=== PATIENT | male | born 1945 | race Caucasian/White ===

== ENCOUNTER 2017-04-23 15:46 | Outpatient (CLI) | payer MEDICARE, OTHER | END 2017-04-23 15:47 | disposition home or self-care (01) | LOC: BICRAD 15:46 | PROVIDERS: ATTEND Podiatrist | DX: L97.529 Non-pressure chronic ulcer of other part of left foot with unspecified severity (principal); S92.912D Unspecified fracture of left toe(s), subsequent encounter for fracture with routine healing ==

== ENCOUNTER 2017-04-29 13:29 | Inpatient (IN) | payer MEDICARE, OTHER ==
--- NOTE | 2017-04-29 14:40 | CT ---
CT BRAIN WITHOUT CONTRAST: HISTORY: Altered mental status. FINDINGS: There are changes of chronic small-vessel ischemic disease in the periventricular white matter and ol d lacunar infarcts in the basal ganglia. The ventricular size is appropriate and the basilar cistern s are patent. No evidence of acute infarct, hemorrhage, midline shift, or abnormal extraaxial fluid collections are seen. The bony calvarium is intact. There is mucosal disease in the paranasal sinuse s. IMPRESSION: No CT evidence of acute intracranial process. POS: [facility]
[2017-04-29 14:44] LABS: Hemoglobin 13.6 g/dL (14.0-18.0); Mean Corpuscular HGB CONC 34.8 g/dL (32.0-36.0); Mean Corpuscular Hemoglobin 30.9 pg (27.0-31.0); Mean Corpuscular Volume 89.1 fl (80.0-94.0); Mean Platelet Volume 8.2 fL (7.4-10.4); Platelet Count 140 thou/uL (130-400); RBC Distribution Width 14.1 % (11.5-14.5); Red Blood Cell (RBC) Count 4.38 mill/uL (4.70-6.10); White Blood Cell (WBC) Count 5.2 thou/uL (4.8-10.8)
[2017-04-29 15:10] LABS: CKMB 1.6 ng/mL (0-6.6)
[2017-04-29 15:11] LABS: ALT (SGPT) 342 U/L (8-55); AST (SGOT) 562 U/L (5-34); Albumin 4.1 g/dL (3.4-4.8); Alkaline Phosphatase 334 U/L (40-150); Anion Gap 22 mmol/L (10-20); BUN (Urea Nitrogen) 38 mg/dL (8.4-25.7); Band 24 % (5-11); Bilirubin, Total 4.2 mg/dL (0.2-1.2); Calc. Creatinine Clearance 0 mL/min (70-130); Carbon Dioxide 18 mmol/L (23-31); Chloride 97 mmol/L (98-107); Dohle Bodies SLIGHT; Eosinophils 2 % (0-10); Estimated GFR-MDRD 25; Globulin 3.3 g/dL (2.4-3.5); Glucose 76 mg/dL (80-115); Lymphocytes 4 % (21-51); MDiff Complete? YES; Magnesium 1.3 mg/dL (1.6-2.6); Metamyelocyte 5 % (0-0); Monocytes 1 % (0-10); Myelocyte 1 % (0-0); Neutrophil 63 % (42-75); Ovalocytes SLIGHT = 2-5 cells (100X) (0-1/hpf); PLT Morphology Comment Appears Adequate; Polychromasia SLIGHT = 2-3 cells (100X) (0-2/hpf); Potassium 3.7 mmol/L (3.5-5.1); Protein, Total 7.4 g/dL (5.8-8.1); Sodium 133 mmol/L (136-145); Toxic Granulation SLIGHT; Vacuoles SLIGHT
[2017-04-29 15:17] LABS: Troponin I 0.894 ng/mL (< 0.028)
[2017-04-29] MEDS ORDERED: Adenosine 6 MG/2 ML VIAL ONE (15:33)
[2017-04-29 15:35] LABS: Acetaminophen Less than 6.0 mcg/mL (10.0-30.0); Alcohol Less than 10 mg/dL (Less than 10); Salicylate Less than 8.0 mg/dL (15.0-30.0)
--- NOTE | 2017-04-29 15:45 | RAD ---
CHEST ONE VIEW: History: Catatonic state. Emergency exam. Chest pain, shortness of breath. Comparison: None. FINDINGS: Left basilar airspace opacities present. Right lung is relatively clear. No pneumothorax. Multiple mediastinal wires. IMPRESSION: Left basilar airspace opacities concerning for infection. Follow up recommended. POS: [facility]
[2017-04-29] MEDS ORDERED: Aspirin 325 MG TAB ONE (15:47)
[2017-04-29] MEDS ORDERED: Enoxaparin Sodium 100 MG/ML SYRINGE ONE (15:47)
[2017-04-29 16:40] LABS: Bilirubin Large (Negative); Blood, Urine Trace (Negative); Clarity TURBID (Clear); Glucose, Urine (Dipstick) Negative (Negative); Leukocyte Trace (Negative); Specific Gravity, Urine 1.014 (1.002-1.036)
[2017-04-29 16:41] LABS: Bacteria/HPF None Seen HPF (None Seen)
[2017-04-29 16:42] LABS: Pathc Cast-AUWi Flag 3.52 (0-2.49)
[2017-04-29 16:50] LABS: Nitrite Negative (Negative); Protein, Urine (Dipstick) 100 mg/dL (Neg-Trace)
[2017-04-29 16:56] LABS: RBC/HPF 0-3 HPF (0-3); Squamous Epithelial 0-3 HPF (0-3); Transitional Epithelial 0-3 HPF (0-3); WBC/HPF 0-3 HPF (0-3)
[2017-04-29 16:57] LABS: Hyaline Casts/LPF 0-3 HYALINE CAST LPF (0-3 Hyaline); Other Casts/LPF None Seen LPF (0-3 Hyaline)
[2017-04-29] MEDS ORDERED: Piperacillin/Tazobactam 3.375 GM in Sodium Chloride 0.9% 100 ML IVPB SCH (17:00)
[2017-04-29 17:06] LABS: Amphetamine Not Detected (NotDetected); Barbiturates Screen Not Detected (NotDetected); Benzodiazepine Screen Not Detected (NotDetected); Cocaine Metabolite Screen Not Detected (NotDetected); Medtox Control Line Valid? VALID (VALID); Medtox Reader # READER 4; Methadone Not Detected (NotDetected); Methamphetamine Not Detected (NotDetected); Opiate Screen Not Detected (NotDetected); Oxycodone Screen Not Detected (NotDetected); Phencyclidine (PCP) Not Detected (NotDetected); THC/Cannabinoid Screen Not Detected (NotDetected); Tricyclic Screen Not Detected (NotDetected)
[2017-04-29] MEDS ORDERED: Lorazepam 2 MG/ML VIAL ONE (17:08)
[2017-04-29] MEDS ORDERED: Lidocaine 1% PF 5 ML VIAL ONE (18:03)
[2017-04-29 19:06] LABS: CSF Source CSF; Clarity Clear (Clear); Tube # 3
[2017-04-29 19:11] LABS: RBC Count - Manual 107 /cumm (None Seen); WBC/NonHematics Count - Manual 3 /cumm (0-5)
[2017-04-29 19:14] LABS: Unspun CSF Color PINK (Colorless)
[2017-04-29 19:15] LABS: Color Of CSF Supernatant COLORLESS (Colorless); Tube # 1
[2017-04-29 19:20] LABS: CSF, Glucose 35 mg/dl (40-70); CSF, Protein 49 mg/dL (15-40)
[2017-04-29 19:23] LABS: CSF Source CSF; Clarity Hazy (Clear); Tube # 1; WBC/NonHematics Count - Manual 3 /cumm (0-5)
[2017-04-29 19:24] LABS: RBC Count - Manual 10525 /cumm (None Seen)
[2017-04-29 19:34] LABS: CKMB 2.7 ng/mL (0-6.6)
[2017-04-29] MEDS ORDERED: Dextrose 50% Abboject 50 ML SYRINGE IVP PRN (19:52)
[2017-04-29] MEDS ORDERED: Dextrose 5% in Water 1,000 ML IV PRN (19:52)
[2017-04-29 19:53] LABS: Troponin I 0.998 ng/mL (< 0.028)
[2017-04-29] MEDS ORDERED: Lorazepam 2 MG/ML VIAL SLOW IVP PRN (19:53)
[2017-04-29] MEDS ORDERED: Acetaminophen 325 MG TAB PO PRN (19:56)
[2017-04-29] MEDS ORDERED: Ondansetron HCl/PF 4 MG/2 ML Vial SLOW IVP PRN (19:56)
[2017-04-29] MEDS ORDERED: cefTRIAXone\\ROCEPHIN 2 GM in Sodium Chloride 0.9% 100 ML IVPB SCH (21:00)
[2017-04-29] MEDS ORDERED: Diazepam 5 MG TAB PO SCH (21:00)
[2017-04-29] MEDS: guaiFENesin ER 600 MG TAB PO SCH (21:21)
[2017-04-29] MEDS: Sodium Chloride 0.9% 1,000 ML IV SCH (21:21)
[2017-04-29] MEDS: Azithromycin 500 MG in Sodium Chloride 0.9% 250 ML 250 ML IVPB SCH (22:54)
[2017-04-30] MEDS ORDERED: Sodium Chloride 0.9% 500 ML IVPB SCH (01:00)
--- NOTE | 2017-04-30 01:35 | HP ---
DATE OF ADMISSION: 04/29/2017 CHIEF COMPLAINT: Left lower lobe pneumonia with dehydration and alcohol withdrawal. HISTORY OF PRESENT ILLNESS: The patient is a 72-year-old white male who on the day prior to admissio n, vomited the entire day, feeling very weak and dry. He, however, was able to continue heavily drin slade alcohol and had his last alcoholic consumption on the evening prior to today. He was found amanda ier today by home health to be what looked like a catatonic state. She thought it might be a seizure , but the patient clearly states he was fully alert throughout the whole episode, recalls everything that occurred and there was no incontinence biting of the tongue, postictal state noted. He was, how ever, sent to the emergency room for further evaluation where he has been fluid rehydrated. He remai ns tachycardic at this time. He was 99.5 on arrival, but since being in the emergency room, his temp erature is elevated to 202. He has a hard time completing sentences. He is able to move all of his upper and lower extremities and at times pronounces worse very articulately, so I do not think he has had a stroke and CT done in the ER is negative. His blood alcohol level is not measurable indicatin g that he is probably incomplete alcohol withdrawal and/DTs and it was noted on chest x-ray that he h ad a left lower lobe infiltrate. PAST MEDICAL HISTORY: Significant for alcoholism, coronary artery disease, previous myocardial infar ction, diabetes non-insulin dependent, hyperlipidemia, hypertension, skin cancer, and generalized sei zures in the past, but it is interesting to note he is not on any seizure medication. When he came t o my office, I took over I saw him for care for the first time on 01/29/2017. He states that he has had coronary artery bypass graft surgery back in 1992. Last catheterization was in 01/30/2017. He h as severe peripheral vascular disease, previous surgeries include the aforementioned bypass graft patricia gayatri and multiple amputations to the toes on his feet. He has also had some skin cancer removed. Hi s bypass graft surgery was 3 vessels. SOCIAL HISTORY: Admits to being a very heavy drinker, former tobacco smoker. Denies illicit drug us e. ALLERGIES: He has no known drug allergies. MEDICATIONS ON ADMISSION: Amlodipine 5 mg daily, atorvastatin 40 mg at bedtime, glipizide 5 mg oral once a day, hydrochlorothiazide 25 mg daily, lisinopril 5 mg daily, metformin 500 mg b.i.d., omeprazo le 20 mg daily, Pletal 100 mg once a day, and hydralazine 25 mg p.r.n. elevated blood pressure. REVIEW OF SYSTEMS: On admission constitutionally at the time, he denied chills and fever; however, h zoë has that now. HEENT: Denies blurred vision, pain or discharge. ENT: Denies sore in his nose, mouth, ears no congestion. Cardiovascular: Denies chest pain or palp itations. Respiratory: Felder, he denies cough or shortness of breath. GI: He admits to nausea, vom iting, but denies diarrhea. Genitourinary: Denies any painful urination or frequency or blood in th e urine or stool. Musculoskeletal: Denies any recent injuries, pain, or swelling in his joints or l imbs. Skin: He is undergoing treatment for skin cancer on his forehead and so it is raw at this sivan e. Neurologic: He has had a history of 1 previous seizure in 11/2016. This was worked up in [facility] and he was not placed on any antiepileptic medication. He is able to speak words clearly, but simona ot complete a sentence at this time. PHYSICAL EXAMINATION: VITAL SIGNS: Blood pressure 115/48, pulse 120, respirations 18, temperature 99.5. Pain scale 0, O2 sat 96% on room air. GENERAL: This is an obese elderly male, alert, cooperative. HEENT: Normocephalic, atraumatic except for the raw area on his right cranium from where he has had skin cancer treatment within the commode [facility]. Pupils equal, round, and reactive to light. Extraoc ular muscles are intact. TMs and nares are clear. Pharynx is very dry. NECK: Supple, trachea midline. CHEST: Clear to auscultation except for diminished breath sounds in left lower lobe. HEART: Regular rate and rhythm, tachycardic. ABDOMEN: Without splenomegaly. Liver, however, is 2 fingerbreadths beneath the costal margin. Ther e is no mass or tenderness. : Deferred. EXTREMITIES: Without clubbing, cyanosis, or edema. He is missing toes on both feet due to periphera l vascular disease and there is undetectable pulses on the dorsum and pedis of both feet, and the ski n with skin changes in lower extremities and the acute lesion on the right top of his head otherwise clear. NEUROLOGIC: Cranial nerves appear grossly intact. Sensory exam is grossly intact. Deep tendon refl exes at 2+. LABORATORY AND X-RAY FINDINGS: Lab work thus far shows WBC 5.2, hemoglobin 13.6, hematocrit 39 with platelets at 140. Toxicology shows undetectable drugs or alcohol. Urinalysis shows trace ketones an d large bilirubin. Chemistry shows elevated liver test and indeterminate troponin. Sodium 133, pota ssium 3.7, chloride 97, BUN 38 and creatinine 2.58. The chest x-ray shows left lower lobe pneumonia. CT scan, no acute findings of the head. ASSESSMENT: 1. Dehydration, severe. 2. Left lower lobe pneumonia. 3. Alcohol withdrawal syndrome. 4. Elevated troponin with possible cardiac ischemia/non Q-wave myocardial infarction. 5. Non-insulin dependent diabetes. 6. Renal insufficiency, probably due to the dehydration and finally status post viral gastroenteriti s. PLAN: IMCU. IV hydration. Prevent DTs. Do serial cardiac enzymes with possible cardiac consultati on. Continue antibiotics with mucolytics and neb treatments and serially re-evaluate the patient and follow until return to normal of his cardiac enzymes. We will follow his creatinine and BUN closely to see if they improve with hydration.
[2017-04-30] MEDS: Dextrose 5% in Water 1,000 ML IV SCH ×3 (02:00→17:21)
[2017-04-30] MEDS: Sodium Chloride 0.9% 1,000 ML IV SCH (02:06)
--- NOTE | 2017-04-30 03:33 | CON ---
DATE OF CONSULTATION: 04/29/2017 HISTORY OF PRESENT ILLNESS: Joshua Clay is a 72-year-old white male with previous cardiac history of CABG x3 in 2013 at [facility] in [place] according to his history. Some of the aspects of his history were somewhat suspect. He denies ever being told that he had a weak heart. 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 He tells me that he drinks 2 glasses of wine per day; however, the nurse states the family says he drinks about two bottles of wine per day. He was found today by home health nurse, to be somewhat unresponsive. Ambulance was then called and he was brought to the hospital. He denied any chest pain, shortness of breath, cough, or fever at home. PAST MEDICAL HISTORY: Remarkable for hyperlipidemia, diabetes, hypertension, skin cancer, coronary artery disease, and apparently history of seizures. OPERATIONS: CABG x3, amputation of first and second left toes and his first right toe. MEDICATIONS: Amlodipine 10 mg q.a.m., atorvastatin 40 daily, glipizide 20 mg daily, hydrochlorothiazide 25 mg daily, lisinopril 40 mg daily, metformin 500 mg b.i.d., omeprazole 20 mg daily, Pletal 100 mg daily, hydralazine 25 mg p.r.n. ALLERGIES: None. SOCIAL HISTORY: He smoked a pipe, but stopped 10 years ago. He tells me that he drinks 2 glasses of wine per day. Apparently, the family told the nurse that he drinks 2 bottles of wine per day. REVIEW OF SYSTEMS: A 12-point review of systems is otherwise unremarkable. PHYSICAL EXAMINATION: VITAL SIGNS: When he arrived in the emergency room, his blood pressure was 99/ 47 with a pulse of 108 and then fell to 85/44. It is now up to 128/78, pulse of 120. HEENT: PERRL. Very dry mucous membranes. CHEST: Clear. CARDIAC: S1 and S2 are normal without any S3 or S4. There is a 1/6 systolic murmur along the left sternal border. ABDOMEN: Normal bowel sounds without tenderness or organomegaly. EXTREMITIES: Revealed no clubbing, cyanosis, or edema. Toe amputations are present. SKIN: Warm and dry. LABORATORY AND X-RAY FINDINGS: EKG revealed sinus tachycardia with a rate of 121 per minute with right bundle-branch block, evidence for an inferior and anterior infarction. Echo was technically difficult. There was sinus tachycardia, EF of 25-30%, inferior akinesis, diastolic dysfunction, LA enlargement, aortic valvular sclerosis, and mild MR and TR. Chest x-ray revealed possible left basilar infiltrate. Brain CT revealed no acute abnormalities. He did have small-vessel ischemic disease, periventricular white matter, and old lacunar infarcts in the basal ganglia. Hemoglobin 13.6, hematocrit 39.0, white count 5200, platelets 140,000. Sodium 133, potassium 3.7 , chloride 97, carbon dioxide 18, BUN 38, creatinine 2.58, glucose 76, AST 562, ALT 342, alkaline phosphatase 334. CK-MB is normal. Troponin I is 0.998. BNP is 985.8. Urinalysis is fairly unremarkable. Urine drug screen is unremarkable. Plasma alcohol was less than 10. IMPRESSION: 1. Probable seizure, which may be alcohol withdrawal related. 2. ETOH abuse. 3. Status post coronary artery bypass graft. 4. Probable demand ischemia without chest pain and with normal MB. 5. Sinus tachycardia. 6. Severe left ventricular systolic dysfunction. 7. Renal insufficiency, it is uncertain if this is chronic or acute. 8. Elevated liver function test, including alkaline phosphatase. PLAN: The patient currently is being hydrated. We would discontinue the lisinopril with his current renal function as well as the high-dose amlodipine. With his left ventricular dysfunction, I would start carvedilol. I also would hold the atorvastatin with his elevated liver function test. He certainly may be septic and broad-spectrum antibiotics have been started. He has been placed on thiamine. I will follow the patient with you. GLYNN
[2017-04-30] MEDS ORDERED: Sodium Chloride 0.9% 1,000 ML IV SCH (04:00)
[2017-04-30] MEDS ORDERED: Norepinephrine 8 MG/0.9% NS 250 ML ONE (04:31)
[2017-04-30] MEDS ORDERED: DISCONTINUE PREVIOUS NARCOTIC PAIN MEDICATIONS AND BENZODIAZEPINES FS SCH (04:53)
[2017-04-30] MEDS ORDERED: Morphine 2 MG/ML SYRINGE SLOW IVP PRN (04:53)
[2017-04-30] MEDS ORDERED: Lorazepam 2 MG/ML VIAL SLOW IVP PRN (04:53)
[2017-04-30 05:15] LABS: Actual Bicarbonate (HCO3a) 12.2 mEq/L (22-26); Base Excess (BEa) 16.7 mEq/L (0 (+/-) 2.5); CO2 Tension 40.9 mmHg (35.0-45.0); O2 Tension (PaO2) 56.2 mmHg (80.0-100.0); pH, Arterial 7.09 (7.35-7.45)
[2017-04-30 05:16] LABS: Hematocrit-ABG 29.1 % (42.0-52.0); Hemoglobin (Hb) 9.3 g/dL (14.0-18.0)
[2017-04-30 05:17] LABS: Puncture Site RRA
[2017-04-30 05:19] LABS: ALV-art Gradient 596.675 (0-20)
[2017-04-30 05:41] LABS: Band 30 % (5-11); Hemoglobin 10.2 g/dL (14.0-18.0); Lymphocytes 7 % (21-51); MDiff Complete? YES; Mean Corpuscular HGB CONC 33.2 g/dL (32.0-36.0); Mean Corpuscular Hemoglobin 30.4 pg (27.0-31.0); Mean Corpuscular Volume 91.4 fl (80.0-94.0); Mean Platelet Volume 9.8 fL (7.4-10.4); Monocytes 9 % (0-10); Neutrophil 54 % (42-75); PLT Morphology Comment Appears Decreased; Platelet Count 67 thou/uL (130-400); RBC Distribution Width 14.3 % (11.5-14.5); Red Blood Cell (RBC) Count 3.35 mill/uL (4.70-6.10); White Blood Cell (WBC) Count 15.6 thou/uL (4.8-10.8)
[2017-04-30 06:07] LABS: ALT (SGPT) 368 U/L (8-55); AST (SGOT) 679 U/L (5-34); Alkaline Phosphatase 181 U/L (40-150); Anion Gap 19 mmol/L (10-20); BUN (Urea Nitrogen) 46 mg/dL (8.4-25.7); Calc. Creatinine Clearance 27 mL/min (70-130); Calcium 7.6 mg/dL (7.8-10.44); Carbon Dioxide 13 mmol/L (23-31); Chloride 105 mmol/L (98-107); Estimated GFR-MDRD 20; Globulin 2.6 g/dL (2.4-3.5); Glucose 56 mg/dL (80-115); Potassium 3.2 mmol/L (3.5-5.1); Protein, Total 5.6 g/dL (5.8-8.1); Sodium 134 mmol/L (136-145)
--- NOTE | 2017-04-30 06:10 | PDOC.EVN ---
Event Note - Event Note Event Note: Attending Critical Care Time Note Called to code blue at about 3:45a. Arrived to find pateitn in cardiopulmonary failure. See Code Blue documentation and resident Physician's note for details. Patient intubated successfully by Dr Astorga, but an air leak noted with 7.5 ET tube. With O2 sats in the 80s, I decided to replace the ET tube with a larger size. Patient extubated, adn I successfully placed 8.0 ET tube. Placement confirmed by exam, coloric change, and CXR. EKG obtained and reviewed. No acute STEMI. Only lateral lead t-wave inversion. Right IJ CVC placed with ultrasound guidance. See separate note. Placement confirmed by blood return and CXR. Dr Mccracken consulted. We discussed the case together at the bedside following his arrival. Dr Mccracken performed Bronchoscopy. Blood and mucus removed. I updated the patient's via telephone twice over the past 2 hours. She appreciates our care. Patient is in criticla condition form pneumonia with septic shock, complicated by co-morbidities. Poor prognosis for recovery. I appreciate the nurses' excellent care and Dr Mccracken''s expertise and care. Total critical care time 2 hours.
[2017-04-30 06:36] LABS: Hemoglobin 10.8 g/dL (14.0-18.0); Mean Corpuscular Hemoglobin 30.7 pg (27.0-31.0); Mean Corpuscular Volume 93.1 fl (80.0-94.0); Mean Platelet Volume 9.7 fL (7.4-10.4); Platelet Count 109 thou/uL (130-400); RBC Distribution Width 14.4 % (11.5-14.5); Red Blood Cell (RBC) Count 3.51 mill/uL (4.70-6.10); White Blood Cell (WBC) Count 20.3 thou/uL (4.8-10.8)
--- NOTE | 2017-04-30 06:36 | PDOC.EVN ---
Event Note - Event Note Event Note: Code Note Code davin called overhead at approximately 0348. [facility] to bedside including myself, Dr. Pereira, and attending physician, Dr. Rodriguez. Patient noted to have blood pressures in the 40's/20's when we arrived, and we were told that he had a pulses present. The patient had NS hung running wide open on a peripheral IV. Stated history was that the patient was sent to the ER earlier today for altered mental status, alcohol withdrawal with possible seizure, and dehydration. On admission, he was found to have a left lower lobe pneumonia, demand ischemia, and severe renal insufficiency and was admitted to the [facility] by his primary care physician, Dr. Oscar Goncalves. The patient apparently deteriorated throughout the night with accuchecks in the 20's at one point, and blood pressures that slowly dropped and did not respond to fluids. According to nursing records, he was completely unresponsive to sternal rub at 0345, and code davin was called shortly thereafter. According to verbal report, the patient received a brief period of chest compressions and one round of epinephrine before it was realized that pulses were in fact present and CPR was suspended. We arrived in the room shortly after and prepared for intubation. The patient was being bagged by RT with BMV and oxygen saturations were in the 70's at that point. The glidescope was brought to the bedside, and we visualized Dr. Pereira pass a 7-0 ET tube through the vocal cords with adequate confirmation of placement afterwards. While blood pressures immediately normalized, the patient's oxygen saturations did not improve as quickly as expected and remained in the mid 80's. A portable CXR was reviewed that revealed the ETT to be placed almost at the william, so it was backed out 2cm by RT. White out of the right lung without effusion was also noted on the XR. CMP, CBC, and cardiac enzymes were ordered. At this time, the patient was moved from the IMCU to ICU bed A2. Patient's PIPE STEM REPAIRER, Swapna Boggs, arrived in the room at this point and apparently spoke with the pulmonology Once placed on the ventilator, the patient was noted to have an air leak and decision was made by Dr. Rodriguez to replace 7-0 ETT with 8-0 ETT using direct laryngoscopy with a Mac 3. Successful placement on second attempt by Dr. Rodriguez was confirmed with auscultation and good color changed. 2nd portable XR obtained and tube in good position. Air leak resolved and patient's oxygen saturation's transiently in the 90's on 100% FiO2. At this the point code was ended. Afterwards, we remained in the room to monitor the patient and added renally dosed Zosyn for aspiration coverage. The patient's oxygen saturations decreased again into the high to mid 80's. Ventilator settings were adjusted with minimal improvement. Patients blood pressures began to decline again and preparations were started for a right IJ CVC. Successful cannulation of the right IJ was obtained around 0530 in a sterile fashion by Dr. Pereira under ultrasound guidance. Levophed drip started at that point with improvement of both patient' s blood pressures and oxygen saturations. No sedation was given at any point. At this point pulmonology arrived to see the patient, and we deferred care back to the primary team. Please see separate dictations for further procedure details.
[2017-04-30 06:41] LABS: Prothrombin Time 23.1 SEC (12.0-14.7)
--- NOTE | 2017-04-30 06:52 | OP ---
DATE OF PROCEDURE: 04/30/2017 SURGEON: Dr. Mitchell Mccracken PROCEDURE: Bronchoscopy. PREOPERATIVE DIAGNOSIS: Right lung atelectasis. POSTOPERATIVE DIAGNOSIS: Right lung mucus plugging with atelectasis. ANESTHESIA: None. DESCRIPTION OF PROCEDURE: This was done on an emergent basis in the CCU. The patient was hypoxic and had white-out of his right lung on chest x-ray. Bronchoscope was placed in the patient's endotracheal tube while he was on mechanical ventilation. Notable findings included bloody mucus plug present in the right main stem bronchus extending into the right lower lobe. This was lavaged with saline and removed. There were some scant bloody secretions present in the left main stem bronchus and the left airway was also lavaged with saline and removed. The procedure was tolerated well. MTDD
--- NOTE | 2017-04-30 06:53 | CON ---
DATE OF CONSULTATION: 04/30/2017 This is a 45 minutes critical care time, non-inclusive of the time performed bronchoscopy and inserti ng arterial line. HISTORY OF PRESENT ILLNESS: This is a patient of Dr. Jose Goncalves, who was admitted last night with pneumonia and alcohol withdrawal. The patient came in with a history of heavy alcohol consumption a nd had been found at home in a catatonic state. The family was not sure this was consistent with pre vious seizures. The patient was initially admitted to the [facility], but had a cardiac arrest last night, presenting with pulseless electrical activity. Told he received chest compressions briefly, but was hypotensive with pressures in the 50s for at least 15 minutes. He was intubated. During the code, he had to be reintubated because of a cuff leak around his tube. He is now in the CCU hypotensive an d hypoxic. Family has not made it to the hospital yet. PAST MEDICAL HISTORY: 1. Alcoholism and alcohol abuse. 2. Coronary artery disease. 3. Myocardial infarction. 4. Type 2 diabetes mellitus. 5. Hyperlipidemia. 6. Hypertension. 7. Skin cancer. 8. Seizure disorder. 9. Peripheral vascular disease. PAST SURGICAL HISTORY: 1. Coronary artery bypass grafting surgery. 2. Multiple amputations of toes. 3. Skin cancer removal. SOCIAL HISTORY: Apparently heavy drinker, heavy smoker, does not use illicit drugs. ALLERGIES: None. MEDICATIONS: Prior to admission, amlodipine, atorvastatin, glipizide, hydrochlorothiazide, lisinopri l, metformin, omeprazole, Pletal, and hydralazine. REVIEW OF SYSTEMS: Cannot be obtained, as the patient is intubated on mechanical ventilation. PHYSICAL EXAMINATION: VITAL SIGNS: Blood pressure is 98/45, O2 sat 85%, pulse 103, temperature 99.6. GENERAL: The patient is an elderly male, who appears older than his stated age. NEUROLOGICAL: His pupils are sluggishly reactive. He does move his neck. He has some arm movement, but is otherwise unresponsive. HEENT EXAM: He has icteric sclerae. Oropharynx is dry with blood. NECK: No JVD. LUNGS: Coarse rhonchi bilaterally, especially on the right. CARDIOVASCULAR: S1, S2, tachycardic without audible murmur. ABDOMEN: Soft, slightly distended. EXTREMITIES: He has multiple toe amputations, plethora of the skin. LABORATORY DATA: BNP taken from yesterday afternoon shows sodium 133, potassium 3.7, chloride 97, CO 2 of 18, BUN 38, creatinine 2.5, glucose 76, total bilirubin of 4.2, AST 562, ALT 342, alkaline phosp hatase 334. BNP 985. Troponin 0.9. White blood cell count 5.2, hematocrit 39, platelet count 140. ABG from 5:00 this morning pH 7.09, pCO2 of 40, PO2 56 on SIMV rate 16, tidal volume 500, PEEP 7, pr essure support 10, FiO2 100%. A lumbar puncture showed 3 white blood cells, numerous red blood cells with a glucose 35, total protein of 49. Chest x-ray shows opacification of the right hemithorax, el evated right hemidiaphragm compared to the left. ET tube is in proper position. Central line is in good position. ASSESSMENT: 1. Alcoholic hepatitis. 2. Metabolic acidosis. 3. Likely septic shock. 4. Acute respiratory failure. 5. Status post cardiac arrest, which was likely secondary to acidosis. 6. Possible underlying C and S infection given white blood cell count and low glucose. 7. Renal insufficiency. 8. Elevated troponin. PLAN: 1. Supportive care with mechanical ventilation. 2. Extend antibiotic coverage to include vancomycin and ampicillin. 3. Adjust ventilator settings. 4. Insert A line. 5. Bronchoscopy has been performed to rule out mucus plugging - of note, the patient had bloody stoo l, blood in his right main stem bronchus extending down his right lung, which had clotted and was asp irated. 5. Update the family when they are available.
[2017-04-30 07:00] LABS: Band 30 % (5-11); Burr Cells MODERATE= 6-15 cells (100X) (0-1/hpf); Eosinophils 2 % (0-10); Lymphocytes 3 % (21-51); MDiff Complete? YES; Metamyelocyte 9 % (0-0); Monocytes 6 % (0-10); Neutrophil 50 % (42-75); PLT Morphology Comment Appears Decreased; Toxic Granulation SLIGHT; Vacuoles SLIGHT
--- NOTE | 2017-04-30 07:23 | OP ---
DATE OF PROCEDURE: 04/30/2017 PROCEDURE: Arterial line placement. PREOPERATIVE DIAGNOSES: Hypotension, septic shock. POSTOPERATIVE DIAGNOSES: Hypotension, septic shock. ANESTHESIA: None. DESCRIPTION OF PROCEDURE: The right femoral area was cleansed with chlorhexidine and draped sterilel y. Using the modified Seldinger technique, a right femoral arterial line was placed on the first att empt without difficulty. A line was sewed in place. Arterial waveform was obtained when the line wa s hooked up to the monitor. The procedure was tolerated well.
[2017-04-30] MEDS: Piperacillin/Tazobactam 2.25 GM in Sodium Chloride 0.9% 100 ML IVPB SCH ×3 (07:27→17:21)
[2017-04-30 07:50] LABS: pH, Arterial 7.18 (7.35-7.45)
[2017-04-30 07:51] LABS: Actual Bicarbonate (HCO3a) 11.8 mEq/L (22-26); Base Excess (BEa) -15.3 mEq/L (0 (+/-) 2.5); CO2 Tension 32.2 mmHg (35.0-45.0); O2 Tension (PaO2) 52.1 mmHg (80.0-100.0)
[2017-04-30 07:52] LABS: Hematocrit-ABG 31.4 % (42.0-52.0); Hemoglobin (Hb) 10.2 g/dL (14.0-18.0)
[2017-04-30 07:53] LABS: Puncture Site ART LINE
[2017-04-30] MEDS: Vasopressin 40 UNIT, Admixture Fee 1 EACH in Sodium Chloride 0.9% 100 ML IV PRN ×2 (07:53→19:39)
[2017-04-30] MEDS: Vancomycin HCl 1 GM in Premix Bag 1 BAG IVPB SCH (07:55)
[2017-04-30] MEDS: Norepinephrine 8 MG/250 ML BAG IVPB PRN ×2 (07:56→22:12)
[2017-04-30] MEDS ORDERED: Carvedilol 3.125 MG TAB PO SCH (08:00)
--- NOTE | 2017-04-30 08:04 | RAD ---
CHEST ONE VIEW: History: Central line placement. Comparison: Earlier exam, same date. FINDINGS: Cardiac silhouette is magnified by projection. Pulmonary vasculature remains engorged. Dense opacific ation of the right upper lobe and patchy infiltrates throughout the remaining lobes are similar in ap pearance to the prior study. Mediastinum is midline. Nasogastric tube and endotracheal catheter appea r unchanged in position. Tip of a right internal jugular central venous catheter now projects over th e superior vena cava. IMPRESSION: 1. Right internal jugular central venous catheter is in good radiographic position. 2. Dense opacity of the right lung and other findings are otherwise stable. POS: [facility]
--- NOTE | 2017-04-30 08:08 | RAD ---
CHEST ONE VIEW: History: Chest pain. Cardiac arrest. Comparison: Earlier exam on the same date. FINDINGS: Cardiac silhouette is magnified and predominately obscured by the defibrillator patch and dense infil trate throughout the right lung. Consolidation of the right upper lobe and patchy infiltrate througho ut the remaining lobes are similar in appearance to the prior exam. Endotracheal catheter and nasogas tric tube appear unchanged in position. There is calcification in the aorta. No evidence of pneumotho rax. IMPRESSION: 1. Dense infiltrate throughout the right lung and other findings are stable. POS: [facility]
--- NOTE | 2017-04-30 08:18 | RAD ---
CHEST ONE VIEW: History: Intubated. Chest pain. Comparison: 04-29-17 FINDINGS: Cardiac silhouette is magnified and the upper limits of normal in size. Pulmonary vasculature is now engorged. There is dense consolidation of the right upper lobe and patchy infiltrate throughout the r emaining lobes. Mediastinum is midline. Post-operative changes and aortic calcification are again dem onstrated. Nasogastric tube descends to the stomach. Tip of an endotracheal catheter is at the T1 level. gum machine operator leads overlie the chest. IMPRESSION: 1. Patchy bilateral infiltrates with dense right upper lobe consolidation. This has occurred since e previous exam. 2. Endotracheal catheter is somewhat high, but shown to be advanced to appropriate position on subseq uent images. POS: [facility]
[2017-04-30] MEDS ORDERED: Sodium Bicarbonate 70 MEQ in Dextrose 5 %-0.45 % NaCl 1,000 ML IV SCH (08:45)
[2017-04-30] MEDS ORDERED: Alogliptin 6.25 MG TAB PO SCH (09:00)
[2017-04-30] MEDS ORDERED: Folic Acid 1 MG TAB PO SCH (09:00)
[2017-04-30] MEDS ORDERED: Thiamine HCl 200 MG/2 ML VIAL IM SCH (09:00)
[2017-04-30] MEDS ORDERED: Amlodipine 5 MG TAB PO SCH (09:00)
[2017-04-30] MEDS: guaiFENesin ER 600 MG TAB PO SCH (09:18)
[2017-04-30] MEDS: Multivitamins, Adult 10 ML in Sodium Chloride 0.9% 500 ML IV SCH ×2 (09:18)
[2017-04-30] MEDS: AMPICILLIN SLOW IVP SCH ×3 (09:33→21:39)
[2017-04-30] MEDS: [UNRECOGNIZED DRUG - OTHER] IV SCH ×2 (09:33→19:38)
[2017-04-30] MEDS: POTASSIUM CHLORIDE IV SCH ×2 (09:33→19:38)
[2017-04-30] MEDS: SODIUM BICARBONATE IV SCH ×2 (09:33→19:38)
--- NOTE | 2017-04-30 09:46 | ULT ---
SONOGRAM RIGHT UPPER QUADRANT: History: Abnormal liver function tests. Sepsis. FINDINGS: Echogenic stones and material are present throughout the gallbladder lumen. Gallbladder is incomplete ly distended, explaining the thickness of 0.5 cm. Common duct is dilated to 1.2 cm with multiple echo genic stones within it. Dilated biliary ducts within the liver also contain echogenic stones. Liver i s echogenic with a coarse echo texture. No significant free fluid is apparent. Within the left liver lobe, a lobular 1.3 cm echogenicity is associated with the dilated biliary ducts. IMPRESSION: 1. Cholelithiasis/Choledocholithiasis with a dilated common duct of 1.2 cm suggestive of central bili robin obstruction. 2. Intrahepatic biliary dilatation. A 1.3 cm echogenicity in the left liver lobe could be associated with the biliary stones or represent a second hepatic lesion. Please consider non-emergent CT liver, with and without contrast, for better characterization. 3. Hepatosteatosis. POS: [facility]
[2017-04-30] MEDS: fentaNYL Citrate/PF 2,000 MCG in Sodium Chloride 0.9% 60 ML IV SCH (10:19)
[2017-04-30] MEDS: Propofol 1,000 MG/100 ML VIAL IV PRN ×2 (10:45→15:25)
[2017-04-30] MEDS ORDERED: EPINEPHrine 1 MG/10 ML Abboject SYRINGE ONE (15:42)
[2017-04-30] MEDS ORDERED: DOPamine/D5W 400 mg/250 ml PREMIX ONE (15:42)
[2017-04-30] MEDS ORDERED: Dextrose 50% Abboject 50 ML SYRINGE ONE (15:42)
[2017-04-30] MEDS: Insulin Regular 300 UNITS/3 ML VIAL SC PRN ×2 (18:09→23:53)
[2017-04-30] MEDS: Pantoprazole 40 MG VIAL IVP SCH (21:39)
[2017-04-30] MEDS: Azithromycin 500 MG in Sodium Chloride 0.9% 250 ML 250 ML IVPB SCH (22:01)
[2017-05-01] MEDS: Piperacillin/Tazobactam 2.25 GM in Sodium Chloride 0.9% 100 ML IVPB SCH ×5 (00:31→23:47)
[2017-05-01] MEDS ORDERED: EPINEPHrine 1 MG, Admixture Fee 1 EACH in Dextrose 5% in Water 250 ML IVPB PRN ×3 (02:07)
[2017-05-01] MEDS ORDERED: Hydrocortisone Sod Succ/PF 100 mg/2 ml Vial IVP SCH (02:15)
[2017-05-01] MEDS: AMPICILLIN SLOW IVP SCH ×4 (02:37→20:35)
[2017-05-01] MEDS: Dextrose 5% in Water 1,000 ML IV SCH (02:38)
[2017-05-01] MEDS: Insulin Regular 300 UNITS/3 ML VIAL SC PRN ×3 (02:39→07:18)
[2017-05-01] MEDS: Norepinephrine 8 MG/250 ML BAG IVPB PRN ×4 (03:08→21:33)
[2017-05-01 04:47] LABS: INR-International Normal Ratio 1.9; PTT 46.7 SEC (22.9-36.1); Prothrombin Time 22.7 SEC (12.0-14.7)
[2017-05-01 05:06] LABS: ALT (SGPT) 472 U/L (8-55); AST (SGOT) 987 U/L (5-34); Albumin 2.5 g/dL (3.4-4.8); Alkaline Phosphatase 94 U/L (40-150); Anion Gap 18 mmol/L (10-20); BUN (Urea Nitrogen) 59 mg/dL (8.4-25.7); Calc. Creatinine Clearance 17 mL/min (70-130); Calcium 6.7 mg/dL (7.8-10.44); Carbon Dioxide 16 mmol/L (23-31); Chloride 105 mmol/L (98-107); Estimated GFR-MDRD 12; Globulin 2.6 g/dL (2.4-3.5); Glucose 179 mg/dL (80-115); Potassium 4.2 mmol/L (3.5-5.1); Protein, Total 5.1 g/dL (5.8-8.1); Sodium 135 mmol/L (136-145)
[2017-05-01] MEDS: Vancomycin HCl 1 GM in Premix Bag 1 BAG IVPB SCH (05:13)
[2017-05-01] MEDS: Hydrocortisone Sod Succ/PF 100 mg/2 ml Vial IVP SCH ×4 (05:14→23:47)
[2017-05-01] MEDS: SODIUM BICARBONATE IV SCH ×3 (05:18→23:42)
[2017-05-01] MEDS: POTASSIUM CHLORIDE IV SCH ×3 (05:18→23:42)
[2017-05-01] MEDS: [UNRECOGNIZED DRUG - OTHER] IV SCH ×3 (05:18→23:42)
[2017-05-01] MEDS: Propofol 1,000 MG/100 ML VIAL IV PRN ×2 (05:22→17:27)
[2017-05-01 05:51] LABS: Band 14 % (5-11); Hemoglobin 9.3 g/dL (14.0-18.0); Lymphocytes 9 % (21-51); MDiff Complete? YES; Mean Corpuscular HGB CONC 33.8 g/dL (32.0-36.0); Mean Corpuscular Hemoglobin 30.8 pg (27.0-31.0); Mean Corpuscular Volume 91.1 fl (80.0-94.0); Mean Platelet Volume 10.6 fL (7.4-10.4); Monocytes 1 % (0-10); Neutrophil 76 % (42-75); PLT Morphology Comment Appears Decreased; Platelet Count 33 thou/uL (130-400); RBC Distribution Width 14.4 % (11.5-14.5); Red Blood Cell (RBC) Count 3.03 mill/uL (4.70-6.10); White Blood Cell (WBC) Count 8.4 thou/uL (4.8-10.8)
[2017-05-01 06:49] LABS: Actual Bicarbonate (HCO3a) 13.8 mEq/L (22-26); Base Excess (BEa) -10.7 mEq/L (0 (+/-) 2.5); CO2 Tension 26.3 mmHg (35.0-45.0); Hematocrit-ABG 27.9 % (42.0-52.0); Hemoglobin (Hb) 8.9 g/dL (14.0-18.0); O2 Tension (PaO2) 95.6 mmHg (80.0-100.0); pH, Arterial 7.34 (7.35-7.45)
[2017-05-01 06:50] LABS: ALV-art Gradient 228.025 (0-20); Calcium, Ionized 0.9 mmol/L (1.12-1.30); Puncture Site LINE
--- NOTE | 2017-05-01 07:16 | OP-2 ---
DATE OF PROCEDURE: 05/01/2017 PROCEDURE: Internal jugular central line. INDICATIONS: Difficulty obtaining peripheral access, potential need for vasopressors, need for fluid resuscitation. PROCEDURE REINFORCEMENT MAKER: Dr. Antonina Pereira with Dr. Jos Harris assisting. ATTENDING PHYSICIAN: Dr. Erich Rodriguez was in attendance throughout the entire procedure. CONSENT: The procedure was performed emergently and the permission was implied because of the emergent nature. PROCEDURE SUMMARY: A timeout was performed. My hands were washed immediately prior to the procedure. I wore a surgical cap, mask with protective eyewear, full gown and sterile gloves throughout the procedure. The patient was placed in Trendelenburg position. Right chest/neck region was prepped using chlorhexidine scrub and draped in sterile fashion using a 3/4 sheet draped in sterile towels. The medial and lateral heads of the sternocleidomastoid were identified as was the carotid pulse. The internal jugular vein was identified using ultrasound. Anesthesia was achieved over the vein using 1% lidocaine. Using real time out of plain guidance, introducer needle was inserted into the internal jugular vein under direct ultrasound visualization. Venous blood was withdrawn. The syringe was removed and a guidewire was advanced into the introducer needle. The guidewire was visualized in the internal jugular vein by ultrasound. A small incision was made at the skin surface with a scalpel and the introducer needle was exchanged for a dilator over the guidewire. After appropriate dilation was obtained, the dilator was exchanged over the wire for a 7 amharic central venous catheter. The wire was removed and the catheter was sutured in place. Sterile Tegaderm patch was placed over the catheter insertion site. The patient tolerated the procedure without any hemodynamic compromise. At the time of procedure completion, all ports were aspirated and flushed properly. Post-procedure chest x-ray pending at this time. ESTIMATED BLOOD LOSS: Less than 10 mL. MTDD
[2017-05-01] MEDS: fentaNYL Citrate/PF 2,000 MCG in Sodium Chloride 0.9% 60 ML IV SCH (07:19)
[2017-05-01] MEDS ORDERED: Dextrose 5% in Water 1,000 ML IV PRN (07:31)
[2017-05-01] MEDS ORDERED: Dextrose 50% Abboject 50 ML SYRINGE SLOW IVP PRN (07:31)
--- NOTE | 2017-05-01 07:54 | PRG ---
DATE OF SERVICE: 05/01/2017 This is 45 minute critical care time. The patient required increase in his vasopressor last night, PEEP had to be decreased and he had to b e started on hydrocortisone because of refractory hypotension. He is agitated on mechanical ventilat ion this morning as his sedation has been held. PHYSICAL EXAMINATION: VITAL SIGNS: On exam, his temperature is 99.4, T-max 100.8, pulse 112, blood pressure 116/49. He is currently on 20 mcg per minute of norepinephrine and 0.04 units per minute of vasopressin, 24 hour i ntake 5265, output 270, weight 185 pounds. GENERAL: He has jaundiced skin. He has icteric sclerae. He has tremulous movements. HEENT: Otherwise, unremarkable. NECK: No JVD. LUNGS: Coarse breath sounds. CARDIOVASCULAR: S1, S2, slightly tachycardic. ABDOMEN: Distended, bowel sounds hypoactive. Liver span approximately 4 cm below right costal jairo n. EXTREMITIES: He has plethora in his legs. His several amputated toes. His x-ray shows improvement in the right upper lobe infiltrate compared to yesterday. ET tube is oka y. Central line is okay. LABORATORY DATA: PH 7.34, pCO2 of 26, pO2 95 on SIMV rate 24, tidal volume 450, PEEP 10, pressure rainey pport 10, FiO2 50%. White blood cell count 8.4, hemoglobin 9.3, hematocrit 27.6, platelet count 33. Sodium 135, potassiu m 4.2, chloride 105, CO2 16, BUN 59, creatinine 4.7, glucose 179, AST 97, ALT 472, total bilirubin is 5.0. ASSESSMENT: 1. Alcoholic hepatitis. 2. Septic shock. 3. Acute renal failure. 4. Alcohol withdrawal. 5. Acute respiratory failure requiring mechanical ventilation. 6. Thrombocytopenia. 7. Metabolic acidosis secondary to lactic acidosis. 8. History of alcohol abuse. PLAN: 1. Continue antibiotics. 2. If 48 hour cultures are negative, then discontinue the ampicillin. 3. Stop the Zithromax. 4. Continued Piperacillin/tazobactam. 5. I have consulted Nephrology. The patient is anuric and is likely approaching the need for dialys is in the next several days. 6. Wean vasopressor as tolerated. 7. Continue hydrocortisone. 8. Increase the sliding scale insulin. 9. Not weanable from mechanical ventilation at this time. 10. Will discuss with family when they arrive.
--- NOTE | 2017-05-01 08:31 | PRG ---
DATE OF SERVICE: 05/01/2017. SUBJECTIVE: The patient is sedated on Diprivan. He is still on Levophed. When he wakes up, he is s till confused, probably from the DTs. He is on the vent. PHYSICAL EXAMINATION: VITAL SIGNS: Upon evaluation, his blood pressure is 112/50, pulse 110. He is afebrile. COR: Tachy rhythm. CHEST: Clear to auscultation and percussion in upper lobes and slight crackles in bilateral lobes. ABDOMEN: Soft, nontender, hypoactive bowel sounds. EXTREMITIES: Mottled. He had no edema. He had trace pulses. NEUROLOGIC: As above. LABORATORY DATA: Showed H&H of 9.3 and 27.6, his platelet count is 33. His BUN is 59, creatinine 4. 72. He had elevated liver enzymes. ASSESSMENT: 1. Status post respiratory arrest. 2. Right lower lobe pneumonia. 3. History of coronary artery disease with bypass. 4. Alcohol abuse. 5. Cardiomegaly. 6. Hypotension. PLAN: We will continue full support for now, he is a full code. We will appreciate all consultants following this critically ill patient. I will follow up with labs in the morning. This is ERICK Andrew dictating for Dr. Jose Goncalves.
--- NOTE | 2017-05-01 08:31 | RAD ---
AP VIEW CHEST: HISTORY: Intubation. FINDINGS: AP view chest is obtained on 05/01/17. Comparison is made to previous exam from 04/30/17. AP view chest demonstrates nasogastric and endotracheal tubes in place. There is a right jugular paulina tral line in place. Sternotomy wires are seen. There are areas of diffuse airspace opacities in the right lung decreased compared to the previous ex am from a day earlier. The left lung remains well aerated, except for an area of patchy opacity in t he left retrocardiac region. IMPRESSION: Continued right-sided asymmetric airspace opacity; however, this has decreased compared to the previo us day's exam. POS: [facility]
[2017-05-01] MEDS: Multivitamins, Adult 10 ML in Sodium Chloride 0.9% 500 ML IV SCH ×2 (08:47)
[2017-05-01] MEDS ORDERED: Prevnar 13-Val Conj/PF 0.5 ML SYRINGE IM ONE (09:00)
[2017-05-01] MEDS: HumaLOG 300 UNITS/3 ML VIAL SC PRN ×5 (10:05→18:31)
--- NOTE | 2017-05-01 13:30 | PQF ---
CLINICAL DOCUMENTATION IMPROVEMENT CLARIFICATION FORM: ICD-10 Updated PLEASE DO AN ADDENDUM TO THE PROGRESS NOTE WITH ANY DOCUMENTATION UPDATES OR ADDITIONS AND CARRY THROUGH TO DC SUMMARY. THANK YOU. DATE: 05/01/17 ATTN: DR. KAPLAN Please exercise your independent, professional judgment in responding to the clarification form. Clinical indicators are provided on the bottom of this form for your review Please check appropriate box(es): [ x ] Sepsis due to: (Pna, UTI, gangrenous gall bladder, etc.) ___pneumonia____ Due to: [ ] Device (please specify) [ ] Implant [ ] Graft [ ] Infusion [ ] SIRS due to non-infectious process (please specify etiology) [ ] with organ dysfunction [ ] without organ dysfunction [ x ] Severe sepsis with acute organ dysfunction of: __brain, renal (Examples: respiratory failure, encephalopathy, acute kidney failure, other) [ ] Septic Shock [ ] Localized infection without sepsis [ ] Other diagnosis [ ] Unable to determine In addition, please specify: Present on Admission (POA): [ ] Yes [ ] No [ ] Unable to determine For continuity of documentation, please document condition throughout progress notes and discharge summary. Thank You. CLINICAL INDICATORS - SIGNS / SYMPTOMS / LABS OP NOTE 04/30: "HYPOTENSION, SEPTIC SHOCK" BP 85/44 PULSE 120 TEMP 102.3 RR 26 WBC 20.3 BANDS 30 RISKS: PNEUMONIA TREATMENT: IV ZOSYN (ER-PRESENT) AMPICILLAN (04/30-PRESENT) IV VANCOMYCIN (04/30-PRESENT) IVF (ER) NOREPINEPHRINE (04/30-PRESENT) VASOPRESSIN (04/30-PRESENT) INTUBATION SAP [employer] Winform ViewerTRIHEALTHTICAL CARE MONITORING (This form is maintained as a part of the permanent medical record) 2014 [employer]. All Rights Reserved [email or web address] Office: [phone] [facility]
[2017-05-01] MEDS ORDERED: Sodium Chloride 0.9% 15 ML NEB ONE (18:46)
--- NOTE | 2017-05-01 20:18 | CON ---
DATE OF CONSULTATION: 05/01/2017 REASON FOR CONSULTATION: Elevated creatinine. HISTORY OF PRESENT ILLNESS: This is a very pleasant 72-year-old gentleman who was intubated for pneu monia and alcohol withdrawal and a baseline creatinine of 2.5 on admission which increased to 4.7, so I was consulted. The patient had coded. No further history can be obtained. The patient remains o n pressors. PAST MEDICAL HISTORY: Alcoholism, coronary artery disease, [place], type 2 diabetes mellitus, hyperlipide franklin, skin cancer, seizure disorder, coronary artery disease, CABG, amputation cancer removal. SOCIAL HISTORY: No alcohol or drug use. FAMILY HISTORY: Negative for ESRD. HOME MEDICATIONS: Reviewed. HOSPITAL MEDICATIONS: Reviewed. REVIEW OF SYSTEMS: Unobtainable. PHYSICAL EXAMINATION: GENERAL: Patient is resting. VITAL SIGNS: Afebrile, pulse 65, blood pressure was 85/60. GENERAL APPEARANCE AND MENTAL STATUS: Fair. HEAD/NECK: Normocephalic. Atraumatic. EYES: EOMI. No deformity. EARS: Clear. No ulcers. NOSE: Intact. No lesions. MOUTH: Clear. No discharge. THROAT: Clear. No exudate. LUNGS: Clear. No crackles. CARDIAC: S1, S2. No rub. ABDOMEN: Benign. BS+. GENITALIA/RECTUM: Griffin absent. BACK/EXTREMITIES: Edema 0+ Ulcer- NEUROLOGIC: Could not be performed. SKIN: Rash- Bruise- LYMPHATICS: Edema- Ulcer- ASSESSMENT AND RECOMMENDATIONS: 1. Acute kidney injury with chronic kidney disease, most likely due to decreased effective arterial blood volume in conjunction with multiple comorbidities for renal failure and metabolic acidosis, hyp onatremia. 2. Metabolic acidosis, stable. Hypernatremia, stable. No urgent indication for dialysis. There moulton s multiorgan failure. Prognosis is extremely poor. No family member was available.
[2017-05-01] MEDS: Pantoprazole 40 MG VIAL IVP SCH (20:35)
[2017-05-02] MEDS: AMPICILLIN SLOW IVP SCH ×3 (02:59→20:32)
[2017-05-02] MEDS: fentaNYL Citrate/PF 2,000 MCG in Sodium Chloride 0.9% 60 ML IV SCH (03:17)
[2017-05-02 04:59] LABS: INR-International Normal Ratio 1.6; PTT 36.8 SEC (22.9-36.1); Prothrombin Time 19.2 SEC (12.0-14.7)
[2017-05-02 05:13] LABS: ALT (SGPT) 369 U/L (8-55); AST (SGOT) 515 U/L (5-34); Albumin 2.5 g/dL (3.4-4.8); Alkaline Phosphatase 87 U/L (40-150); Anion Gap 18 mmol/L (10-20); BUN (Urea Nitrogen) 67 mg/dL (8.4-25.7); Bilirubin, Total 3.7 mg/dL (0.2-1.2); Calc. Creatinine Clearance 17 mL/min (70-130); Calcium 6.8 mg/dL (7.8-10.44); Carbon Dioxide 17 mmol/L (23-31); Chloride 106 mmol/L (98-107); Estimated GFR-MDRD 10; Globulin 2.8 g/dL (2.4-3.5); Glucose 148 mg/dL (80-115); Potassium 3.9 mmol/L (3.5-5.1); Protein, Total 5.3 g/dL (5.8-8.1); Sodium 137 mmol/L (136-145)
[2017-05-02 05:14] LABS: Hemoglobin 8.5 g/dL (14.0-18.0); Mean Corpuscular HGB CONC 34.1 g/dL (32.0-36.0); Mean Corpuscular Hemoglobin 30.6 pg (27.0-31.0); Mean Corpuscular Volume 89.6 fl (80.0-94.0); Mean Platelet Volume 10.4 fL (7.4-10.4); Platelet Count 33 thou/uL (130-400); RBC Distribution Width 14.5 % (11.5-14.5); Red Blood Cell (RBC) Count 2.79 mill/uL (4.70-6.10); White Blood Cell (WBC) Count 12.9 thou/uL (4.8-10.8)
[2017-05-02 05:15] LABS: Band 19 % (5-11); Lymphocytes 1 % (21-51); MDiff Complete? YES; Monocytes 2 % (0-10); Neutrophil 78 % (42-75); PLT Morphology Comment Appears Decreased
[2017-05-02] MEDS: Hydrocortisone Sod Succ/PF 100 mg/2 ml Vial IVP SCH (05:36)
[2017-05-02] MEDS: Vancomycin HCl 1 GM in Premix Bag 1 BAG IVPB SCH (05:36)
[2017-05-02] MEDS: Piperacillin/Tazobactam 2.25 GM in Sodium Chloride 0.9% 100 ML IVPB SCH ×4 (05:36→23:55)
[2017-05-02] MEDS: Propofol 1,000 MG/100 ML VIAL IV PRN ×3 (05:37→22:32)
[2017-05-02] MEDS: HumaLOG 300 UNITS/3 ML VIAL SC PRN ×5 (06:06→20:58)
[2017-05-02 06:21] LABS: Vancomycin, Trough 20.1 ug/mL
[2017-05-02] MEDS: Vasopressin 40 UNIT, Admixture Fee 1 EACH in Sodium Chloride 0.9% 100 ML IV PRN ×2 (06:21→22:32)
[2017-05-02 06:50] LABS: Actual Bicarbonate (HCO3a) 14.2 mEq/L (22-26); Base Excess (BEa) -9.2 mEq/L (0 (+/-) 2.5); CO2 Tension 23.3 mmHg (35.0-45.0); Calcium, Ionized 0.9 mmol/L (1.12-1.30); Hemoglobin (Hb) 9.2 g/dL (14.0-18.0); O2 Tension (PaO2) 66.7 mmHg (80.0-100.0)
[2017-05-02 06:51] LABS: ALV-art Gradient 225.025 (0-20); Puncture Site ALINE
[2017-05-02] MEDS ORDERED: POTASSIUM CHLORIDE IV SCH (07:33)
[2017-05-02] MEDS ORDERED: [UNRECOGNIZED DRUG - OTHER] IV SCH (07:33)
[2017-05-02] MEDS ORDERED: SODIUM BICARBONATE IV SCH (07:33)
--- NOTE | 2017-05-02 07:57 | PRG ---
DATE OF SERVICE: 05/02/2017 Thirty-five minutes critical care time. This patient remains intubated on mechanical ventilation. He will awaken and follow commands for me. PHYSICAL EXAMINATION: VITAL SIGNS: His temperature is 98.3 with a T-max of 100.4, pulse is 68, blood pressure ranging betw een 97/52 to 137/61. He is currently on a Levophed drip at 12 mcg per minute and a vasopressin drip at 0.4 mcg per minute. HEENT: He has icteric sclerae. Oropharynx is clear except for the endotracheal tube and orogastric tube in place. NECK: No JVD. CHEST: Clear breath sounds. CARDIAC: S1 and S2 regular. ABDOMEN: Soft, nontender. Bowel sounds positive. EXTREMITIES: Plethora in his legs. LABORATORY DATA: Sodium 137, potassium 3.9, chloride 106, CO2 17, BUN 67, creatinine 5.4, glucose 14 8, AST 515, ALT 369, total bilirubin is 3.7, which is trending downward. ABG; pH 7.40, pCO2 23, pO2 66 and that is on SIMV rate 24, tidal volume 450, PEEP 10, pressure support 10, FiO2 45%. INR 1.6. White blood cell count 12.9, hemoglobin 8.5, hematocrit 25.0, platelet count 33,000. His chest x-ray shows developing pulmonary edema bilaterally. ASSESSMENT: 1. Alcoholic hepatitis. 2. Septic shock. 3. Acute renal failure. 4. Alcohol withdrawal. 5. Acute respiratory failure requiring mechanical ventilation. 6. Thrombocytopenia. 7. Metabolic acidosis secondary to lactic acidosis. 8. History of alcohol abuse. PLAN: 1. Nephrology was consulted yesterday. I believe the patient is likely going to need dialysis given that he has been anuric the last 48 hours. 2. Continue antibiotics, also continue ampicillin for the time being given the results of the gram n egative rods in the CSF fluid. 3. Wean vasopressor as tolerated. 4. Initiate tube feeds. 5. Decrease steroid dose. 6. Adjust mechanical ventilation settings. 7. Update family when available.
--- NOTE | 2017-05-02 08:14 | RAD ---
CHEST 1 VIEW: COMPARISON: 05/01/17. HISTORY: Respiratory distress. Intubated patient. FINDINGS: Redemonstrated endotracheal tube, nasogastric tube, and a right-sided central venous catheter. Stabl e cardiac silhouette. There are veil-like opacities in the left right hemithorax suggesting bilatera l pleural effusions. Stable superimposed parenchymal changes. No pneumothorax. IMPRESSION: No significant interval change. POS: [facility]
[2017-05-02] MEDS ORDERED: Dextrose 5% in Water 1,000 ML IV PRN (08:49)
[2017-05-02] MEDS: [UNRECOGNIZED DRUG - OTHER] IV SCH ×2 (08:49→12:01)
[2017-05-02] MEDS ORDERED: Lorazepam 2 MG/ML VIAL SLOW IVP PRN (08:49)
[2017-05-02] MEDS ORDERED: Dextrose 50% Abboject 50 ML SYRINGE IVP PRN (08:49)
[2017-05-02] MEDS: POTASSIUM CHLORIDE IV SCH ×2 (08:49→12:01)
[2017-05-02] MEDS: SODIUM BICARBONATE IV SCH ×2 (08:49→12:01)
[2017-05-02] MEDS ORDERED: Ondansetron HCl/PF 4 MG/2 ML Vial SLOW IVP PRN (08:50)
[2017-05-02] MEDS ORDERED: fentaNYL Citrate/PF 2,000 MCG in Sodium Chloride 0.9% 60 ML IV SCH (09:00)
[2017-05-02] MEDS ORDERED: Hydrocortisone Sod Succ/PF 100 mg/2 ml Vial IVP SCH (09:00)
[2017-05-02] MEDS: Norepinephrine 8 MG/250 ML BAG IVPB PRN (09:45)
--- NOTE | 2017-05-02 09:53 | PRG ---
DATE OF SERVICE: 05/02/2017 SUBJECTIVE: This is a 72-year-old gentleman being seen for acute kidney injury. The patient remains anuric. PHYSICAL EXAMINATION: GENERAL: Patient is resting. VITAL SIGNS: Afebrile, pulse 100, breathing at 16, blood pressure 92/48. GENERAL APPEARANCE AND MENTAL STATUS: Fair. HEAD/NECK: Normocephalic, atraumatic. EYES: EOMI. No deformity. EARS: Clear. No ulcers. NOSE: Intact. No lesions. MOUTH: Clear. No discharge. THROAT: Clear. No exudate. LUNGS: Clear. No crackles. CARDIAC: S1, S2. No rub. ABDOMEN: Benign. BS+. GENITALIA/RECTUM: Griffin absent. BACK/EXTREMITIES: Edema 0+ Ulcer-. NEUROLOGICAL: Alert and motor intact. SKIN: Rash- Bruise- LYMPHATICS: Edema- Ulcer-. LABORATORY DATA: Show hemoglobin 8.5, bicarbonate 17, creatinine 5.4. ASSESSMENT AND RECOMMENDATIONS: 1. Acute kidney injury with chronic kidney disease, patient is anuric. We will plan dialysis. 2. Hypotension. The patient remains on pressors. 3. Anemia, stable. 4. Medications based on GFR are appropriate. 5. Metabolic acidosis. Plan dialysis. I will find the family and consult with them about renal rep lacement therapy.
[2017-05-02] MEDS ORDERED: Heparin 1,000 UNITS/ML VIAL ONE (11:11)
[2017-05-02 12:10] LABS: HBSAB Concentration 0.28 mIU/mL; HBSAg Index 0.14 S/CO (0-0.99); Hep B Core Total Ab Non-Reactive (NonReactive); Hep B Core Total Index 0.07 S/CO (0-0.79); Hep B Surf AB Non-Reactive (NonReactive); Hep B Surf Ag Non-Reactive S/CO (NonReactive); Hep C IgG Ab Non-Reactive (NonReactive); Hep C Index 0.19 S/CO (0-0.79)
--- NOTE | 2017-05-02 16:29 | OP ---
DATE OF PROCEDURE: 05/02/2017 PREOPERATIVE DIAGNOSIS: Acute renal failure. POSTOPERATIVE DIAGNOSIS: Acute renal failure. PROCEDURE: Left femoral dual lumen dialysis catheter. SURGEON: Kareem Yanez M.D. ANESTHESIA: Local. ESTIMATED BLOOD LOSS: Minimal. COMPLICATIONS: None. SPECIMEN: None. TECHNIQUE: The patient's left groin had been shaved and it was then prepped and draped in a sterile fashion. Local anesthetic infiltrated over the left femoral vein. Femoral vein cannulated to a Seld bucky needle. Wire was passed under no tension. A small jett was made at the wire entrance site. T he wire was used to guide to dilate the femoral vein. The Trialysis catheter was threaded to its ful lest extent, both ports peter blood and pulled blood without difficulty. The wire had been removed. Sterile dressings are placed. The catheter was sutured to the skin of the left groin. The patient t olerated the procedure well.
[2017-05-02] MEDS ORDERED: Pancrelipase DR 12000 1 CAP FS PRN (16:40)
[2017-05-02] MEDS ORDERED: Sodium Bicarbonate Tab 325 MG TAB PER TUBE PRN (16:40)
[2017-05-02] MEDS: Pantoprazole 40 MG VIAL IVP SCH (20:52)
[2017-05-02] MEDS: Lorazepam 2 MG/ML VIAL SLOW IVP PRN (23:53)
[2017-05-03] MEDS: Norepinephrine 8 MG/250 ML BAG IVPB PRN ×2 (00:40→17:23)
[2017-05-03] MEDS: POTASSIUM CHLORIDE IV SCH ×2 (04:08→15:07)
[2017-05-03] MEDS: SODIUM BICARBONATE IV SCH ×2 (04:08→15:07)
[2017-05-03] MEDS: [UNRECOGNIZED DRUG - OTHER] IV SCH ×2 (04:08→15:07)
[2017-05-03 04:57] LABS: Anion Gap 16 mmol/L (10-20); BUN (Urea Nitrogen) 68 mg/dL (8.4-25.7); Calc. Creatinine Clearance 17 mL/min (70-130); Calcium 7.2 mg/dL (7.8-10.44); Carbon Dioxide 19 mmol/L (23-31); Chloride 106 mmol/L (98-107); Estimated GFR-MDRD 10; Glucose 144 mg/dL (80-115); Potassium 4.2 mmol/L (3.5-5.1); Sodium 137 mmol/L (136-145)
[2017-05-03 05:08] LABS: Band 19 % (5-11); Lymphocytes 9 % (21-51); MDiff Complete? YES; Mean Corpuscular HGB CONC 34.7 g/dL (32.0-36.0); Mean Corpuscular Hemoglobin 30.8 pg (27.0-31.0); Mean Corpuscular Volume 88.9 fl (80.0-94.0); Mean Platelet Volume 11.2 fL (7.4-10.4); Monocytes 2 % (0-10); Neutrophil 70 % (42-75); PLT Morphology Comment Appears Decreased; Platelet Count 39 thou/uL (130-400); RBC Distribution Width 14.7 % (11.5-14.5); Red Blood Cell (RBC) Count 2.92 mill/uL (4.70-6.10); White Blood Cell (WBC) Count 15.3 thou/uL (4.8-10.8)
[2017-05-03] MEDS: Propofol 1,000 MG/100 ML VIAL IV PRN ×3 (05:34→20:31)
[2017-05-03] MEDS: Piperacillin/Tazobactam 2.25 GM in Sodium Chloride 0.9% 100 ML IVPB SCH ×3 (05:34→17:24)
[2017-05-03] MEDS: Vancomycin HCl 750 MG in Sodium Chloride 0.9% 250 ML 250 ML IVPB SCH (05:34)
[2017-05-03] MEDS ORDERED: Vancomycin HCl 1 GM in Premix Bag 1 BAG IVPB SCH (06:00)
[2017-05-03 08:06] LABS: Actual Bicarbonate (HCO3a) 16.9 mEq/L (22-26); Base Excess (BEa) -6.9 mEq/L (0 (+/-) 2.5); CO2 Tension 28.1 mmHg (35.0-45.0); Hematocrit-ABG 27.4 % (42.0-52.0); O2 Tension (PaO2) 67.7 mmHg (80.0-100.0)
[2017-05-03] MEDS: AMPICILLIN SLOW IVP SCH ×2 (08:06→20:24)
[2017-05-03 08:07] LABS: Calcium, Ionized 0.9 mmol/L (1.12-1.30); Hemoglobin (Hb) 9.2 g/dL (14.0-18.0)
[2017-05-03 08:08] LABS: ALV-art Gradient 182.375 (0-20); Puncture Site RRA
--- NOTE | 2017-05-03 09:14 | RAD ---
CHEST 1 VIEW: HISTORY: Pneumonia. Followup. COMPARISON: 05/02/17. FINDINGS: Cardiac silhouette is magnified and upper limits of normal in size. Pulmonary vasculature is engorge d with bilateral patchy infiltrates, greater on the right than the left. This is similar in appearan ce to the previous exam. The patient is rotated rightward. Lines and tubes appear unchanged in posi tion. manufacturing process technician leads overlie the chest. IMPRESSION: Bilateral infiltrates and other findings are stable. POS: [facility]
[2017-05-03] MEDS: HumaLOG 300 UNITS/3 ML VIAL SC PRN (10:14)
--- NOTE | 2017-05-03 10:23 | PRG ---
DATE OF SERVICE: 05/03/2017 SUBJECTIVE: This is a 72-year-old gentleman being seen for acute kidney injury. The patient remains anuric. The patient tolerated dialysis well, but remains on pressors. PHYSICAL EXAMINATION: GENERAL: Patient is resting. VITAL SIGNS: Afebrile, pulse 80, breathing at 16, blood pressure 116/55. HEAD/NECK: Normocephalic. Atraumatic. EYES: EOMI. No deformity. EARS: Clear. No ulcers. NOSE: Intact. No lesions. MOUTH: Clear. No discharge. THROAT: Clear. No exudate. LUNGS: Clear. No crackles. CARDIAC: S1, S2. No rub. ABDOMEN: Benign. BS+. GENITALIA/RECTUM: Griffin absent. BACK/EXTREMITIES: Edema 0+ Ulcer- NEUROLOGICAL: The patient is resting. SKIN: Rash- Bruise- LYMPHATICS: Edema- Ulcer- LABORATORY DATA: Show hemoglobin 9, creatinine 5.45. ASSESSMENT AND PLAN: 1. Stage 5 chronic kidney disease with acute kidney injury, dialysis dependent. 2. Hypertension, sepsis, on pressors. 3. Anemia, stable. 4. Medications based on glomerular filtration rate are appropriate. We will try dialysis today. Ov shawn, prognosis is extremely poor. This was discussed with patient's spouse who wanted to continue dialysis and spouse was not available today.
[2017-05-03] MEDS ORDERED: CEFTRIAXONE ROCEPHIN IVPB SCH (13:00)
[2017-05-03] MEDS ORDERED: SODIUM CHLORIDE 0.9% IVPB SCH (13:00)
[2017-05-03] MEDS: cefTRIAXone\\ROCEPHIN 2 GM in Sodium Chloride 0.9% 100 ML IVPB SCH (13:53)
[2017-05-03] MEDS: Vasopressin 40 UNIT, Admixture Fee 1 EACH in Sodium Chloride 0.9% 100 ML IV PRN (14:57)
--- NOTE | 2017-05-03 18:30 | PRG ---
DATE OF SERVICE: 04/29/2017 Ms. Clay remains intubated. He will awaken. OBJECTIVE: VITAL SIGNS: He is afebrile, respiratory rate is 20, oximetry is in the 90s, heart rate is 97, blood pressure 138/71. LUNGS: Remarkable for coarse equal breath sounds. HEART: Regular rhythm. ABDOMEN: Soft and distended. EXTREMITIES: Without asymmetry. 16 liters positive for fluids last 3 days. White count 15.3, hemoglobin 9.0, platelets 39,000. Sodium 137, potassium 4.2, chloride 106, bicarb 19, BUN 68, creatinine 5.45, glucose 144. PH 7.40, CO2 of 28, pO2 is 67. Chest radiograph shows findings consistent with pulmonary edema. IMPRESSION: 1. Volume overload. 2. Respiratory failure. 3. Acute renal failure on top of chronic kidney disease. 4. History of heavy alcohol use with alcoholic hepatitis. 5. History of alcohol withdrawal. 6. Thrombocytopenia secondary to his alcoholism. 7. Acid base disorder that appears to be slowly improving. I contacted the by phone. I tried to discuss code status. She is very quickly interrupting me every time I asked her question and told me to do everything because he would want that. In fact, she said "do whatever as ____ you do and if dies fine, I have already got reservations at the home." I do not feel a code would be appropriate, but this is consistent with her wishes acting on his behalf I guess. She is not here at the bedside to have a discussion with her and had no plans to come up here per my discussion whether today. We will continue aggressive care. His chances of functional recovery are close to 0. She actually admitted that she "knows he is going to " but wants to keep doing everything medically possible. Critical care time 35 min. GLYNN
[2017-05-03] MEDS: Pantoprazole 40 MG VIAL IVP SCH (20:37)
[2017-05-04] MEDS: Piperacillin/Tazobactam 2.25 GM in Sodium Chloride 0.9% 100 ML IVPB SCH ×2 (00:18→05:47)
[2017-05-04] MEDS: Lorazepam 2 MG/ML VIAL SLOW IVP PRN ×2 (00:19→11:01)
[2017-05-04] MEDS: Propofol 1,000 MG/100 ML VIAL IV PRN ×4 (00:33→16:41)
[2017-05-04] MEDS: Vancomycin HCl 750 MG in Sodium Chloride 0.9% 250 ML 250 ML IVPB SCH (05:47)
[2017-05-04 06:02] LABS: Anion Gap 18 mmol/L (10-20); BUN (Urea Nitrogen) 62 mg/dL (8.4-25.7); Calc. Creatinine Clearance 20 mL/min (70-130); Calcium 7.6 mg/dL (7.8-10.44); Carbon Dioxide 19 mmol/L (23-31); Chloride 105 mmol/L (98-107); Estimated GFR-MDRD 12; Glucose 196 mg/dL (80-115); Magnesium 1.5 mg/dL (1.6-2.6); Potassium 4.1 mmol/L (3.5-5.1); Sodium 138 mmol/L (136-145)
[2017-05-04 06:19] LABS: Band 3 % (5-11); Hemoglobin 9.1 g/dL (14.0-18.0); Lymphocytes 3 % (21-51); MDiff Complete? YES; Mean Corpuscular HGB CONC 35.4 g/dL (32.0-36.0); Mean Corpuscular Hemoglobin 31.4 pg (27.0-31.0); Mean Corpuscular Volume 88.7 fl (80.0-94.0); Mean Platelet Volume 11.2 fL (7.4-10.4); Monocytes 7 % (0-10); Neutrophil 87 % (42-75); PLT Morphology Comment Appears Decreased; Platelet Count 41 thou/uL (130-400); RBC Distribution Width 14.7 % (11.5-14.5); Red Blood Cell (RBC) Count 2.91 mill/uL (4.70-6.10); White Blood Cell (WBC) Count 6.8 thou/uL (4.8-10.8)
[2017-05-04 07:11] LABS: Actual Bicarbonate (HCO3a) 17.8 mEq/L (22-26); Base Excess (BEa) -5.8 mEq/L (0 (+/-) 2.5); CO2 Tension 27.1 mmHg (35.0-45.0); Hematocrit-ABG 24.7 % (42.0-52.0); Hemoglobin (Hb) 8.7 g/dL (14.0-18.0); O2 Tension (PaO2) 71.7 mmHg (80.0-100.0); pH, Arterial 7.43 (7.35-7.45)
[2017-05-04 07:12] LABS: ALV-art Gradient 215.275 (0-20); Calcium, Ionized 0.9 mmol/L (1.12-1.30); Puncture Site RRA
[2017-05-04] MEDS: [UNRECOGNIZED DRUG - OTHER] IV SCH (08:31)
[2017-05-04] MEDS: POTASSIUM CHLORIDE IV SCH (08:31)
[2017-05-04] MEDS: SODIUM BICARBONATE IV SCH (08:31)
--- NOTE | 2017-05-04 08:31 | RAD ---
CHEST 1 VIEW: History Dyspnea. Followup. COMPARISON: 05/03/17. FINDINGS: Cardiac silhouette is magnified and enlarged. Pulmonary vasculature remains engorged with patchy are as of parenchymal infiltrate throughout each lung similar in appearance to the previous exam. The pa tient is rotated rightward. Lines and tubes appear unchanged in position. radiation monitor leads ove rlie the chest. IMPRESSION: Edema, patchy infiltrates, and other findings are stable. POS: [facility]
[2017-05-04] MEDS: AMPICILLIN SLOW IVP SCH (08:32)
--- NOTE | 2017-05-04 10:23 | PRG ---
DATE OF SERVICE: 05/04/2017 SUBJECTIVE: A 72-year-old gentleman being seen for acute kidney injury, dialysis dependent. The pat wiflredo remains anuric. The patient was unable to tolerate any UF, so dialysis was just used to clean t he blood. I tried calling the , but she did not call back. OBJECTIVE: GENERAL: Patient is resting. VITAL SIGNS: Afebrile, pulse 93, breathing at 16, blood pressure 118/55 on pressors. GENERAL APPEARANCE AND MENTAL STATUS: Fair. HEAD/NECK: Normocephalic. Atraumatic. EYES: EOMI. No deformity. EARS: Clear. No ulcers. NOSE: Intact. No lesions. MOUTH: Clear. No discharge. THROAT: Clear. No exudate. LUNGS: Clear. No crackles. CARDIAC: S1, S2. No rub. ABDOMEN: Benign. BS+. GENITALIA/RECTUM: Griffin absent. BACK/EXTREMITIES: Edema 0+ Ulcer- NEUROLOGICAL: The patient is intubated and neurological examination could not be performed. SKIN: Rash- Bruise- LYMPHATICS: Edema- Ulcer- LABORATORY: Show creatinine 4.95, potassium 4.5. RECOMMENDATIONS: 1. Stage 5 chronic kidney disease with acute kidney injury, dialysis dependent. The patient remains anuric and on pressors, unable to do any ultrafiltration, so dialysis has not been given him any krzysztof efit or quality of life or clinical condition. 2. Hypomagnesemia. Recommend magnesium replacement. 3. Metabolic acidosis, stable. 4. Multiorgan failure. Overall, prognosis is extremely poor. Again, no family member was available and we have tried callin g the patient's spouse. No plan for dialysis today. We will evaluate on a case by case day by day marian lópez tomorrow.
[2017-05-04] MEDS: cefTRIAXone\\ROCEPHIN 2 GM in Sodium Chloride 0.9% 100 ML IVPB SCH (12:42)
[2017-05-04] MEDS: Acetaminophen 325 MG TAB PO PRN (13:44)
--- NOTE | 2017-05-04 14:56 | PRG ---
DATE OF SERVICE: 05/04/2017 SUBJECTIVE: Mr. Clay is unchanged clinically. OBJECTIVE: VITAL SIGNS: Heart rate is in the 80s, blood pressure 115/49, respiratory rate in the 30s. Oximetry is 95%. LUNGS: Remarkable for coarse equal breath sounds. HEART: Regular rhythm. ABDOMEN: Distended. Exam consistent with ascites. EXTREMITIES: Lymphedema. LABORATORY DATA: PH 7.43, CO2 27, pO2 71. Sodium 138, potassium 4.1, chloride 105, bicarbonate 19, BUN 62, creatinine 4.95. White count 6.8, hemoglobin 9.1, platelets 41,000. Intake and output is positive 2732. IMPRESSION: 1. Respiratory failure. 2. ? meningitis. I reviewed microbiology and have to be CSF growing braun sensitive Pseudomonas. I reviewed spinal fluid there are only 3 white cells in the spinal tap, which would argue against him having a Pseudomonas meningitis. He did have a mildly decreased glucose in the spinal fluid. 3. Anemia of chronic disease. 4. Metabolic acidosis associated with renal failure. 5. Thrombocytopenia. I would not transfuse him with platelets unless platelet keep below 20,000 or he is bleeding. 6. Alcoholic hepatitis. 7. Alcohol withdrawal this admission. PLAN: Continue critical care support. His prognosis for any type of functional recovery, much less survival, is dismal. We also removed the norepinephrine and vasopressin off the MAY. We also performed antimicrobial therapy to just Rocephin alone. We will discontinued the fentanyl. We will continue his nebulized treatments and current ventilator settings are currently not weanable. Critical care time 30 min. MTDD
[2017-05-04] MEDS: Pantoprazole 40 MG VIAL IVP SCH (21:08)
[2017-05-05] MEDS: Propofol 1,000 MG/100 ML VIAL IV PRN (00:17)
[2017-05-05 04:49] LABS: INR-International Normal Ratio 1.3; PTT 28.5 SEC (22.9-36.1); Prothrombin Time 16.6 SEC (12.0-14.7)
[2017-05-05 05:05] LABS: Anion Gap 18 mmol/L (10-20); BUN (Urea Nitrogen) 75 mg/dL (8.4-25.7); Calc. Creatinine Clearance 17 mL/min (70-130); Calcium 7.7 mg/dL (7.8-10.44); Carbon Dioxide 19 mmol/L (23-31); Chloride 106 mmol/L (98-107); Estimated GFR-MDRD 10; Glucose 65 mg/dL (80-115); Potassium 3.9 mmol/L (3.5-5.1); Sodium 139 mmol/L (136-145)
[2017-05-05 05:13] LABS: Band 12 % (5-11); Eosinophils 1 % (0-10); Hemoglobin 8.6 g/dL (14.0-18.0); Lymphocytes 8 % (21-51); MDiff Complete? YES; Mean Corpuscular HGB CONC 34.9 g/dL (32.0-36.0); Mean Corpuscular Hemoglobin 31.2 pg (27.0-31.0); Mean Corpuscular Volume 89.2 fl (80.0-94.0); Mean Platelet Volume 11.3 fL (7.4-10.4); Monocytes 3 % (0-10); Neutrophil 76 % (42-75); PLT Morphology Comment Appears Decreased; Platelet Count 59 thou/uL (130-400); RBC Distribution Width 14.9 % (11.5-14.5); Red Blood Cell (RBC) Count 2.77 mill/uL (4.70-6.10); White Blood Cell (WBC) Count 8.4 thou/uL (4.8-10.8)
[2017-05-05 06:43] LABS: Vancomycin, Trough 33.6 ug/mL
[2017-05-05 07:02] LABS: Base Excess (BEa) -5.3 mEq/L (0 (+/-) 2.5); CO2 Tension 26.9 mmHg (35.0-45.0); Hematocrit-ABG 24.6 % (42.0-52.0); Hemoglobin (Hb) 8.2 g/dL (14.0-18.0); Puncture Site LRA; pH, Arterial 7.44 (7.35-7.45)
[2017-05-05 07:03] LABS: ALV-art Gradient 198.225 (0-20)
--- NOTE | 2017-05-05 08:04 | PRG ---
DATE OF SERVICE: 05/05/2017 This is 35 minutes critical care time. Mr. Clay is still in the Critical Care Unit. He remains intubated on mechanical ventilation. He has been weaned off the vasopressors over the weekend, but is requiring intermittent hemodialysis. PHYSICAL EXAMINATION: VITAL SIGNS: His temperature is 98.1, pulse 80, blood pressure 119/50, 24-hour intake 2833 and outpu t 101. His weight is currently 228 pounds. HEENT EXAM: Pupils sluggishly reactive. He has icteric sclerae. NECK: No JVD. LUNGS: Clear breath sounds. CARDIOVASCULAR: S1 and S2 regular, without murmur. ABDOMEN: Protuberant with hypoactive bowel sounds. His groin shows scrotal edema with some ulcerati on of the skin. He apparently also has a sacral decubitus ulcer. EXTREMITIES: Generalized edema throughout. NEUROLOGIC: He will open his eyes. He will also grimace to pain, but will not interact. IMAGING: Chest x-ray shows diffuse pulmonary edema bilaterally. Endotracheal tube is in good positi on. LABORATORY DATA: PH is 7.44, pCO2 of 26, pO2 of 89 that is on SIMV rate 20, tidal volume 450, PEEP 1 0, pressure support 14, FiO2 45%. White blood cell count 8.4, hemoglobin 8.6, hematocrit 24.7, plate let count 59,000. Sodium 139, potassium 3.9, chloride 106, CO2 of 19, BUN 75, creatinine 5.8, glucos e 65. ASSESSMENT: 1. Multiple organ failure including hepatic failure, acute renal failure, and acute respiratory fail ure, requiring mechanical ventilation. 2. Resolving shock. 3. Doubtful that he has meningitis - Pseudomonas is probably contaminant. 4. Alcohol withdrawal, which seems to have subsided. 5. Thrombocytopenia, which is slowly improving. PLAN: 1. I will try to turn down his rate on the ventilator. 2. Zirconia Reglan in hopes of being able to restart tube feeds. 3. Continue intermittent hemodialysis. 4. Continue Rocephin. 5. Consider discontinuing the bicarbonate drip by tomorrow if he continues to do reasonably well on hemodialysis. 6. The patient's prognosis is extremely poor despite aggressive care on our part. The patient's wif e seems to be somewhat unrealistic in terms of goal of care.
[2017-05-05] MEDS: Metoclopramide HCl 10 MG/2 ML VIAL IVP SCH ×3 (08:34→20:10)
--- NOTE | 2017-05-05 09:55 | RAD ---
RADIOGRAPH CHEST 1 VIEW: Date: 05/05/17. Time: 5:27 a.m. HISTORY: A 72-year-old male in respiratory failure. COMPARISON: 05/04/17 at 5:46 a.m. FINDINGS: There is no interval change overall. IMPRESSION: 1. No interval change overall. 2. Extensive bilateral mixed interstitial and alveolar pulmonary opacities, except for relative spar ing of the left apex. 3. No change in life support lines. JN [] POS: OFF
[2017-05-05] MEDS: cefTRIAXone\\ROCEPHIN 2 GM in Sodium Chloride 0.9% 100 ML IVPB SCH (13:24)
[2017-05-05] MEDS: Pantoprazole 40 MG VIAL IVP SCH (20:10)
--- NOTE | 2017-05-06 00:05 | PRG ---
DATE OF SERVICE: 05/05/2017 NEPHROLOGY PROGRESS NOTE SUBJECTIVE: The patient was seen and examined in ICU, remains intubated and not responding. OBJECTIVE: GENERAL: This is a well-built male seen in ICU and intubated. VITAL SIGNS: Temperature 98.1, pulse 95, respiratory rate 18, blood pressure 114/47. HEENT: Intubated. CARDIOVASCULAR: S1, S2 heard. Rate and rhythm regular. RESPIRATORY: Clear. GASTROINTESTINAL: Soft. MUSCULOSKELETAL: No tenderness, no edema. DERMATOLOGIC: No skin rash. NEUROLOGIC: Intubated. LABORATORY DATA: Potassium 3.3, BUN 75, creatinine is 5.8. ASSESSMENT AND PLAN: 1. Acute kidney injury on chronic kidney disease, dialysis dependent, with very poor prognosis and m ultiorgan failure. Plan is to have dialysis today as tolerated and the patient remains oliguric. Bl ood pressure seems to be better. Waiting for family decision. 2. Metabolic acidosis. 3. Multiorgan failure. 4. Anemia. 5. Leukocytosis, better. Will have dialysis today and will have close monitoring. We will follow.
[2017-05-06] MEDS: Metoclopramide HCl 10 MG/2 ML VIAL IVP SCH ×4 (00:45→20:09)
[2017-05-06 06:36] LABS: ALT (SGPT) 99 U/L (8-55); AST (SGOT) 45 U/L (5-34); Albumin 2.5 g/dL (3.4-4.8); Alkaline Phosphatase 165 U/L (40-150); Anion Gap 15 mmol/L (10-20); BUN (Urea Nitrogen) 68 mg/dL (8.4-25.7); Bilirubin, Total 1.9 mg/dL (0.2-1.2); Calc. Creatinine Clearance 18 mL/min (70-130); Calcium 8.4 mg/dL (7.8-10.44); Carbon Dioxide 24 mmol/L (23-31); Chloride 104 mmol/L (98-107); Estimated GFR-MDRD 11; Glucose 147 mg/dL (80-115); Potassium 3.9 mmol/L (3.5-5.1); Protein, Total 5.5 g/dL (5.8-8.1); Sodium 139 mmol/L (136-145)
[2017-05-06 06:49] LABS: Band 9 % (5-11); Eosinophils 2 % (0-10); Large Platelets SLIGHT; Lymphocytes 3 % (21-51); MDiff Complete? YES; Mean Corpuscular Hemoglobin 30.6 pg (27.0-31.0); Mean Corpuscular Volume 89.9 fl (80.0-94.0); Mean Platelet Volume 11.1 fL (7.4-10.4); Monocytes 6 % (0-10); Neutrophil 80 % (42-75); PLT Morphology Comment Appears Decreased; Platelet Count 100 thou/uL (130-400); Red Blood Cell (RBC) Count 2.93 mill/uL (4.70-6.10); Toxic Granulation SLIGHT; White Blood Cell (WBC) Count 9.6 thou/uL (4.8-10.8)
[2017-05-06 07:10] LABS: CO2 Tension 27.1 mmHg (35.0-45.0); O2 Tension (PaO2) 109.1 mmHg (80.0-100.0); pH, Arterial 7.48 (7.35-7.45)
[2017-05-06 07:11] LABS: ALV-art Gradient 142.225 (0-20); Base Excess (BEa) -2.5 mEq/L (0 (+/-) 2.5); Hematocrit-ABG 26.3 % (42.0-52.0); Hemoglobin (Hb) 8.7 g/dL (14.0-18.0); Puncture Site RRA
[2017-05-06] MEDS: Carvedilol 3.125 MG TAB PO SCH ×2 (08:07→16:14)
--- NOTE | 2017-05-06 08:38 | PRG ---
DATE OF SERVICE: 05/06/2017 Swapna Saravia METAL CUT OFF SAW TENDER-C, dictating for Jose Goncalves M.D. SUBJECTIVE: The patient is awake, they are currently trying to wean him off the vent. He will follo w commands. He denies any pain. PHYSICAL EXAMINATION: VITAL SIGNS: His blood pressure is 138/55, pulse 90. He is afebrile. NECK: Supple. JVD cannot be assessed. COR: Regular rate and rhythm. CHEST: Clear to auscultation and percussion in upper lobes. ABDOMEN: Soft, obese, nontender with normoactive bowel sounds. No bruit or organomegaly. EXTREMITIES: Trace edema. He had palpable pedal pulses. SKIN: There is no evidence of ulcer, lesions, or rash. NEUROLOGIC: He is awake, alert, and oriented to person, place, and time. LABORATORY DATA: His H&H is 9.0 and 26.3. His white blood cell count is normal. His BUN is 68, cre atinine 5.41. ASSESSMENT: 1. Status post respiratory arrest. 2. Respiratory failure, on vent. 3. Sepsis. 4. History of coronary artery disease. 5. Cardiomyopathy. 6. History of alcohol abuse with delirium tremens when he came into the hospital. 7. Acute renal failure. 8. Multiple medical problems. PLAN: Appreciate all the consultants following this critically ill patient. Hopefully, the patient will be able to wean off the vent in the next 24-48 hours. I will follow up with lab in the morning and chest x-ray.
--- NOTE | 2017-05-06 08:58 | PRG ---
DATE OF SERVICE: 05/06/2017 30 minutes of critical care time. SUBJECTIVE: This patient remains intubated on mechanical ventilation. He is actually awake and foll owing commands today for the first time that I have seen. PHYSICAL EXAMINATION: VITAL SIGNS: Temperature is 98.4, pulse 88, blood pressure 135/57. He is requiring no vasopressors. Total intake for 24 hours 628, output 1317 urine plus 1400 dialysis. HEENT: Pupils react. Sclerae are anicteric. Oropharynx clear. NECK: No JVD. LUNGS: Clear without wheezing. CARDIOVASCULAR: S1, S2 regular, without murmur. ABDOMEN: Soft and nontender. EXTREMITIES: Less edematous. Neurologically, he moves all 4 extremities. LABORATORY DATA: Sodium 139, potassium 3.9, chloride 104, CO2 of 24, BUN 68, creatinine 5.4, glucose 147, pH 7.48, pCO2 of 27, pO2 of 109 on SIMV rate 16, tidal volume 450, PEEP 10, pressure support 14 , FIO2 of 40%. White blood cell count 9.6, hematocrit 26.3, platelet count 100. ASSESSMENT: 1. 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 2. Resolved metabolic acidosis. 3. Acute renal failure. 4. Acute respiratory failure requiring mechanical ventilation. 5. Status post cardiac arrest which was likely secondary to acidosis. 6. Pseudomonas growing out for lumbar puncture, which is considered contaminants. PLAN: 1. Progressed to weaning trials today and see how he does. His progress is certainly encouraging. 2. Continue to withhold sedation as much as possible. 3. Continuing IV ceftriaxone. 4. I spoke with the patient's at length yesterday.
--- NOTE | 2017-05-06 12:43 | PRG ---
DATE OF SERVICE: 05/06/2017 SUBJECTIVE: The patient was seen and examined in ICU, remains intubated, but more awake today, eddie patterson urine 30 mL per hour. OBJECTIVE: GENERAL: This is an elderly male, he is in ICU, intubated. VITAL SIGNS: Temperature 98.7, pulse 86, respiratory 20, blood pressure 122/47. HEENT: Intubated. CARDIOVASCULAR: S1, S2 heard. RESPIRATORY: Clear anteriorly. ABDOMEN: Soft. MUSCULOSKELETAL: 1+ edema. DERMATOLOGIC: No skin rash. NEUROLOGIC: Intubated, but more awake. LABORATORY DATA: Potassium is 3.9, BUN 60, creatinine is 5.4. ASSESSMENT AND PLAN: 1. Acute kidney injury on chronic kidney disease, dialysis dependent. No acute indication for dialy sis today. The patient is more awake. We will hold dialysis today and will continue dialysis on Fri, Friday, Friday if tolerated. 2. Metabolic acidosis, much better and almost normal. 3. Bicarbonate level is normal and pH 7.48 more alkalotic. 4. Elevated liver enzymes. 5. Hypoalbuminemia. 6. Edema, chronic. 7. Anemia. 8. Acute hypoxic respiratory failure. 9. Multiorgan failure. 10. Leukocytosis. Plan is to do dialysis if indicated. We will continue close monitoring daily, no dialysis today. We will follow.
[2017-05-06] MEDS: cefTRIAXone\\ROCEPHIN 2 GM in Sodium Chloride 0.9% 100 ML IVPB SCH (12:50)
[2017-05-06] MEDS: HumaLOG 300 UNITS/3 ML VIAL SC PRN (16:01)
[2017-05-06] MEDS: Pantoprazole 40 MG VIAL IVP SCH (20:10)
[2017-05-07] MEDS: Metoclopramide HCl 10 MG/2 ML VIAL IVP SCH ×4 (01:14→20:07)
[2017-05-07 06:04] LABS: ALT (SGPT) 72 U/L (8-55); AST (SGOT) 42 U/L (5-34); Albumin 2.4 g/dL (3.4-4.8); Alkaline Phosphatase 200 U/L (40-150); Anion Gap 18 mmol/L (10-20); BUN (Urea Nitrogen) 83 mg/dL (8.4-25.7); Bilirubin, Total 3.7 mg/dL (0.2-1.2); Calc. Creatinine Clearance 15 mL/min (70-130); Calcium 8.6 mg/dL (7.8-10.44); Carbon Dioxide 21 mmol/L (23-31); Chloride 107 mmol/L (98-107); Estimated GFR-MDRD 8; Globulin 3.4 g/dL (2.4-3.5); Glucose 106 mg/dL (80-115); Potassium 3.8 mmol/L (3.5-5.1); Protein, Total 5.8 g/dL (5.8-8.1); Sodium 142 mmol/L (136-145)
[2017-05-07 06:46] LABS: Band 7 % (5-11); Hemoglobin 8.4 g/dL (14.0-18.0); Lymphocytes 2 % (21-51); MDiff Complete? YES; Mean Corpuscular HGB CONC 33.4 g/dL (32.0-36.0); Mean Corpuscular Hemoglobin 30.1 pg (27.0-31.0); Mean Corpuscular Volume 90.2 fl (80.0-94.0); Mean Platelet Volume 10.9 fL (7.4-10.4); Monocytes 5 % (0-10); Myelocyte 1 % (0-0); Neutrophil 85 % (42-75); Platelet Count 147 thou/uL (130-400); RBC Distribution Width 15.2 % (11.5-14.5); Red Blood Cell (RBC) Count 2.78 mill/uL (4.70-6.10); White Blood Cell (WBC) Count 11.3 thou/uL (4.8-10.8)
--- NOTE | 2017-05-07 07:57 | PRG ---
DATE OF SERVICE: 05/07/2017 Mr. Clay is awake. He was extubated yesterday. He is able to verbalize some, but is still very, very weak. PHYSICAL EXAMINATION: VITAL SIGNS: Temperature 97.7, pulse 86, pressure 149/55. Total intake for 24 hours 543, output 735 . HEENT: Unremarkable. NECK: No JVD. He has a right IJ catheter. CARDIAC: S1 and S2 regular. LUNGS: Clear. ABDOMEN: Soft, slightly distended. EXTREMITIES: Edematous throughout. LABORATORY DATA: White blood cell count 11.3, hematocrit 25.5, platelet count 147. Sodium 142, pota ssium 3.8, chloride 107, CO2 21, BUN 83, creatinine 6.5, glucose 106. Chest x-ray in the tilted film shows bilateral small effusions, some degree of pulmonary edema. ASSESSMENT: 1. Acute respiratory failure requiring mechanical ventilation - now extubated and doing reasonably w ell. 2. 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 3. Acute renal failure with some degree of recovery. 4. Status post cardiac arrest secondary acidosis. 5. Pseudomonas growing out a lumbar puncture which is considered a contaminant. PLAN: 1. Increase physical activity. 2. Swallowing evaluation. 3. Continue the IV antibiotics. 4. Continue dialysis. 5. Leave in the ICU for the time being.
--- NOTE | 2017-05-07 08:10 | RAD ---
FRONTAL VIEW: Indication: Ventilated patient. Comparison: 05-05-17. FINDINGS: Redemonstration of bilateral pleural based densities. Adjacent consolidation of the left lung base an d patchy opacities in the right lung remain. Right internal jugular venous catheter remains. There ar e extrinsic artifacts that limit detail. Prior endotracheal tube has been removed. Prior enteric cath eter has been removed. IMPRESSION: 1. Interval extubation. 2. Redemonstration of bilateral pleural and parenchymal opacities of each hemithorax indicating pleur al fluid with component of atelectasis and/or pneumonia not excluded. Continued follow up is recommen ded. POS: [facility]
[2017-05-07] MEDS: Carvedilol 3.125 MG TAB PO SCH ×2 (08:51→18:27)
[2017-05-07] MEDS ORDERED: Heparin 10,000 UNITS/ 10 ML VIAL ONE (10:00)
[2017-05-07] MEDS: cefTRIAXone\\ROCEPHIN 2 GM in Sodium Chloride 0.9% 100 ML IVPB SCH (12:45)
[2017-05-07] MEDS: Pantoprazole 40 MG GRANULES PACKET PER TUBE SCH (20:07)
--- NOTE | 2017-05-07 22:01 | RAD ---
LEFT FOOT TWO VIEW 05/07/17 HISTORY: Assess depth of wound. COMPARISON: None. FINDINGS: There is prior amputation of the great toe metatarsal diaphysis. There are erosions of the second th rough fifth metatarsal heads. There are also erosions of the proximal phalanges of all digits. Extensive soft tissue swelling. IMPRESSION: Concerning for osteomyelitis throughout the forefoot. MRI recommended. POS: [facility]
--- NOTE | 2017-05-07 22:28 | PRG ---
DATE OF SERVICE: 05/07/2017 SUBJECTIVE: Patient was seen and examined at bedside and overnight events noted. Patient denies any shortness of breath or chest pain or palpitation. No history of nausea or vomiting or diarrhea or f ever or chills or cramps. OBJECTIVE: GENERAL: Well-built male in no apparent distress. VITAL SIGNS: Temperature 98.0, pulse 83, respiratory 18, blood pressure 160/84. HEENT: Atraumatic, normocephalic, Oral mucosa is moist NECK: Supple. CARDIOVASCULAR: S1, S2 heard. Rate and rhythm regular. RESPIRATORY: Clear to auscultation. GASTROINTESTINAL: Abdomen is soft. MUSCULOSKELETAL: No tenderness. No edema. DERMATOLOGIC: No skin rash. NEUROLOGIC: Alert and awake and oriented x3. No focal neurologic deficits. Moving all the extremit ies. PSYCHIATRIC: Mood and affect normal. LABORATORY DATA: Potassium is 3.8, BUN is 83, creatinine is 6.5. ASSESSMENT AND PLAN: 1. Acute kidney injury on chronic kidney disease stage IV, dialysis dependent. We will continue on dialysis, monitor urine output. 2. Metabolic acidosis. 3. Elevated liver enzymes . 4. Anemia. 5. Acute hypoxic respiratory failure. 6. Multiorgan failure. 7. Leukocytosis. Overall, plan is to continue on dialysis as tolerated.
[2017-05-08] MEDS: Metoclopramide HCl 10 MG/2 ML VIAL IVP SCH ×4 (01:08→19:58)
[2017-05-08 04:43] LABS: #Eosinphils 0.1 thou/uL (0.0-0.7); #Lymphocytes 0.6 thou/uL (1.20-3.40); #Monocytes 0.7 thou/uL (0.11-0.59); #Neutrophils 10.8 thou/uL (1.40-6.50); %Basophils 0.1 % (0.0-1.0); %Eosinophils 1.1 % (0.0-10.0); %Lymphocytes 5.1 % (21.0-51.0); %Monocytes 5.5 % (0.0-10.0); %Neutrophils 88.1 % (42.0-75.0); Hemoglobin 8.6 g/dL (14.0-18.0); Mean Corpuscular HGB CONC 34.4 g/dL (32.0-36.0); Mean Corpuscular Volume 90.2 fl (80.0-94.0); Mean Platelet Volume 10.4 fL (7.4-10.4); Platelet Count 200 thou/uL (130-400); RBC Distribution Width 15.1 % (11.5-14.5); Red Blood Cell (RBC) Count 2.78 mill/uL (4.70-6.10); White Blood Cell (WBC) Count 12.3 thou/uL (4.8-10.8)
[2017-05-08 05:07] LABS: ALT (SGPT) 81 U/L (8-55); AST (SGOT) 88 U/L (5-34); Albumin 2.5 g/dL (3.4-4.8); Alkaline Phosphatase 306 U/L (40-150); Anion Gap 19 mmol/L (10-20); BUN (Urea Nitrogen) 75 mg/dL (8.4-25.7); Bilirubin, Total 7.5 mg/dL (0.2-1.2); Calc. Creatinine Clearance 15 mL/min (70-130); Carbon Dioxide 22 mmol/L (23-31); Chloride 105 mmol/L (98-107); Estimated GFR-MDRD 10; Globulin 3.4 g/dL (2.4-3.5); Glucose 116 mg/dL (80-115); Potassium 4.1 mmol/L (3.5-5.1); Protein, Total 5.9 g/dL (5.8-8.1); Sodium 142 mmol/L (136-145)
--- NOTE | 2017-05-08 07:39 | PRG ---
DATE OF SERVICE: 05/08/2017 SUBJECTIVE: This morning, Mr. Clay is up in the chair with some prompting. He is alert and orien jennifer to place. PHYSICAL EXAMINATION: VITAL SIGNS: His temperature is 98.0 with no fever in the last 24 hours. Pulse 88, blood pressure 1 46/63. Total intake 100, output 1080, urine +2000 hemodialysis. HEENT: Remarkable for dry oral mucous membranes. NECK: No JVD. CHEST: Clear without wheezing. CARDIAC: S1, S2 regular, without murmur. ABDOMEN: Soft, slightly distended. EXTREMITIES: No clubbing, cyanosis, but he has edema in his lower extremities and skin changes in hi s left toes. LABORATORY DATA: White blood cell count 12.3, hematocrit 25.1, platelet count 2000. Sodium 142, pot assium 4.1, chloride 105, CO2 22, BUN 75, creatinine 5.8, glucose 116. Total bilirubin 7.5, AST 88, ALT 81. ASSESSMENT: 1. Alcoholic hepatitis. 2. Status post acute respiratory failure. 3. Acute renal failure. 4. Encephalopathy, which is slowly improving. 5. Gangrene, left toes. 6. Status post cardiac arrest. PLAN: 1. Because of failure to pass this swallowing study, we will have a Dobbhoff tube inserted and get a n x-ray to confirm. Then, we will start nutritional support with tube feedings. 2. Continue IV antibiotics 3. Continue physical therapy. 4. Continue hemodialysis.
--- NOTE | 2017-05-08 09:09 | RAD ---
KUB: DATE: 05/08/17. PROVIDED CLINICAL HISTORY: Dobbhoff placement. FINDINGS: Left basilar pleural parenchymal opacity is noted. Calcifications overlying the right upper quadrant may be vascular in nature and may reflect gallstones. Enteric catheter is noted, the tip of which p rojects in the expected region of the gastric body. The bowel gas pattern is nonspecific. Partially visualized presumed femoral catheter overlies the left hemipelvis medially. IMPRESSION: As above. POS: [facility]
--- NOTE | 2017-05-08 09:21 | PRG ---
DATE OF SERVICE: 05/08/2017 SUBJECTIVE: The patient is sitting up in a tuba chair. He is awake. According to the nurse, he did well his swallow evaluation, but they are going to come back today to reevaluate him. He is on IV f luids. PHYSICAL EXAMINATION: GENERAL: He is awake. He is alert. VITAL SIGNS: Blood pressure 150/68, pulse 80, respirations 20. He is afebrile. NECK: Supple with no increased JVP or carotid bruit. Carotid had good upstroke with no thyromegaly. COR: Regular rate and rhythm. CHEST: Clear to auscultation and percussion in upper lobes. ABDOMEN: Soft, obese, nontender with normoactive bowel sounds. No bruit or organomegaly. EXTREMITIES: Trace edema. He had palpable pedal pulses. SKIN: There is no evidence of ulcers, lesion, or rash. NEUROLOGIC: He is awake, alert, and oriented to person, place, and time. LABORATORY DATA: White blood cell count 12.3, H&H is 8.6 and 25.1, BUN 75, creatinine 5.86. ASSESSMENT: 1. Respiratory arrest. 2. Metabolic acidosis, resolving. 3. Sepsis. 4. Acute kidney injury, on dialysis. 5. Alcohol withdrawal. 6. History of alcohol abuse with cirrhosis. 7. Coronary artery disease with bypass. 8. Anemia. 9. Hypertension. 10. Multiple medical problems. PLAN: I do not feel the patient is ready to move to the floor yet unless cleared by consultants. We will follow up with lab in the morning and repeat swallow evaluation and I have encouraged the patie nt to in bed and also use his incentive spirometry. This is Swapna Saravia, LINDA-Juan Antonio dictating for Dr. Jose Goncalves.
[2017-05-08] MEDS: Carvedilol 3.125 MG TAB PO SCH ×2 (11:04→17:46)
[2017-05-08] MEDS ORDERED: CEFAZOLIN/Water 2 GM/20 ML SYRINGE SLOW IVP SCH (12:30)
--- NOTE | 2017-05-08 12:54 | PRG ---
DATE OF SERVICE: 05/08/2017 SUBJECTIVE: Patient was seen and examined at bedside and overnight events noted. Patient denies any shortness of breath or chest pain or palpitation. No history of nausea or vomiting or diarrhea or f ever or chills or cramps. PHYSICAL EXAMINATION: GENERAL: This is a well-built white male, in no apparent distress. VITAL SIGNS: Temperature 98.1, pulse 85, respirations 16, blood pressure 147/61. HEENT: Atraumatic, normocephalic. Oral mucosa is moist. NECK: Supple. CARDIOVASCULAR: S1, S2 heard. Rate and rhythm regular. RESPIRATORY: Clear to auscultation. GASTROINTESTINAL: Abdomen is soft. MUSCULOSKELETAL: No tenderness, no edema. DERMATOLOGIC: No skin rash. NEUROLOGIC: Alert and awake and oriented x3. No focal neurologic deficits. Moving all the extremit ies. PSYCHIATRIC: Mood and affect normal. LABORATORY DATA: Potassium is 4.1, BUN is 75, creatinine is 5.86. Urine output yesterday was 1080. ASSESSMENT AND PLAN: 1. Acute kidney injury on chronic kidney disease stage 4. Urine output seems to be better, but crea tinine is still elevated. We will continue on dialysis as tolerated. The patient might need a tunne led dialysis catheter with close monitoring of renal function. 2. Metabolic acidosis. 3. Elevated liver enzymes. 4. Anemia of chronic disease. 5. Multiorgan failure. 6. Acute hypoxic respiratory failure, extubated. 7. We will continue on dialysis as tolerated. We will have a tunneled dialysis catheter. We will f valente.
[2017-05-08] MEDS: cefTRIAXone\\ROCEPHIN 2 GM in Sodium Chloride 0.9% 100 ML IVPB SCH (14:18)
--- NOTE | 2017-05-08 15:27 | ULT ---
PRE DIALYSIS ACCESS DUPLEX EXAMINATION: Date: 05/08/17 INDICATION: End-stage renal disease. FINDINGS: RIGHT UPPER EXTREMITY Right Brachial Artery: 5.0 mm Right Radial Artery: 2.3 mm Right Ulnar Artery: 1.8 mm CEPHALIC VEIN Shoulder: 2.6 mm Upper Arm: 2.5 mm Mid Arm: 1.0 mm Elbow: 2.0 mm Proximal Forearm: 0.7 mm Mid Forearm: 1.0 mm Wrist: 0.8 mm BASILIC VEIN Shoulder: 2.4 mm Upper Arm: 1.2 mm Mid Arm: 1.8 mm Elbow: 2.2 mm Proximal Forearm: 1.1 mm Mid Forearm: 1.1 mm Wrist: 0.9 mm LEFT UPPER EXTREMITY Left Brachial Artery: 4.5 mm Left Radial Artery: 2.0 mm Left Ulnar Artery: 1.4 mm CEPHALIC VEIN Shoulder: 2.0 mm Upper Arm: 2.2 mm Mid Arm: 1.3 mm Elbow: 1.4 mm Proximal Forearm: 1.8 mm Mid Forearm: 1.2 mm Wrist: 1.8 mm BASILIC VEIN Shoulder: 2.0 mm Upper Arm: 1.7 mm Mid Arm: 2.2 mm Elbow: 1.8 mm Proximal Forearm: 1.3 mm Mid Forearm: 0.8 mm Wrist: 1.4 mm IMPRESSION: Predialysis access duplex exam as above. POS: [facility]
--- NOTE | 2017-05-08 19:48 | CON ---
DATE OF CONSULTATION: 05/08/2017 REQUESTING PHYSICIAN: Iglesia Anders D.P.M. CHIEF COMPLAINT: Foot ulceration. HISTORY OF PRESENT ILLNESS: The patient is a 72-year-old man who has undergone a coronary artery byp ass procedure in the past, who was admitted on the of this month after an entire day of heavy dr inking and vomiting. He was taken by EMS to the hospital, underwent rehydration remained tachycardic and had low grade fever that then spiked later that day. He had altered mental status and chest x-r ay consistent with left lower lobe pneumonia. He rested during that night with an episode of EMD shira t was felt attributable to significant acidosis. He has been critically ill, gradually improving ove r the last 10 days to 2 weeks in the Intensive Care Unit. He developed some ulceration on his left f oot. Podiatry was consulted and the manager of financial reporting in turn requested vascular evaluation. PAST MEDICAL HISTORY: Significant for diabetes, hypertension, coronary artery disease having undergo ne a previous coronary artery bypass grafting, apparently with vein harvested from the left lower ext remity. He has had amputations of the both great toes. He has apparently a history of alcohol abuse and smoking during this follow up hospitalization, he has had what appears to represent alcoholic he patitis and renal insufficiency. CURRENT MEDICATIONS: Include Coreg, Protonix, Reglan, insulin sliding scale, Ancef, Rocephin, Pancre ase, and DuoNebs. ALLERGIES: He has no known drug allergies. PAST MEDICAL HISTORY: Smoking and active drinking. REVIEW OF SYSTEMS AND FAMILY HISTORY: He was not able to cooperate with review of system or family h istory. PHYSICAL EXAMINATION: GENERAL: He is an ill man in the ICU, extubated, able to mumble, but not carry on in an intelligible conversation. VITAL SIGNS: Heart rate is 85, blood pressure 151/63, temperature 98.1, O2 sats are 99% on 2 liters nasal cannula. LUNGS: He has clear breath sounds. CARDIOVASCULAR: Regular rate and rhythm with frequent ectopy. EXTREMITIES: He has well healed surgical scars, status post sternotomy and what appears to be vein h arvest from groin to just below the knee on the left side. He has easily palpable radial, femoral, a nd popliteal pulses bilaterally. I am not able to appreciate dorsalis pedis or posterior tibial puls es on either side. Doppler signals and those positions are reasonably strong, perhaps little bit betty nter on the left than on the right. He has a dusky second toe on the left side, but even it has capi llary refill that is about one second or less. He has a dry eschar overlying the lateral aspect of t he left foot at the fifth toe MP joint with no surrounding cellulitis or purulence. He has some mild edema of the legs. LABORATORY DATA: Shows white count of 12.3, hemoglobin 8.6, hematocrit 25.1, platelets 200,000 initi ally and during this hospitalization, his INR was 2.0, his most recent about 3 days ago was 1.3. Gemini mistries this morning shows sodium 142, potassium 4.1, chloride 105, CO2 of 22, glucose 116, BUN 75, creatinine 5.86. Bilirubin is 7.5. AST of 88, ALT of 81, alkaline phosphatase of 306, protein is 5. 9, albumin 2.5, calcium 9.0. IMPRESSION AND RECOMMENDATIONS: Unfortunately, there really has not much that I think I have to offe r this man mapping out any arterial anatomy would require dye load that would be contraindicated at t his point in his illness and given the fact that he has good pulses down to the popliteal level, one would expect infrageniculate disease and with bilaterally and with vein having already been harvested from the left lower extremity, there really is not have to be much in the way of revascularization t hat could be offered. At this point, there is nothing forcing our hand address this other than simpl e measures of local wound care to keep it clean and dry and avoid any pressure on it.
[2017-05-08] MEDS: Pantoprazole 40 MG GRANULES PACKET PER TUBE SCH (19:57)
[2017-05-09] MEDS: Metoclopramide HCl 10 MG/2 ML VIAL IVP SCH ×4 (01:12→20:34)
[2017-05-09 06:06] LABS: #Eosinphils 0.2 thou/uL (0.0-0.7); #Lymphocytes 0.6 thou/uL (1.20-3.40); #Monocytes 0.5 thou/uL (0.11-0.59); #Neutrophils 8.1 thou/uL (1.40-6.50); %Basophils 0.1 % (0.0-1.0); %Eosinophils 2.4 % (0.0-10.0); %Lymphocytes 6.3 % (21.0-51.0); %Monocytes 5.5 % (0.0-10.0); %Neutrophils 85.7 % (42.0-75.0); Hemoglobin 8.6 g/dL (14.0-18.0); Mean Corpuscular HGB CONC 33.6 g/dL (32.0-36.0); Mean Corpuscular Hemoglobin 30.5 pg (27.0-31.0); Mean Corpuscular Volume 90.7 fl (80.0-94.0); Platelet Count 242 thou/uL (130-400); RBC Distribution Width 15.4 % (11.5-14.5); Red Blood Cell (RBC) Count 2.82 mill/uL (4.70-6.10); White Blood Cell (WBC) Count 9.4 thou/uL (4.8-10.8)
[2017-05-09 06:21] LABS: ALT (SGPT) 58 U/L (8-55); AST (SGOT) 37 U/L (5-34); Albumin 2.4 g/dL (3.4-4.8); Alkaline Phosphatase 219 U/L (40-150); Anion Gap 15 mmol/L (10-20); BUN (Urea Nitrogen) 92 mg/dL (8.4-25.7); Calc. Creatinine Clearance 14 mL/min (70-130); Calcium 8.7 mg/dL (7.8-10.44); Carbon Dioxide 25 mmol/L (23-31); Chloride 107 mmol/L (98-107); Estimated GFR-MDRD 9; Globulin 3.4 g/dL (2.4-3.5); Glucose 123 mg/dL (80-115); Protein, Total 5.8 g/dL (5.8-8.1); Sodium 143 mmol/L (136-145)
[2017-05-09 06:22] LABS: ALT (SGPT) 55 U/L (8-55); AST (SGOT) 38 U/L (5-34); Albumin 2.4 g/dL (3.4-4.8); Alkaline Phosphatase 214 U/L (40-150); Bilirubin, Direct 1.6 mg/dL (0.1-0.3); Protein, Total 5.8 g/dL (5.8-8.1)
--- NOTE | 2017-05-09 07:55 | PRG ---
DATE OF SERVICE: 05/09/2017 SUBJECTIVE: Mr. Clay remains in the CCU. He is currently up in a chair. His speech is somewhat slurred and that may be affected by the Dobbhoff tube that is in place right now. He had no acute co mplaints. PHYSICAL EXAMINATION: VITAL SIGNS: On exam, temperature 97.7, pulse 85, blood pressure 149/61, O2 saturation 100% on nasal cannula, 24-hour intake 363 and output 1775. HEENT EXAM: Remarkable for some minor bleeding in his mouth. He has a left naris Dobbhoff tube in p lace. NECK: No adenopathy, no bruits. LUNGS: Clear to auscultation anteriorly. CARDIOVASCULAR: S1 and S2, regular. ABDOMEN: Soft, slightly protuberant. EXTREMITIES: No clubbing or cyanosis. He has several amputated toes. LABORATORY DATA: White blood cell count 9.4, hemoglobin 8.6, hematocrit 25.5, platelet count 242. S odium 143, potassium 4.0, chloride 107, CO2 of 25, BUN 92, creatinine 6.3, glucose 123, total bilirub in 2.0, direct bilirubin 1.6, AST 38, ALT 55, alkaline phosphatase 214, albumin 2.4. ASSESSMENT: 1. Status post acute respiratory failure, requiring mechanical ventilation. 2. Acute renal failure with little functional renal recovery at this point. 3. Encephalopathy, which is slowly improving. 4. Alcoholic hepatitis. 5. Gangrenous left toe. 6. Status post cardiac arrest. PLAN: A tunneled hemodialysis catheter is planned for today. If he does well after that then I thin k he is probably ready for a move to the Intermediate Care Unit. He still cannot do much of anything for himself, and I think that LTAC or jail facility is probably the best course to mary gallo with in the future. We are still having lots of problems with his , who is continuing to be di fficult with medical staff and nursing.
[2017-05-09] MEDS ORDERED: Lidocaine 2% w/Epinephrine 1:200K 20 ML VIAL ONE (08:33)
[2017-05-09] MEDS ORDERED: Heparin 10,000 UNITS/1 ML VIAL ONE (08:33)
[2017-05-09] MEDS ORDERED: Bupivacaine 0.25% HCL 30 ML VIAL ONE (08:33)
[2017-05-09] MEDS ORDERED: Sodium Chloride 0.9% 10 ML ONE (08:33)
[2017-05-09] MEDS: hydrALAZINE 10 MG TAB PER TUBE SCH ×3 (08:44→20:34)
[2017-05-09] MEDS: Carvedilol 3.125 MG TAB PO SCH ×3 (08:44→17:10)
[2017-05-09] MEDS ORDERED: Fentanyl 100 MCG/2 ML VIAL ONE (08:47)
[2017-05-09] MEDS ORDERED: Propofol 500 MG/50 ML VIAL ONE (09:07)
[2017-05-09] MEDS ORDERED: Promethazine HCl 25 MG/ML VIAL SLOW IVP PRN (09:28)
[2017-05-09] MEDS ORDERED: Promethazine HCl 25 MG/ML VIAL IM PRN (09:28)
[2017-05-09] MEDS ORDERED: Ondansetron HCl/PF 4 MG/2 ML Vial IVP PRN (09:28)
--- NOTE | 2017-05-09 10:50 | PRG ---
DATE OF SERVICE: 05/09/2017 SUBJECTIVE: The patient is awake. He has a Dobhoff in. He failed swallow evaluation by Speech Ther apy. PHYSICAL EXAMINATION: GENERAL: Upon evaluation, he is awake, alert and oriented. VITAL SIGNS: His blood pressure is 140/60, respirations 22, pulse 82. He is afebrile. NECK: Supple with no increased JVP or carotid bruit. Carotid had good upstroke with no thyromegaly. COR: Regular rate and rhythm. CHEST: Clear to auscultation and percussion in upper lobes. ABDOMEN: Soft, nontender with normoactive bowel sounds. There is no bruit or organomegaly. EXTREMITIES: No change. LABORATORY DATA: His white blood cell count is 9.4, H&H is 8.6 and 25.5. His platelet count is 242. His BUN is 92, creatinine is 6.29. ASSESSMENT: 1. Respiratory arrest, now improved. 2. Acute kidney injury, on dialysis. 3. Dysphagia with Dobhoff. 4. Encephalopathy, improving. 5. History of alcohol abuse. 6. Gangrenous left toe. 7. Multiple medical problems. PLAN: 1. The patient will undergo dialysis catheter today and also they are holding off on PEG tube as the y want to give a Dobhoff right now to see if he can regain his ability to swallow. 2. Numerous consultants are following and we appreciate all help. This is Swapna Saravia, LINDA-C dictating for DR. Jose Goncalves.
--- NOTE | 2017-05-09 11:09 | OP ---
DATE OF PROCEDURE: 05/09/2017 PREOPERATIVE DIAGNOSES: Acute renal failure, in need of dialysis access. Hopefully, renal recovery will ensue. Ultrasound vein mapping, suboptimal veins. Peripheral artery disease with osteomyelitis , left fifth toe, exposed metatarsophalangeal joint needs amputation of left fifth toe and metatarsal per Dr. Anders, peripheral artery disease/history of left fem-pop bypass, prosthetic, [place], alcoho l liver disease, alcoholism, improving liver function tests, common bile duct 12 mm, two year known h istory of cholelithiasis, asymptomatic. GI consultation, MRCP pending. POSTOPERATIVE DIAGNOSES: Acute renal failure, in need of dialysis access. Hopefully, renal recovery will ensue. Ultrasound vein mapping, suboptimal veins. Peripheral artery disease with osteomyeliti s, left fifth toe, exposed metatarsophalangeal joint need amputation of left fifth toe and metatarsal per Dr. Anders, peripheral artery disease/history of left fem-pop bypass, prosthetic, [place], alcoho l liver disease, alcoholism, improving liver function tests, common bile duct 12 mm, two year known h istory of cholelithiasis, asymptomatic. GI consultation, MRCP pending. PROCEDURES PERFORMED: Left internal jugular cuffed tunnel dialysis catheter, ultrasound fluoroscopy used, angiodynamics precurved, (right IJ central line present). SURGEON: Dr. Nito Clarke. ANESTHESIA: TIVA. Local 0.5% Marcaine, 30 mL, mixed with 2% Xylocaine with epinephrine 20 mL. DESCRIPTION OF THE PROCEDURE: Patient taken to the operating room where under intravenous sedation, neck and chest were prepared with ChloraPrep, draped in routine fashion. Local anesthetic infiltrate d through skin and subcutaneous tissue about the operative site. Ultrasound used to cannulate the le ft internal jugular vein with the trocar catheter. J-wire threaded. Trocar catheter removed. Skin incised and enlarged sharply. Stab incision was made over the left chest. Using the tunneling devic e, precurved angiodynamics cuffed tunnel dialysis catheter tunneled between the two incisions, rosy g the fabric cuff beneath the skin exit site and catheter secured with 2 interrupted sutures of 3-0 n ylon. Smaller and medium-sized dilators placed over the J-wire into the internal jugular vein, left and removed. Dilator and pull-away sheath placed over the J-wire in superior vena cava under fluoros copic visualization and dilator removed and J-wire removed. Catheter placed with the pull-away sheat h. Pull-away sheath removed. Fluoroscopic images revealed good catheter placement. Catheter aspira jennifer blood, flushed with saline solution and heparinized saline solution 1000 units of heparin per mL indicated volume of the port. Patient tolerated the procedure well.
--- NOTE | 2017-05-09 11:25 | RAD ---
PORTABLE CHEST 1 VIEW: Date: 05/09/17 Time: 1012 hours HISTORY: Respiratory distress. FINDINGS/IMPRESSION: Comparison made with exam of 05/07/17. There has been placement of a feeding tube which can be traced into the stomach with tip excluded fro m the film. There is a left-sided double lumen venous catheter with tips in the projection of the rig ht atrium. No pneumothoraces are seen. There is consolidation/atelectatic change in the left lung bas e and accompanying small bilateral pleural effusions. No pneumothoraces are identified. POS: [facility]
--- NOTE | 2017-05-09 12:25 | MRI ---
MRI ABDOMEN WITHOUT CONTRAST: Date: 05/09/17 HISTORY: Cholelithiasis and choledocholithiasis. FINDINGS: Exam was limited due to significant motion artifact. The spleen is enlarged measuring 14.7 cm in length. The pancreas and adrenal glands are unremarkable. No definite renal abnormalities are seen. Multiple calculi are seen in the gallbladder and the common bile duct. The common bile duct measures 11.0 mm in diameter. There is intrahepatic ductal dilatation as well. There is a faint area of T2 pro longation in the left lobe of the liver measuring about 2.0 cm. The possibility of this representing a mass cannot be completely excluded. There is a right pleural effusion. No abdominal aortic aneurysm is seen. There are degenerative tyson es in the spine. IMPRESSION: 1. Cholelithiasis. 2. Choledocholithiasis. 3. Biliary ductal dilatation. 4. Questionable 2.0 cm mass in the left lobe of the liver. Dedicated contrast enhanced CT scan of th e abdomen is recommended. 5. Splenomegaly. POS: [facility]
[2017-05-09] MEDS: cefTRIAXone\\ROCEPHIN 2 GM in Sodium Chloride 0.9% 100 ML IVPB SCH (12:43)
[2017-05-09] MEDS ORDERED: Lidocaine 1% PF 5 ML VIAL ONE (15:20)
[2017-05-09] MEDS ORDERED: PHENYLEPHRINE-NS 100 MCG/ML 10 ML SYRINGE ONE (15:20)
[2017-05-09] MEDS: Pantoprazole 40 MG GRANULES PACKET PER TUBE SCH (20:34)
[2017-05-09] MEDS: HumaLOG 300 UNITS/3 ML VIAL SC PRN (20:52)
--- NOTE | 2017-05-09 20:52 | PRG ---
DATE OF SERVICE: 05/09/2017 NEPHROLOGY PROGRESS NOTE SUBJECTIVE: Patient was seen and examined at bedside and overnight events noted. Patient denies any shortness of breath or chest pain or palpitation. No history of nausea or vomiting or diarrhea or f ever or chills or cramps. OBJECTIVE: GENERAL: This is a well-built male in no apparent distress. VITAL SIGNS: Temperature 97.9, pulse 80, respiratory rate 20, blood pressure 139/67. HEENT: Atraumatic, normocephalic. Oral mucosa is moist. NECK: Supple. CARDIOVASCULAR: S1, S2 heard. Rate and rhythm regular. RESPIRATORY: Clear to auscultation. GASTROINTESTINAL: Abdomen is soft. MUSCULOSKELETAL: No tenderness, no edema. DERMATOLOGIC: No skin rash. NEUROLOGIC: Alert, awake, and oriented x3. No focal neurologic deficits. Moving all the extremitie s. PSYCHIATRIC: Mood and affect normal. LABORATORY DATA: Potassium is 4.7, BUN is 92, creatinine is 6.2. ASSESSMENT AND PLAN: 1. Acute kidney injury on chronic kidney disease, stage 4. Patient's urine output seems to be impro ving, but BUN is still rising. Plan is to have a short session of dialysis today. I appreciate help from Surgery for a tunneled dialysis catheter placement. 2. Metabolic acidosis, stable. 3. Multiorgan failure. 4. Anemia. 5. Edema, controlled. 6. Hypertension, stable. Plan is to have a short session of dialysis. We will continue close monitoring of renal function.
--- NOTE | 2017-05-10 01:28 | CON ---
DATE OF CONSULTATION: 05/09/2017 REASON FOR CONSULTATION: Choledocholithiasis. CONSULTING PHYSICIAN: Dr. Nito Clarke. HISTORY OF PRESENT ILLNESS: Patient is a 72-year-old male with past medical history of coronary anthony ry disease/myocardial infarction, diabetes, hyperlipidemia, hypertension, seizure disorder and alcoho lism who was initially admitted for left lower lobe pneumonia as well as alcohol withdrawal; however, his hospital course has been further complicated by cardiac arrest as well as CPR that was performed during this hospitalization. He was also noted to have acute kidney injury that has now required th e placement of a left femoral dialysis catheter for dialysis related to his acute kidney injury; billie jon, on admission, he was noted to have a right upper quadrant ultrasound showing the presence of a d ilated common bile duct and choledocholithiasis in addition to elevated LFTs. Per chart review, it w as felt that the elevated LFT pattern was more consistent with alcoholic liver disease as opposed to the choledocholithiasis seen on the imaging; however, repeat MRI obtained on 05/09/2017 showed contin ued presence of choledocholithiasis as well as dilation of the common bile duct concerning for contin ued injury to the liver and/or ascending cholangitis. At this time, the patient is unable to contrib sarahy to the interview with speech largely unintelligible and only able to answer simple yes or no ques tions. REVIEW OF SYSTEMS: Unable to be obtained due to patient's altered mental status. PAST MEDICAL HISTORY: As per HPI. PAST SURGICAL HISTORY: Unknown. FAMILY HISTORY: Denies any GI malignancy. SOCIAL HISTORY: Per chart review, he quit smoking a pipe about approximately 10 years ago. Currentl y drinking around 2 glasses of wine per day, although there is also record in the chart that he was d rinking approximately two bottles of wine per day. No record of illicit drug use in the chart. OUTPATIENT MEDICATIONS: Reviewed. ALLERGIES: None. PHYSICAL EXAMINATION: VITAL SIGNS: Temperature of 97.9, pulse 80, blood pressure 142/54, respiratory rate 20, satting 99% on 2 liters nasal cannula. GENERAL: The patient lying in bed in no acute distress, alert and oriented x1. NECK: Supple, no JVD noted. CARDIOVASCULAR: Distant heart sounds, but regular rate and rhythm with no discernible murmurs, hawthorne ps or rubs. RESPIRATORY: Coarse breath sounds were heard in all lung alexandre that only moderately improved with h aving the patient cough. ABDOMEN: Normoactive bowel sounds, soft, nontender, nondistended. EXTREMITIES: No cyanosis, clubbing or edema, although multiple ecchymoses noted on the upper extremi ties. LABORATORY DATA: CBC with a white blood cell count of 9.4, hemoglobin 8.6, hematocrit 25.5, platelet s 242. Chemistry with sodium of 143, potassium 4.0, chloride 107, CO2 is 25, BUN 92, creatinine 6.29 , glucose 123, AST 38, ALT 55, alkaline phosphatase 214, total bilirubin 2.0, albumin 2.4. IMAGING DATA: Abdominal MRI obtained on 05/09/2017 showed multiple calculi within the gallbladder an d within the common bile duct, the common bile measured approximately 11 mm in diameter as well as in trahepatic ductal dilatation. ASSESSMENT AND PLAN: The patient is a 72-year-old male with past medical history of coronary artery disease/myocardial infarction, diabetes, hyperlipidemia, hypertension, seizure disorder and alcoholis m presenting with choledocholithiasis. CHOLEDOCHOLITHIASIS: The patient initially presenting with significant elevation in LFT pattern cons istent with obstruction and imaging also showing multiple calculi within the gallbladder and the comm on bile duct consistent with choledocholithiasis; however, this was not intervened upon immediately d ue to the LFT pattern felt to be from alcoholic liver disease. Upon reevaluation of his biliary tree with MRI on 05/09/2017, it shows continued presence of choledocholithiasis despite downtrending of h is LFTs and total bilirubin. At this time, the presence of choledocholithiasis could potentially con tribute to further infection or clinical morbidity. RECOMMENDATIONS: 1. We will make patient n.p.o. at midnight tonight in anticipation for ERCP tomorrow morning. 2. We would continue to trend LFTs daily for continued monitoring of downward trend. 3. We would continue to monitor for signs of infection/sepsis indicative of ascending cholangitis. 4. We would continue with antibiotic administration for possible prophylaxis for ascending cholangit is.
[2017-05-10] MEDS: Metoclopramide HCl 10 MG/2 ML VIAL IVP SCH ×4 (02:33→20:18)
[2017-05-10 04:43] LABS: #Eosinphils 0.2 thou/uL (0.0-0.7); #Lymphocytes 0.5 thou/uL (1.20-3.40); #Monocytes 0.5 thou/uL (0.11-0.59); #Neutrophils 7.4 thou/uL (1.40-6.50); %Basophils 0.2 % (0.0-1.0); %Eosinophils 1.8 % (0.0-10.0); %Lymphocytes 6.1 % (21.0-51.0); %Monocytes 6.1 % (0.0-10.0); %Neutrophils 85.7 % (42.0-75.0); Hemoglobin 8.2 g/dL (14.0-18.0); Mean Corpuscular HGB CONC 33.9 g/dL (32.0-36.0); Mean Corpuscular Hemoglobin 30.7 pg (27.0-31.0); Mean Corpuscular Volume 90.5 fl (80.0-94.0); Mean Platelet Volume 9.8 fL (7.4-10.4); Platelet Count 268 thou/uL (130-400); RBC Distribution Width 15.5 % (11.5-14.5); Red Blood Cell (RBC) Count 2.65 mill/uL (4.70-6.10); White Blood Cell (WBC) Count 8.6 thou/uL (4.8-10.8)
[2017-05-10 04:48] LABS: ALT (SGPT) 32 U/L (8-55); AST (SGOT) 33 U/L (5-34); Albumin 2.5 g/dL (3.4-4.8); Alkaline Phosphatase 168 U/L (40-150); Anion Gap 18 mmol/L (10-20); BUN (Urea Nitrogen) 100 mg/dL (8.4-25.7); Bilirubin, Total 1.6 mg/dL (0.2-1.2); Calc. Creatinine Clearance 14 mL/min (70-130); Calcium 8.3 mg/dL (7.8-10.44); Carbon Dioxide 25 mmol/L (23-31); Chloride 108 mmol/L (98-107); Estimated GFR-MDRD 8; Globulin 3.3 g/dL (2.4-3.5); Glucose 111 mg/dL (80-115); Potassium 3.7 mmol/L (3.5-5.1); Protein, Total 5.8 g/dL (5.8-8.1); Sodium 147 mmol/L (136-145)
[2017-05-10] MEDS ORDERED: Iothalamate Meglumine 60% 50 ML VIAL FS ONE ×2 (07:50→10:12)
--- NOTE | 2017-05-10 07:52 | PRG ---
DATE OF SERVICE: 05/10/2017 Thirty-five minutes critical care time. SUBJECTIVE: The patient had a bad night last night. He has developed heavy secretions and is now on a Ventimask. I am told he is supposed to have a foot amputation today, he is also going to have an ERCP. PHYSICAL EXAMINATION: VITAL SIGNS: At the current time, his pulse is 103, blood pressure 158/71, O2 sat 100% on Ventimask, respiratory rate 26, temperature 98.2. There has been no record fever overnight. His total intake for the last 24 hours was 808, output 1725, all of that was through urine. GENERAL: He is currently undergoing hemodialysis as I dictate this report. NEUROLOGICAL: He is awake, will talk, has gurgled speech. HEENT: Pupils react. Sclerae are anicteric. Oropharynx clear. NECK: No JVD. LUNGS: Coarse breath sounds. CARDIOVASCULAR: S1, S2 regular. ABDOMEN: Soft and nontender. EXTREMITIES: Trace edema throughout. LABORATORY DATA: White blood cell count 8.6, hematocrit 24.0, platelet count 268. Sodium 147, potas sium 3.7, chloride 108, CO2 25, BUN 100, creatinine 6.5, glucose 111. ASSESSMENT: 1. Acute respiratory failure requiring supplemental oxygen and previously mechanical ventilation. 2. Choledocholithiasis. 3. Acute renal failure with some functional recovery. 4. Encephalopathy. 5. Alcoholic hepatitis at the time of admission. 6. Gangrenous left foot. 7. Alcohol abuse. RECOMMENDATIONS: The patient is apparently set to undergo ERCP today along with the foot amputation. He will probably be left intubated at least temporarily after these procedures. I have reviewed hi s orders. He is continuing IV antibiotics. Remainder of his care per the specialists involved. I w ill manage his ventilator after surgery.
[2017-05-10] MEDS: Scopolamine 1.5 mg/72 hour Patch TD SCH (08:05)
--- NOTE | 2017-05-10 08:33 | PRG ---
DATE OF SERVICE: 05/10/2017 SUBJECTIVE: Mr. Clay remains extubated. He is breathing comfortably. OBJECTIVE: VITAL SIGNS: Blood pressure 139/67, pulse is 80. EYES: Sclerae nonicteric. LUNGS: Some rhonchi. CARDIAC: Normal S1, normal S2. ABDOMEN: Soft, nontender. EXTREMITIES: There is no edema. PERTINENT LABORATORY DATA: Hemoglobin is 8.2, creatinine 6.57. The patient is undergoing hemodialys is. ASSESSMENT: 1. Status post respiratory failure. 2. Renal failure. 3. Going down for ERCP and amputation of the toe.
--- NOTE | 2017-05-10 08:36 | PDOC.PN ---
- Subjective Encounter Start Date: 05/10/17 Encounter Start Time: 08:33 Subjective: seen and examined undergoing HD - Objective Vital Signs & Weight: Vital Signs (12 hours) Temp Pulse Resp BP Pulse Ox 05/10/17 08:00 97.9 F 05/10/17 06:17 96 05/10/17 06:12 84 25 H 96 05/10/17 04:00 98.2 F 90 L 05/10/17 00:00 98.3 F 05/09/17 20:34 84 144/57 H Weight Admit Weight 185 lb Weight 201 lb 4.513 oz Most Recent Monitor Data Heart Rate from ECG 85 NIBP 139/67 NIBP BP-Mean 83 Respiration from ECG 21 SpO2 99 I&O: 05/09/17 05/10/17 05/11/17 06:59 06:59 06:59 Intake Total 363 808 Output Total 1775 1725 125 Balance -1412 -917 -125 Result Diagrams: 05/10/17 04:27 05/10/17 04:27 Additional Labs: Accuchecks 05/10/17 05/10/17 05/09/17 03:45 00:08 20:29 POC Glucose 111 H 121 H 173 H 05/09/17 05/09/17 17:06 12:58 POC Glucose 146 H 115 H Phys Exam - Physical Examination Constitutional: NAD HEENT: PERRLA, moist MMs, sclera anicteric Neck: no nodes, no JVD, supple, full ROM Respiratory: no wheezing, no rales, no rhonchi Cardiovascular: RRR, no significant murmur Gastrointestinal: soft, non-tender, no distention Musculoskeletal: no edema, pulses present Dx/Plan (1) LENIN (acute kidney injury) Code(s): N17.9 - ACUTE KIDNEY FAILURE, UNSPECIFIED Status: Acute (2) ETOH abuse Code(s): F10.10 - ALCOHOL ABUSE, UNCOMPLICATED Status: Acute (3) Cardiogenic pulmonary edema Status: Acute (4) Liver failure Status: Acute - Plan cont current plan of care, continue antibiotics, PT/OT, manager social work, respiratory therapy Possible ERCP today -: Prognosis poor * .
[2017-05-10] MEDS ORDERED: Indomethacin 50 MG SUPP PR SCH (09:00)
[2017-05-10] MEDS ORDERED: Propofol 1,000 MG/100 ML VIAL IV ONE ×2 (09:06→09:30)
[2017-05-10] MEDS ORDERED: Sedation Protocol FS ONE (09:16)
[2017-05-10] MEDS ORDERED: fentaNYL Citrate/PF 2,000 MCG in Sodium Chloride 0.9% 60 ML IV SCH (09:23)
[2017-05-10] MEDS ORDERED: Lorazepam 2 MG/ML VIAL SLOW IVP PRN (09:23)
[2017-05-10] MEDS ORDERED: DISCONTINUE PREVIOUS NARCOTIC PAIN MEDICATIONS AND BENZODIAZEPINES FS SCH (09:23)
[2017-05-10] MEDS ORDERED: Morphine 2 MG/ML SYRINGE SLOW IVP PRN (09:23)
[2017-05-10] MEDS ORDERED: Succinylcholine Chloride 200 MG/10 ML VIAL IVP ONE (09:30)
[2017-05-10] MEDS ORDERED: Indomethacin 50 MG SUPP ONE (09:55)
[2017-05-10] MEDS ORDERED: Norepinephrine 8 MG/0.9% NS 250 ML ONE (10:08)
[2017-05-10 10:10] LABS: pH, Arterial 7.44 (7.35-7.45)
[2017-05-10] MEDS: Carvedilol 3.125 MG TAB PO SCH ×2 (10:10→18:04)
[2017-05-10 10:11] LABS: Actual Bicarbonate (HCO3a) 24.9 mEq/L (22-26); Base Excess (BEa) 0.7 mEq/L (0 (+/-) 2.5); CO2 Tension 37.4 mmHg (35.0-45.0); Calcium, Ionized 1.1 mmol/L (1.12-1.30); Hematocrit-ABG 23.1 % (42.0-52.0); Hemoglobin (Hb) 6.9 g/dL (14.0-18.0); O2 Tension (PaO2) 97.2 mmHg (80.0-100.0)
[2017-05-10] MEDS: hydrALAZINE 10 MG TAB PER TUBE SCH ×2 (10:11→20:18)
[2017-05-10 10:12] LABS: Puncture Site RRA
[2017-05-10] MEDS ORDERED: Fentanyl 100 MCG/2 ML VIAL ONE (10:12)
--- NOTE | 2017-05-10 11:21 | RAD ---
PORTABLE CHEST 1 VIEW: Date: 05/10/17 Time: 0927 hours HISTORY: Respiratory failure. FINDINGS/IMPRESSION: Comparison made with exam from previous day. Interval placement of an endotracheal tube is seen with tip at the projection of the SVC. Remainder o f exam otherwise stable. POS: [facility]
--- NOTE | 2017-05-10 11:45 | PRG ---
DATE OF SERVICE: 05/10/2017 SUBJECTIVE: Patient was seen and examined at bedside and overnight events noted. Patient denies any shortness of breath or chest pain or palpitation. No history of nausea or vomiting or diarrhea or f ever or chills or cramps. OBJECTIVE: GENERAL: This is a well-built male, in no apparent distress. VITAL SIGNS: Temperature 97.9, pulse 80, respiratory 27, blood pressure 103/40. HEENT: Atraumatic, normocephalic. Oral mucosa is moist. NECK: Supple. CARDIOVASCULAR: S1, S2 heard. Rate and rhythm regular. RESPIRATORY: Clear to auscultation. GASTROINTESTINAL: Abdomen is soft. MUSCULOSKELETAL: No tenderness. 1+ edema. DERMATOLOGIC: No skin rash. NEUROLOGIC: Alert and awake and oriented x3. No focal neurologic deficits. Moving all the extremit ies. PSYCHIATRIC: Mood and affect normal. LABORATORY DATA: Potassium is 3.7, BUN is 106, creatinine 6.7. ASSESSMENT AND PLAN: 1. Acute kidney injury on chronic kidney disease stage 4. Renal function with worsening labs. Urin e output seems to be better. We will continue on dialysis. The patient had dialysis today. 2. Metabolic acidosis, stable. 3. Multiorgan failure. 4. Anemia. 5. Edema. 6. Hypertension. 7. Hyponatremia. We will have dialysis. 8. We will continue on dialysis as tolerated.
--- NOTE | 2017-05-10 12:51 | OP ---
DATE OF PROCEDURE: 05/10/2017 INDICATION FOR PROCEDURE: Choledocholithiasis seen on imaging. PROCEDURE: Endoscopic retrograde cholangiopancreatography with sphincterotomy and stone extraction. VERIFIER OPERATOR PHYSICIAN: Tereso Hamilton M.D. DESCRIPTION OF PROCEDURE: After the risks and benefits were explained to the patient's surrogate (Kay Clay) including risks of bleeding, infection, perforation, reaction to anesthesia, pain and/or p ancreatitis, informed consent was obtained. The patient was then transferred from the ICU directly t o the endoscopy suite where general anesthesia and endotracheal intubation had already been performed while in the ICU. The general anesthesia was continued here in the endoscopy suite via anesthesia s upport. The standard duodenoscope was then introduced into the mouth and advanced into the esophagus , stomach and proximal small intestine without difficulty with the findings listed below. The patien t tolerated the procedure well with no immediate perioperative complications. EGD FINDINGS: With limited views from the side-viewing scope, normal mucosa was seen in the proximal mid and distal esophagus as well as the gastric cardia, fundus, body, antrum and incisura. Normal mucosa was also seen in both the duodenal bulb and second portion of the duodenum. ERCP FINDINGS: The duodenoscope was advanced to the second portion of the small intestine with the ampulla readily i dentified. The ampulla itself appeared normal in coloration without any ulceration or surrounding er ythema. Using a sphincterotome, the ampulla was then cannulated with a guidewire placed within the c ommon bile duct and into the common hepatic duct for stabilization. The sphincterotome was then adva nced into the common bile duct with a cholangiogram performed showing multiple filling defects consis tent with choledocholithiasis. A sphincterotomy was then performed with a guiding the sphincterotome at an 11 o'clock position with no blood loss during this portion of the procedure. After an adequat e sphincterotomy was performed, an exchange was made over a guidewire for an endoscopic balloon, whic h was then advanced into the common bile duct. Using occlusion cholangiography, again the multiple f illing defects were seen. The balloon was then advanced and inflated to 12 mm in size with extractio n of multiple black pigmented stones as well as black pigmented debris. Two further balloon sweeps p erformed at 12 mm again with further stone debris and stones obtained. Lastly, the balloon was infla jennifer to 15 mm and with sweeping of the duct a final time, no further stones were retrieved. After the balloon was deflated, it was noted that there was nice collier bile flow from the ampulla indicating good flow within the biliary tree. The procedure was then terminated with all equipment removed from the patient. At the end of the procedure, a Dobbhoff tube was placed with fluoroscopy guidance with the tip of the Dobbhoff tube seen noted curling in the greater curvature of the stomach. IMPRESSION: Successful endoscopic retrograde cholangiopancreatography with sphincterotomy and stone extraction of multiple (approximately 10) black pigmented stones measuring between 3 to 5 mm in size. RECOMMENDATIONS: 1. Transfer the patient back to ICU for continued support of his other medical comorbidities. 2. We would continue to monitor clinically for signs of pancreatitis with low threshold to grab lipa se for post-ERCP pancreatitis. 3. We would continue to trend LFTs for any further hepatic injury.
--- NOTE | 2017-05-10 13:18 | RAD ---
ERCP: Date: 05/10/17 HISTORY: Cholelithiasis and choledocholithiasis. FINDINGS/IMPRESSION: Five spot fluoroscopic images during an ERCP demonstrate opacification of the common bile duct and he patic duct and the branches without persistent filling defects. POS: [facility]
[2017-05-10] MEDS ORDERED: Heparin 10,000 UNITS/ 10 ML VIAL ONE (13:54)
[2017-05-10] MEDS: cefTRIAXone\\ROCEPHIN 2 GM in Sodium Chloride 0.9% 100 ML IVPB SCH (14:26)
[2017-05-10] MEDS ORDERED: PHENYLEPHRINE-NS 100 MCG/ML 10 ML SYRINGE ONE (15:48)
[2017-05-10] MEDS ORDERED: Succinylcholine Chloride 20 MG/ML 10 ml SYRINGE FS ONE (17:22)
--- NOTE | 2017-05-10 20:01 | PRG ---
DATE OF SERVICE: 05/10/2017 SUBJECTIVE: Joshua Clay is a 72-year-old male in ICU, he was left on the ventilator. He is intubat ed this morning as he has had some respiratory difficulty and then he also went an ERCP, sphincteroto my, stone extraction, a large of stones for choledocholithiasis. He has cholelithiasis. He will nee d a future cholecystectomy. He also went cleaning out of his left fifth toe metatarsophalangeal join t. He has PAD with left femoral, popliteal, and prosthetic graft. Dr. Anders performed this procedur e. PHYSICAL EXAMINATION: VITAL SIGNS: Heart rate 75, 129/48. He is on the ventilator and sedated. LUNGS: Clear to auscultation. CARDIAC: Regular rate and rhythm without murmur or gallop. ABDOMEN: Soft, nontender. EXTREMITIES: Unremarkable. LABORATORY DATA: A 8.6 white count, 8.2 hemoglobin. Sodium 147, BUN 100, creatinine is 6.57, GFR 11 1, bilirubin 1.6 this morning. ASSESSMENT AND PLAN: 1. Acute renal failure. The patient's GFR is 8. Urine output 1725 in the last 24 hours, nonoliguri c renal failure. Hopefully, his kidneys will recover. Continue dialysis. 2. Malnutrition. Continue tube feedings. 3. Dysphasia. Feedings through [place]. 4. Alcoholism 1-2 bottles of wine a day. 5. Choledocholithiasis and cholelithiasis, status post ERCP, sphincterotomy, he will probably benefi t from cholecystectomy in the future as his condition improves. 6. PAD, history of tobacco abuse, status post Podiatric procedure for his left small toe metatarsoph alangeal joint area per Dr. Anders. 7. On presentation sepsis probably related to cholangitis and choledocholithiasis. 8. Thrombocytopenia on admission, now resolved. 9. Coagulopathy on admission, now resolved are markedly improved. 10. Respiratory failure. 11. Echocardiogram on 04/29/2017, LV size normal, 25-30% ejection fraction, normal RV size and funct ion, mild mitral regurgitation, sclerotic aortic valve, mild tricuspid regurgitation, and pulmonary v alve normal. 12. Elevated troponins. Cardiology at least more consistent with rhabdomyolysis on presentation.
[2017-05-10] MEDS: Pantoprazole 40 MG GRANULES PACKET PER TUBE SCH (20:18)
[2017-05-10] MEDS: Propofol 1,000 MG/100 ML VIAL IV PRN (21:58)
[2017-05-11] MEDS: Metoclopramide HCl 10 MG/2 ML VIAL IVP SCH ×4 (01:43→20:18)
[2017-05-11 05:16] LABS: #Eosinphils 0.1 thou/uL (0.0-0.7); #Lymphocytes 0.5 thou/uL (1.20-3.40); #Monocytes 0.5 thou/uL (0.11-0.59); #Neutrophils 6.4 thou/uL (1.40-6.50); %Basophils 0.5 % (0.0-1.0); %Eosinophils 1.9 % (0.0-10.0); %Lymphocytes 6.9 % (21.0-51.0); %Neutrophils 83.7 % (42.0-75.0); Hemoglobin 7.7 g/dL (14.0-18.0); Mean Corpuscular Hemoglobin 30.7 pg (27.0-31.0); Mean Corpuscular Volume 90.5 fl (80.0-94.0); Mean Platelet Volume 9.6 fL (7.4-10.4); Platelet Count 253 thou/uL (130-400); RBC Distribution Width 15.2 % (11.5-14.5); White Blood Cell (WBC) Count 7.7 thou/uL (4.8-10.8)
[2017-05-11 05:25] LABS: ALT (SGPT) 20 U/L (8-55); AST (SGOT) 31 U/L (5-34); Albumin 2.6 g/dL (3.4-4.8); Alkaline Phosphatase 139 U/L (40-150); Anion Gap 14 mmol/L (10-20); BUN (Urea Nitrogen) 62 mg/dL (8.4-25.7); Bilirubin, Total 1.4 mg/dL (0.2-1.2); Calc. Creatinine Clearance 19 mL/min (70-130); Calcium 8.2 mg/dL (7.8-10.44); Carbon Dioxide 27 mmol/L (23-31); Chloride 104 mmol/L (98-107); Estimated GFR-MDRD 12; Globulin 3.3 g/dL (2.4-3.5); Glucose 131 mg/dL (80-115); Potassium 3.3 mmol/L (3.5-5.1); Protein, Total 5.9 g/dL (5.8-8.1); Sodium 142 mmol/L (136-145)
[2017-05-11] MEDS: Propofol 1,000 MG/100 ML VIAL IV PRN ×3 (05:35→22:20)
[2017-05-11] MEDS ORDERED: Bupivacaine 0.5% 10 ML VIAL ONE (07:19)
[2017-05-11] MEDS ORDERED: Neomycin-Polymyxin 1 ML AMP ONE (07:20)
[2017-05-11 07:36] LABS: pH, Arterial 7.44 (7.35-7.45)
[2017-05-11 07:37] LABS: Actual Bicarbonate (HCO3a) 24.6 mEq/L (22-26); Base Excess (BEa) 0.5 mEq/L (0 (+/-) 2.5); Calcium, Ionized 1.1 mmol/L (1.12-1.30); Hematocrit-ABG 20.7 % (42.0-52.0); Hemoglobin (Hb) 6.5 g/dL (14.0-18.0); O2 Tension (PaO2) 124.3 mmHg (80.0-100.0)
[2017-05-11 07:38] LABS: Puncture Site RBA
--- NOTE | 2017-05-11 07:56 | PDOC.PULCC ---
CCU Progress Note: Subj/Obj - Subjective Date: 05/11/17 Time: 07:55 Narrative: intubated after surgery. Toe amputation planned today - Objective Allergies/Adverse Reactions: Allergies Allergy/AdvReac Type Severity Reaction Status Date / Time No Known Drug Allergies Allergy Verified 04/30/17 03:05 Medications: Current Medications Acetaminophen (Tylenol) 650 mg PO Q4H PRN PRN Reason: Fever > 100 Last Admin: 05/04/17 13:44 Dose: 650 mg Albuterol/Ipratropium (Duoneb) 3 ml NEB QID-RT BRITTANI Last Admin: 05/11/17 07:12 Dose: 3 ml Lipase/Protease/Amylase ([place] [id number]) 1 cap FS .PER PROTOCOL PRN PRN Reason: TUBE OCCLUSION PROTOCOL Carvedilol (Coreg) 3.125 mg PO BID-WM [facility] Last Admin: 05/10/17 18:04 Dose: 3.125 mg Dextrose/Water (Dextrose 50%) 25 gm IVP PRN PRN PRN Reason: HYPOGLYCEMIA PROTOCOL Last Admin: 05/05/17 04:39 Dose: 25 gm Glucagon (Glucagon) 1 mg IM PRN PRN PRN Reason: HYPOGLYCEMIA PROTOCOL Hydralazine HCl (Apresoline) 10 mg PER TUBE BID BRITTANI Last Admin: 05/10/17 20:18 Dose: 10 mg Dextrose/Water (D5w) 1,000 mls @ 0 mls/hr IV INF PRN; As Directed PRN Reason: HYPOGLYCEMIA PROTOCOL Ceftriaxone Sodium 2 gm/ (Sodium Chloride) 100 mls @ 200 mls/hr IVPB Q24HR [facility] Last Admin: 05/10/17 14:26 Dose: 100 mls Fentanyl Citrate 2,000 mcg/ (Sodium Chloride) 100 mls @ 0 mls/hr IV INF BRITTANI; Per Protocol PRN Reason: Protocol Stop: 06/09/17 09:23 Fentanyl Citrate (Fentanyl Bolus) 250 mls @ 0 mls/hr IVPB PRN PRN; As Directed PRN Reason: Breakthrough pain Stop: 06/09/17 09:23 Potassium Chloride 40 meq/ (Device) 100 mls @ 25 mls/hr IVPB ONE BRITTANI Insulin Human Lispro (Humalog) 0 units SC .AGGRESSIVE SLIDING PRN PRN Reason: Aggressive Correctional Scale Last Admin: 05/09/17 20:52 Dose: 3 unit Lorazepam (Ativan) 2 mg SLOW IVP Q2H PRN PRN Reason: Anxiety to achieve Mohamud 2-3 Stop: 06/09/17 09:24 Metoclopramide HCl (Reglan) [address] [facility] Last Admin: 05/11/17 07:54 Dose: Not Given Morphine Sulfate (Morphine) 2 mg SLOW IVP Q2H PRN PRN Reason: Breakthrough pain Stop: 06/09/17 09:23 Ondansetron HCl (Zofran) 4 mg SLOW IVP Q6H PRN PRN Reason: Nausea/Vomiting Pantoprazole Sodium (Protonix) [address] [facility] Last Admin: 05/10/17 20:18 Dose: 40 mg Propofol (Diprivan) 1,000 mg IV INF PRN; Protocol PRN Reason: TO ACHIEVE MOHAMUD SCORE 2-3 Stop: 06/09/17 09:24 Last Admin: 05/11/17 05:35 Dose: 1,000 mg Scopolamine (Transderm Scop) 1.5 mg TD Q3D@0800 [facility] Last Admin: 05/10/17 08:05 Dose: 1.5 mg Sodium Bicarbonate (Bicarbonate, Sodium) 650 mg PER TUBE .PER PROTOCOL PRN PRN Reason: ENTERAL TUBE OCCLUSION MAR Reviewed: Yes Vital Signs and I&O: Vital Signs Temp 98.2 F 05/11/17 07:00 Pulse 73 05/11/17 07:17 Resp 12 05/11/17 07:12 BP 148/55 H 05/11/17 07:17 Pulse Ox 100 05/11/17 07:12 Intake & Output 05/10/17 05/11/17 05/11/17 18:59 06:59 18:59 Intake Total 174.1 253 Output Total 242 190 75 Balance -67.9 63 -75 Weight 201 lb 4.512 oz 199 lb 4.766 oz Intake: Intake, IV Amount 134.1 133 Propofol 1000 mg (See 34.1 133 Protocol) IV INF PRN Rx#: [id number] cefTRIAXone\ROCEPHIN 2 gm 100 In Sodium Chloride 0.9% 100 ml @ 200 mls/hr IVPB Q24HR [facility] Rx#:[id number] Tube Irrigant 40 120 Output: Gastric Drainage 0 Output, Griffin 242 190 75 Other: *Amount Reported-IN Dialysate 1,600 Voiding Method Indwelling Catheter Indwelling Catheter # Bowel Movements 1 1 Vent Setting: Positive End Expiratory 5 Pressure % Fraction of Inspired Oxygen 40 (FIO2) 04/30/17 16:08 Consult: Palliative Care Team Routine 05/01/17 07:28 Consult: Nephrology Routine 05/01/17 07:31 Initiate Protocol: Hypoglycemi .PRN 05/02/17 03:30 Blood Gas-Arterial AM RUN 05/02/17 07:32 Enteral Feeding-Continuous 05/02/17 07:33 VTE: Apply SCDs -mech prophyla ONE 05/02/17 08:53 HumaLOG 0 units SC .AGGRESSIVE SLIDING PRN 05/02/17 16:25 Enteral Feeding-Continuous 05/02/17 16:29 Communication Order-Nursing SEETEXT 05/02/17 16:40 Pancrelipase [id number] [Creon [id number]] 1 cap FS .PER PROTOCOL PRN Sodium Bicarbonate [Bicarbonate, Sodium] 650 mg PER TUBE .PER PROTOCOL PRN 05/05/17 07:45 Metoclopramide HCl [Reglan] 10 mg IVP Q6H 05/05/17 07:46 Consult: Palliative Care Team Routine 05/07/17 07:35 Consult: OT Evaluation/Treat Routine Consult: PT Evaluation/Treat Routine Activity: Chair BID-WA 05/07/17 07:42 Consult: Speech Eval/Treat Routine 05/08/17 07:19 NG Tube: Dobhoff/Small Bore ONE 05/08/17 07:20 Communication Order-Nursing SEETEXT 05/08/17 15:11 Wound Care-Nursing Protocol DAILY 05/08/17 17:58 Tube Feed [Enteral Feeding-Continuous] Q4HR 05/10/17 08:00 Scopolamine [Transderm Scop] 1.5 mg TD Q3D@0800 05/10/17 09:41 Resp: Vent Adult CONTINUOUS 05/11/17 08:00 Potassium Chloride [KCl] 40 meq Premix Bag 1 bag IVPB ONE 05/11/17 09:00 XR Chest 1 View Portable DAILY 05/12/17 03:30 Blood Gas-Arterial AM RUN 05/12/17 09:00 XR Chest 1 View Portable DAILY 05/13/17 03:30 Blood Gas-Arterial AM RUN 05/13/17 09:00 XR Chest 1 View Portable DAILY 05/14/17 03:30 Blood Gas-Arterial AM RUN 05/14/17 09:00 XR Chest 1 View Portable DAILY 05/15/17 03:30 Blood Gas-Arterial AM RUN 05/15/17 09:00 XR Chest 1 View Portable DAILY 05/16/17 03:30 Blood Gas-Arterial AM RUN 05/16/17 09:00 XR Chest 1 View Portable DAILY 05/17/17 03:30 Blood Gas-Arterial AM RUN 05/17/17 09:00 XR Chest 1 View Portable DAILY Spontaneous Breathing Test: not done (not extubating today) Lines (incl Aterial, CVC, PICC+Insertion date): Left IJ tunnelled dialysis catheter CCU Progress Note: Exam - Physical Exam Constitutional: NAD HEENT: PERRLA, moist MMs Neck: no nodes, no JVD Cardiovascular: RRR Focused Respiratory Location: decreased breath sounds: Right Gastrointestinal: soft, non-tender Musculoskeletal: edema present Neurological: non-focal, moves all 4 limbs Lymphatic: no nodes Psychiatric: normal affect Skin: no rash CCU Progress Note: Data - Labs Result Diagrams: 05/11/17 04:59 05/11/17 04:59 Lab results: Laboratory Results 05/09/17 05/09/17 05/09/17 12:58 17:06 20:29 WBC RBC Hgb Hct MCV MCH MCHC RDW Plt Count MPV Neutrophils % Lymphocytes % Monocytes % Eosinophils % Basophils % Neutrophils # Lymphocytes # Monocytes # Eosinophils # Basophils # Specimen Type Puncture Site Bicarbonate Actual ABG pH ABG pCO2 ABG pO2 ABG O2 Sat Calc/Dimitri ABG O2 Content ABG Base Excess ABG Hematocrit ABG Hemoglobin ABG Carboxyhemoglobin ABG Methemoglobin Enmanuel Test A-a O2 Gradient Ionized Calcium Mode of Support Mechanical Rate Inspired O2 Tidal Volume Pressure Support PEEP or CPAP Sodium Potassium Chloride Carbon Dioxide Anion Gap BUN Creatinine Estimated GFR (MDRD) Glucose POC Glucose 115 H 146 H 173 H Calcium Total Bilirubin AST ALT Alkaline Phosphatase Serum Total Protein Albumin Globulin Albumin/Globulin Ratio 05/10/17 05/10/17 05/10/17 00:08 03:45 04:27 WBC 8.6 RBC 2.65 L Hgb 8.2 L Hct 24.0 L MCV 90.5 MCH 30.7 MCHC 33.9 RDW 15.5 H Plt Count 268 MPV 9.8 Neutrophils % 85.7 H Lymphocytes % 6.1 L Monocytes % 6.1 Eosinophils % 1.8 Basophils % 0.2 Neutrophils # 7.4 H Lymphocytes # 0.5 L Monocytes # 0.5 Eosinophils # 0.2 Basophils # 0.0 Specimen Type Puncture Site Bicarbonate Actual ABG pH ABG pCO2 ABG pO2 ABG O2 Sat Calc/Dimitri ABG O2 Content ABG Base Excess ABG Hematocrit ABG Hemoglobin ABG Carboxyhemoglobin ABG Methemoglobin Enmanuel Test A-a O2 Gradient Ionized Calcium Mode of Support Mechanical Rate Inspired O2 Tidal Volume Pressure Support PEEP or CPAP Sodium Potassium Chloride Carbon Dioxide Anion Gap BUN Creatinine Estimated GFR (MDRD) Glucose POC Glucose 121 H 111 H Calcium Total Bilirubin AST ALT Alkaline Phosphatase Serum Total Protein Albumin Globulin Albumin/Globulin Ratio 05/10/17 05/10/17 05/10/17 04:27 09:45 13:05 WBC RBC Hgb Hct MCV MCH MCHC RDW Plt Count MPV Neutrophils % Lymphocytes % Monocytes % Eosinophils % Basophils % Neutrophils # Lymphocytes # Monocytes # Eosinophils # Basophils # Specimen Type ARTERIAL Puncture Site RRA Bicarbonate Actual 24.9 ABG pH 7.44 ABG pCO2 37.4 ABG pO2 97.2 ABG O2 Sat Calc/Dimitri 97.8 ABG O2 Content 9.5 L ABG Base Excess 0.7 ABG Hematocrit 23.1 L ABG Hemoglobin 6.9 L ABG Carboxyhemoglobin 1.7 ABG Methemoglobin 0.6 Enmanuel Test NOT DONE A-a O2 Gradient 212.550 H Ionized Calcium 1.1 L Mode of Support SIMV/PSV Mechanical Rate 12 Inspired O2 50 Tidal Volume 550 Pressure Support 10 PEEP or CPAP 5.0 Sodium 147 H 144 Potassium 3.7 3.2 L Chloride 108 H 102 Carbon Dioxide 25 Anion Gap 18 BUN 100 H Creatinine 6.57 H Estimated GFR (MDRD) 8 Glucose 111 POC Glucose 136 H Calcium 8.3 Total Bilirubin 1.6 H AST 33 ALT 32 Alkaline Phosphatase 168 H Serum Total Protein 5.8 Albumin 2.5 L Globulin 3.3 Albumin/Globulin Ratio 0.8 L 05/10/17 05/10/17 05/11/17 17:11 20:38 00:06 WBC RBC Hgb Hct MCV MCH MCHC RDW Plt Count MPV Neutrophils % Lymphocytes % Monocytes % Eosinophils % Basophils % Neutrophils # Lymphocytes # Monocytes # Eosinophils # Basophils # Specimen Type Puncture Site Bicarbonate Actual ABG pH ABG pCO2 ABG pO2 ABG O2 Sat Calc/Dimitri ABG O2 Content ABG Base Excess ABG Hematocrit ABG Hemoglobin ABG Carboxyhemoglobin ABG Methemoglobin Enmanuel Test A-a O2 Gradient Ionized Calcium Mode of Support Mechanical Rate Inspired O2 Tidal Volume Pressure Support PEEP or CPAP Sodium Potassium Chloride Carbon Dioxide Anion Gap BUN Creatinine Estimated GFR (MDRD) Glucose POC Glucose 108 115 H 146 H Calcium Total Bilirubin AST ALT Alkaline Phosphatase Serum Total Protein Albumin Globulin Albumin/Globulin Ratio 05/11/17 05/11/17 05/11/17 04:32 04:59 04:59 WBC 7.7 RBC 2.50 L Hgb 7.7 L Hct 22.6 L MCV 90.5 MCH 30.7 MCHC 34.0 RDW 15.2 H Plt Count 253 MPV 9.6 Neutrophils % 83.7 H Lymphocytes % 6.9 L Monocytes % 7.0 Eosinophils % 1.9 Basophils % 0.5 Neutrophils # 6.4 Lymphocytes # 0.5 L Monocytes # 0.5 Eosinophils # 0.1 Basophils # 0.0 Specimen Type Puncture Site Bicarbonate Actual ABG pH ABG pCO2 ABG pO2 ABG O2 Sat Calc/Dimitri ABG O2 Content ABG Base Excess ABG Hematocrit ABG Hemoglobin ABG Carboxyhemoglobin ABG Methemoglobin Enmanuel Test A-a O2 Gradient Ionized Calcium Mode of Support Mechanical Rate Inspired O2 Tidal Volume Pressure Support PEEP or CPAP Sodium 142 Potassium 3.3 L Chloride 104 Carbon Dioxide 27 Anion Gap 14 BUN 62 H Creatinine 4.73 H Estimated GFR (MDRD) 12 Glucose 131 H POC Glucose 129 H Calcium 8.2 Total Bilirubin 1.4 H AST 31 ALT 20 Alkaline Phosphatase 139 Serum Total Protein 5.9 Albumin 2.6 L Globulin 3.3 Albumin/Globulin Ratio 0.8 L 05/11/17 05/11/17 07:26 07:30 WBC RBC Hgb Hct MCV MCH MCHC RDW Plt Count MPV Neutrophils % Lymphocytes % Monocytes % Eosinophils % Basophils % Neutrophils # Lymphocytes # Monocytes # Eosinophils # Basophils # Specimen Type ARTERIAL Puncture Site RBA Bicarbonate Actual 24.6 ABG pH 7.44 ABG pCO2 37.0 ABG pO2 124.3 H ABG O2 Sat Calc/Dimitri 98.7 ABG O2 Content 9.1 L ABG Base Excess 0.5 ABG Hematocrit 20.7 L ABG Hemoglobin 6.5 L ABG Carboxyhemoglobin 1.7 ABG Methemoglobin 0.8 Enmanuel Test NOT DONE A-a O2 Gradient 114.650 H Ionized Calcium 1.1 L Mode of Support SIMV/PSV Mechanical Rate 12 Inspired O2 40 Tidal Volume 550 Pressure Support 10 PEEP or CPAP 5.0 Sodium 143 Potassium 3.1 L Chloride 103 Carbon Dioxide Anion Gap BUN Creatinine Estimated GFR (MDRD) Glucose POC Glucose 128 H Calcium Total Bilirubin AST ALT Alkaline Phosphatase Serum Total Protein Albumin Globulin Albumin/Globulin Ratio - ABG Interpretation Attestation: I reviewed and interpreted this ABG. ABG Results: ABG pH 7.44 (7.35-7.45) 05/11/17 07:30 ABG pCO2 37.0 mmHg (35.0-45.0) 05/11/17 07:30 ABG O2 Sat Calc/Dimitri 98.7 % (94.0-100.0) 05/11/17 07:30 ABG Base Excess 0.5 mEq/L (0 (+/-) 2.5) 05/11/17 07:30 Interpretation: normal - Radiology Interpretation Chest x-ray Status: image reviewed by me (pulm edema and/or effusion concentrated in RLL) CCU Progress Note: A/P - Problems (1) Acute respiratory failure with hypoxia Current Visit: Yes Status: Acute Code(s): J96.01 - ACUTE RESPIRATORY FAILURE WITH HYPOXIA (2) LENIN (acute kidney injury) Current Visit: Yes Status: Acute Code(s): N17.9 - ACUTE KIDNEY FAILURE, UNSPECIFIED - Time Spent with Patient Time (minutes): 35 (cc time) - Plan Plan: Not weanable until he has had more dialysis for fluid removal Continue IV Abx Toe amputation today Vent settings adjusted
[2017-05-11] MEDS ORDERED: Rocuronium Bromide 50 MG/5 ML VIAL ONE (08:04)
[2017-05-11] MEDS ORDERED: Midazolam HCl 5 mg/5 ml Vial ONE (08:04)
[2017-05-11] MEDS ORDERED: Potassium Chloride 40 MEQ in Premix Bag 1 BAG IVPB SCH (08:30)
[2017-05-11] MEDS: hydrALAZINE 10 MG TAB PER TUBE SCH ×2 (08:35→20:18)
--- NOTE | 2017-05-11 08:48 | RAD ---
PORTABLE CHEST 1 VIEW: Date: 05/11/17 Time: 0504 hours HISTORY: Respiratory failure. FINDINGS/IMPRESSION: Comparison made with exam from previous day. Line and tube placements are unchanged in position. Changes of median sternotomy are again seen. The heart size is prominent. There are bilateral pleural effusions, right greater than left. No pneumotho races are identified. POS: [facility]
[2017-05-11] MEDS ORDERED: Potassium Chloride 20 MEQ TAB PO SCH (09:00)
[2017-05-11] MEDS: Carvedilol 3.125 MG TAB PO SCH ×2 (09:32→18:07)
--- NOTE | 2017-05-11 11:28 | PRG ---
DATE OF SERVICE: 05/11/2017 SUBJECTIVE: Mr. Clay is doing well, intubated. He has undergone ERCP and total removal. He is i ntubated on the ventilator. OBJECTIVE: VITAL SIGNS: Blood pressure 148/60, pulse 78 and regular. LUNGS: Clear. CARDIAC: Normal S1, normal S2. ABDOMEN: Soft, nontender. EXTREMITIES: There is no edema. ASSESSMENT: 1. Status post respiratory failure. 2. Renal failure. 3. Postoperative status, doing well. 4. Creatinine is stable at 4.7 point. PLAN: Continue current medical regimen. No changes at this time.
[2017-05-11] MEDS: cefTRIAXone\\ROCEPHIN 2 GM in Sodium Chloride 0.9% 100 ML IVPB SCH (12:15)
[2017-05-11 12:17] LABS: Hemoglobin 7.5 g/dL (14.0-18.0)
[2017-05-11] MEDS ORDERED: PHENYLEPHRINE-NS 100 MCG/ML 10 ML SYRINGE ONE (15:54)
[2017-05-11] MEDS: HumaLOG 300 UNITS/3 ML VIAL SC PRN (16:20)
--- NOTE | 2017-05-11 16:38 | PRG ---
DATE OF SERVICE: 05/11/2017 SUBJECTIVE: The patient is seen and examined at the bedside. He is in ICU A2 bed. He is intubated orally. He is sedated with propofol. Apparently, he was in some respiratory distress yesterday when he was evaluated by Anesthesia and a decision was made to reintubate him and that is why he is intub ated at this point. Also, he underwent ERCP approximately 10 stones were removed from his biliary tr act yesterday. OBJECTIVE: VITAL SIGNS: Blood pressure is 119/40, pulse is 74, respiratory rate is 14, and O2 saturation is 100 %. He is on tidal volume 550, respiratory rate is 12, FIO2 is 40%, PEEP is 5 and pressure support is 10. GENERAL: He is orally intubated. He has Dobhoff in his right nostril. HEENT: His pupils are small, somewhat sluggish when response to light. LUNGS: Breath sounds slightly diminished at the right base. No crackles or wheezing. HEART: S1, S2 normal, no S3, no S4. ABDOMEN: Soft, nontender, nondistended. Bowel sounds are present. No organomegaly. EXTREMITIES: Left foot shows some open lesion of the fifth toe. There is a left great toe missing f rom previous amputation. The right foot had great toe and small toe amputated in the past and those are healed properly. Pulses are difficult to palpate on both feet. NEUROLOGIC: Postponed since he is sedated. LABORATORY DATA: Showed a white count of 7.7, hemoglobin 7.7, hematocrit 22.6, and platelet count 25 3. Sodium of 142, potassium 3.3, chloride 104, CO2 of 27, BUN 62, creatinine 4.73. Glycemic ranging from 108 to 146. Albumin 2.6 and total bilirubin is 1.4. AST, ALT and alkaline phosphatase were wi thin normal limits. Culture from specimen from the left foot is showing Staphylococcus aureus, panse nsitive. IMPRESSION: 1. Acute kidney failure, nonoliguric, on hemodialysis daily per Dr. Thorpe. 2. Alcohol abuse without current complications. 3. Cardiogenic pulmonary edema, acute. 4. Choledocholithiasis and cholelithiasis, status post endoscopic retrograde cholangiopancreatograph y, sphincterotomy with plans to do cholecystectomy on him in the future per Dr. Clarke, per his notes from yesterday. 5. Peripheral arterial disease and status post left small toe metatarsophalangeal procedure per podi atrist. 6. Thrombocytopenia, resolved. 7. Coagulopathy, improved. 8. Respiratory failure. This could be related to may be IV fluid overload during the endoscopic ret rograde cholangiopancreatography procedure yesterday, so plan is to continue hemodialysis per Dr. José Antonio jensen. RECOMMENDATIONS: We will continue tube feeding. He is tolerating 60 mL per hour. For now, he is not in danger to have withdrawal syndrome from alcohol because he is out of this window. Podiatr ist will do procedure on his left foot today. We will continue his antibiotic, which is Rocephin 2 g every 24 hours. His glycemia is well controlled.
--- NOTE | 2017-05-11 18:19 | PRG ---
DATE OF SERVICE: 05/11/2017 SUBJECTIVE: This is an elderly male, seen in ICU, intubated, making good amount of urine 50-75 mL pe r the nurse. OBJECTIVE: GENERAL: This is a well-built male, intubated and seen in ICU. VITAL SIGNS: Temperature 98.3, pulse 75, respiratory rate 18, blood pressure 157/57. HEENT: Intubated. CARDIOVASCULAR: S1, S2 heard. Tachycardia. RESPIRATORY: Clear. GASTROINTESTINAL: Abdomen is soft. MUSCULOSKELETAL: 1+ edema. DERMATOLOGIC: No skin rash. NEUROLOGIC: Intubated. LABORATORY DATA: Potassium is 3.3, BUN is 62, creatinine is 4.7. ASSESSMENT AND PLAN: 1. Acute kidney injury on chronic kidney disease, dialysis dependent. The patient seems to be makin g more urine. We will monitor. We will hold dialysis and monitor the renal function. 2. Hypokalemia, replaced. 3. Anemia. Transfuse p.r.n. 4. Hypoalbuminemia. 5. Multiorgan failure. 6. Acute hypoxic respiratory failure, intubated. 7. Edema, controlled. 8. Hypertension, stable. Plan is to hold dialysis. Monitor urine output and electrolytes. We will follow. We will have a di alysis p.r.n.
[2017-05-11] MEDS: Pantoprazole 40 MG GRANULES PACKET PER TUBE SCH (20:19)
--- NOTE | 2017-05-12 00:14 | PRG ---
DATE OF SERVICE: 05/11/2017 REASON FOR CONSULTATION: Choledocholithiasis SUBJECTIVE: The patient is doing well overnight with no acute events or problems. He does continue to remain to be intubated and sedated while in the ICU. OBJECTIVE: VITAL SIGNS: Temperature 98.8, pulse 71, blood pressure 135/46, respiratory rate 18, satting 98% on mechanical ventilation. GENERAL: The patient is lying in bed, in no acute distress, intubated and sedated. CARDIOVASCULAR: Regular rate and rhythm with no discernible murmurs, gallops or rubs. RESPIRATORY: Coarse breath sounds heard in all lung alexandre consistent with mechanical ventilation. ABDOMEN: Normoactive bowel sounds, soft. No grimacing noted with palpation. LABORATORY DATA: CBC with a white blood cell count of 7.7, hemoglobin 7.7, hematocrit 22.6, platelet s 253. Chemistry with a sodium 142, potassium 3.3, chloride 104, CO2 of 27, BUN 62, creatinine 4.73, glucose 131, AST 31, ALT 20, alkaline phosphatase 139, total bilirubin 1.4. IMAGING DATA: ERCP performed on 05/10/2017 with successful extraction of multiple black pigmented st ones measuring between 3-5 mm in size. ASSESSMENT AND PLAN: The patient is a 72-year-old male with past medical history of coronary artery disease/myocardial infarction, diabetes, hyperlipidemia, hypertension, seizure disorder and alcoholis m, presenting with choledocholithiasis. Choledocholithiasis: The patient initially presented with significant LFT elevation consistent with obstruction and imaging showing multiple calculi within the common bile duct. He ultimately underwen t ERCP on 05/10/2017 with the removal of multiple black pigmented stones. Since that time, his LFTs have continued to decrease with almost normal levels on laboratory studies today. RECOMMENDATIONS: With almost complete resolution of his LFT pattern and successful extraction of sto ortega, no further recommendations for this condition are indicated at this time. We will sign off. Please call with any additional questions.
[2017-05-12] MEDS: Metoclopramide HCl 10 MG/2 ML VIAL IVP SCH ×4 (01:47→20:36)
[2017-05-12] MEDS: HumaLOG 300 UNITS/3 ML VIAL SC PRN (04:13)
[2017-05-12 04:45] LABS: #Eosinphils 0.2 thou/uL (0.0-0.7); #Lymphocytes 0.6 thou/uL (1.20-3.40); #Monocytes 0.7 thou/uL (0.11-0.59); #Neutrophils 5.7 thou/uL (1.40-6.50); %Basophils 0.5 % (0.0-1.0); %Eosinophils 2.2 % (0.0-10.0); %Lymphocytes 8.2 % (21.0-51.0); %Monocytes 9.1 % (0.0-10.0); Hemoglobin 7.2 g/dL (14.0-18.0); Mean Platelet Volume 9.5 fL (7.4-10.4); Platelet Count 230 thou/uL (130-400); RBC Distribution Width 15.3 % (11.5-14.5); Red Blood Cell (RBC) Count 2.33 mill/uL (4.70-6.10); White Blood Cell (WBC) Count 7.1 thou/uL (4.8-10.8)
[2017-05-12 05:01] LABS: ALT (SGPT) 15 U/L (8-55); AST (SGOT) 33 U/L (5-34); Albumin 2.5 g/dL (3.4-4.8); Alkaline Phosphatase 113 U/L (40-150); Anion Gap 16 mmol/L (10-20); BUN (Urea Nitrogen) 77 mg/dL (8.4-25.7); Bilirubin, Total 1.1 mg/dL (0.2-1.2); Calc. Creatinine Clearance 17 mL/min (70-130); Calcium 8.1 mg/dL (7.8-10.44); Carbon Dioxide 24 mmol/L (23-31); Chloride 105 mmol/L (98-107); Estimated GFR-MDRD 11; Globulin 3.2 g/dL (2.4-3.5); Glucose 151 mg/dL (80-115); Potassium 3.2 mmol/L (3.5-5.1); Protein, Total 5.7 g/dL (5.8-8.1); Sodium 142 mmol/L (136-145)
--- NOTE | 2017-05-12 05:42 | PDOC.PULCC ---
CCU Progress Note: Subj/Obj - Subjective Date: 05/12/17 Time: 05:41 Narrative: He will wake up and tries to follow - Objective Allergies/Adverse Reactions: Allergies Allergy/AdvReac Type Severity Reaction Status Date / Time No Known Drug Allergies Allergy Verified 04/30/17 03:05 Medications: Current Medications Acetaminophen (Tylenol) 650 mg PO Q4H PRN PRN Reason: Fever > 100 Last Admin: 05/04/17 13:44 Dose: 650 mg Albuterol/Ipratropium (Duoneb) 3 ml NEB QID-RT BRITTANI Last Admin: 05/11/17 18:30 Dose: 3 ml Lipase/Protease/[place]ylase ([place] [id number]) 1 cap FS .PER PROTOCOL PRN PRN Reason: TUBE OCCLUSION PROTOCOL Carvedilol (Coreg) 3.125 mg PO BID-WM BRITTANI Last Admin: 05/11/17 18:07 Dose: 3.125 mg Dextrose/Water (Dextrose 50%) 25 gm IVP PRN PRN PRN Reason: HYPOGLYCEMIA PROTOCOL Last Admin: 05/05/17 04:39 Dose: 25 gm Glucagon (Glucagon) 1 mg IM PRN PRN PRN Reason: HYPOGLYCEMIA PROTOCOL Hydralazine HCl (Apresoline) 10 mg PER TUBE BID BRITTANI Last Admin: 05/11/17 20:18 Dose: 10 mg Dextrose/Water (D5w) 1,000 mls @ 0 mls/hr IV INF PRN; As Directed PRN Reason: HYPOGLYCEMIA PROTOCOL Ceftriaxone Sodium 2 gm/ (Sodium Chloride) 100 mls @ 200 mls/hr IVPB Q24HR BRITTANI Last Admin: 05/11/17 12:15 Dose: 100 mls Fentanyl Citrate 2,000 mcg/ (Sodium Chloride) 100 mls @ 0 mls/hr IV INF BRITTANI; Per Protocol PRN Reason: Protocol Stop: 06/09/17 09:23 Fentanyl Citrate (Fentanyl Bolus) 250 mls @ 0 mls/hr IVPB PRN PRN; As Directed PRN Reason: Breakthrough pain Stop: 06/09/17 09:23 Insulin Human Lispro (Humalog) 0 units SC .AGGRESSIVE SLIDING PRN PRN Reason: Aggressive Correctional Scale Last Admin: 05/12/17 04:13 Dose: 3 unit Lorazepam (Ativan) 2 mg SLOW IVP Q2H PRN PRN Reason: Anxiety to achieve Mohamud 2-3 Stop: 06/09/17 09:24 Metoclopramide HCl (Reglan) 10 mg IVP Q6H [facility] Last Admin: 05/12/17 01:47 Dose: 10 mg Morphine Sulfate (Morphine) 2 mg SLOW IVP Q2H PRN PRN Reason: Breakthrough pain Stop: 06/09/17 09:23 Ondansetron HCl (Zofran) 4 mg SLOW IVP Q6H PRN PRN Reason: Nausea/Vomiting Pantoprazole Sodium (Protonix) 40 mg PER TUBE 2100 [facility] Last Admin: 05/11/17 20:19 Dose: 40 mg Propofol (Diprivan) 1,000 mg IV INF PRN; Protocol PRN Reason: TO ACHIEVE MOHAMUD SCORE 2-3 Stop: 06/09/17 09:24 Last Admin: 05/11/17 22:20 Dose: 1,000 mg Scopolamine (Transderm Scop) 1.5 mg TD Q3D@0800 [facility] Last Admin: 05/10/17 08:05 Dose: 1.5 mg Sodium Bicarbonate (Bicarbonate, Sodium) 650 mg PER TUBE .PER PROTOCOL PRN PRN Reason: ENTERAL TUBE OCCLUSION MAR Reviewed: Yes Vital Signs and I&O: Vital Signs Temp 98.7 F 05/12/17 03:00 Pulse 75 05/12/17 02:10 Resp 14 05/12/17 04:00 BP 133/45 L 05/11/17 20:18 Pulse Ox 98 05/11/17 20:00 Intake & Output 05/11/17 05/11/17 05/12/17 06:59 18:59 06:59 Intake Total 253 750 240 Output Total 190 395 345 Balance 63 355 -105 Weight 199 lb 4.766 oz 200 lb 9.93 oz Intake: Intake, IV Amount 133 229 Potassium Chloride 40 meq 100 In Premix Bag 1 bag @ 25 mls/hr IVPB 0830 [facility] Rx# :[id number] Propofol 1000 mg (See 133 129 Protocol) IV INF PRN Rx#: [id number] Tube Feeding 401 Tube Irrigant 120 120 240 Output: Gastric Drainage 0 Output, Griffin 190 395 345 Other: Voiding Method Indwelling Catheter Indwelling Catheter Indwelling Catheter # Bowel Movements 1 Vent Setting: Simv mode Spontaneous Breathing Test: not done CCU Progress Note: Exam - Physical Exam Constitutional: NAD HEENT: PERRLA, sclera anicteric Neck: no nodes, no JVD Cardiovascular: RRR Focused Respiratory Location: decreased breath sounds: Right Gastrointestinal: soft, non-tender Musculoskeletal: edema present Neurological: non-focal, moves all 4 limbs Lymphatic: no nodes Psychiatric: normal affect Skin: no rash CCU Progress Note: Data - Labs Result Diagrams: 05/12/17 04:38 05/12/17 04:38 Lab results: Laboratory Results 05/10/17 05/10/17 05/10/17 09:45 13:05 17:11 WBC RBC Hgb Hct MCV MCH MCHC RDW Plt Count MPV Neutrophils % Lymphocytes % Monocytes % Eosinophils % Basophils % Neutrophils # Lymphocytes # Monocytes # Eosinophils # Basophils # Specimen Type ARTERIAL Puncture Site RRA Bicarbonate Actual 24.9 ABG pH 7.44 ABG pCO2 37.4 ABG pO2 97.2 ABG O2 Sat Calc/Dimitri 97.8 ABG O2 Content 9.5 L ABG Base Excess 0.7 ABG Hematocrit 23.1 L ABG Hemoglobin 6.9 L ABG Carboxyhemoglobin 1.7 ABG Methemoglobin 0.6 Enmanuel Test NOT DONE A-a O2 Gradient 212.550 H Sodium 144 Potassium 3.2 L Chloride 102 Ionized Calcium 1.1 L Mode of Support SIMV/PSV Mechanical Rate 12 Inspired O2 50 Tidal Volume 550 Pressure Support 10 PEEP or CPAP 5.0 Carbon Dioxide Anion Gap BUN Creatinine Estimated GFR (MDRD) Glucose POC Glucose 136 H 108 Calcium Total Bilirubin AST ALT Alkaline Phosphatase B-Natriuretic Peptide Serum Total Protein Albumin Globulin Albumin/Globulin Ratio 05/10/17 05/11/17 05/11/17 20:38 00:06 04:32 WBC RBC Hgb Hct MCV MCH MCHC RDW Plt Count MPV Neutrophils % Lymphocytes % Monocytes % Eosinophils % Basophils % Neutrophils # Lymphocytes # Monocytes # Eosinophils # Basophils # Specimen Type Puncture Site Bicarbonate Actual ABG pH ABG pCO2 ABG pO2 ABG O2 Sat Calc/Dimitri ABG O2 Content ABG Base Excess ABG Hematocrit ABG Hemoglobin ABG Carboxyhemoglobin ABG Methemoglobin Enmanuel Test A-a O2 Gradient Sodium Potassium Chloride Ionized Calcium Mode of Support Mechanical Rate Inspired O2 Tidal Volume Pressure Support PEEP or CPAP Carbon Dioxide Anion Gap BUN Creatinine Estimated GFR (MDRD) Glucose POC Glucose 115 H 146 H 129 H Calcium Total Bilirubin AST ALT Alkaline Phosphatase B-Natriuretic Peptide Serum Total Protein Albumin Globulin Albumin/Globulin Ratio 02/05/11/17 05/11/17 04:59 04:59 04:59 WBC 7.7 RBC 2.50 L Hgb 7.7 L Hct 22.6 L MCV 90.5 MCH 30.7 MCHC 34.0 RDW 15.2 H Plt Count 253 MPV 9.6 Neutrophils % 83.7 H Lymphocytes % 6.9 L Monocytes % 7.0 Eosinophils % 1.9 Basophils % 0.5 Neutrophils # 6.4 Lymphocytes # 0.5 L Monocytes # 0.5 Eosinophils # 0.1 Basophils # 0.0 Specimen Type Puncture Site Bicarbonate Actual ABG pH ABG pCO2 ABG pO2 ABG O2 Sat Calc/Dimitri ABG O2 Content ABG Base Excess ABG Hematocrit ABG Hemoglobin ABG Carboxyhemoglobin ABG Methemoglobin Enmanuel Test A-a O2 Gradient Sodium 142 Potassium 3.3 L Chloride 104 Ionized Calcium Mode of Support Mechanical Rate Inspired O2 Tidal Volume Pressure Support PEEP or CPAP Carbon Dioxide 27 Anion Gap 14 BUN 62 H Creatinine 4.73 H Estimated GFR (MDRD) 12 Glucose 131 H POC Glucose Calcium 8.2 Total Bilirubin 1.4 H AST 31 ALT 20 Alkaline Phosphatase 139 B-Natriuretic Peptide 3291.6 H Serum Total Protein 5.9 Albumin 2.6 L Globulin 3.3 Albumin/Globulin Ratio 0.8 L 05/11/17 05/11/17 05/11/17 07:26 07:30 11:39 WBC RBC Hgb Hct MCV MCH MCHC RDW Plt Count MPV Neutrophils % Lymphocytes % Monocytes % Eosinophils % Basophils % Neutrophils # Lymphocytes # Monocytes # Eosinophils # Basophils # Specimen Type ARTERIAL Puncture Site RBA Bicarbonate Actual 24.6 ABG pH 7.44 ABG pCO2 37.0 ABG pO2 124.3 H ABG O2 Sat Calc/Dimitri 98.7 ABG O2 Content 9.1 L ABG Base Excess 0.5 ABG Hematocrit 20.7 L ABG Hemoglobin 6.5 L ABG Carboxyhemoglobin 1.7 ABG Methemoglobin 0.8 Enmanuel Test NOT DONE A-a O2 Gradient 114.650 H Sodium 143 Potassium 3.1 L Chloride 103 Ionized Calcium 1.1 L Mode of Support SIMV/PSV Mechanical Rate 12 Inspired O2 40 Tidal Volume 550 Pressure Support 10 PEEP or CPAP 5.0 Carbon Dioxide Anion Gap BUN Creatinine Estimated GFR (MDRD) Glucose POC Glucose 128 H 124 H Calcium Total Bilirubin AST ALT Alkaline Phosphatase B-Natriuretic Peptide Serum Total Protein Albumin Globulin Albumin/Globulin Ratio 05/11/17 05/11/17 05/11/17 12:08 16:11 20:18 WBC RBC Hgb 7.5 L Hct 22.4 L MCV MCH MCHC RDW Plt Count MPV Neutrophils % Lymphocytes % Monocytes % Eosinophils % Basophils % Neutrophils # Lymphocytes # Monocytes # Eosinophils # Basophils # Specimen Type Puncture Site Bicarbonate Actual ABG pH ABG pCO2 ABG pO2 ABG O2 Sat Calc/Dimitri ABG O2 Content ABG Base Excess ABG Hematocrit ABG Hemoglobin ABG Carboxyhemoglobin ABG Methemoglobin Enmanuel Test A-a O2 Gradient Sodium Potassium Chloride Ionized Calcium Mode of Support Mechanical Rate Inspired O2 Tidal Volume Pressure Support PEEP or CPAP Carbon Dioxide Anion Gap BUN Creatinine Estimated GFR (MDRD) Glucose POC Glucose 153 H 118 H Calcium Total Bilirubin AST ALT Alkaline Phosphatase B-Natriuretic Peptide Serum Total Protein Albumin Globulin Albumin/Globulin Ratio 05/12/17 05/12/17 05/12/17 00:16 04:12 04:38 WBC 7.1 RBC 2.33 L Hgb 7.2 L Hct 21.2 L MCV 91.0 MCH 31.0 MCHC 34.0 RDW 15.3 H Plt Count 230 MPV 9.5 Neutrophils % 80.0 H Lymphocytes % 8.2 L Monocytes % 9.1 Eosinophils % 2.2 Basophils % 0.5 Neutrophils # 5.7 Lymphocytes # 0.6 L Monocytes # 0.7 H Eosinophils # 0.2 Basophils # 0.0 Specimen Type Puncture Site Bicarbonate Actual ABG pH ABG pCO2 ABG pO2 ABG O2 Sat Calc/Dimitri ABG O2 Content ABG Base Excess ABG Hematocrit ABG Hemoglobin ABG Carboxyhemoglobin ABG Methemoglobin Enmanuel Test A-a O2 Gradient Sodium Potassium Chloride Ionized Calcium Mode of Support Mechanical Rate Inspired O2 Tidal Volume Pressure Support PEEP or CPAP Carbon Dioxide Anion Gap BUN Creatinine Estimated GFR (MDRD) Glucose POC Glucose 158 H 150 H Calcium Total Bilirubin AST ALT Alkaline Phosphatase B-Natriuretic Peptide Serum Total Protein Albumin Globulin Albumin/Globulin Ratio 05/12/17 04:38 WBC RBC Hgb Hct MCV MCH MCHC RDW Plt Count MPV Neutrophils % Lymphocytes % Monocytes % Eosinophils % Basophils % Neutrophils # Lymphocytes # Monocytes # Eosinophils # Basophils # Specimen Type Puncture Site Bicarbonate Actual ABG pH ABG pCO2 ABG pO2 ABG O2 Sat Calc/Dimitri ABG O2 Content ABG Base Excess ABG Hematocrit ABG Hemoglobin ABG Carboxyhemoglobin ABG Methemoglobin Enmanuel Test A-a O2 Gradient Sodium 142 Potassium 3.2 L Chloride 105 Ionized Calcium Mode of Support Mechanical Rate Inspired O2 Tidal Volume Pressure Support PEEP or CPAP Carbon Dioxide 24 Anion Gap 16 BUN 77 H Creatinine 5.25 H Estimated GFR (MDRD) 11 Glucose 151 H POC Glucose Calcium 8.1 Total Bilirubin 1.1 AST 33 ALT 15 Alkaline Phosphatase 113 B-Natriuretic Peptide Serum Total Protein 5.7 L Albumin 2.5 L Globulin 3.2 Albumin/Globulin Ratio 0.8 L - ABG Interpretation ABG Results: ABG pH 7.44 (7.35-7.45) 05/11/17 07:30 ABG pCO2 37.0 mmHg (35.0-45.0) 05/11/17 07:30 ABG O2 Sat Calc/Dimitri 98.7 % (94.0-100.0) 05/11/17 07:30 ABG Base Excess 0.5 mEq/L (0 (+/-) 2.5) 05/11/17 07:30 - Radiology Interpretation Chest x-ray Status: image reviewed by me (pulm edema and bilateral effusions) CCU Progress Note: A/P - Problems (1) Acute respiratory failure with hypoxia Current Visit: Yes Status: Acute Code(s): J96.01 - ACUTE RESPIRATORY FAILURE WITH HYPOXIA (2) LENIN (acute kidney injury) Current Visit: Yes Status: Acute Code(s): N17.9 - ACUTE KIDNEY FAILURE, UNSPECIFIED - Plan Plan: He has significant pulm edema and effusions. I think this most likely reflects fluid accumulation and the fact that he has not received dialysis in a number of days. Although we have seen some increase in his urine output over the last several days, we are not keeping up with his total intake. Therefore, I think he would benefit from more intense fluid removal by HD. He is not weanable yet. Dr. Clarke wants to do a Cholecystectomy before extubation. Continuing antibiotics for now. Prognosis guarded.
[2017-05-12] MEDS ORDERED: Furosemide 100 MG/10 ML VIAL IVPB SCH (06:00)
[2017-05-12 07:51] LABS: Actual Bicarbonate (HCO3a) 24.2 mEq/L (22-26); Base Excess (BEa) 0.6 mEq/L (0 (+/-) 2.5); CO2 Tension 33.8 mmHg (35.0-45.0); Calcium, Ionized 1.1 mmol/L (1.12-1.30); Hemoglobin (Hb) 6.9 g/dL (14.0-18.0); O2 Tension (PaO2) 125.1 mmHg (80.0-100.0); Puncture Site RRA; pH, Arterial 7.47 (7.35-7.45)
[2017-05-12] MEDS: hydrALAZINE 10 MG TAB PER TUBE SCH ×2 (08:39→20:36)
[2017-05-12] MEDS: Carvedilol 3.125 MG TAB PO SCH ×2 (08:39→17:02)
--- NOTE | 2017-05-12 08:56 | PRG ---
DATE OF SERVICE: 05/12/2017 SUBJECTIVE: This is a 72-year-old gentleman being seen for stage 5 chronic kidney disease with acute renal failure. Patient is now nonoliguric. The patient is intubated. PHYSICAL EXAMINATION: GENERAL: Patient is resting. VITAL SIGNS: Afebrile, pulse 70, breathing at 16, blood pressure 154/55. OBJECTIVE: See above. Awake, alert, in no acute distress. GENERAL APPEARANCE AND MENTAL STATUS: Fair. HEAD/NECK: Normocephalic. Atraumatic. EYES: EOMI. No deformity. EARS: Clear. No ulcers. NOSE: Intact. No lesions. MOUTH: Clear. No discharge. THROAT: Clear. No exudate. LUNGS: Clear. No crackles. CARDIAC: S1, S2. No rub. ABDOMEN: Benign. BS+. GENITALIA/RECTUM: Griffin absent. BACK/EXTREMITIES: Edema 0+ Ulcer- NEUROLOGICAL: The patient is resting. SKIN: Rash- Bruise- LYMPHATICS: Edema- Ulcer- LABORATORY: Hemoglobin 7.2, creatinine 5.2. ASSESSMENT AND PLAN: 1. Stage 5 chronic kidney disease with acute kidney injury. We will hold off on dialysis. 2. Anemia, I would recommend transfusion. 3. Hypertension, stable. 4. Medications based on glomerular filtration rate are appropriate. We will evaluate tomorrow for dialysis.
--- NOTE | 2017-05-12 09:24 | RAD ---
PORTABLE CHEST: DATE: 05/12/17. PROVIDED CLINICAL HISTORY: Respiratory insufficiency. FINDINGS: Comparison 05/11/17. Significant interval change with respect to the prior examination is not apparen t. IMPRESSION: As above. POS: OFF
[2017-05-12] MEDS: cefTRIAXone\\ROCEPHIN 2 GM in Sodium Chloride 0.9% 100 ML IVPB SCH (13:10)
--- NOTE | 2017-05-12 19:03 | PRG ---
DATE OF SERVICE: 05/12/2017 SUBJECTIVE: He is doing well today. He is still on the ventilator in the ICU. OBJECTIVE: VITAL SIGNS: Heart rate 73, blood pressure 145/63, respiratory rate 20. He is sedated. He is on tu be feedings. LUNGS: Clear to auscultation. CARDIAC: Regular rate and rhythm without murmur or gallop. ABDOMEN: Soft, nontender. LABORATORY DATA: White count 7, hemoglobin 7.2. Sodium 142. GFR 11, potassium 3.2, bilirubin 1.1. ASSESSMENT AND PLAN: Doing well, improved alcoholic liver disease; acute hepatitis, resolved; coagul opathy, resolved. 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 Anders.
[2017-05-12] MEDS: Pantoprazole 40 MG GRANULES PACKET PER TUBE SCH (20:36)
[2017-05-13] MEDS: Metoclopramide HCl 10 MG/2 ML VIAL IVP SCH ×4 (01:53→20:52)
[2017-05-13] MEDS: Propofol 1,000 MG/100 ML VIAL IV PRN ×3 (02:52→20:58)
[2017-05-13 04:50] LABS: #Eosinphils 0.1 thou/uL (0.0-0.7); #Lymphocytes 0.6 thou/uL (1.20-3.40); #Monocytes 0.6 thou/uL (0.11-0.59); %Basophils 0.4 % (0.0-1.0); %Eosinophils 2.4 % (0.0-10.0); %Lymphocytes 9.1 % (21.0-51.0); %Monocytes 9.3 % (0.0-10.0); %Neutrophils 78.8 % (42.0-75.0); Hemoglobin 7.4 g/dL (14.0-18.0); Mean Corpuscular HGB CONC 32.7 g/dL (32.0-36.0); Mean Corpuscular Hemoglobin 29.9 pg (27.0-31.0); Mean Corpuscular Volume 91.4 fl (80.0-94.0); Mean Platelet Volume 9.3 fL (7.4-10.4); Platelet Count 223 thou/uL (130-400); RBC Distribution Width 15.1 % (11.5-14.5); Red Blood Cell (RBC) Count 2.46 mill/uL (4.70-6.10); White Blood Cell (WBC) Count 6.3 thou/uL (4.8-10.8)
[2017-05-13 05:14] LABS: ALT (SGPT) 12 U/L (8-55); AST (SGOT) 33 U/L (5-34); Albumin 2.6 g/dL (3.4-4.8); Alkaline Phosphatase 110 U/L (40-150); Anion Gap 16 mmol/L (10-20); BUN (Urea Nitrogen) 84 mg/dL (8.4-25.7); Calc. Creatinine Clearance 15 mL/min (70-130); Calcium 8.4 mg/dL (7.8-10.44); Carbon Dioxide 25 mmol/L (23-31); Chloride 104 mmol/L (98-107); Estimated GFR-MDRD 10; Globulin 3.3 g/dL (2.4-3.5); Glucose 149 mg/dL (80-115); Potassium 3.2 mmol/L (3.5-5.1); Protein, Total 5.9 g/dL (5.8-8.1); Sodium 142 mmol/L (136-145)
[2017-05-13 06:55] LABS: Actual Bicarbonate (HCO3a) 24.1 mEq/L (22-26); CO2 Tension 37.5 mmHg (35.0-45.0); Hematocrit-ABG 21.2 % (42.0-52.0); O2 Tension (PaO2) 112.4 mmHg (80.0-100.0); pH, Arterial 7.44 (7.35-7.45)
[2017-05-13 06:56] LABS: Calcium, Ionized 1.1 mmol/L (1.12-1.30); Puncture Site RRA
[2017-05-13 06:57] LABS: ALV-art Gradient 125.925 (0-20)
--- NOTE | 2017-05-13 07:41 | PDOC.PULCC ---
CCU Progress Note: Subj/Obj - Subjective Date: 05/13/17 Time: 07:39 Narrative: Awakens and follows - Objective Allergies/Adverse Reactions: Allergies Allergy/AdvReac Type Severity Reaction Status Date / Time No Known Drug Allergies Allergy Verified 04/30/17 03:05 Medications: Current Medications Acetaminophen (Tylenol) 650 mg PO Q4H PRN PRN Reason: Fever > 100 Last Admin: 05/04/17 13:44 Dose: 650 mg Albuterol/Ipratropium (Duoneb) 3 ml NEB QID-RT BRITTANI Last Admin: 05/13/17 06:33 Dose: 3 ml Lipase/Protease/Amylase ([place] [id number]) 1 cap FS .PER PROTOCOL PRN PRN Reason: TUBE OCCLUSION PROTOCOL Carvedilol (Coreg) 3.125 mg PO BID-WM [facility] Last Admin: 05/12/17 17:02 Dose: 3.125 mg Dextrose/Water (Dextrose 50%) 25 gm IVP PRN PRN PRN Reason: HYPOGLYCEMIA PROTOCOL Last Admin: 05/05/17 04:39 Dose: 25 gm Glucagon (Glucagon) 1 mg IM PRN PRN PRN Reason: HYPOGLYCEMIA PROTOCOL Hydralazine HCl (Apresoline) 10 mg PER TUBE BID BRITTANI Last Admin: 05/12/17 20:36 Dose: 10 mg Dextrose/Water (D5w) 1,000 mls @ 0 mls/hr IV INF PRN; As Directed PRN Reason: HYPOGLYCEMIA PROTOCOL Ceftriaxone Sodium 2 gm/ (Sodium Chloride) 100 mls @ 200 mls/hr IVPB Q24HR BRITTANI Last Admin: 05/12/17 13:10 Dose: 100 mls Fentanyl Citrate 2,000 mcg/ (Sodium Chloride) 100 mls @ 0 mls/hr IV INF BRITTANI; Per Protocol PRN Reason: Protocol Stop: 06/09/17 09:23 Fentanyl Citrate (Fentanyl Bolus) 250 mls @ 0 mls/hr IVPB PRN PRN; As Directed PRN Reason: Breakthrough pain Stop: 06/09/17 09:23 Insulin Human Lispro (Humalog) 0 units SC .AGGRESSIVE SLIDING PRN PRN Reason: Aggressive Correctional Scale Last Admin: 05/12/17 04:13 Dose: 3 unit Lorazepam (Ativan) 2 mg SLOW IVP Q2H PRN PRN Reason: Anxiety to achieve Mohamud 2-3 Stop: 06/09/17 09:24 Metoclopramide HCl (Reglan) 10 mg IVP Q6H [facility] Last Admin: 05/13/17 07:20 Dose: Not Given Morphine Sulfate (Morphine) 2 mg SLOW IVP Q2H PRN PRN Reason: Breakthrough pain Stop: 06/09/17 09:23 Ondansetron HCl (Zofran) 4 mg SLOW IVP Q6H PRN PRN Reason: Nausea/Vomiting Pantoprazole Sodium (Protonix) 40 mg PER TUBE 2100 [facility] Last Admin: 05/12/17 20:36 Dose: 40 mg Propofol (Diprivan) 1,000 mg IV INF PRN; Protocol PRN Reason: TO ACHIEVE MOHAMUD SCORE 2-3 Stop: 06/09/17 09:24 Last Admin: 05/13/17 02:52 Dose: 1,000 mg Scopolamine (Transderm Scop) 1.5 mg TD Q3D@0800 [facility] Last Admin: 05/10/17 08:05 Dose: 1.5 mg Sodium Bicarbonate (Bicarbonate, Sodium) 650 mg PER TUBE .PER PROTOCOL PRN PRN Reason: ENTERAL TUBE OCCLUSION Vital Signs and I&O: Vital Signs Temp 98.1 F 05/13/17 03:00 Pulse 67 05/13/17 06:34 Resp 12 05/13/17 06:00 BP 125/47 L 05/13/17 03:36 Pulse Ox 100 05/12/17 19:37 Intake & Output 05/12/17 05/13/17 05/13/17 18:59 06:59 18:59 Intake Total 790 817 Output Total 1525 885 Balance -735 -68 Weight 195 lb 8.8 oz Intake: Intake, IV Amount 220 153 Propofol 1000 mg (See 124 153 Protocol) IV INF PRN Rx#: [id number] cefTRIAXone\ROCEPHIN 2 gm 96 In Sodium Chloride 0.9% 100 ml @ 200 mls/hr IVPB Q24HR [facility] Rx#:[id number] Oral Supplement 120 Tube Feeding 300 334 Tube Irrigant 150 330 Output: Output, Griffin 1525 885 Other: Voiding Method Indwelling Catheter Indwelling Catheter # Bowel Movements 1 Vent Setting: SIMV/PS Spontaneous Breathing Test: not done CCU Progress Note: Exam - Physical Exam Constitutional: NAD HEENT: PERRLA, sclera anicteric Neck: no nodes, no JVD Cardiovascular: RRR Focused Respiratory Location: decreased breath sounds: Right Gastrointestinal: soft, non-tender Musculoskeletal: edema present Neurological: non-focal, moves all 4 limbs Lymphatic: no nodes Skin: no rash CCU Progress Note: Data - Labs Result Diagrams: 05/13/17 03:30 05/13/17 03:30 Lab results: Laboratory Results 05/11/17 05/11/17 05/11/17 04:59 11:39 12:08 WBC RBC Hgb 7.5 L Hct 22.4 L MCV MCH MCHC RDW Plt Count MPV Neutrophils % Lymphocytes % Monocytes % Eosinophils % Basophils % Neutrophils # Lymphocytes # Monocytes # Eosinophils # Basophils # Specimen Type Puncture Site Bicarbonate Actual ABG pH ABG pCO2 ABG pO2 ABG O2 Sat Calc/Dimitri ABG O2 Content ABG Base Excess ABG Hematocrit ABG Hemoglobin ABG Oxyhemoglobin ABG Carboxyhemoglobin ABG Methemoglobin A-a O2 Gradient Ionized Calcium Mode of Support Mechanical Rate Inspired O2 Tidal Volume Pressure Support PEEP or CPAP Sodium Potassium Chloride Carbon Dioxide Anion Gap BUN Creatinine Estimated GFR (MDRD) Glucose POC Glucose 124 H Calcium Total Bilirubin AST ALT Alkaline Phosphatase B-Natriuretic Peptide 3291.6 H Serum Total Protein Albumin Globulin Albumin/Globulin Ratio Blood Type Antibody Screen Crossmatch 05/11/17 05/11/17 05/12/17 16:11 20:18 00:16 WBC RBC Hgb Hct MCV MCH MCHC RDW Plt Count MPV Neutrophils % Lymphocytes % Monocytes % Eosinophils % Basophils % Neutrophils # Lymphocytes # Monocytes # Eosinophils # Basophils # Specimen Type Puncture Site Bicarbonate Actual ABG pH ABG pCO2 ABG pO2 ABG O2 Sat Calc/Dimitri ABG O2 Content ABG Base Excess ABG Hematocrit ABG Hemoglobin ABG Oxyhemoglobin ABG Carboxyhemoglobin ABG Methemoglobin A-a O2 Gradient Ionized Calcium Mode of Support Mechanical Rate Inspired O2 Tidal Volume Pressure Support PEEP or CPAP Sodium Potassium Chloride Carbon Dioxide Anion Gap BUN Creatinine Estimated GFR (MDRD) Glucose POC Glucose 153 H 118 H 158 H Calcium Total Bilirubin AST ALT Alkaline Phosphatase B-Natriuretic Peptide Serum Total Protein Albumin Globulin Albumin/Globulin Ratio Blood Type Antibody Screen Crossmatch 05/12/17 05/12/17 05/12/17 04:12 04:38 04:38 WBC 7.1 RBC 2.33 L Hgb 7.2 L Hct 21.2 L MCV 91.0 MCH 31.0 MCHC 34.0 RDW 15.3 H Plt Count 230 MPV 9.5 Neutrophils % 80.0 H Lymphocytes % 8.2 L Monocytes % 9.1 Eosinophils % 2.2 Basophils % 0.5 Neutrophils # 5.7 Lymphocytes # 0.6 L Monocytes # 0.7 H Eosinophils # 0.2 Basophils # 0.0 Specimen Type Puncture Site Bicarbonate Actual ABG pH ABG pCO2 ABG pO2 ABG O2 Sat Calc/Dimitri ABG O2 Content ABG Base Excess ABG Hematocrit ABG Hemoglobin ABG Oxyhemoglobin ABG Carboxyhemoglobin ABG Methemoglobin A-a O2 Gradient Ionized Calcium Mode of Support Mechanical Rate Inspired O2 Tidal Volume Pressure Support PEEP or CPAP Sodium 142 Potassium 3.2 L Chloride 105 Carbon Dioxide 24 Anion Gap 16 BUN 77 H Creatinine 5.25 H Estimated GFR (MDRD) 11 Glucose 151 H POC Glucose 150 H Calcium 8.1 Total Bilirubin 1.1 AST 33 ALT 15 Alkaline Phosphatase 113 B-Natriuretic Peptide Serum Total Protein 5.7 L Albumin 2.5 L Globulin 3.2 Albumin/Globulin Ratio 0.8 L Blood Type Antibody Screen Crossmatch 05/12/17 05/12/17 05/12/17 07:03 11:56 13:05 WBC RBC Hgb Hct MCV MCH MCHC RDW Plt Count MPV Neutrophils % Lymphocytes % Monocytes % Eosinophils % Basophils % Neutrophils # Lymphocytes # Monocytes # Eosinophils # Basophils # Specimen Type ARTERIAL Puncture Site RRA Bicarbonate Actual 24.2 ABG pH 7.47 H ABG pCO2 33.8 L ABG pO2 125.1 H ABG O2 Sat Calc/Dimitri 98.8 ABG O2 Content 9.6 L ABG Base Excess 0.6 ABG Hematocrit 21.0 L ABG Hemoglobin 6.9 L ABG Oxyhemoglobin 96.5 ABG Carboxyhemoglobin 1.6 ABG Methemoglobin 0.6 A-a O2 Gradient 117.850 H Ionized Calcium 1.1 L Mode of Support SIMV Mechanical Rate 12 Inspired O2 40 Tidal Volume 500 Pressure Support 10 PEEP or CPAP 5.0 Sodium 143 Potassium 3.1 L Chloride 104 Carbon Dioxide Anion Gap BUN Creatinine Estimated GFR (MDRD) Glucose POC Glucose 124 H Calcium Total Bilirubin AST ALT Alkaline Phosphatase B-Natriuretic Peptide Serum Total Protein Albumin Globulin Albumin/Globulin Ratio Blood Type A POSITIVE Antibody Screen NEGATIVE Crossmatch See Detail 05/12/17 05/12/17 05/12/17 15:42 20:18 23:56 WBC RBC Hgb Hct MCV MCH MCHC RDW Plt Count MPV Neutrophils % Lymphocytes % Monocytes % Eosinophils % Basophils % Neutrophils # Lymphocytes # Monocytes # Eosinophils # Basophils # Specimen Type Puncture Site Bicarbonate Actual ABG pH ABG pCO2 ABG pO2 ABG O2 Sat Calc/Dimitri ABG O2 Content ABG Base Excess ABG Hematocrit ABG Hemoglobin ABG Oxyhemoglobin ABG Carboxyhemoglobin ABG Methemoglobin A-a O2 Gradient Ionized Calcium Mode of Support Mechanical Rate Inspired O2 Tidal Volume Pressure Support PEEP or CPAP Sodium Potassium Chloride Carbon Dioxide Anion Gap BUN Creatinine Estimated GFR (MDRD) Glucose POC Glucose 111 H 122 H 149 H Calcium Total Bilirubin AST ALT Alkaline Phosphatase B-Natriuretic Peptide Serum Total Protein Albumin Globulin Albumin/Globulin Ratio Blood Type Antibody Screen Crossmatch 05/13/17 05/13/17 05/13/17 03:30 03:30 04:13 WBC 6.3 RBC 2.46 L Hgb 7.4 L Hct 22.5 L MCV 91.4 MCH 29.9 MCHC 32.7 RDW 15.1 H Plt Count 223 MPV 9.3 Neutrophils % 78.8 H Lymphocytes % 9.1 L Monocytes % 9.3 Eosinophils % 2.4 Basophils % 0.4 Neutrophils # 5.0 Lymphocytes # 0.6 L Monocytes # 0.6 H Eosinophils # 0.1 Basophils # 0.0 Specimen Type Puncture Site Bicarbonate Actual ABG pH ABG pCO2 ABG pO2 ABG O2 Sat Calc/Dimitri ABG O2 Content ABG Base Excess ABG Hematocrit ABG Hemoglobin ABG Oxyhemoglobin ABG Carboxyhemoglobin ABG Methemoglobin A-a O2 Gradient Ionized Calcium Mode of Support Mechanical Rate Inspired O2 Tidal Volume Pressure Support PEEP or CPAP Sodium 142 Potassium 3.2 L Chloride 104 Carbon Dioxide 25 Anion Gap 16 BUN 84 H Creatinine 5.57 H Estimated GFR (MDRD) 10 Glucose 149 H POC Glucose 146 H Calcium 8.4 Total Bilirubin 1.0 AST 33 ALT 12 Alkaline Phosphatase 110 B-Natriuretic Peptide Serum Total Protein 5.9 Albumin 2.6 L Globulin 3.3 Albumin/Globulin Ratio 0.8 L Blood Type Antibody Screen Crossmatch 05/13/17 06:45 WBC RBC Hgb Hct MCV MCH MCHC RDW Plt Count MPV Neutrophils % Lymphocytes % Monocytes % Eosinophils % Basophils % Neutrophils # Lymphocytes # Monocytes # Eosinophils # Basophils # Specimen Type ARTERIAL Puncture Site RRA Bicarbonate Actual 24.1 ABG pH 7.44 ABG pCO2 37.5 ABG pO2 112.4 H ABG O2 Sat Calc/Dimitri 98.4 ABG O2 Content 9.8 L ABG Base Excess 1.0 ABG Hematocrit 21.2 L ABG Hemoglobin 7.0 L ABG Oxyhemoglobin 96.4 ABG Carboxyhemoglobin 1.4 ABG Methemoglobin 0.6 A-a O2 Gradient 125.925 H Ionized Calcium 1.1 L Mode of Support SIMV Mechanical Rate 12 Inspired O2 40 Tidal Volume 500 Pressure Support 10 PEEP or CPAP 5.0 Sodium 143 Potassium 3.0 L Chloride 104 Carbon Dioxide Anion Gap BUN Creatinine Estimated GFR (MDRD) Glucose POC Glucose Calcium Total Bilirubin AST ALT Alkaline Phosphatase B-Natriuretic Peptide Serum Total Protein Albumin Globulin Albumin/Globulin Ratio Blood Type Antibody Screen Crossmatch - ABG Interpretation ABG Results: ABG pH 7.44 (7.35-7.45) 05/13/17 06:45 ABG pCO2 37.5 mmHg (35.0-45.0) 05/13/17 06:45 ABG O2 Sat Calc/Dimitri 98.4 % (94.0-100.0) 05/13/17 06:45 ABG Base Excess 1.0 mEq/L (0 (+/-) 2.5) 05/13/17 06:45 - Radiology Interpretation Chest x-ray Status: image reviewed by me Additional comments: Right effusion CCU Progress Note: A/P - Problems (1) Acute respiratory failure with hypoxia Current Visit: Yes Status: Acute Code(s): J96.01 - ACUTE RESPIRATORY FAILURE WITH HYPOXIA (2) LENIN (acute kidney injury) Current Visit: Yes Status: Acute Code(s): N17.9 - ACUTE KIDNEY FAILURE, UNSPECIFIED - Plan Plan: Jaelyn Contreras today Try to wean tomorrow HD as needed
--- NOTE | 2017-05-13 08:09 | RAD ---
AP VIEW CHEST: HISTORY: Status post cardiac catheterization. FINDINGS: AP view chest is obtained on 05/13/17. Comparison is made to previous exam from 05/12/17. AP view chest demonstrates sternotomy wires seen. There is a right jugular central line in place. T here is alt jugular dialysis catheter in place. Calcification of the aorta is seen. Bilateral pleural effusions seen. Pulmonary vascular congestion is noted. No evidence of pneumothorax seen. IMPRESSION: Lines and tubes in good position. Bilateral pleural effusions seen. The right-sided effusion is lar baldomero than the left. POS: [facility]
--- NOTE | 2017-05-13 08:20 | PRG ---
DATE OF SERVICE: 05/13/2017 SUBJECTIVE: Joshua Clay is doing well today. He is on the ventilator. PHYSICAL EXAMINATION: GENERAL: Eyes are open. He responds to commands. He responds appropriately. VITAL SIGNS: Temperature 98.2 degrees, 67, 136/53. LUNGS: Clear to auscultation. CARDIAC: Regular rate and rhythm without murmur or gallop. ABDOMEN: Soft and nontender. LABORATORY DATA: White count 6, hemoglobin 7.4, 142 sodium, 3.2 potassium, BUN 84, creatinine 5.57, GFR 10. Gastric drainage. He is on tube feedings. Urine output 2410. Bilirubin 1. ASSESSMENT AND PLAN: 1. Choledocholithiasis, status post endoscopic retrograde cholangiopancreatography, sphincterotomy, and stone extraction. 2. Cholelithiasis. Plan laparoscopic cholecystectomy today. Risks and benefits explained and he co nsents. 3. Renal failure on dialysis, nonoliguric, hopefully he will have renal recovery. 4. Alcoholism. 5. Acute hepatitis probably related to alcoholism and choledocholithiasis, improved and resolved. 6. Anemia.
--- NOTE | 2017-05-13 08:25 | PRG ---
DATE OF SERVICE: 05/13/2017 SUBJECTIVE: The patient is intubated on the vent on Diprivan. There is no family here at bedside. Upon evaluation, he is sedated. PHYSICAL EXAMINATION: VITAL SIGNS: Blood pressure 130/50, pulse 100, respirations 20. He is afebrile. NECK: Supple. JVP could not be assessed. COR: Regular rate and rhythm. CHEST: Clear to auscultation and percussion upper lobes. ABDOMEN: Soft, obese, nontender with normoactive bowel sounds. No bruit or organomegaly. EXTREMITIES: No edema. 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 LABORATORY DATA: H&H is 7.4 and 22.5, platelet count is 223. Potassium 3.2, BUN 84, creatinine 5.57 . ASSESSMENT: 1. Status post respiratory arrest. 2. Respiratory failure, on vent. 3. Sepsis. 4. Urinary tract infection. 5. Acute kidney injury on dialysis. 6. Multiple medical problems. PLAN: I will continue current medications regimen. We will also continue on the vent. Hopefully, apryl camp will be able to wean again within the next few days or so. He is still on hemodialysis. Also, he will be undergoing a cholecystectomy.
[2017-05-13] MEDS: hydrALAZINE 10 MG TAB PER TUBE SCH ×3 (08:49→20:47)
[2017-05-13] MEDS: Carvedilol 3.125 MG TAB PO SCH ×2 (08:49→17:04)
[2017-05-13] MEDS: Scopolamine 1.5 mg/72 hour Patch TD SCH (08:51)
[2017-05-13] MEDS: Epoetin (ESRD) 10,000 UNITS/ML VIAL SC SCH (11:02)
[2017-05-13] MEDS: cefTRIAXone\\ROCEPHIN 2 GM in Sodium Chloride 0.9% 100 ML IVPB SCH (13:31)
[2017-05-13] MEDS ORDERED: Lidocaine 1% w/Epinephrine 1:200K 30 ML VIAL ONE (13:57)
[2017-05-13] MEDS ORDERED: Bupivacaine 0.5% 10 ML VIAL ONE (13:57)
--- NOTE | 2017-05-13 14:06 | PRG ---
DATE OF SERVICE: 05/13/2017 SUBJECTIVE: This is a 72-year-old gentleman being seen for acute kidney injury. The patient is intu bated. PHYSICAL EXAMINATION: GENERAL: Patient is resting. VITAL SIGNS: Afebrile, pulse 69, breathing at 16, blood pressure 165/61. HEAD/NECK: Normocephalic. Atraumatic. EYES: EOMI. No deformity. EARS: Clear. No ulcers. NOSE: Intact. No lesions. MOUTH: Clear. No discharge. THROAT: Clear. No exudate. LUNGS: Clear. No crackles. CARDIAC: S1, S2. No rub. ABDOMEN: Benign. BS+. GENITALIA/RECTUM: Griffin absent. BACK/EXTREMITIES: Edema 0+ Ulcer- NEUROLOGICAL: The patient is intubated. SKIN: Rash- Bruise- LYMPHATICS: Edema- Ulcer- LABORATORY DATA: Show hemoglobin 7.4, potassium 3, creatinine 5.57. ASSESSMENT AND PLAN: 1. Stage 5 chronic kidney disease with acute kidney injury, nonoliguric. No indication for dialysis . 2. Hypertension, stable. 3. Anemia, stable. 4. Hypokalemia. Would recommend giving 20 mEq of potassium IV. 5. For anemia, I would recommend 10,000 units of Epogen subcu.
[2017-05-13] MEDS ORDERED: Midazolam HCl 2 mg/2 ml Vial ONE ×2 (14:14→15:36)
[2017-05-13] MEDS ORDERED: Fentanyl 100 MCG/2 ML VIAL ONE (14:14)
[2017-05-13] MEDS ORDERED: Bupivacaine HCl 0.5%/Epinephrine 1:200,000/PF 30 ml Vial ONE (14:48)
[2017-05-13] MEDS ORDERED: Rocuronium Bromide 50 MG/5 ML VIAL ONE (15:41)
[2017-05-13] MEDS ORDERED: PHENYLEPHRINE-NS 100 MCG/ML 10 ML SYRINGE ONE (16:00)
--- NOTE | 2017-05-13 18:38 | OP ---
DATE OF PROCEDURE: 05/13/2017 PREOPERATIVE DIAGNOSES: Chronic cholecystitis, cholelithiasis, history of alcoholism, status post en doscopic retrograde cholangiopancreatography, sphincterotomy for choledocholithiasis and cholangitis, renal failure on dialysis, respiratory failure on ventilator. POSTOPERATIVE DIAGNOSES: Chronic cholecystitis, cholelithiasis, history of alcoholism, status post e ndoscopic retrograde cholangiopancreatography, sphincterotomy for choledocholithiasis and cholangitis , renal failure on dialysis, respiratory failure on ventilator, with normal appearing liver. PROCEDURE PERFORMED: Laparoscopic video cholecystectomy. SURGEON: Dr. Nito Clarke. ANESTHESIA: General. Local 0.5% Marcaine with epinephrine, 30 mL. FINDINGS: Mild to moderate amount of ascites evacuated. DESCRIPTION OF PROCEDURE: Patient was taken to the operating room where under general anesthesia, ab mckeon was prepared with ChloraPrep, draped in routine fashion. Local anesthetic infiltrated into ski n and subcutaneous tissue about each port site. Infraumbilical incision made and pneumoperitoneum to 15 mmHg obtained with the Veress needle, replacing it with a 5 port and laparoscope inserted. Right subxiphoid incision made and 11 port placed. Right subcostal incision made mid clavicular anterior axillary lines and 5 ports placed. Gallbladder was packed full of stones and hard and difficult to g rasp. There was omental adhesions to the liver edge and gallbladder taken down with cautery. Fundus of gallbladder grasped and reflected cephalad. Liver appeared to be normal despite his history of s evere alcoholism. Dissection carried down to the infundibulum, grasped and reflected laterally. Cys tic artery and duct dissected free. Critical view obtained. Cystic artery and duct doubly clipped p roximally, divided, and gallbladder dissected free from the liver bed obtaining good hemostasis prior to division of final peritoneal attachments. Gallbladder and contents, placed in an Endobag and rem allison. Subxiphoid fascia approximated with running 0 Vicryl suture with UR needle. Irrigant and pneu moperitoneum evacuated after good hemostasis obtained with the cautery and Neela placed in the liver bed. The patient tolerated the procedure well. Dermabond applied.
[2017-05-13] MEDS: Pantoprazole 40 MG GRANULES PACKET PER TUBE SCH (20:47)
[2017-05-14] MEDS: HumaLOG 300 UNITS/3 ML VIAL SC PRN ×4 (02:10→17:42)
[2017-05-14] MEDS: Metoclopramide HCl 10 MG/2 ML VIAL IVP SCH ×3 (02:14→20:39)
[2017-05-14 05:24] LABS: #Eosinphils 0.1 thou/uL (0.0-0.7); #Lymphocytes 0.5 thou/uL (1.20-3.40); #Monocytes 0.5 thou/uL (0.11-0.59); #Neutrophils 6.4 thou/uL (1.40-6.50); %Basophils 0.5 % (0.0-1.0); %Eosinophils 1.2 % (0.0-10.0); %Lymphocytes 6.7 % (21.0-51.0); %Monocytes 7.1 % (0.0-10.0); %Neutrophils 84.5 % (42.0-75.0); Hemoglobin 7.4 g/dL (14.0-18.0); Mean Corpuscular HGB CONC 32.7 g/dL (32.0-36.0); Mean Corpuscular Hemoglobin 29.9 pg (27.0-31.0); Mean Corpuscular Volume 91.2 fl (80.0-94.0); Mean Platelet Volume 9.3 fL (7.4-10.4); Platelet Count 234 thou/uL (130-400); RBC Distribution Width 15.2 % (11.5-14.5); Red Blood Cell (RBC) Count 2.48 mill/uL (4.70-6.10); White Blood Cell (WBC) Count 7.6 thou/uL (4.8-10.8)
[2017-05-14 05:38] LABS: ALT (SGPT) 38 U/L (8-55); AST (SGOT) 95 U/L (5-34); Albumin 2.5 g/dL (3.4-4.8); Alkaline Phosphatase 104 U/L (40-150); Anion Gap 13 mmol/L (10-20); BUN (Urea Nitrogen) 83 mg/dL (8.4-25.7); Bilirubin, Total 0.9 mg/dL (0.2-1.2); Calc. Creatinine Clearance 16 mL/min (70-130); Calcium 8.2 mg/dL (7.8-10.44); Carbon Dioxide 27 mmol/L (23-31); Chloride 106 mmol/L (98-107); Estimated GFR-MDRD 10; Globulin 3.2 g/dL (2.4-3.5); Glucose 149 mg/dL (80-115); Potassium 3.3 mmol/L (3.5-5.1); Protein, Total 5.7 g/dL (5.8-8.1); Sodium 143 mmol/L (136-145)
[2017-05-14 07:18] LABS: Base Excess (BEa) 0.3 mEq/L (0 (+/-) 2.5); CO2 Tension 34.5 mmHg (35.0-45.0); Hematocrit-ABG 22.9 % (42.0-52.0); Hemoglobin (Hb) 7.4 g/dL (14.0-18.0); pH, Arterial 7.46 (7.35-7.45)
[2017-05-14 07:19] LABS: ALV-art Gradient 141.075 (0-20); Puncture Site RF
--- NOTE | 2017-05-14 07:46 | PDOC.PULCC ---
CCU Progress Note: Subj/Obj - Subjective Date: 05/14/17 Time: 07:44 Narrative: Awakens - Objective Allergies/Adverse Reactions: Allergies Allergy/AdvReac Type Severity Reaction Status Date / Time No Known Drug Allergies Allergy Verified 04/30/17 03:05 Medications: Current Medications Acetaminophen (Tylenol) 650 mg PO Q4H PRN PRN Reason: Fever > 100 Last Admin: 05/04/17 13:44 Dose: 650 mg Albuterol/Ipratropium (Duoneb) 3 ml NEB QID-RT [facility] Last Admin: 05/14/17 06:56 Dose: 3 ml Lipase/Protease/Amylase ([place] [address]) 1 cap FS .PER PROTOCOL PRN PRN Reason: TUBE OCCLUSION PROTOCOL Carvedilol (Coreg) 3.125 mg PO BID-WM [facility] Last Admin: 05/13/17 17:04 Dose: 3.125 mg Dextrose/Water (Dextrose 50%) 25 gm IVP PRN PRN PRN Reason: HYPOGLYCEMIA PROTOCOL Last Admin: 05/05/17 04:39 Dose: 25 gm Epoetin David (Procrit) 10,000 units SC Q7D [facility] Last Admin: 05/13/17 11:02 Dose: 10,000 units Glucagon (Glucagon) 1 mg IM PRN PRN PRN Reason: HYPOGLYCEMIA PROTOCOL Hydralazine HCl (Apresoline) 10 mg PER TUBE TID [facility] Last Admin: 05/13/17 20:47 Dose: 10 mg Dextrose/Water (D5w) 1,000 mls @ 0 mls/hr IV INF PRN; As Directed PRN Reason: HYPOGLYCEMIA PROTOCOL Fentanyl Citrate 2,000 mcg/ (Sodium Chloride) 100 mls @ 0 mls/hr IV INF BRITTANI; Per Protocol PRN Reason: Protocol Stop: 06/09/17 09:23 Fentanyl Citrate (Fentanyl Bolus) 250 mls @ 0 mls/hr IVPB PRN PRN; As Directed PRN Reason: Breakthrough pain Stop: 06/09/17 09:23 Ceftriaxone Sodium 2 gm/ (Sodium Chloride) 100 mls @ 200 mls/hr IVPB 1300 BRITTANI Last Admin: 05/13/17 13:31 Dose: 100 mls Insulin Human Lispro (Humalog) 0 units SC .AGGRESSIVE SLIDING PRN PRN Reason: Aggressive Correctional Scale Last Admin: 05/14/17 05:22 Dose: 3 unit Lorazepam (Ativan) 2 mg SLOW IVP Q2H PRN PRN Reason: Anxiety to achieve Mohamud 2-3 Stop: 06/09/17 09:24 Metoclopramide HCl (Reglan) 10 mg IVP 0200,0800,1400,2000 [facility] Last Admin: 05/14/17 02:14 Dose: 10 mg Morphine Sulfate (Morphine) 2 mg SLOW IVP Q2H PRN PRN Reason: Breakthrough pain Stop: 06/09/17 09:23 Ondansetron HCl (Zofran) 4 mg SLOW IVP Q6H PRN PRN Reason: Nausea/Vomiting Pantoprazole Sodium (Protonix) 40 mg PER TUBE 2100 [facility] Last Admin: 05/13/17 20:47 Dose: 40 mg Propofol (Diprivan) 1,000 mg IV INF PRN; Protocol PRN Reason: TO ACHIEVE MOHAMUD SCORE 2-3 Stop: 06/09/17 09:24 Last Admin: 05/13/17 20:58 Dose: 1,000 mg Scopolamine (Transderm Scop) 1.5 mg TD Q3D@0800 [facility] Last Admin: 05/13/17 08:51 Dose: 1.5 mg Sodium Bicarbonate (Bicarbonate, Sodium) 650 mg PER TUBE .PER PROTOCOL PRN PRN Reason: ENTERAL TUBE OCCLUSION MAR Reviewed: Yes Vital Signs and I&O: Vital Signs Temp 98.5 F 05/14/17 04:00 Pulse 70 05/14/17 06:56 Resp 14 05/14/17 02:00 BP 134/50 L 05/14/17 06:56 Pulse Ox 100 05/13/17 20:00 Intake & Output 05/13/17 05/14/17 05/14/17 18:59 06:59 18:59 Intake Total 334 347 Output Total 805 579 Balance -471 -232 Weight 195 lb 8.8 oz 194 lb 14.218 oz Intake: Intake, IV Amount 218 136 Propofol 1000 mg (See 118 136 Protocol) IV INF PRN Rx#: [id number] cefTRIAXone\ROCEPHIN 2 gm 100 In Sodium Chloride 0.9% 100 ml @ 200 mls/hr IVPB Q24HR [facility] Rx#:[id number] Oral 0 Tube Feeding 26 121 Tube Irrigant 90 90 Output: Output, Griffin [id number] Other: Voiding Method Indwelling Catheter Indwelling Catheter Vent Setting: unchanged Spontaneous Breathing Test: not done CCU Progress Note: Exam - Physical Exam Constitutional: NAD HEENT: PERRLA Neck: no JVD Cardiovascular: RRR Focused Respiratory Location: decreased breath sounds: Right Gastrointestinal: soft, non-tender Musculoskeletal: edema present Neurological: non-focal, moves all 4 limbs Psychiatric: normal affect Skin: no rash CCU Progress Note: Data - Labs Result Diagrams: 05/14/17 05:00 05/14/17 05:00 Lab results: Laboratory Results 05/12/17 05/12/17 05/12/17 07:03 11:56 13:05 WBC RBC Hgb Hct MCV MCH MCHC RDW Plt Count MPV Neutrophils % Lymphocytes % Monocytes % Eosinophils % Basophils % Neutrophils # Lymphocytes # Monocytes # Eosinophils # Basophils # Specimen Type ARTERIAL Puncture Site RRA Bicarbonate Actual 24.2 ABG pH 7.47 H ABG pCO2 33.8 L ABG pO2 125.1 H ABG O2 Sat Calc/Dimitri 98.8 ABG O2 Content 9.6 L ABG Base Excess 0.6 ABG Hematocrit 21.0 L ABG Hemoglobin 6.9 L ABG Oxyhemoglobin 96.5 ABG Carboxyhemoglobin 1.6 ABG Methemoglobin 0.6 Enmanuel Test A-a O2 Gradient 117.850 H Sodium 143 Potassium 3.1 L Chloride 104 Ionized Calcium 1.1 L Mode of Support SIMV Mechanical Rate 12 Inspired O2 40 Tidal Volume 500 Pressure Support 10 PEEP or CPAP 5.0 Carbon Dioxide Anion Gap BUN Creatinine Estimated GFR (MDRD) Glucose POC Glucose 124 H Calcium Total Bilirubin AST ALT Alkaline Phosphatase Serum Total Protein Albumin Globulin Albumin/Globulin Ratio Blood Type A POSITIVE Antibody Screen NEGATIVE Crossmatch See Detail 05/12/17 05/12/17 05/12/17 15:42 20:18 23:56 WBC RBC Hgb Hct MCV MCH MCHC RDW Plt Count MPV Neutrophils % Lymphocytes % Monocytes % Eosinophils % Basophils % Neutrophils # Lymphocytes # Monocytes # Eosinophils # Basophils # Specimen Type Puncture Site Bicarbonate Actual ABG pH ABG pCO2 ABG pO2 ABG O2 Sat Calc/Dimitri ABG O2 Content ABG Base Excess ABG Hematocrit ABG Hemoglobin ABG Oxyhemoglobin ABG Carboxyhemoglobin ABG Methemoglobin Enmanuel Test A-a O2 Gradient Sodium Potassium Chloride Ionized Calcium Mode of Support Mechanical Rate Inspired O2 Tidal Volume Pressure Support PEEP or CPAP Carbon Dioxide Anion Gap BUN Creatinine Estimated GFR (MDRD) Glucose POC Glucose 111 H 122 H 149 H Calcium Total Bilirubin AST ALT Alkaline Phosphatase Serum Total Protein Albumin Globulin Albumin/Globulin Ratio Blood Type Antibody Screen Crossmatch 05/13/17 05/13/17 05/13/17 03:30 03:30 04:13 WBC 6.3 RBC 2.46 L Hgb 7.4 L Hct 22.5 L MCV 91.4 MCH 29.9 MCHC 32.7 RDW 15.1 H Plt Count 223 MPV 9.3 Neutrophils % 78.8 H Lymphocytes % 9.1 L Monocytes % 9.3 Eosinophils % 2.4 Basophils % 0.4 Neutrophils # 5.0 Lymphocytes # 0.6 L Monocytes # 0.6 H Eosinophils # 0.1 Basophils # 0.0 Specimen Type Puncture Site Bicarbonate Actual ABG pH ABG pCO2 ABG pO2 ABG O2 Sat Calc/Dimitri ABG O2 Content ABG Base Excess ABG Hematocrit ABG Hemoglobin ABG Oxyhemoglobin ABG Carboxyhemoglobin ABG Methemoglobin Enmanuel Test A-a O2 Gradient Sodium 142 Potassium 3.2 L Chloride 104 Ionized Calcium Mode of Support Mechanical Rate Inspired O2 Tidal Volume Pressure Support PEEP or CPAP Carbon Dioxide 25 Anion Gap 16 BUN 84 H Creatinine 5.57 H Estimated GFR (MDRD) 10 Glucose 149 H POC Glucose 146 H Calcium 8.4 Total Bilirubin 1.0 AST 33 ALT 12 Alkaline Phosphatase 110 Serum Total Protein 5.9 Albumin 2.6 L Globulin 3.3 Albumin/Globulin Ratio 0.8 L Blood Type Antibody Screen Crossmatch 05/13/17 05/13/17 05/13/17 06:45 08:35 13:04 WBC RBC Hgb Hct MCV MCH MCHC RDW Plt Count MPV Neutrophils % Lymphocytes % Monocytes % Eosinophils % Basophils % Neutrophils # Lymphocytes # Monocytes # Eosinophils # Basophils # Specimen Type ARTERIAL Puncture Site RRA Bicarbonate Actual 24.1 ABG pH 7.44 ABG pCO2 37.5 ABG pO2 112.4 H ABG O2 Sat Calc/Dimitri 98.4 ABG O2 Content 9.8 L ABG Base Excess 1.0 ABG Hematocrit 21.2 L ABG Hemoglobin 7.0 L ABG Oxyhemoglobin 96.4 ABG Carboxyhemoglobin 1.4 ABG Methemoglobin 0.6 Enmanuel Test A-a O2 Gradient 125.925 H Sodium 143 Potassium 3.0 L Chloride 104 Ionized Calcium 1.1 L Mode of Support SIMV Mechanical Rate 12 Inspired O2 40 Tidal Volume 500 Pressure Support 10 PEEP or CPAP 5.0 Carbon Dioxide Anion Gap BUN Creatinine Estimated GFR (MDRD) Glucose POC Glucose 129 H 119 H Calcium Total Bilirubin AST ALT Alkaline Phosphatase Serum Total Protein Albumin Globulin Albumin/Globulin Ratio Blood Type Antibody Screen Crossmatch 05/13/17 05/13/17 05/14/17 17:28 20:43 01:30 WBC RBC Hgb Hct MCV MCH MCHC RDW Plt Count MPV Neutrophils % Lymphocytes % Monocytes % Eosinophils % Basophils % Neutrophils # Lymphocytes # Monocytes # Eosinophils # Basophils # Specimen Type Puncture Site Bicarbonate Actual ABG pH ABG pCO2 ABG pO2 ABG O2 Sat Calc/Dimitri ABG O2 Content ABG Base Excess ABG Hematocrit ABG Hemoglobin ABG Oxyhemoglobin ABG Carboxyhemoglobin ABG Methemoglobin Enmanuel Test A-a O2 Gradient Sodium Potassium Chloride Ionized Calcium Mode of Support Mechanical Rate Inspired O2 Tidal Volume Pressure Support PEEP or CPAP Carbon Dioxide Anion Gap BUN Creatinine Estimated GFR (MDRD) Glucose POC Glucose 141 H 131 H 166 H Calcium Total Bilirubin AST ALT Alkaline Phosphatase Serum Total Protein Albumin Globulin Albumin/Globulin Ratio Blood Type Antibody Screen Crossmatch 05/14/17 05/14/17 05/14/17 05:00 05:00 05:22 WBC 7.6 RBC 2.48 L Hgb 7.4 L Hct 22.6 L MCV 91.2 MCH 29.9 MCHC 32.7 RDW 15.2 H Plt Count 234 MPV 9.3 Neutrophils % 84.5 H Lymphocytes % 6.7 L Monocytes % 7.1 Eosinophils % 1.2 Basophils % 0.5 Neutrophils # 6.4 Lymphocytes # 0.5 L Monocytes # 0.5 Eosinophils # 0.1 Basophils # 0.0 Specimen Type Puncture Site Bicarbonate Actual ABG pH ABG pCO2 ABG pO2 ABG O2 Sat Calc/Dimitri ABG O2 Content ABG Base Excess ABG Hematocrit ABG Hemoglobin ABG Oxyhemoglobin ABG Carboxyhemoglobin ABG Methemoglobin Enmanuel Test A-a O2 Gradient Sodium 143 Potassium 3.3 L Chloride 106 Ionized Calcium Mode of Support Mechanical Rate Inspired O2 Tidal Volume Pressure Support PEEP or CPAP Carbon Dioxide 27 Anion Gap 13 BUN 83 H Creatinine 5.52 H Estimated GFR (MDRD) 10 Glucose 149 H POC Glucose 157 H Calcium 8.2 Total Bilirubin 0.9 AST 95 H ALT 38 Alkaline Phosphatase 104 Serum Total Protein 5.7 L Albumin 2.5 L Globulin 3.2 Albumin/Globulin Ratio 0.8 L Blood Type Antibody Screen Crossmatch 05/14/17 07:03 WBC RBC Hgb Hct MCV MCH MCHC RDW Plt Count MPV Neutrophils % Lymphocytes % Monocytes % Eosinophils % Basophils % Neutrophils # Lymphocytes # Monocytes # Eosinophils # Basophils # Specimen Type ARTERIAL Puncture Site RF Bicarbonate Actual 24.0 ABG pH 7.46 H ABG pCO2 34.5 L ABG pO2 99.0 ABG O2 Sat Calc/Dimitri 98.0 ABG O2 Content 10.1 L ABG Base Excess 0.3 ABG Hematocrit 22.9 L ABG Hemoglobin 7.4 L ABG Oxyhemoglobin 95.7 ABG Carboxyhemoglobin 1.6 ABG Methemoglobin 0.7 Enmanuel Test POSITIVE A-a O2 Gradient 141.075 H Sodium Potassium Chloride Ionized Calcium Mode of Support SIMV Mechanical Rate 12 Inspired O2 40 Tidal Volume 500 Pressure Support 10 PEEP or CPAP 5.0 Carbon Dioxide Anion Gap BUN Creatinine Estimated GFR (MDRD) Glucose POC Glucose Calcium Total Bilirubin AST ALT Alkaline Phosphatase Serum Total Protein Albumin Globulin Albumin/Globulin Ratio Blood Type Antibody Screen Crossmatch - ABG Interpretation ABG Results: ABG pH 7.46 (7.35-7.45) H 05/14/17 07:03 ABG pCO2 34.5 mmHg (35.0-45.0) L 05/14/17 07:03 ABG O2 Sat Calc/Dimitri 98.0 % (94.0-100.0) 05/14/17 07:03 ABG Base Excess 0.3 mEq/L (0 (+/-) 2.5) 05/14/17 07:03 Interpretation: normal - Radiology Interpretation Chest x-ray Status: image reviewed by me Additional comments: Right effusion CCU Progress Note: A/P - Problems (1) Acute respiratory failure with hypoxia Current Visit: Yes Status: Acute Code(s): J96.01 - ACUTE RESPIRATORY FAILURE WITH HYPOXIA (2) LENIN (acute kidney injury) Current Visit: Yes Status: Acute Code(s): N17.9 - ACUTE KIDNEY FAILURE, UNSPECIFIED (3) Pleural effusion on right Current Visit: Yes Status: Acute Code(s): J90 - PLEURAL EFFUSION, NOT ELSEWHERE CLASSIFIED - Plan Plan: Therapeutic Right thoracentesis. Discussed with pts and she agreed Hopefully wean vent Continue current care otherwise
--- NOTE | 2017-05-14 08:38 | OP ---
DATE OF PROCEDURE: 05/14/2017 SURGEON: Dr. Mitchell Mccracken PROCEDURE: Thoracentesis, right side. PREOPERATIVE DIAGNOSIS: Right pleural effusion. POSTOPERATIVE DIAGNOSIS: Right pleural effusion. ANESTHESIA: 1% lidocaine without epinephrine. DESCRIPTION OF PROCEDURE: Informed consent was obtained from the patient's . The patient was pl aced in sitting position. 1% lidocaine was used to anesthetize the interspace between the fifth and sixth ribs at the posterior scapular line. Chlorhexidine was used as a prep. Sterile drape was appl ied. After local anesthetic was applied to the entry site, a small jett was made in the skin with an 11 blade scalpel. The Elqh-P-Kymybpqy catheter was inserted in the pleural space. Approximately 40 0 mL of proteinaceous pleural fluid was removed. It was yellow-brown in color. He tolerated the pro cedure well. PROCEDURE: Bronchoscopy. PREOPERATIVE DIAGNOSIS: Right lung mucus plugging. POSTOPERATIVE DIAGNOSIS: Right lung mucus plugging. ANESTHESIA: He was on continuous propofol drip. DESCRIPTION OF PROCEDURE: A Pentax bronchoscope was placed down the patient's endotracheal tube thro ugh an adapter. Significant findings included a large mucoid impaction in the right main stem bronch us. This was lavaged with normal saline and suctioned until it was entirely removed. There were no significant plugs noted in the left airway. He tolerated the procedure well.
[2017-05-14] MEDS: hydrALAZINE 10 MG TAB PER TUBE SCH ×3 (08:43→20:45)
[2017-05-14] MEDS: Propofol 1,000 MG/100 ML VIAL IV PRN ×2 (08:47→16:30)
[2017-05-14] MEDS: Carvedilol 3.125 MG TAB PO SCH ×2 (08:50→16:34)
[2017-05-14] MEDS: Metoclopramide 10 MG/10 ML UDCUP PER TUBE SCH ×3 (08:53→20:44)
--- NOTE | 2017-05-14 08:55 | PRG ---
DATE OF SERVICE: 05/14/2017 SUBJECTIVE: A 72-year-old gentleman being seen for acute kidney injury. The patient is nonoliguric. Patient is intubated. PHYSICAL EXAMINATION: VITAL SIGNS: Afebrile, pulse 72, breathing 16, blood pressure 134/50. HEAD/NECK: Normocephalic. Atraumatic. EYES: EOMI. No deformity. EARS: Clear. No ulcers. NOSE: Intact. No lesions. MOUTH: Clear. No discharge. THROAT: Clear. No exudate. LUNGS: Clear. No crackles. CARDIAC: S1, S2. No rub. ABDOMEN: Benign. BS+. GENITALIA/RECTUM: Griffin absent. BACK/EXTREMITIES: Edema 0+ Ulcer- NEUROLOGICAL: Alert and motor intact. SKIN: Rash- Bruise- LYMPHATICS: Edema- Ulcer- LABORATORY DATA: Show hemoglobin 7.4, creatinine 5.5, and potassium 3.3. ASSESSMENT AND RECOMMENDATIONS: 1. Chronic kidney disease, stage 5, nonoliguric. No indication for dialysis. 2. Hypokalemia. Would recommend potassium supplement. 3. Metabolic acidosis, stable. 4. Anemia. Will recommend transfusion. No indication for dialysis at this time. We will follow re nal function closely.
[2017-05-14 09:04] LABS: Fluid, Triglycerides 28 mg/dL (Not Available); Pleural Fluid, Amylase Less than 30 U/L (Not Available); Pleural Fluid, Glucose 144 mg/dL; Pleural Fluid, LDH 190 U/L (Not Available)
--- NOTE | 2017-05-14 09:10 | RAD ---
PORTABLE CHEST: History: Respiratory distress. Comparison: 04-23-17 FINDINGS: Endotracheal tube is in satisfactory position. The Dobbhoff feeding tube is below the hemidiaphragm. Left sided HemoSplit and right sided central lines are unchanged in position. Some of the changes in the right base are slightly improved. There is persistent density which is probably likely related to effusion with some atelectasis. IMPRESSION: Slight improvement to the right sided pleural and parenchymal lung changes. POS: OFF
[2017-05-14 09:26] LABS: BF Color Yellow; Body Fluid Source THORACENTESIS FLD; Clarity Hazy (Clear); Tube # 2
[2017-05-14 09:30] LABS: RBC Background Count 0.001; WBC/NonHematic-Auto 346 /cumm
--- NOTE | 2017-05-14 10:43 | RAD ---
PORTABLE UPRIGHT FRONTAL CHEST RADIOGRAPH: Date: 05-14-17 Time: 8:30 a.m. Comparison: 05-14-17 at 4:33 a.m. History: Evaluate chest following thoracentesis. FINDINGS: There is no pneumothorax seen on either side. The pleural and parenchymal opacities seen on the study has improved bilaterally. There is a right sided central venous catheter, left sided dialysi s catheter, enteric tube, nasogastric tube, all grossly unchanged. Midline sternotomy wires are prese nt. Patchy areas of increased density in both lung bases persists, suggesting residual volume loss or small volume pleural fluid. IMPRESSION: No evidence for pneumothorax seen on either side. Additional findings as detailed above. POS: LAYNE
[2017-05-14 10:52] LABS: BF RBC Count - Manual 1090 /cumm
[2017-05-14 11:13] LABS: BF Segmented Neutrophils 37 %; Cell Count Non Hematic 41 %; Eosinophils 2 %; Lymphocytes 20 %
--- NOTE | 2017-05-14 12:48 | PRG ---
DATE OF SERVICE: 05/14/2017 Joshua Clay underwent a bronchoscopy and a thoracentesis today by Dr. Mccracken. He remains on the ve ntilator. Eyes open to voice. PHYSICAL EXAMINATION: VITAL SIGNS: Blood pressure 140/53, heart rate 77. He is on tube feedings and tolerated them. LUNGS: Clear to auscultation. CARDIAC: Regular rate and rhythm without murmur or gallop. ABDOMEN: Soft, nontender. Surgical wounds laparoscopic look good. LABORATORY: White count 7, hemoglobin 7.4, which is stable from days prior. Sodium 143, creatinine 5.52. Liver function tests are normal. ASSESSMENT AND PLAN: 1. Doing well after laparoscopic cholecystectomy. Continue weaning efforts. Continue tube feedings . We will need to get aggressive physical therapy, will need rehab post-extubation 2. History of alcoholism. Liver appeared to be normal during laparoscopy. There was no evidence of cirrhosis. 3. Status post amputation of left small toe and metatarsal due to peripheral artery disease and neur opathic ulceration.
[2017-05-14] MEDS: cefTRIAXone\\ROCEPHIN 2 GM in Sodium Chloride 0.9% 100 ML IVPB SCH (12:55)
[2017-05-14] MEDS: Acetaminophen 325 MG TAB PO PRN (14:04)
[2017-05-14] MEDS: Pantoprazole 40 MG GRANULES PACKET PER TUBE SCH (20:44)
[2017-05-15] MEDS: HumaLOG 300 UNITS/3 ML VIAL SC PRN ×4 (00:55→21:13)
[2017-05-15] MEDS: Metoclopramide 10 MG/10 ML UDCUP PER TUBE SCH ×4 (01:03→20:54)
[2017-05-15 04:52] LABS: #Eosinphils 0.1 thou/uL (0.0-0.7); #Lymphocytes 0.7 thou/uL (1.20-3.40); #Monocytes 0.8 thou/uL (0.11-0.59); #Neutrophils 6.3 thou/uL (1.40-6.50); %Basophils 0.6 % (0.0-1.0); %Eosinophils 1.4 % (0.0-10.0); %Lymphocytes 8.7 % (21.0-51.0); %Monocytes 10.2 % (0.0-10.0); %Neutrophils 79.2 % (42.0-75.0); Hemoglobin 6.7 g/dL (14.0-18.0); Mean Corpuscular HGB CONC 33.9 g/dL (32.0-36.0); Mean Corpuscular Hemoglobin 30.7 pg (27.0-31.0); Mean Corpuscular Volume 90.6 fl (80.0-94.0); Mean Platelet Volume 9.6 fL (7.4-10.4); Platelet Count 172 thou/uL (130-400); RBC Distribution Width 15.4 % (11.5-14.5); Red Blood Cell (RBC) Count 2.18 mill/uL (4.70-6.10)
[2017-05-15 05:39] LABS: ALT (SGPT) 89 U/L (8-55); AST (SGOT) 188 U/L (5-34); Albumin 2.4 g/dL (3.4-4.8); Alkaline Phosphatase 106 U/L (40-150); Anion Gap 13 mmol/L (10-20); BUN (Urea Nitrogen) 88 mg/dL (8.4-25.7); Bilirubin, Total 0.8 mg/dL (0.2-1.2); Calc. Creatinine Clearance 16 mL/min (70-130); Calcium 8.3 mg/dL (7.8-10.44); Carbon Dioxide 26 mmol/L (23-31); Chloride 107 mmol/L (98-107); Estimated GFR-MDRD 10; Globulin 3.2 g/dL (2.4-3.5); Glucose 149 mg/dL (80-115); Protein, Total 5.6 g/dL (5.8-8.1); Sodium 143 mmol/L (136-145)
[2017-05-15 07:13] LABS: CO2 Tension 35.2 mmHg (35.0-45.0); pH, Arterial 7.45 (7.35-7.45)
[2017-05-15 07:14] LABS: Actual Bicarbonate (HCO3a) 23.7 mEq/L (22-26); Base Excess (BEa) -0.3 mEq/L (0 (+/-) 2.5); Calcium, Ionized 1.1 mmol/L (1.12-1.30); Hematocrit-ABG 20.1 % (42.0-52.0); O2 Tension (PaO2) 102.9 mmHg (80.0-100.0); Puncture Site RF
[2017-05-15] MEDS ORDERED: Potassium Chloride 40 MEQ in Premix Bag 1 BAG IVPB SCH (07:45)
--- NOTE | 2017-05-15 08:24 | PRG ---
DATE OF SERVICE: 05/15/2017 Thirty-five minutes critical care time. The patient remains intubated on mechanical ventilation. He will wake up and follow commands. PHYSICAL EXAMINATION: VITAL SIGNS: Temperature is 99.1, pulse 73, blood pressure 137/45. 24 hour intake 1490, output 900. HEENT: Unremarkable. NECK: No JVD. LUNGS: Fairly clear. CARDIOVASCULAR: S1, S2 regular. ABDOMEN: Soft, nontender. EXTREMITIES: Bandage over his left foot. LABORATORY DATA: White blood cell count 8, hematocrit 19.7, platelet count 172. PA 7.45, pCO2 35, p O2 102 on SIMV 12, tidal volume 500, PEEP 5, pressure support 10, FiO2 40%. Sodium 143, potassium 3, chloride 107, CO2 26, BUN 80, creatinine 5.4, glucose 149, AST 188, ALT 89, total bilirubin 0.8. Chest x-ray shows improvement of the right lower lobe infiltrate, atelectasis. ASSESSMENT: 1. Right lower lobe atelectasis. 2. Small right pleural effusion - status post thoracentesis yesterday - the fluid was transudative. 3. Acute respiratory failure requiring mechanical ventilation. 4. Status alcoholic hepatitis. 5. Status post ERCP for gallstone removal. 6. Status post cholecystectomy. 7. Status post toe amputation. PLAN: 1. We will attempt spontaneous breathing trial today. 2. He had a fever last night, so we will reculture his lines. 3. I am not going to change his antibiotics unless cultures dictate differently. 4. Transfuse 1 unit packed red blood cells. 5. Supplement potassium.
[2017-05-15] MEDS: hydrALAZINE 10 MG TAB PER TUBE SCH ×3 (08:41→20:59)
[2017-05-15] MEDS: Carvedilol 3.125 MG TAB PO SCH ×2 (08:41→16:33)
[2017-05-15] MEDS: Famotidine/PF 20 mg/2ml Vial SLOW IVP SCH ×2 (08:41→21:02)
--- NOTE | 2017-05-15 09:11 | RAD ---
PORTABLE AP CHEST RADIOGRAPH: Date: 05-15-17 History: On ventilator. Follow up evaluation. Comparison: 05-14-17 FINDINGS: Endotracheal tube, Dobbhoff feeding tube, right internal jugular vein central venous catheter, and tu nneled left internal jugular vein hemodialysis catheters remain in place and unchanged in position. T he distal portion of the Dobbhoff feeding tube overlies the expected location of the body of the stom ach. There are small bilateral pleural effusions with history of parenchymal changes in each lung bas e which is probably related to atelectasis. Infiltrate right lung base cannot be entirely excluded. C ardiac silhouette is magnified by projection. Median sternotomy wires are again present. The pulmonar y vasculature is within normal limits. There is subsegmental atelectasis in the left midlung zone. Va scular calcification is seen in the thoracic aorta. IMPRESSION: 1. Lines and tubes stable in position. 2. Bibasilar pleural and parenchymal changes probably related to small bilateral pleural effusions an d atelectasis. Developing pneumonitis at the right base cannot be entirely excluded. POS: LAYNE
[2017-05-15] MEDS ORDERED: Morphine 4 MG/ML Carpuject SLOW IVP PRN (11:00)
--- NOTE | 2017-05-15 11:09 | PRG ---
DATE OF SERVICE: 05/15/2017 SUBJECTIVE: This is a 72-year-old gentleman being seen for acute kidney injury. The patient is olig uric. The patient made 2.4 liters of urine yesterday. PHYSICAL EXAMINATION: GENERAL: The patient is resting and intubated. VITAL SIGNS: Afebrile, pulse 73, breathing 16, blood pressure 139/50. OBJECTIVE: See above. Awake, alert, in no acute distress. GENERAL APPEARANCE AND MENTAL STATUS: Fair. HEAD/NECK: Normocephalic. Atraumatic. EYES: EOMI. No deformity. EARS: Clear. No ulcers. NOSE: Intact. No lesions. MOUTH: Clear. No discharge. THROAT: Clear. No exudate. LUNGS: Clear. No crackles. CARDIAC: S1, S2. No rub. ABDOMEN: Benign. BS+. GENITALIA/RECTUM: Griffin absent. BACK/EXTREMITIES: Edema 0+ Ulcer- NEUROLOGICAL: The patient is resting. SKIN: Rash- Bruise- LYMPHATICS: Edema- Ulcer- LABORATORY: Hemoglobin 6.7, potassium 3, creatinine 5.4. ASSESSMENT AND PLAN: 1. Chronic kidney disease stage 5 with acute kidney injury, oliguric, stable. 2. Anemia, stable. 3. Hypokalemia. Recommend 20 mEq potassium. 4. Anemia. Would recommend 1 unit of packed red blood cell transfusion. No urgent indication for dialysis at this time. Overall, prognosis is poor.
[2017-05-15] MEDS: cefTRIAXone\\ROCEPHIN 2 GM in Sodium Chloride 0.9% 100 ML IVPB SCH (12:50)
[2017-05-15] MEDS: Pantoprazole 40 MG GRANULES PACKET PER TUBE SCH (21:01)
[2017-05-16] MEDS: Metoclopramide 10 MG/10 ML UDCUP PER TUBE SCH ×4 (01:49→20:00)
[2017-05-16] MEDS: HumaLOG 300 UNITS/3 ML VIAL SC PRN ×5 (04:09→23:57)
[2017-05-16 05:10] LABS: #Basophils 0.1 thou/uL (0.0-0.2); #Eosinphils 0.1 thou/uL (0.0-0.7); #Lymphocytes 0.7 thou/uL (1.20-3.40); #Monocytes 0.8 thou/uL (0.11-0.59); #Neutrophils 7.2 thou/uL (1.40-6.50); %Basophils 0.7 % (0.0-1.0); %Eosinophils 1.5 % (0.0-10.0); %Lymphocytes 7.7 % (21.0-51.0); %Monocytes 9.4 % (0.0-10.0); %Neutrophils 80.7 % (42.0-75.0); Hemoglobin 7.5 g/dL (14.0-18.0); Mean Corpuscular HGB CONC 33.9 g/dL (32.0-36.0); Mean Corpuscular Hemoglobin 30.5 pg (27.0-31.0); Mean Corpuscular Volume 89.9 fl (80.0-94.0); Mean Platelet Volume 9.4 fL (7.4-10.4); Platelet Count 172 thou/uL (130-400); RBC Distribution Width 15.4 % (11.5-14.5); Red Blood Cell (RBC) Count 2.47 mill/uL (4.70-6.10); White Blood Cell (WBC) Count 8.9 thou/uL (4.8-10.8)
[2017-05-16 05:27] LABS: ALT (SGPT) 71 U/L (8-55); AST (SGOT) 92 U/L (5-34); Albumin 2.5 g/dL (3.4-4.8); Alkaline Phosphatase 104 U/L (40-150); Anion Gap 15 mmol/L (10-20); BUN (Urea Nitrogen) 87 mg/dL (8.4-25.7); Bilirubin, Total 0.9 mg/dL (0.2-1.2); Calc. Creatinine Clearance 16 mL/min (70-130); Calcium 8.3 mg/dL (7.8-10.44); Carbon Dioxide 24 mmol/L (23-31); Chloride 110 mmol/L (98-107); Estimated GFR-MDRD 11; Globulin 3.4 g/dL (2.4-3.5); Glucose 164 mg/dL (80-115); Potassium 3.1 mmol/L (3.5-5.1); Protein, Total 5.9 g/dL (5.8-8.1); Sodium 146 mmol/L (136-145)
[2017-05-16] MEDS ORDERED: Potassium Chloride 40 MEQ in Premix Bag 1 BAG IVPB SCH (07:30)
--- NOTE | 2017-05-16 07:46 | PRG ---
DATE OF SERVICE: 05/16/2017 Thirty-five minutes critical care time. The patient remains intubated on mechanical ventilation. He is much more awake today, follows comman ds without limitation. PHYSICAL EXAMINATION: VITAL SIGNS: Temperature 99.6 with a T-max of 100.6, pulse 77, blood pressure 120/51. 24 hour intak e 1620, out 1470. HEENT: Unremarkable. NECK: Without adenopathy or JVD. LUNGS: Slightly diminished breath sounds in both bases. CARDIOVASCULAR: S1, S2 regular. ABDOMEN: Soft, nontender. EXTREMITIES: No clubbing, cyanosis, trace edema. His bronchoscopy from 05/14/2017 is growing gram negative rods. Of note, right now he is only on cef triaxone which probably would not cover any hospital-acquired organisms. LABORATORY DATA: Sodium 146, potassium 3.1, chloride 110, CO2 24, BUN 87, creatinine 5.2, glucose 16 4, AST 92, ALT 71. White blood cell count 8.9, hemoglobin 7.5, hematocrit 22.2, platelet count 172. Chest x-ray shows slight improvement in the right base. ASSESSMENT: 1. Acute respiratory failure requiring mechanical ventilation. 2. Acute renal failure with some recovery to the point where he is not needing dialysis. 3. Recent right lower lobe atelectasis. 4. Possible community-acquired pneumonia - await final cultures. 5. Alcoholic hepatitis. 6. Status post ERCP for gallstone removal. 7. Status post cholecystectomy. 8. Status post toe amputation. PLAN: 1. I will switch his antibiotics. 2. Plan to extubate as he has been on CPAP for quite some time and seems to be doing okay. 3. If he fails extubation then he will need tracheostomy. 4. Replace potassium. 5. He was transfused 1 unit of blood yesterday. 6. I spoke with family yesterday.
--- NOTE | 2017-05-16 08:29 | PRG ---
DATE OF SERVICE: 05/16/2017 SUBJECTIVE: This is a 72-year-old gentleman being seen for acute kidney injury. The patient is extu bated, denies any complaints. PHYSICAL EXAMINATION: GENERAL: Patient is resting. VITAL SIGNS: Afebrile, pulse 60, breathing at 16, blood pressure 122/51. OBJECTIVE: See above. Awake, alert, in no acute distress. GENERAL APPEARANCE AND MENTAL STATUS: Fair. HEAD/NECK: Normocephalic. Atraumatic. EYES: EOMI. No deformity. EARS: Clear. No ulcers. NOSE: Intact. No lesions. MOUTH: Clear. No discharge. THROAT: Clear. No exudate. LUNGS: Clear. No crackles. CARDIAC: S1, S2. No rub. ABDOMEN: Benign. BS+. GENITALIA/RECTUM: Griffin absent. BACK/EXTREMITIES: Edema 0+ Ulcer- NEUROLOGICAL: Alert and motor intact. SKIN: Rash- Bruise- LYMPHATICS: Edema- Ulcer- LABORATORY: Hemoglobin 7.5, creatinine 5.2. ASSESSMENT AND RECOMMENDATIONS: 1. Acute kidney injury with chronic kidney disease, nonoliguric, improving. 2. Hypokalemia. Agree with potassium replacement. 3. Metabolic acidosis, stable. 4. Anemia, stable. 5. Medication based on glomerular filtration rate are appropriate. 6. Hyponatremia. We will start the patient on D5W.
--- NOTE | 2017-05-16 08:33 | PRG ---
DATE OF SERVICE: 05/16/2017 SUBJECTIVE: The patient is awake. He will not verbalize. He is extubated. He has wrist restraints on bilaterally. PHYSICAL EXAMINATION: VITAL SIGNS: Blood pressure is 140/60, pulse 80. He is afebrile. NECK: Supple with no increased JVP. CARDIOVASCULAR: Regular rate and rhythm. CHEST: Upper lobe rhonchi and few wheezing. ABDOMEN: Soft, nontender with hypoactive bowel sounds. EXTREMITIES: No edema. He had his left foot wrapped. He had a right SCD on. SKIN: There is no evidence of ulceration, lesion or rash. NEUROLOGIC: He is awake, but will not verbalize. LABORATORY DATA: Showed H&H is 7.5 and 22.2. His white blood cell is 8.9. He has a sodium of 146. His potassium is 3.1. His BUN is 87, his creatinine is 5.21. He had elevated liver enzymes. ASSESSMENT: 1. Status post respiratory arrest with recent extubation. 2. Pneumonia with sepsis. 3. Status post cholecystectomy. 4. Renal failure on dialysis. 5. Coronary artery disease. 6. Alcohol abuse with withdrawal. 7. A toe amputation. 8. Nonsustained ventricular tachycardia. 9. Multiple medical problems. 10. Anemia of chronic disease. PLAN: The patient is being followed by numerous consultants. We appreciate all the consultants' hel p. We will also follow up with a CBC, CMP and a chest x-ray tomorrow.
--- NOTE | 2017-05-16 09:13 | RAD ---
PORTABLE UPRIGHT FRONTAL CHEST RADIOGRAPH: Date: 05/16/17 COMPARISON: 05/15/17. HISTORY: Ventilated patient. FINDINGS: Stable endotracheal tube, right-sided vascular catheter, and left-sided dialysis catheter. Midline st ernotomy wires are unchanged. There is no pneumothorax seen. There is dense opacity in the right lung base suggesting right pleural effusion and/or consolidation/ collapse of right middle and right lower lobe. There is increased density in the medial left lung base with blunting of left costophrenic angle sugg esting left pleural effusion with left lower lobe consolidation/collapse. There is an enteric tube which extends into the upper abdomen, incompletely imaged. IMPRESSION: Bibasilar pleural and parenchymal opacity, unchanged. Stable lines and tubes. POS: JAJA
[2017-05-16] MEDS: Sodium Bicarbonate 150 MEQ in Dextrose 5% in Water 850 ML IV SCH ×2 (10:31)
[2017-05-16] MEDS: Scopolamine 1.5 mg/72 hour Patch TD SCH (10:32)
[2017-05-16] MEDS: Carvedilol 3.125 MG TAB PO SCH ×2 (10:34→18:17)
[2017-05-16] MEDS: hydrALAZINE 10 MG TAB PER TUBE SCH ×3 (10:34→21:58)
[2017-05-16] MEDS: Piperacillin/Tazobactam 2.25 GM in Sodium Chloride 0.9% 100 ML IVPB SCH ×2 (10:35→21:58)
[2017-05-16 16:28] LABS: Anion Gap 16 mmol/L (10-20); BUN (Urea Nitrogen) 87 mg/dL (8.4-25.7); Calc. Creatinine Clearance 17 mL/min (70-130); Calcium 8.4 mg/dL (7.8-10.44); Carbon Dioxide 25 mmol/L (23-31); Chloride 111 mmol/L (98-107); Estimated GFR-MDRD 11; Glucose 166 mg/dL (80-115); Potassium 3.4 mmol/L (3.5-5.1); Sodium 149 mmol/L (136-145)
[2017-05-16] MEDS: Famotidine/PF 20 mg/2ml Vial SLOW IVP SCH (21:57)
[2017-05-16] MEDS: Pantoprazole 40 MG GRANULES PACKET PER TUBE SCH (21:58)
[2017-05-17] MEDS: Metoclopramide 10 MG/10 ML UDCUP PER TUBE SCH ×4 (02:02→20:24)
[2017-05-17 05:22] LABS: #Eosinphils 0.1 thou/uL (0.0-0.7); #Lymphocytes 0.6 thou/uL (1.20-3.40); #Monocytes 0.8 thou/uL (0.11-0.59); #Neutrophils 6.1 thou/uL (1.40-6.50); %Basophils 0.3 % (0.0-1.0); %Eosinophils 1.4 % (0.0-10.0); %Lymphocytes 8.4 % (21.0-51.0); %Monocytes 10.5 % (0.0-10.0); %Neutrophils 79.5 % (42.0-75.0); Hemoglobin 7.2 g/dL (14.0-18.0); Mean Corpuscular HGB CONC 33.2 g/dL (32.0-36.0); Mean Corpuscular Hemoglobin 30.8 pg (27.0-31.0); Mean Corpuscular Volume 92.7 fl (80.0-94.0); Mean Platelet Volume 9.4 fL (7.4-10.4); Platelet Count 157 thou/uL (130-400); RBC Distribution Width 15.2 % (11.5-14.5); Red Blood Cell (RBC) Count 2.32 mill/uL (4.70-6.10); White Blood Cell (WBC) Count 7.7 thou/uL (4.8-10.8)
[2017-05-17 05:44] LABS: ALT (SGPT) 213 U/L (8-55); AST (SGOT) 446 U/L (5-34); Albumin 2.6 g/dL (3.4-4.8); Alkaline Phosphatase 147 U/L (40-150); Anion Gap 14 mmol/L (10-20); BUN (Urea Nitrogen) 91 mg/dL (8.4-25.7); Bilirubin, Total 1.1 mg/dL (0.2-1.2); Calc. Creatinine Clearance 18 mL/min (70-130); Calcium 8.3 mg/dL (7.8-10.44); Carbon Dioxide 29 mmol/L (23-31); Chloride 110 mmol/L (98-107); Estimated GFR-MDRD 12; Globulin 3.4 g/dL (2.4-3.5); Glucose 129 mg/dL (80-115); Sodium 150 mmol/L (136-145)
[2017-05-17] MEDS ORDERED: Sodium Bicarbonate 50 MEQ in Dextrose 5% in Water 1,000 ML IV SCH ×2 (08:15)
[2017-05-17] MEDS ORDERED: Meropenem 1 GM in Sodium Chloride 0.9% 100 ML IVPB SCH (09:15)
--- NOTE | 2017-05-17 09:16 | PRG ---
DATE OF SERVICE: 05/17/2017 SERVICE: Pulmonary Medicine. INTERVAL HISTORY: The patient is doing okay from a respiratory standpoint. He demonstrates extraordinary weakness. He has a difficult time moving all 4 extremities. He has a fairly weak cough. Outside of that; he is doing fairly well. There were no overnight events. PHYSICAL EXAMINATION: VITAL SIGNS: Afebrile currently with T-max of 100.6 overnight. Pulse 82, blood pressure 137/46, respirations 28, saturation 98% on 2 liters nasal cannula. GENERAL: The patient is awake, alert, no apparent distress. LUNGS: Decent air entry. Rhonchi are present. He has a hard time clearing them with cough. No dependent crackles are appreciated. HEART: Normal rate, regular. ABDOMEN: Soft, nontender, nondistended. Bowel sounds are positive. MUSCULOSKELETAL: No cyanosis or clubbing. There is a minimal dependent edema in the right hip, abdominal area. GENITOURINARY: Griffin catheter in place. NEUROLOGIC: Grossly nonfocal. He demonstrates extraordinary weakness throughout. LABORATORY DATA: WBC 7.7, hemoglobin 7.2, platelets 157,000. Sodium 150 and up trending, potassium 3.0, chloride 111. Creatinine 4.75 and down trending. AST and ALT are up trending to 446 and 213, respectively. Bilirubin 1.3. Respiratory culture is growing Klebsiella pneumoniae, which is only sensitive to meropenem and amikacin. This was collected on , methicillin sensitive Staph aureus is growing out of one blood culture, Pseudomonas is growing out of the other culture. These were essentially braun resistant. IMAGING: Chest x-ray demonstrates right-sided IJ terminates in good position. There is an enteric catheter courses well below the level of the diaphragm, but I can see where it terminates. I do not see any focal airspace disease. There is likely little atelectasis in the right lower lobe. Reticular and interstitial markings are likely accentuated by lower lung volumes. There is a dialysis catheter in left subclavian that terminates in the right atrium. ASSESSMENT: 1. Acute hypoxic respiratory failure. 2. Acute kidney injury, intermittently requiring dialysis. 3. Atelectasis of the right lower lobe. 4. Healthcare-associated pneumonia, secondary to Klebsiella, braun resistant. 5. Alcoholic hepatitis. 6. Critical care weakness. PLAN: We will transition his antibiotics over to meropenem as the Klebsiella pneumonia is only sensitive to that. This will be discontinued after a period of 7 days. I will increase his free water, but we will continue a little bit of bicarbonate over the next 24 hours. Otherwise, supportive care will be continued. We will do our best to mobilize him. He is extraordinarily weak and has a high chance of failing and may require repeat intubation. If this happens, we will discuss with the family moving forward a tracheostomy as he has previously failed extubation. At this point, nothing is preventing him from getting better, other than his weakness. We will watch him very closely and he will remain in the ICU. GLYNN
[2017-05-17] MEDS: HumaLOG 300 UNITS/3 ML VIAL SC PRN ×4 (09:26→20:24)
[2017-05-17] MEDS ORDERED: Meropenem 1 GM in Sterile Water 20 ML SLOW IVP SCH (09:30)
[2017-05-17] MEDS: hydrALAZINE 10 MG TAB PER TUBE SCH ×3 (09:41→20:24)
[2017-05-17] MEDS: Carvedilol 3.125 MG TAB PO SCH ×2 (09:41→17:49)
--- NOTE | 2017-05-17 10:23 | RAD ---
RADIOGRAPH CHEST 1 VIEW: Date: 05/17/17. Time: 5:18 a.m. HISTORY: A 72-year-old male in respiratory distress. COMPARISON: 05/16/17, 5:07 a.m. FINDINGS: The patient is no longer rotated to the right, and, therefore, this makes it difficult to compare. E ndotracheal tube tip has been removed. There is no other interval change. IMPRESSION: 1. Status post extubation, with interval removal of endotracheal tube and Dobbhoff feeding tube. 2. No major interval change in bilateral effusions and bibasilar airspace opacities, right greater t altamirano left. ODELL [] POS: LAYNE
--- NOTE | 2017-05-17 12:06 | PRG ---
DATE OF SERVICE: 05/17/2017 SUBJECTIVE: This is 72-year-old gentleman being seen for acute kidney injury, dialysis dependent. T he patient is nonverbal. PHYSICAL EXAMINATION: GENERAL: On examination, patient is resting. VITAL SIGNS: Afebrile, pulse 96, breathing 16, blood pressure is 137/46. HEAD/NECK: Normocephalic. Atraumatic. EYES: EOMI. No deformity. EARS: Clear. No ulcers. NOSE: Intact. No lesions. MOUTH: Clear. No discharge. THROAT: Clear. No exudate. LUNGS: Clear. No crackles. CARDIAC: S1, S2. No rub. ABDOMEN: Benign. BS+. GENITALIA/RECTUM: Griffin absent. BACK/EXTREMITIES: Edema 0+ Ulcer- NEUROLOGICAL: Patient is resting. SKIN: Rash- Bruise- LYMPHATICS: Edema- Ulcer- LABORATORY DATA: Show sodium 130, potassium 3, creatinine 4.7. ASSESSMENT AND RECOMMENDATIONS: 1. Acute kidney injury, nonoliguric, improving. 2. Hypokalemia. Give potassium replacement. 3. Metabolic acidosis, I will stop sodium bicarbonate. 4. Hypernatremia. We will change IV fluid to D5W at 100 mL per hour. Check sodium every 6 hours. No indication for dialysis at this time.
[2017-05-17] MEDS: Dextrose 5% in Water 1,000 ML IV SCH (14:36)
--- NOTE | 2017-05-17 15:15 | PRG ---
DATE OF SERVICE: 05/17/2017 SUBJECTIVE: The patient is awake. He is hard to understand, as he was just extubated. He is very w eak, and according to the nurse, does move his left upper extremity; however, just now he would not c ooperate to move the left upper extremity. He did move his right arm when I lifted up and he left it there for me. PHYSICAL EXAMINATION: GENERAL: Upon evaluation, he is awake. VITAL SIGNS: His blood pressure 144/46, pulse 88, and afebrile. NECK: Supple with no increased JVP or carotid bruit. Carotid had good upstroke with no thyromegaly. COR: Regular rate and rhythm. CHEST: Scattered rhonchi, upper lobes. ABDOMEN: Soft, nontender. Status post cholecystectomy. He had normoactive bowel sounds. EXTREMITIES: His left foot is wrapped from recent amputation. His right lower extremity had a SCD. NEUROLOGIC: He is awake. LABORATORY: H and H is 7.10 and 21.5. His white blood cell is 7.7, his H and H is 7.2 and 21.5, tree telet count 157. His potassium is 3, BUN 91, creatinine 4.75, glucose 129. ASSESSMENT: 1. Respiratory arrest, status post 2 rounds of intubation. 2. Status post cholecystectomy. 3. Sepsis, pneumonia. 4. History of coronary artery disease. 5. Nonsustained ventricular tachycardia. 6. Cardiomyopathy. 7. History of alcohol abuse. 8. Ischemic left foot, status post amputation. 9. Debilitated and weak. 10. Hypokalemia. 11. Renal failure. PLAN: I will leave potassium supplement up to Nephrology. We will follow up with CBC and CMP in the morning and continue all other measures.
[2017-05-17 15:16] LABS: Anion Gap 16 mmol/L (10-20); BUN (Urea Nitrogen) 92 mg/dL (8.4-25.7); Calc. Creatinine Clearance 0 mL/min (70-130); Calcium 8.3 mg/dL (7.8-10.44); Carbon Dioxide 28 mmol/L (23-31); Chloride 110 mmol/L (98-107); Estimated GFR-MDRD 13; Glucose 182 mg/dL (80-115); Potassium 3.6 mmol/L (3.5-5.1); Sodium 150 mmol/L (136-145)
[2017-05-17] MEDS: Acetaminophen 325 MG TAB PO PRN (18:08)
[2017-05-17] MEDS: Sodium Bicarbonate 150 MEQ in Dextrose 5% in Water 850 ML IV SCH ×2 (18:09)
[2017-05-17] MEDS: Piperacillin/Tazobactam 2.25 GM in Sodium Chloride 0.9% 100 ML IVPB SCH (18:09)
[2017-05-17] MEDS: Famotidine/PF 20 mg/2ml Vial SLOW IVP SCH (20:24)
[2017-05-17] MEDS: Meropenem 1 GM in Sterile Water 20 ML SLOW IVP SCH (20:33)
[2017-05-18] MEDS: HumaLOG 300 UNITS/3 ML VIAL SC PRN ×5 (00:03→19:57)
[2017-05-18] MEDS: Metoclopramide 10 MG/10 ML UDCUP PER TUBE SCH ×4 (02:50→19:59)
[2017-05-18] MEDS: Dextrose 5% in Water 1,000 ML IV SCH ×3 (03:03→20:00)
[2017-05-18 04:54] LABS: #Basophils 0.1 thou/uL (0.0-0.2); #Eosinphils 0.1 thou/uL (0.0-0.7); #Lymphocytes 0.6 thou/uL (1.20-3.40); #Monocytes 0.9 thou/uL (0.11-0.59); #Neutrophils 7.9 thou/uL (1.40-6.50); %Basophils 0.8 % (0.0-1.0); %Eosinophils 0.9 % (0.0-10.0); %Lymphocytes 6.1 % (21.0-51.0); %Monocytes 8.9 % (0.0-10.0); %Neutrophils 83.3 % (42.0-75.0); Hemoglobin 8.7 g/dL (14.0-18.0); Mean Corpuscular HGB CONC 32.9 g/dL (32.0-36.0); Mean Corpuscular Hemoglobin 30.9 pg (27.0-31.0); Mean Corpuscular Volume 93.9 fl (80.0-94.0); Mean Platelet Volume 9.7 fL (7.4-10.4); Platelet Count 159 thou/uL (130-400); RBC Distribution Width 14.6 % (11.5-14.5); Red Blood Cell (RBC) Count 2.83 mill/uL (4.70-6.10); White Blood Cell (WBC) Count 9.5 thou/uL (4.8-10.8)
[2017-05-18 05:15] LABS: ALT (SGPT) 263 U/L (8-55); AST (SGOT) 323 U/L (5-34); Albumin 2.8 g/dL (3.4-4.8); Alkaline Phosphatase 148 U/L (40-150); Anion Gap 16 mmol/L (10-20); BUN (Urea Nitrogen) 91 mg/dL (8.4-25.7); Bilirubin, Total 1.1 mg/dL (0.2-1.2); Calc. Creatinine Clearance 0 mL/min (70-130); Calcium 8.4 mg/dL (7.8-10.44); Carbon Dioxide 26 mmol/L (23-31); Chloride 109 mmol/L (98-107); Estimated GFR-MDRD 14; Globulin 3.6 g/dL (2.4-3.5); Glucose 213 mg/dL (80-115); Magnesium 1.4 mg/dL (1.6-2.6); Phosphorus 4.7 mg/dL (2.3-4.7); Potassium 3.6 mmol/L (3.5-5.1); Protein, Total 6.4 g/dL (5.8-8.1); Sodium 147 mmol/L (136-145)
[2017-05-18] MEDS: Furosemide 40 MG/4 ML VIAL SLOW IVP SCH (05:49)
[2017-05-18] MEDS: Carvedilol 3.125 MG TAB PO SCH ×2 (08:18→18:04)
[2017-05-18] MEDS: hydrALAZINE 10 MG TAB PER TUBE SCH ×3 (08:19→20:02)
--- NOTE | 2017-05-18 08:48 | PRG ---
DATE OF SERVICE: 05/18/2017 This is ERICK Andrew dictating a progress note for Jose Goncalves M.D SUBJECTIVE: The patient is awake. He is poorly responsive. According to the nurse today, he is not even moving his right side of his body. According to the nurse yesterday, he was able to move his b oth upper extremities; however, when I assessed him yesterday, I could not get him to move his left u pper extremity, all I see was flaccid. Today, he has altered level of conscious. His both upper ext remities are flaccid. He is back on a nonrebreather mask and yesterday he was on nasal cannula. Acc ording to the nurse, he is unable to clear his secretions. PHYSICAL EXAMINATION: VITAL SIGNS: Upon evaluation as above, his blood pressure is 120/70, pulse 90, respirations 18. He is afebrile. NECK: Supple. JVD cannot be assessed. COR: Regular rate and rhythm. CHEST: Scattered rhonchi with few wheezing. ABDOMEN: Soft and nontender with hypoactive bowel sounds. EXTREMITIES: Right lower extremity has no edema. His left foot is wrapped. NEUROLOGIC: He is poorly responsive. ASSESSMENT: 1. Respiratory failure, status post arrest. 2. Renal failure on dialysis. 3. Pneumonia. 4. Alcohol abuse. 5. History of coronary artery disease with bypass. 6. Diabetes. 7. Hypertension. 8. Seizure disorder. 9. Nonsustained ventricular tachycardia. 10. Cardiomyopathy. 11. Lethargy. 12. Multiple medical problems. PLAN: This patient, I believe still has a poor prognosis. I would like to order a CAT scan of the ead, even though there was one done 2 weeks ago as I do feel like there is a change in his condition. It could be just conditioning; however, we will let the CAT scan decide that. Otherwise, continue full support and again appreciate all consultants following.
[2017-05-18] MEDS: Meropenem 1 GM in Sterile Water 20 ML SLOW IVP SCH ×2 (09:00→20:00)
--- NOTE | 2017-05-18 10:20 | CT ---
CT OF THE HEAD WITHOUT CONTRAST: INDICATION: History of CVA. COMPARISON: Prior exam dated 04/29/17. CT OF THE BRAIN WITHOUT CONTRAST: INDICATION: Evaluate for CVA. COMPARISON: Prior exam is 04/29/17. FINDINGS: There is mild generalized cerebral and cerebellar atrophy. There are small lacunar infarcts involvin g the basal ganglia bilaterally which are stable. Mild chronic small-vessel white matter ischemic ch golden is stable. There is some beam scattered artifact involving the anterior cranial fossa. There i s bilateral mastoid effusion which is new. There is a mucous retention cyst involving the inferior a spect of the right maxillary sinus. IMPRESSION: 1. Bilateral mastoid effusions, right greater than left. 2. No acute intracranial abnormality. 3. Stable lacunar infarcts involving the basal ganglia bilaterally. POS: LAYNE
[2017-05-18] MEDS ORDERED: Carvedilol 3.125 MG TAB PO SCH ×2 (10:30→12:00)
[2017-05-18] MEDS ORDERED: Magnesium Sulfate 4 GM in Sodium Chloride 0.9% 250 ML 250 ML IVPB SCH (11:15)
--- NOTE | 2017-05-18 11:58 | PRG ---
DATE OF SERVICE: 05/18/2017 SERVICE: Pulmonary Medicine. INTERVAL HISTORY: The patient is doing poorly from a respiratory standpoint. He demonstrates such s evere weakness. He cannot pick up man his arms or his legs. This is no different than yesterday. He moulton s a hard time clearing his secretions. He was NT suctioned on two separate occasions yesterday. A t hird occasion had occurred this morning and a significant amount of sputum was pulled from his dry curer ior oropharynx. He is currently breathing a little bit better. With very hard stimulation, we can g et him to cough, but without constant enforcement, he reverts back to his tenuous respiratory status. PHYSICAL EXAMINATION: VITAL SIGNS: Afebrile with a T-max of 100.2. Pulse 89, blood pressure 144/61, respirations 15, satu ration 98% on a Venturi mask at 40% FiO2. HEENT: Normocephalic, atraumatic. Sclerae are white, conjunctivae pink. Oral and nasal mucosa is m oist without lesions. LUNGS: Decent air entry. There is rhonchi present. They change with cough, but do not clear. No c rackles are appreciated. HEART: Normal rate, regular. ABDOMEN: Soft, nontender, nondistended. Bowel sounds are positive. MUSCULOSKELETAL: No cyanosis or clubbing. There is no pitting in the bilateral lower extremities. NEUROLOGIC: Grossly nonfocal. LABORATORY DATA: WBC 9.5, hemoglobin 8.7. Sodium 147, creatinine 4.3 and gently down trending, BUN 91. Basic metabolic profile is otherwise unremarkable. AST and ALT are once again down trending, al kaline phosphatase is stable. Magnesium is 1.4. Potassium is 3.6. Phosphorus falls within the norm al range. Vancomycin trough is 33.6. Bronchial washing is growing braun resistant Klebsiella. IMAGING: CT of the brain demonstrates no acute intracranial abnormality. There are bilateral mastoi d effusions, right greater than left. There are lacunar infarcts involving the basal ganglia bilater ally, which are stable. ASSESSMENT: 1. Acute hypoxic respiratory failure. 2. Acute kidney injury, intermittently requiring hemodialysis. 3. Atelectasis of the right lower lobe. 4. Healthcare-associated pneumonia secondary to Klebsiella, braun resistant. 5. Alcoholic hepatitis, resolving. 6. Critical care myopathy/weakness. PLAN: The patient's barrier to improvement at this point is his overwhelming weakness. There is a p ossibility that he is going to get reintubated. We will put Neurology consultation to make certain t he patient does not suffer from a neuromuscular disease process that could be contributing to his wea kness. Pulmonary Critical Care will continue to follow and he will certainly remain in this location . I will once again replace the magnesium and potassium. We will order physical therapy and encoura ge the patient to move. We will be getting him into a neuro chair couple times daily.
--- NOTE | 2017-05-18 13:59 | PRG ---
DATE OF SERVICE: 05/18/2017 SUBJECTIVE: A 72-year-old gentleman being seen for acute kidney injury. The patient is nonoliguric. PHYSICAL EXAMINATION: GENERAL: Patient is resting. VITAL SIGNS: Afebrile, pulse 89, breathing 16, blood pressure 140/61. HEAD/NECK: Normocephalic. Atraumatic. EYES: EOMI. No deformity. EARS: Clear. No ulcers. NOSE: Intact. No lesions. MOUTH: Clear. No discharge. THROAT: Clear. No exudate. LUNGS: Clear. No crackles. CARDIAC: S1, S2. No rub. ABDOMEN: Benign. BS+. GENITALIA/RECTUM: Griffin absent. BACK/EXTREMITIES: Edema 0+ Ulcer- NEUROLOGICAL: Alert and motor intact. SKIN: Rash- Bruise- LYMPHATICS: Edema- Ulcer- LABORATORY DATA: Show hemoglobin 8.7, sodium 147, creatinine 4.3. ASSESSMENT AND RECOMMENDATIONS: 1. Acute kidney injury, nonoliguric, improving. 2. Hypernatremia. Increase the D5W to 125 an hour. 3. Hyponatremia, improved. 4. Anemia, improved. No urgent indication for dialysis at this time. Overall, prognosis is very po or.
[2017-05-18] MEDS: Famotidine/PF 20 mg/2ml Vial SLOW IVP SCH (20:00)
[2017-05-19] MEDS: HumaLOG 300 UNITS/3 ML VIAL SC PRN ×5 (00:09→20:32)
[2017-05-19] MEDS: Metoclopramide 10 MG/10 ML UDCUP PER TUBE SCH ×4 (02:33→19:31)
[2017-05-19] MEDS: Dextrose 5% in Water 1,000 ML IV SCH ×3 (04:49→19:31)
[2017-05-19 04:59] LABS: #Basophils 0.1 thou/uL (0.0-0.2); #Eosinphils 0.1 thou/uL (0.0-0.7); #Lymphocytes 0.7 thou/uL (1.20-3.40); #Monocytes 0.8 thou/uL (0.11-0.59); #Neutrophils 7.2 thou/uL (1.40-6.50); %Basophils 0.7 % (0.0-1.0); %Eosinophils 1.4 % (0.0-10.0); %Lymphocytes 8.1 % (21.0-51.0); %Monocytes 8.4 % (0.0-10.0); %Neutrophils 81.4 % (42.0-75.0); Hemoglobin 8.3 g/dL (14.0-18.0); Mean Corpuscular HGB CONC 32.7 g/dL (32.0-36.0); Mean Corpuscular Hemoglobin 30.2 pg (27.0-31.0); Mean Corpuscular Volume 92.3 fl (80.0-94.0); Mean Platelet Volume 9.5 fL (7.4-10.4); Platelet Count 159 thou/uL (130-400); RBC Distribution Width 14.6 % (11.5-14.5); Red Blood Cell (RBC) Count 2.74 mill/uL (4.70-6.10); White Blood Cell (WBC) Count 8.9 thou/uL (4.8-10.8)
[2017-05-19 05:48] LABS: ALT (SGPT) 241 U/L (8-55); AST (SGOT) 286 U/L (5-34); Albumin 2.6 g/dL (3.4-4.8); Alkaline Phosphatase 156 U/L (40-150); Anion Gap 16 mmol/L (10-20); BUN (Urea Nitrogen) 93 mg/dL (8.4-25.7); Calc. Creatinine Clearance 23 mL/min (70-130); Calcium 8.4 mg/dL (7.8-10.44); Carbon Dioxide 24 mmol/L (23-31); Chloride 105 mmol/L (98-107); Estimated GFR-MDRD 16; Globulin 3.5 g/dL (2.4-3.5); Glucose 191 mg/dL (80-115); Phosphorus 3.6 mg/dL (2.3-4.7); Potassium 3.5 mmol/L (3.5-5.1); Protein, Total 6.1 g/dL (5.8-8.1); Sodium 141 mmol/L (136-145)
[2017-05-19] MEDS: Furosemide 40 MG/4 ML VIAL SLOW IVP SCH (05:53)
--- NOTE | 2017-05-19 06:00 | CON ---
DATE OF CONSULTATION: 05/18/2017 REFERRING PROVIDER: Dr. Leonard Williamson. REASON FOR CONSULTATION: Generalized weakness. HISTORY OF PRESENT ILLNESS: Mr. Clay is a 72-year-old male who has been concerned for e valuation of generalized weakness. History is obtained from patient's medical chart as patient is un able to provide and there are no family member present at bedside. Apparently, the patient had prese nted on 04/29/2017 after he was found down at home. He was noted to be acute respiratory failure, de hydration and alcohol withdrawal. He apparently had coded and had to be intubated for hypoxic failur e. He has been extubated once and then had to be reintubated for same reason. He was extubated on 0 05/13/2017; however, continues to have a poor respiratory function. He is noted by the nursing staff to be having generalized weakness. I am being asked to further evaluate for possible neuromuscular c auses for his continued weakness in upper and lower extremities. During my evaluation today, patient did not follow much commands and he did not remove his upper or lower extremities except when he had to scratch his upper torso. He picked up his left arm and scratched with his left hand. Past medical history, past surgical history, social history, and family history could not be obtained . CURRENT MEDICATIONS: Please review MAR. ALLERGIES: No known drug allergies. REVIEW OF SYSTEMS: Unable to perform. PHYSICAL EXAMINATION: VITAL SIGNS: Blood pressure of 135/51, pulse of 86, temperature of 99.2, respirations of 28 on 100% face mask. GENERAL: Deconditioned appearing male in no apparent distress. RESPIRATORY: Clear to auscultation bilaterally. CARDIOVASCULAR: Regular rate and rhythm. NEUROLOGIC: Mental status: The patient is awake and alert, but not following any commands and nonve rbal. Speech and language: He is nonverbal during my evaluation today. Cranial nerves: Pupils are 3 mm and reactive. Visual alexandre are full to threat. Unable to perform extraocular muscle movement . Face appears symmetric. Motor exam showed normal tone and bulk in both upper and lower extremitie s. When I lift his arms up on both sides, he was able to maintain his tone for a few seconds before dropping his hands down. He did not perform to any commands. He did lift his left arm up spontaneou sly and was able to scratch on the right side of his chest. Sensory: Diminished sensation in both u pper and lower extremities. Babinski: Plantar responses equivocal on the right, unable to perform o n the left due to dressing being on. He has right first and second digit amputation on the lower ext remity. LABORATORY DATA: I reviewed, which included CBC, CMP, which is significant for hemoglobin 8.7, hemat ocrit of 26.5, sodium of 147, BUN of 91, creatinine of 4.3, glucose of 205, AST of 323, ALT of 263. IMAGING STUDIES: CT head without contrast done earlier today was reviewed which showed no acute intr acranial abnormality. IMPRESSION: 1. Generalized weakness, likely deconditioning. 2. Encephalopathy, likely toxic metabolic hypoxic in nature, hypoxic respiratory failure. ASSESSMENT AND PLAN: Mr. Clay is a 72-year-old male who presented with the alcohol with drawal, dehydration and respiratory failure. He is noted to have a generalized weakness on my exam, it seems that he was more encephalopathic and deconditioned from his underlying condition. I would r ecommend continuing supportive care. I will check ammonia level. If he continues to not improve, th en I would recommend obtaining MRI brain without contrast to rule out underlying structural abnormali ty as the cause of his symptoms.
--- NOTE | 2017-05-19 07:47 | PRG ---
DATE OF SERVICE: 05/19/2017 PULMONARY AND CRITICAL CARE PROGRESS NOTE SUBJECTIVE: Mr. Clay was extubated on Friday, his weekend has been complicated by continued encep halopathy and difficulty swallowing. This morning, I found him to be dysarthric. He does try to spe ak. He will follow commands for me. PHYSICAL EXAMINATION: VITAL SIGNS: His temperature is 98.4 with no fever recorded over the last 24 hours. Pulse 91, blood pressure 140/60, 24-hour intake 3989, output 2455, his O2 sats running at 100% on 40% oxygen. HEENT: He has NG tube in place. NECK: No JVD. LUNGS: Coarse breath sounds. CARDIAC: S1 and S2 regular. ABDOMEN: Soft, slightly distended. EXTREMITIES: No clubbing, cyanosis, trace edema throughout. LABORATORY DATA: White blood cell count 8.9, hemoglobin 8.3, hematocrit 25.3, and platelet count 159 . INR 1.3. Sodium 141, potassium 3.5, chloride 105, CO2 24, BUN 93, creatinine 3.8, glucose 191, to kami bilirubin is 2.0, AST 286, ALT 241, and alkaline phosphatase 156. Ammonia less than 12. Albumin 2.6. ASSESSMENT: 1. Status post prolonged intubation secondary to alcohol withdrawal, alcoholic hepatitis, choledocho lithiasis, and cholecystitis. 2. Acute renal failure which is resolving. 3. 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 4. Generalized deconditioning. PLAN: 1. Continue generalized supportive care. 2. Continue meropenem for Klebsiella found on bronchoalveolar lavage. 3. Holding dialysis for the time being as he has become nonoliguric. 4. Need to consider LTAC placement at some point.
[2017-05-19] MEDS: Scopolamine 1.5 mg/72 hour Patch TD SCH (09:16)
[2017-05-19] MEDS: Meropenem 1 GM in Sterile Water 20 ML SLOW IVP SCH ×2 (09:16→22:47)
[2017-05-19] MEDS: hydrALAZINE 10 MG TAB PER TUBE SCH ×3 (09:19→20:32)
[2017-05-19] MEDS: Carvedilol 3.125 MG TAB PO SCH ×2 (09:19→17:31)
[2017-05-19] MEDS: Heparin 5,000 UNITS/ML VIAL SC SCH ×2 (09:20→20:33)
--- NOTE | 2017-05-19 12:22 | PRG ---
DATE OF SERVICE: 05/19/2017 SUBJECTIVE: Patient was seen and examined at bedside and overnight events noted. Patient denies any shortness of breath or chest pain or palpitation. No history of nausea or vomiting or diarrhea or f ever or chills or cramps. OBJECTIVE: GENERAL: This is a well-built male in no apparent distress. VITAL SIGNS: Temperature 98.5, pulse 84, respiratory rate 18, blood pressure 130/61. HEENT: Atraumatic, normocephalic. Oral mucosa is moist. NECK: Supple. CARDIOVASCULAR: S1, S2 heard. Rate and rhythm regular. RESPIRATORY: Clear to auscultation. GASTROINTESTINAL: Abdomen is soft. MUSCULOSKELETAL: No tenderness. No edema. DERMATOLOGIC: No skin rash. NEUROLOGIC: Alert and awake and oriented x3. No focal neurologic deficits. Moving all the extremiti es. PSYCHIATRIC: Mood and affect normal. LABORATORY DATA: Potassium is 3.5, BUN is 93, creatinine is 3.81. ASSESSMENT AND PLAN: 1. Acute kidney injury, nonoliguric and improving. Creatinine is much better without dialysis. Eva lysis has been hold for few days. Will have dialysis nurse do dialysis catheter care and can remove dialysis catheter if renal function continues to improve in the next 1-2 days. 2. Hyponatremia, better. 3. Anemia, stable. 4. Edema, controlled. 5. The patient is nonoliguric and renal function is getting better. No dialysis. We will follow. We will have dialysis catheter care .
[2017-05-19] MEDS: Famotidine 20 MG TAB PER TUBE SCH (20:32)
[2017-05-20] MEDS: HumaLOG 300 UNITS/3 ML VIAL SC PRN ×4 (00:20→20:39)
[2017-05-20] MEDS: Metoclopramide 10 MG/10 ML UDCUP PER TUBE SCH ×4 (02:31→20:34)
[2017-05-20 04:36] LABS: #Basophils 0.1 thou/uL (0.0-0.2); #Eosinphils 0.2 thou/uL (0.0-0.7); #Lymphocytes 0.7 thou/uL (1.20-3.40); #Monocytes 0.9 thou/uL (0.11-0.59); #Neutrophils 7.3 thou/uL (1.40-6.50); %Basophils 0.7 % (0.0-1.0); %Eosinophils 2.7 % (0.0-10.0); %Lymphocytes 7.6 % (21.0-51.0); %Monocytes 9.8 % (0.0-10.0); %Neutrophils 79.3 % (42.0-75.0); Hemoglobin 7.9 g/dL (14.0-18.0); Mean Corpuscular HGB CONC 32.5 g/dL (32.0-36.0); Mean Corpuscular Hemoglobin 29.9 pg (27.0-31.0); Mean Platelet Volume 9.6 fL (7.4-10.4); Platelet Count 176 thou/uL (130-400); RBC Distribution Width 14.3 % (11.5-14.5); Red Blood Cell (RBC) Count 2.62 mill/uL (4.70-6.10); White Blood Cell (WBC) Count 9.2 thou/uL (4.8-10.8)
[2017-05-20 04:56] LABS: Actual Bicarbonate (HCO3a) 26.7 mEq/L (22-26); CO2 Tension 55.4 mmHg (35.0-45.0); Hematocrit-ABG 26.4 % (42.0-52.0); O2 Tension (PaO2) 135.9 mmHg (80.0-100.0)
[2017-05-20 04:57] LABS: Calcium, Ionized 1.1 mmol/L (1.12-1.30); Puncture Site RRA
[2017-05-20 05:32] LABS: Actual Bicarbonate (HCO3a) 25.1 mEq/L (22-26); Base Excess (BEa) 0.5 mEq/L (0 (+/-) 2.5); CO2 Tension 39.9 mmHg (35.0-45.0); Hematocrit-ABG 23.7 % (42.0-52.0); Hemoglobin (Hb) 7.2 g/dL (14.0-18.0); O2 Tension (PaO2) 318.4 mmHg (80.0-100.0); pH, Arterial 7.42 (7.35-7.45)
[2017-05-20 05:33] LABS: Calcium, Ionized 1.1 mmol/L (1.12-1.30); Puncture Site RRA
[2017-05-20 05:34] LABS: ALV-art Gradient 335.725 (0-20)
[2017-05-20 05:35] LABS: ALT (SGPT) 234 U/L (8-55); AST (SGOT) 285 U/L (5-34); Albumin 2.7 g/dL (3.4-4.8); Alkaline Phosphatase 155 U/L (40-150); Anion Gap 14 mmol/L (10-20); BUN (Urea Nitrogen) 94 mg/dL (8.4-25.7); Calc. Creatinine Clearance 24 mL/min (70-130); Calcium 8.3 mg/dL (7.8-10.44); Carbon Dioxide 27 mmol/L (23-31); Chloride 102 mmol/L (98-107); Estimated GFR-MDRD 17; Globulin 3.5 g/dL (2.4-3.5); Glucose 231 mg/dL (80-115); Magnesium 1.7 mg/dL (1.6-2.6); Phosphorus 4.5 mg/dL (2.3-4.7); Potassium 3.1 mmol/L (3.5-5.1); Protein, Total 6.2 g/dL (5.8-8.1); Sodium 140 mmol/L (136-145)
--- NOTE | 2017-05-20 05:40 | PDOC.EVN ---
Event Note - Event Note Event Note: ANA BLUE: Ana jin called at 0424 and [facility] team including myself and attending physician , Dr. Rizo presented to bedside immediately. On arrival, patient noted to have BPs in the 100s/50s, weak pulses with HR in the 50s and oxygen desaturations- no O2 sats on monitor. Patient was being bagged by RT with BVM and oropharyngeal airway. Informed by nurses that patient has had a prolonged hospitalization requiring multiple intubations/extubations. Most recently extubated last Friday. Emergent intubation done due to respiratory failure. PROCEDURE BODY CORPORATE MANAGER: Kath Blanco MD ATTENDING PHYSICIAN: Beatrice Rizo MD PROCEDURE SUMMARY: I wore gloves throughout the procedure. The patient was on a engine monitor including continuous pulse oximetry. Patient was pre-oxygenated with BVM. Using a 4.0 glide scope and a size 7.5 endotracheal tube with stylet, the patient was intubated on the second attempt. On first attempt, vocal cords were immediately visualized, but pt then had copious secretions obscuring view even with aggressive suctioning. Patient was then pre-oxygenated again with BVM and successfully intubated on second attempt. The stylet was removed and cuff balloon was inflated. Appropriate endotracheal tube position was confirmed by direct visualization of vocal cord passage, fogging of the tube, CO2 colometric indicator and symmetric breath sounds. The tube was secured at 24 cm at the lips. Post intubation chest x-ray showed the tube a little high and thus advanced 1 cm to 25 cm at the lips. Confirmation x-ray is pending at this time. <Kath Blanco - Last Filed: 05/20/17 05:42> Attending Addendum - Attending Addendum Date/Time: 05/20/17 [address] Erik Freitas after ana jin called. Nurse reported she noted patient to become bradycardic and to the develop decreased O2 saturations and agonal breathing. On arrival, pt was being ventilated with BVM. Pulse present. Patient was subsequently intubated due ti respiratory failure by Dr. Blanco on second attempt due to secretions obscuring cords in first attempt. Tube placement confirmed with fog in tube, colometric change, ausculatation of b/l breath sounds. CXR showed tube at level of clavicles and it was advanced one cm and resecured. Post intubation ABG to be obtained. Pulmonary attending notified of event. <Beatrice Rizo - Last Filed: 05/20/17 11:37>
[2017-05-20] MEDS: Dextrose 5% in Water 1,000 ML IV SCH ×3 (06:07→17:14)
[2017-05-20] MEDS ORDERED: Morphine 2 MG/ML SYRINGE SLOW IVP PRN (06:34)
[2017-05-20] MEDS ORDERED: fentaNYL Citrate/PF 2,000 MCG in Sodium Chloride 0.9% 60 ML IV SCH (06:34)
[2017-05-20] MEDS ORDERED: Propofol 1,000 MG/100 ML VIAL IV ONE (06:35)
[2017-05-20] MEDS ORDERED: Morphine 4 MG/ML Carpuject SLOW IVP PRN (06:45)
[2017-05-20] MEDS ORDERED: Potassium Chloride 40 MEQ in Sodium Chloride 0.9% 250 ML 250 ML IVPB SCH (08:00)
--- NOTE | 2017-05-20 08:03 | PRG ---
DATE OF SERVICE: 05/20/2017 Thirty-five minutes critical care time. The patient was reintubated earlier this morning secondary to recurrent respiratory failure. He is n ow intubated with 7.5 endotracheal tube and on mechanical ventilation and is hemodynamically stable. PHYSICAL EXAMINATION: VITAL SIGNS: His pulse is 76, blood pressure 146/66, O2 sat 100%, temperature 98.2. He is lightly s edated on mechanical ventilation. HEENT: Sclerae continue to be slightly icteric. NECK: No adenopathy or JVD. LUNGS: Coarse rhonchi bilaterally. CARDIOVASCULAR: S1, S2 regular, without murmur, rub or gallop. ABDOMEN: Soft, nontender, nondistended. EXTREMITIES: Slight edema throughout. : Scrotum shows denuded epithelium. LABORATORY DATA: Sodium 140, potassium 3.1, chloride 102, CO2 22, BUN 94, creatinine 3.5, glucose 23 1. AST 285, ALT 234, total bilirubin 1.0, albumin 2.7, white blood cell count 9.2, hematocrit 24.1, platelet count 176. Chest x-ray shows endotracheal tube in good position. He has a dialysis catheter in place. He has s ome mild atelectasis in the right base. ASSESSMENT: 1. Recurrent respiratory failure secondary to severe neuromuscular weakness. 2. Status post alcoholic hepatitis with continued elevation of liver function tests. 3. Status post choledocholithiasis and cholecystitis. 4. Status post acute renal failure. 5. 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 PLAN: 1. Continuing meropenem for Klebsiella coverage. 2. Continue mechanical ventilation. 3. I will speak to the when she arrives about tracheostomy and PEG tube placement as hospital c ourse seems to be prolonged.
--- NOTE | 2017-05-20 08:04 | RAD ---
PORTABLE SUPINE CHEST: History: ICU follow up. On ventilator. Access ET tube. Comparison: 05-17-17 FINDINGS: Patient is rotated which distorts the chest. ET tube has tip well above the william. NG tube is noted with tip just beyond the EG junction. A dual-lumen central catheter has tip overlying the right atriu m. Bibasilar atelectasis and/or infiltrates. Possible small effusions. Lung alexandre do not appear signifi cantly changed from 05-17-17. POS: [facility]
--- NOTE | 2017-05-20 08:24 | PRG ---
DATE OF SERVICE: 05/20/2017 SUBJECTIVE: Unfortunately, the patient had to be reintubated now for the third time at 5 this mornin g. He was pending respiratory arrest according to the nurse. I believe this time they are going to be talking to the family about a tracheostomy. Upon evaluation, he is sedated. PHYSICAL EXAMINATION: VITAL SIGNS: Blood pressure is 130/70, pulse 70. He is afebrile. NECK: Supple. JVD cannot be assessed. COR: Regular rate and rhythm. CHEST: Upper lobes rhonchi with few wheezing. ABDOMEN: Soft, nontender with normoactive bowel sounds. No bruit. EXTREMITIES: His right lower extremity has a palpable pulse. His left lower extremity has a weak pu lse and has a dressing from the recent amputation. He has SCD on the right lower extremity. NEUROLOGIC: He is sedated. LABORATORY DATA: H&H 7.9 and 24.1, his platelet count is 176. White blood cells 9.2, BUN 94, creati nine 3.57. ASSESSMENT: 1. Respiratory failure with now the third time being intubated. 2. Renal failure on dialysis. 3. Hypokalemia. 4. Recent toe amputation of the left foot. 5. History of alcohol abuse, now detoxed. 6. Deconditioning. 7. Multiple medical problems. PLAN: According to the nurse, Dr. Mccracken will be talking to the family about a tracheostomy. I agr ee this is the best course of action and he will need long-term care. We will follow up with lab in the morning as well.
[2017-05-20] MEDS: Furosemide 40 MG/4 ML VIAL SLOW IVP SCH (08:26)
[2017-05-20] MEDS: Meropenem 1 GM in Sterile Water 20 ML SLOW IVP SCH ×2 (08:37→20:36)
[2017-05-20] MEDS: Carvedilol 3.125 MG TAB PO SCH ×2 (08:38→17:14)
[2017-05-20] MEDS: hydrALAZINE 10 MG TAB PER TUBE SCH ×3 (08:38→20:36)
[2017-05-20] MEDS: Heparin 5,000 UNITS/ML VIAL SC SCH ×2 (08:39→20:35)
[2017-05-20] MEDS: Epoetin (ESRD) 10,000 UNITS/ML VIAL SC SCH (11:05)
[2017-05-20] MEDS: Propofol 1,000 MG/100 ML VIAL IV PRN ×2 (12:57→20:36)
[2017-05-20] MEDS: Lorazepam 2 MG/ML VIAL SLOW IVP PRN (13:13)
--- NOTE | 2017-05-20 17:53 | PRG ---
DATE OF SERVICE: 05/20/2017 SUBJECTIVE: The patient was seen and examined in ICU in [facility] for respiratory issues, possible a spiration with a lot of secretions and he is intubated, currently he is seen in ICU. No family membe rs available, still making a lot of urine and no swelling. OBJECTIVE: GENERAL: This is a well-built male, intubated. VITAL SIGNS: Temperature 98.1, pulse 82, respiratory rate 18, blood pressure 137/55. HEENT: Intubated. CARDIOVASCULAR: S1, S2 regular. RESPIRATORY: Clear. GASTROINTESTINAL: Abdomen is soft. MUSCULOSKELETAL: 1+ edema. DERMATOLOGIC: No skin rash. NEUROLOGIC: Intubated. LABORATORY DATA: Potassium is 3.1, BUN is 94, creatinine is 3.5. ASSESSMENT AND PLAN: 1. Acute kidney injury on chronic kidney disease stage 3, remains oliguric and creatinine is getting better. BUN is rising rule out any bleed and hydration if tolerated. BUN may be rising, most likel y from Lasix. Agree with holding Lasix. 2. Hyponatremia, limit fluid intake. 3. Anemia. 4. Edema, controlled. 5. Cardiorenal syndrome. 6. Hypertension, stable. Overall, no acute indication for dialysis. Creatinine is getting better. BUN is rising, but agree w ith holding Lasix for now and we will follow.
--- NOTE | 2017-05-20 18:38 | PRG ---
DATE OF SERVICE: 05/20/2017 HISTORY: Mr. Clay was extubated, but had reintubated. He has severe encephalopathy. Dr. Mccracken has asked me to see him regarding the tracheostomy and PEG tube. I have discussed this per telephon e with the patient's . I explained to her that the tracheostomy tube and PEG tube could be perma nent or temporary. Should the patient to recover from his encephalopathy and be able to be weaned fr om the ventilator, there is a chance that he could have the tracheostomy and PEG tube removed. Placi ng the tracheostomy and PEG tube will allow him to go to LTAC and hopefully allow him to be taken off the ventilator. I have discussed with her telephone for a long period of time, the patient's art simpson called her son, and then she called me back and she gave consent stating that they want to procee d with tracheostomy and PEG tube. We will plan this tomorrow. They understand the risk of infection , bleeding, and reoperation. At this time, we will suspend the DNR for the procedure.
[2017-05-20] MEDS: Famotidine 20 MG TAB PER TUBE SCH (20:35)
[2017-05-21] MEDS: Metoclopramide 10 MG/10 ML UDCUP PER TUBE SCH ×4 (01:18→19:27)
[2017-05-21] MEDS: HumaLOG 300 UNITS/3 ML VIAL SC PRN ×3 (01:19→11:53)
[2017-05-21] MEDS: Dextrose 5% in Water 1,000 ML IV SCH ×3 (02:20→17:38)
[2017-05-21] MEDS: Propofol 1,000 MG/100 ML VIAL IV PRN ×4 (03:42→17:37)
[2017-05-21 07:13] LABS: #Eosinphils 0.4 thou/uL (0.0-0.7); #Lymphocytes 0.7 thou/uL (1.20-3.40); #Monocytes 0.8 thou/uL (0.11-0.59); #Neutrophils 5.4 thou/uL (1.40-6.50); %Basophils 0.5 % (0.0-1.0); %Eosinophils 4.9 % (0.0-10.0); %Lymphocytes 9.6 % (21.0-51.0); %Monocytes 10.4 % (0.0-10.0); %Neutrophils 74.6 % (42.0-75.0); Hemoglobin 8.8 g/dL (14.0-18.0); Mean Corpuscular HGB CONC 31.3 g/dL (32.0-36.0); Mean Corpuscular Volume 95.7 fl (80.0-94.0); Mean Platelet Volume 9.7 fL (7.4-10.4); Platelet Count 173 thou/uL (130-400); RBC Distribution Width 14.4 % (11.5-14.5); Red Blood Cell (RBC) Count 2.94 mill/uL (4.70-6.10); White Blood Cell (WBC) Count 7.2 thou/uL (4.8-10.8)
[2017-05-21 07:24] LABS: Actual Bicarbonate (HCO3a) 23.3 mEq/L (22-26); Base Excess (BEa) 0.2 mEq/L (0 (+/-) 2.5); CO2 Tension 30.6 mmHg (35.0-45.0); Hemoglobin (Hb) 7.3 g/dL (14.0-18.0); O2 Tension (PaO2) 128.7 mmHg (80.0-100.0)
[2017-05-21 07:25] LABS: Puncture Site RRA
[2017-05-21 07:37] LABS: ALT (SGPT) 335 U/L (8-55); AST (SGOT) 428 U/L (5-34); Albumin 2.5 g/dL (3.4-4.8); Alkaline Phosphatase 193 U/L (40-150); Anion Gap 14 mmol/L (10-20); BUN (Urea Nitrogen) 85 mg/dL (8.4-25.7); Calc. Creatinine Clearance 31 mL/min (70-130); Calcium 8.2 mg/dL (7.8-10.44); Carbon Dioxide 24 mmol/L (23-31); Chloride 99 mmol/L (98-107); Estimated GFR-MDRD 22; Globulin 3.6 g/dL (2.4-3.5); Glucose 148 mg/dL (80-115); Magnesium 1.6 mg/dL (1.6-2.6); Potassium 3.2 mmol/L (3.5-5.1); Protein, Total 6.1 g/dL (5.8-8.1); Sodium 134 mmol/L (136-145)
--- NOTE | 2017-05-21 08:09 | PRG ---
DATE OF SERVICE: 05/21/2017 Thirty five minutes critical care time. The patient remains intubated on mechanical ventilation. PHYSICAL EXAMINATION: VITAL SIGNS: On exam, temperature is 98.0, pulse 87, blood pressure 136/55. A 24-hour intake 3010 a nd output 2054. HEENT: Unremarkable. NECK: No JVD. LUNGS: Diminished breath sounds, right base; left side clear. CARDIAC: S1 and S2, regular. ABDOMEN: Soft, nontender. EXTREMITIES: No clubbing or cyanosis, no edema. LABORATORY DATA: White blood cell count 7.2, hematocrit 28.1, platelet count 173. Chemistry was not done today. ASSESSMENT: 1. Acute respiratory failure, requiring mechanical ventilation with 3 intubations. 2. Status post alcoholic hepatitis. 3. Status post choledocholithiasis and cholecystitis. 4. Status post acute renal failure. 5. 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 6. Cardiomyopathy with EF 25%-30%. PLAN: After speaking with his yesterday for 30 minutes, the patient continues to be a FULL CODE and she is moving forward with tracheostomy and feeding tube placement. Ultimately, the patient michael l need to go to LTAC for extensive rehabilitation. I will go ahead and put the order in for LTAC tree cement. The has been told the patient's prognosis is very poor. She is very difficult to work with in terms of reasonable compromise. I think there are other factors involved and it would not rainey rprise me to see her change her mind again.
[2017-05-21] MEDS ORDERED: Potassium Chloride 40 MEQ in Premix Bag 1 BAG IVPB SCH (08:15)
[2017-05-21] MEDS: hydrALAZINE 10 MG TAB PER TUBE SCH ×3 (08:19→21:57)
[2017-05-21] MEDS: Carvedilol 3.125 MG TAB PO SCH ×2 (08:19→16:32)
[2017-05-21] MEDS: Heparin 5,000 UNITS/ML VIAL SC SCH ×2 (08:20→19:31)
[2017-05-21] MEDS: Meropenem 1 GM in Sterile Water 20 ML SLOW IVP SCH ×2 (08:54→19:32)
[2017-05-21] MEDS: Lorazepam 2 MG/ML VIAL SLOW IVP PRN ×2 (09:24→17:36)
--- NOTE | 2017-05-21 09:47 | PRG ---
DATE OF SERVICE: 05/21/2017 SUBJECTIVE: The patient was seen and examined in ICU, he is intubated currently and no family member at the bedside, he is still making a lot of urine. PHYSICAL EXAMINATION: GENERAL: This is a well-built male, intubated. VITAL SIGNS: Temperature 98.3, pulse 80, respiratory 18, blood pressure 147/70. LABORATORY DATA: Potassium is 3.2, BUN 85, creatinine is 2.8. ASSESSMENT AND PLAN: 1. Acute kidney injury on chronic kidney disease stage 3. Renal function which has good improvement after Lasix has been on hold, still making a lot of urine and made almost 2 liters of urine yesterda y. No acute indication for dialysis. Continue to monitor off dialysis, monitor urine output, avoid nephrotoxins at this point. 2. Hyponatremia, stable. 3. Hypokalemia, replace with caution. 4. Anemia. Monitor. 5. Edema, controlled. 6. Cardiorenal syndrome. 6. Hypertension, stable. Overall, renal function shows improvement, though very slowly. No acute indication for dialysis. Wi ll remove catheter in the next few days. Renal function shows persistent improvement. We will follow.
[2017-05-21] MEDS ORDERED: Bupivacaine HCl 0.5%/Epinephrine 1:200,000/PF 30 ml Vial ONE (14:11)
[2017-05-21] MEDS ORDERED: Propofol 200 MG/20 ML VIAL ONE (15:06)
--- NOTE | 2017-05-21 16:17 | OP ---
DATE OF OPERATION: 05/21/2017 PREOPERATIVE DIAGNOSES: Alcoholic encephalopathy, respiratory failure, deconditioning, dysphagia, ma lnutrition. POSTOPERATIVE DIAGNOSES: Alcoholic encephalopathy, respiratory failure, deconditioning, dysphagia, m alnutrition. PROCEDURES PERFORMED: #8 Shiley low pressure cuff tracheostomy tube, percutaneous endoscopic gastros jayne tube. SURGEON: Dr. Nito Clarke ANESTHESIA: General. Local 0.5% Marcaine with epinephrine. PROCEDURE IN DETAIL: Patient was taken to the operating room under general anesthesia, neck and ches t prepared with ChloraPrep, draped in routine fashion. Local anesthetic infiltrated into the skin an d subcutaneous tissue about the operative site. Incision made through skin, subcutaneous tissue, tree tysma down to the strap muscles, reflecting them laterally, dividing the isthmus of thyroid, identify ing the trachea. Two sutures of 3-0 Prolene placed on either side of the trachea and air knots tied secured to the anterior chest wall with Mastisol and Op-Site. Endotracheal tube withdrawn under dire ct visualization after anterior tracheal window created with sharp dissection. Good hemostasis was n oted, had been obtained with the cautery. A #8 Shiley low pressure cuff tracheostomy tube placed int o the trachea, balloon inflated, connected to the ventilator. There was good ventilation. Skin appr oximated also with 3-0 Prolene and tracheostomy appliance secured to skin with 3-0 Prolene. Sterile dressings applied. Endoscope placed per os under direct visualization and using air insufflation pas sed throughout the esophagus and stomach, which was inflated and a good indentation noted in left sub costal. This area was prepared with ChloraPrep, draped in routine fashion. Local anesthetic infiltr ated into skin and subcutaneous tissue. Stab incision made and a trocar catheter introduced percutan eously into the gastric lumen, visualized endoscopically and wire advanced, grasped with a snare, evin nging endoscope and snare out through the mouth and connecting the wire to the feeding tube, which wa s dragged back down through the mouth after lubricating it and fixated to the abdominal wall with fix ation device and tailored to length and the feeding device secured. The patient tolerated the proced ure well.
[2017-05-21] MEDS: Famotidine 20 MG TAB PER TUBE SCH (21:56)
[2017-05-22] MEDS: Propofol 1,000 MG/100 ML VIAL IV PRN ×2 (00:11→04:48)
[2017-05-22] MEDS: Metoclopramide 10 MG/10 ML UDCUP PER TUBE SCH ×4 (01:49→19:55)
[2017-05-22] MEDS: Dextrose 5% in Water 1,000 ML IV SCH ×3 (02:52→18:25)
[2017-05-22] MEDS: HumaLOG 300 UNITS/3 ML VIAL SC PRN ×3 (03:11→20:03)
[2017-05-22 05:42] LABS: #Basophils 0.1 thou/uL (0.0-0.2); #Eosinphils 0.5 thou/uL (0.0-0.7); #Lymphocytes 0.7 thou/uL (1.20-3.40); #Monocytes 1.1 thou/uL (0.11-0.59); #Neutrophils 5.6 thou/uL (1.40-6.50); %Basophils 0.6 % (0.0-1.0); %Lymphocytes 8.3 % (21.0-51.0); %Monocytes 13.8 % (0.0-10.0); %Neutrophils 71.2 % (42.0-75.0); Hemoglobin 8.3 g/dL (14.0-18.0); Mean Corpuscular HGB CONC 32.7 g/dL (32.0-36.0); Mean Corpuscular Volume 91.9 fl (80.0-94.0); Mean Platelet Volume 9.7 fL (7.4-10.4); Platelet Count 209 thou/uL (130-400); RBC Distribution Width 14.4 % (11.5-14.5); Red Blood Cell (RBC) Count 2.77 mill/uL (4.70-6.10); White Blood Cell (WBC) Count 7.9 thou/uL (4.8-10.8)
[2017-05-22 05:52] LABS: ALT (SGPT) 203 U/L (8-55); AST (SGOT) 143 U/L (5-34); Albumin 2.1 g/dL (3.4-4.8); Alkaline Phosphatase 166 U/L (40-150); Anion Gap 16 mmol/L (10-20); BUN (Urea Nitrogen) 72 mg/dL (8.4-25.7); Bilirubin, Total 0.8 mg/dL (0.2-1.2); Calc. Creatinine Clearance 37 mL/min (70-130); Calcium 7.8 mg/dL (7.8-10.44); Carbon Dioxide 18 mmol/L (23-31); Chloride 99 mmol/L (98-107); Estimated GFR-MDRD 27; Globulin 3.6 g/dL (2.4-3.5); Glucose 151 mg/dL (80-115); Magnesium 1.4 mg/dL (1.6-2.6); Phosphorus 4.7 mg/dL (2.3-4.7); Potassium 3.3 mmol/L (3.5-5.1); Protein, Total 5.7 g/dL (5.8-8.1); Sodium 130 mmol/L (136-145)
[2017-05-22 07:44] LABS: Actual Bicarbonate (HCO3a) 22.4 mEq/L (22-26); Base Excess (BEa) -0.8 mEq/L (0 (+/-) 2.5); CO2 Tension 29.9 mmHg (35.0-45.0); O2 Tension (PaO2) 146.4 mmHg (80.0-100.0); pH, Arterial 7.49 (7.35-7.45)
[2017-05-22 07:45] LABS: ALV-art Gradient 101.425 (0-20); Hematocrit-ABG 23.9 % (42.0-52.0); Puncture Site RRA
[2017-05-22] MEDS ORDERED: Potassium Chloride 40 MEQ in Premix Bag 1 BAG IVPB SCH (08:00)
--- NOTE | 2017-05-22 08:00 | PRG ---
DATE OF SERVICE: 05/22/2017 PULMONARY AND CRITICAL CARE PROGRESS NOTE Thirty five minutes of critical care time. SUBJECTIVE: The patient remains on mechanical ventilation. He had a tracheostomy placed yesterday. PHYSICAL EXAMINATION: VITAL SIGNS: Temperature 98.6, pulse 82, blood pressure 139/54. A 24 hour intake 3863, output 2930. HEENT: Remarkable for some dried blood around the lips. NECK: Trach in good position. LUNGS: Clear. CARDIAC: S1 and S2 regular without murmur. ABDOMEN: Distended. PEG tube noted. EXTREMITIES: Scrotal ulceration. He has several amputated toes. LABORATORY DATA: White blood cell count 7.9, hematocrit 25.4, platelet count 209. A pH 7.49, pCO2 o f 29, pO2 of 146, SIMV rate of 16, tidal volume 500, PEEP 8, pressure support 10, FiO2 40%. Sodium 1 30, potassium 3.3, chloride 99, CO2 18, BUN 72, creatinine 2.4, glucose 151. AST 203, ALT 166, album in 2.1. ASSESSMENT: 1. Chronic respiratory failure secondary to prolonged medical illness. 2. Status post alcoholic hepatitis. 3. Status post choledocholithiasis and cholecystitis. 4. Status post cholecystectomy. 5. Status post amputation of several toes. 6. Resolving acute renal failure. 7. Cardiomyopathy with EF of 25%-30%. PLAN: The has changed her mind again and decided to make him DNR. We are working on LTAC place ment. His sedation will be minimized. I will have his ventilator settings turned down. His prognos is remains quite poor.
[2017-05-22] MEDS: Carvedilol 3.125 MG TAB PO SCH ×2 (08:05→16:23)
[2017-05-22] MEDS: Scopolamine 1.5 mg/72 hour Patch TD SCH (08:06)
[2017-05-22] MEDS: hydrALAZINE 10 MG TAB PER TUBE SCH ×3 (08:08→20:02)
--- NOTE | 2017-05-22 08:23 | PRG ---
DATE OF SERVICE: 05/22/2017 SUBJECTIVE: The patient is awake, but he will not respond. He just underwent a tracheostomy yesterd ay. His called and now he is back to a DNR. He is on IV fluids. PHYSICAL EXAMINATION: VITAL SIGNS: Blood pressure is 130/60, pulse 70. He is afebrile. NECK: Supple. JVP cannot be assessed. COR: Regular rate and rhythm. CHEST: Rhonchi upper lobes. ABDOMEN: Soft. Hypoactive bowel sounds. EXTREMITIES: He had sequential compression devices on his right lower extremity. His left foot is w rapped from recent amputation. He does have Doppler pulses. LABORATORY DATA: Showed H&H of 8.3 and 25.4, white blood cells 7.9, his platelets 209. His sodium i s 130, BUN 72, creatinine 2.43. ASSESSMENT: 1. Respiratory failure, status post 3 intubations with now recent tracheostomy. 2. Respiratory failure. 3. Alcohol abuse. 4. Renal failure on dialysis. 5. Hypokalemia. 6. Hyponatremia. 7. Peripheral vascular disease status post recent toe amputation of the left foot. 8. Multiple medical problems. PLAN: The patient is now a DNR as of this morning, so we will hopefully look at being able to transf er this patient to a intermediate facility somewhere that takes vents and tracheostomies if he makes it out of the hospital. The is not here to update, but however, she is coming here this afternoon.
[2017-05-22] MEDS: Heparin 5,000 UNITS/ML VIAL SC SCH ×2 (08:38→20:01)
[2017-05-22] MEDS: Meropenem 1 GM in Sterile Water 20 ML SLOW IVP SCH ×2 (08:39→20:24)
--- NOTE | 2017-05-22 09:45 | PRG ---
Patient Name: LUTHER ADDISON Date of service: 05/22/2017 Subjective: Patient was seen and examined at bedside and overnight events noted. Patient denies any shortness of breath or chest pain or palpitation. No history of nausea or vomiting or diarrhea or fever or chills or cramps. Objective: General: This is a well-built white male seen in ICU, he had a trach and PEG yesterday. Vital signs: Temperature 96, pulse 80, respiratory rate 18, blood pressure 163/66. HEENT: Trach present. Neck: Supple. Cardiovascular: S1 S2 heard. Respiratory: Clear to auscultation. Gastrointestinal: Abdomen is soft. Musculoskeletal: No tenderness. 1+ edema. Dermatologic: No skin rash. Neurologic: Alert and awake and oriented X3. No focal neurologic deficits. Moving all the extremit ies. Psychiatric: Mood and affect normal. LABORATORY DATA: Potassium is 3.3, BUN 72, creatinine is 2.4. ASSESSMENT AND PLAN: 1. Acute kidney injury on chronic kidney disease stage 3 with good diuresis and nonoliguric. No acu te needs for dialysis. Could remove dialysis catheter at this point, with a GFR of almost 27. 2. Hyponatremia. 3. Hypokalemia. 4. Anemia. 5. Edema, controlled. 6. Hypertension. He is still making a lot of urine. Renal function getting better. Okay to remove dialysis catheter tomorrow if persistent improvement.
--- NOTE | 2017-05-22 18:24 | PRG ---
DATE OF SERVICE: 05/22/2017 SUBJECTIVE: Mr. Joshua Clay is doing well today in the ICU. He has had his trach and PEG yesterday . His tracheostomy site looks clean and dry. His abdomen is soft and nontender. He is tolerating h is tube feedings. He has not weaned from the ventilator yet, but however, he makes eye contact and s miles and appropriately interacts on the ventilator. OBJECTIVE: LUNGS: Clear. ABDOMEN: Soft and nontender. ASSESSMENT AND PLAN: Doing well, status post laparoscopic cholecystectomy following endoscopic retro grade cholangiopancreatography, sphincterotomy, stone extraction and more recently tracheostomy and P EG tube. At this point, I will see as needed. He is stable to be transferred to an LTAC.
[2017-05-22] MEDS: Famotidine 20 MG TAB PER TUBE SCH (20:01)
[2017-05-23] MEDS: Metoclopramide 10 MG/10 ML UDCUP PER TUBE SCH ×4 (01:17→20:13)
[2017-05-23] MEDS: HumaLOG 300 UNITS/3 ML VIAL SC PRN ×5 (01:18→20:17)
[2017-05-23] MEDS: Dextrose 5% in Water 1,000 ML IV SCH ×2 (03:49→06:28)
[2017-05-23 04:46] LABS: #Eosinphils 0.3 thou/uL (0.0-0.7); #Lymphocytes 0.8 thou/uL (1.20-3.40); #Monocytes 0.9 thou/uL (0.11-0.59); #Neutrophils 6.5 thou/uL (1.40-6.50); %Basophils 0.4 % (0.0-1.0); %Lymphocytes 8.8 % (21.0-51.0); %Monocytes 10.4 % (0.0-10.0); %Neutrophils 76.4 % (42.0-75.0); Hemoglobin 7.7 g/dL (14.0-18.0); Mean Corpuscular HGB CONC 34.8 g/dL (32.0-36.0); Mean Corpuscular Hemoglobin 31.2 pg (27.0-31.0); Mean Corpuscular Volume 89.7 fl (80.0-94.0); Mean Platelet Volume 9.7 fL (7.4-10.4); Platelet Count 247 thou/uL (130-400); RBC Distribution Width 14.4 % (11.5-14.5); Red Blood Cell (RBC) Count 2.46 mill/uL (4.70-6.10); White Blood Cell (WBC) Count 8.5 thou/uL (4.8-10.8)
[2017-05-23 04:54] LABS: ALT (SGPT) 135 U/L (8-55); AST (SGOT) 65 U/L (5-34); Albumin 2.4 g/dL (3.4-4.8); Alkaline Phosphatase 160 U/L (40-150); Anion Gap 13 mmol/L (10-20); BUN (Urea Nitrogen) 74 mg/dL (8.4-25.7); Bilirubin, Total 0.9 mg/dL (0.2-1.2); Calc. Creatinine Clearance 42 mL/min (70-130); Calcium 7.9 mg/dL (7.8-10.44); Carbon Dioxide 23 mmol/L (23-31); Chloride 97 mmol/L (98-107); Estimated GFR-MDRD 31; Globulin 3.4 g/dL (2.4-3.5); Glucose 160 mg/dL (80-115); Magnesium 1.2 mg/dL (1.6-2.6); Phosphorus 3.9 mg/dL (2.3-4.7); Potassium 3.3 mmol/L (3.5-5.1); Protein, Total 5.8 g/dL (5.8-8.1); Sodium 130 mmol/L (136-145)
[2017-05-23] MEDS: Propofol 1,000 MG/100 ML VIAL IV PRN (05:14)
[2017-05-23 07:20] LABS: Actual Bicarbonate (HCO3a) 22.7 mEq/L (22-26); Base Excess (BEa) -0.2 mEq/L (0 (+/-) 2.5); CO2 Tension 28.8 mmHg (35.0-45.0); O2 Tension (PaO2) 153.4 mmHg (80.0-100.0); pH, Arterial 7.52 (7.35-7.45)
[2017-05-23 07:21] LABS: Calcium, Ionized 1.1 mmol/L (1.12-1.30); Hematocrit-ABG 21.6 % (42.0-52.0); Hemoglobin (Hb) 6.1 g/dL (14.0-18.0); Puncture Site RRA
[2017-05-23] MEDS ORDERED: Magnesium Sulfate 4 GM in Sodium Chloride 0.9% 250 ML 250 ML IVPB SCH (08:15)
--- NOTE | 2017-05-23 08:20 | PRG ---
DATE OF SERVICE: 05/23/2017 The patient is doing really well this morning on mechanical ventilation. He can follow commands for me without much difficulty. PHYSICAL EXAMINATION: VITAL SIGNS: Temperature is 98.2 with a T-max of 100.5, pulse 79, blood pressure 150/56. 24 hour in take 4176, output 2475. HEENT: Unremarkable. NECK: Trach with secretions. CARDIAC: S1 and S2 regular without murmur. LUNGS: Clear without wheezing or rhonchi. ABDOMEN: Soft, nontender. PEG tube noted. EXTREMITIES: Trace edema throughout. He also has scrotal edema and ulceration. LABORATORY DATA: White blood cell count 8.5, hemoglobin 7.7, hematocrit 22.1, platelet count 247, pH 7.52, pCO2 28, pO2 of 153 that is on SIMV rate 8, tidal volume 500, PEEP 8, pressure support 10, FiO 2 40%. Sodium 130, potassium 3.3, chloride 97, CO2 23, BUN 74, creatinine 2.1, glucose 160, AST 65, ALT 135, albumin 2.4. ASSESSMENT: 1. Status post tracheostomy placement for prolonged respiratory failure requiring mechanical ventila tion. 2. Status post alcoholic hepatitis. 3. Status post choledocholithiasis and cholecystitis. 4. Status post cholecystectomy. 5. Status post amputation of several toes. 6. Resolving acute renal failure. 7. Hyponatremia. 8. Cardiomyopathy with ejection fraction of 25-30%. PLAN: 1. Still trying to pursue LTAC placement. 2. CPAP trials. 3. Go ahead and stop antibiotics and observe. 4. Stop free water - patient was getting D5 at 125 mL per hour. The above encompassed 35 minutes critical care time.
[2017-05-23] MEDS: Carvedilol 3.125 MG TAB PO SCH ×2 (08:55→17:34)
[2017-05-23] MEDS: hydrALAZINE 25 MG TAB PER TUBE SCH ×2 (09:04→20:13)
[2017-05-23] MEDS: Heparin 5,000 UNITS/ML VIAL SC SCH ×2 (09:04→20:14)
--- NOTE | 2017-05-23 19:32 | PRG ---
DATE OF SERVICE: 05/23/2017 SUBJECTIVE: The patient was seen and examined in ICU and trach present, but awake. OBJECTIVE GENERAL: This is well-built male, who is in ICU. VITAL SIGNS: Temperature 98, pulse 82, respiratory rate 18, and blood pressure 142/59. NECK: Trach present. CARDIOVASCULAR: S1 and S2 heard. RESPIRATORY: Clear. ABDOMEN: Soft. MUSCULOSKELETAL: 1+ edema. DERMATOLOGIC: No skin rash. NEUROLOGIC: Awake. LABORATORY DATA: BUN is 274, creatinine is 2.1. ASSESSMENT AND PLAN: 1. Acute kidney injury on chronic kidney disease. Renal function was good improvement. GFR is more than 30. Okay to remove dialysis catheter when able. 2. Hyponatremia, limit fluid. 3. Hypokalemia. 4. Anemia. 5. Edema, controlled. 6. Hypertension, stable. Okay to remove dialysis catheter, please consult Surgery and avoid nephrotoxins. We will follow roberto lynn function.
[2017-05-23] MEDS: Famotidine 20 MG TAB PER TUBE SCH (20:14)
[2017-05-24] MEDS: HumaLOG 300 UNITS/3 ML VIAL SC PRN ×3 (01:33→20:35)
[2017-05-24] MEDS: Metoclopramide 10 MG/10 ML UDCUP PER TUBE SCH ×4 (01:37→20:33)
[2017-05-24 06:22] LABS: #Eosinphils 0.2 thou/uL (0.0-0.7); #Lymphocytes 0.6 thou/uL (1.20-3.40); #Monocytes 0.8 thou/uL (0.11-0.59); #Neutrophils 5.4 thou/uL (1.40-6.50); %Basophils 0.2 % (0.0-1.0); %Eosinophils 3.4 % (0.0-10.0); %Lymphocytes 8.7 % (21.0-51.0); %Neutrophils 76.7 % (42.0-75.0); Hemoglobin 7.4 g/dL (14.0-18.0); Mean Corpuscular HGB CONC 33.5 g/dL (32.0-36.0); Mean Corpuscular Hemoglobin 29.9 pg (27.0-31.0); Mean Corpuscular Volume 89.2 fl (80.0-94.0); Mean Platelet Volume 8.9 fL (7.4-10.4); Platelet Count 257 thou/uL (130-400); RBC Distribution Width 14.3 % (11.5-14.5); Red Blood Cell (RBC) Count 2.47 mill/uL (4.70-6.10)
[2017-05-24 06:32] LABS: ALT (SGPT) 92 U/L (8-55); AST (SGOT) 49 U/L (5-34); Albumin 2.4 g/dL (3.4-4.8); Alkaline Phosphatase 147 U/L (40-150); Anion Gap 13 mmol/L (10-20); BUN (Urea Nitrogen) 68 mg/dL (8.4-25.7); Bilirubin, Total 0.8 mg/dL (0.2-1.2); Calc. Creatinine Clearance 47 mL/min (70-130); Calcium 8.2 mg/dL (7.8-10.44); Carbon Dioxide 25 mmol/L (23-31); Chloride 100 mmol/L (98-107); Estimated GFR-MDRD 36; Globulin 3.3 g/dL (2.4-3.5); Glucose 149 mg/dL (80-115); Potassium 3.2 mmol/L (3.5-5.1); Protein, Total 5.7 g/dL (5.8-8.1); Sodium 135 mmol/L (136-145)
[2017-05-24] MEDS ORDERED: Pancrelipase DR 12000 1 CAP PER TUBE PRN (07:50)
[2017-05-24] MEDS ORDERED: Sodium Bicarbonate Tab 325 MG TAB PER TUBE PRN (07:51)
[2017-05-24] MEDS: hydrALAZINE 25 MG TAB PER TUBE SCH ×2 (08:52→20:33)
[2017-05-24] MEDS: Heparin 5,000 UNITS/ML VIAL SC SCH ×2 (08:53→20:34)
[2017-05-24] MEDS: Carvedilol 3.125 MG TAB PO SCH ×2 (08:53→18:31)
[2017-05-24] MEDS: Sodium Chloride 0.9% 1,000 ML IV SCH ×2 (08:56→16:20)
--- NOTE | 2017-05-24 10:03 | RAD ---
PORTABLE CHEST: Date: 05/24/17 HISTORY: Respiratory distress. COMPARISON: 05/20/17 study. FINDINGS: Heart size is enlarged. There are postop sternotomy changes. Tracheostomy tube is in place. No change in position of the left-sided HemoSplit catheter. Parenchymal lung changes appear similar, with the exception of some of the changes in the right upper lobe appear slightly more prominent. IMPRESSION: Stable chest other than the suggestion there may be some slight increased prominence to some of the r ight upper lobe parenchymal change. POS: [facility]
--- NOTE | 2017-05-24 10:54 | PRG ---
DATE OF SERVICE: 05/24/2017 SUBJECTIVE: Mr. Clay did well overnight on a trach collar, but plugged up with mucus. This morni ng, he became bradycardic without suctioned and he is now doing well again. PHYSICAL EXAMINATION: VITAL SIGNS: Blood pressure 125/43, heart rate 78, respiratory rate is 18, oximetry is 95%. GENERAL: He is in no distress. He nods. EXTREMITIES: He moves all his extremities. LUNGS: Clear. HEART: Regular rhythm. S1 and S2 are normal. ABDOMEN: Soft and nontender. LABORATORY DATA: White count 7, hemoglobin 7.4, platelets 257,000. Hemoglobin yesterday was 7.7. Sodium 135, potassium 3.2, chloride 100, bicarbonate 25, BUN 68, creatinine 1.8, glucose 149. IMPRESSION: 1. Respiratory failure, acute on chronic, 2. Advanced liver disease secondary to alcohol abuse. 3. End-stage renal disease, status post dialysis with improved renal function and recovery. This mo st likely was hepatorenal syndrome. 4. Radiographic evidence of volume overload is ongoing that I reviewed today. Chest radiograph in h is right greater than left alveolar infiltrates. 5. His intake and output is surprisingly negative 672. 6. He probably needs to be in a slightly negative fluid balance, but of course he is at risk for dec lining renal function with diuresis. 7. Other problems include status post tracheostomy placement, alcoholic hepatitis, status post raymundo cystectomy for cholecystitis. 8. Status post amputation of several toes. 9. Underlying cardiomyopathy with an ejection fraction of 25%-30%. It is anticipated that he will need to be in a care environment for at least a couple of months if he survives that. He is a candidate for LTAC transfer whenever a bed becomes available.
--- NOTE | 2017-05-24 11:24 | PRG ---
DATE OF SERVICE: 05/24/2017 SUBJECTIVE: Patient was seen and examined at bedside and overnight events noted. Patient denies any shortness of breath or chest pain or palpitation. No history of nausea or vomitin g or diarrhea or fever or chills or cramps. OBJECTIVE: GENERAL: This is a well-built white male, seen in ICU and trach present. VITAL SIGNS: Temperature 98.5, pulse 70, respiratory rate 18, blood pressure 124/43. HEENT: Atraumatic, normocephalic. Oral mucosa is moist NECK: Trach present. CARDIOVASCULAR: S1 and S2 heard. Rate and rhythm regular. RESPIRATORY: Clear to auscultation. GASTROINTESTINAL: Abdomen is soft. MUSCULOSKELETAL: 1+ edema. DERMATOLOGIC: No skin rash. NEUROLOGIC: Alert and awake and oriented X3, No focal neurologic deficits. Moving all the extremitie s. PSYCHIATRIC: Mood and affect normal. LABORATORY DATA: Potassium is 3.2, BUN 68, creatinine is 1.8. ASSESSMENT AND PLAN: 1. Acute kidney injury on chronic kidney disease with significant improvement. No indication for di alysis. Okay to remove dialysis catheter. We will consult Surgery. 2. Hyponatremia, stable. 3. Hypokalemia, replace. 4. Anemia. 5. Edema. 6. Hypertension. Renal function is better. No need for dialysis. Okay to remove dialysis catheter when surgeon is av ailable.
--- NOTE | 2017-05-24 13:15 | PRG ---
DATE OF SERVICE: 05/24/2017 Joshua Amador was seen today. He is off the ventilator. He has a tracheostomy and a PEG tube. He has recovered from his renal failure. I have been asked by Nephrology and his primary care to remove hi s hemodialysis catheter. This patient now has chronic kidney disease and was on dialysis, had a midl ine IV placed which is a contraindication and chronic kidney disease and the patient is on dialysis t o have. I have spoken to the charge nurse about this policy, which has been written in the past, kimi albert to avoid mid lines and PICC lines on patients with chronic kidney disease or the patients on hemo dialysis. His midline catheter should be removed as soon as possible. The patient's hemodialysis ca theter will not be removed, but instead a cuffed tunnel catheter that can be used for long-term IV ac cess. I would use this catheter is his IV access. Should the patient be ready to be discharged and does not need intravenous access, I could remove it at the bedside in the future or the accepting marcel denny could remove in the future.
[2017-05-24] MEDS: Famotidine 20 MG TAB PER TUBE SCH (20:34)
[2017-05-25] MEDS: Metoclopramide 10 MG/10 ML UDCUP PER TUBE SCH ×4 (03:12→20:41)
[2017-05-25] MEDS: Sodium Chloride 0.9% 1,000 ML IV SCH ×3 (03:13→20:30)
[2017-05-25 05:12] LABS: #Eosinphils 0.2 thou/uL (0.0-0.7); #Lymphocytes 0.7 thou/uL (1.20-3.40); #Monocytes 0.9 thou/uL (0.11-0.59); #Neutrophils 5.6 thou/uL (1.40-6.50); %Basophils 0.4 % (0.0-1.0); %Eosinophils 2.9 % (0.0-10.0); %Lymphocytes 9.5 % (21.0-51.0); %Monocytes 12.5 % (0.0-10.0); %Neutrophils 74.8 % (42.0-75.0); Hemoglobin 7.3 g/dL (14.0-18.0); Mean Corpuscular HGB CONC 33.7 g/dL (32.0-36.0); Mean Corpuscular Volume 89.2 fl (80.0-94.0); Mean Platelet Volume 9.1 fL (7.4-10.4); Platelet Count 290 thou/uL (130-400); RBC Distribution Width 14.4 % (11.5-14.5); Red Blood Cell (RBC) Count 2.44 mill/uL (4.70-6.10); White Blood Cell (WBC) Count 7.5 thou/uL (4.8-10.8)
[2017-05-25 05:24] LABS: ALT (SGPT) 82 U/L (8-55); AST (SGOT) 59 U/L (5-34); Albumin 2.5 g/dL (3.4-4.8); Alkaline Phosphatase 148 U/L (40-150); Anion Gap 12 mmol/L (10-20); BUN (Urea Nitrogen) 65 mg/dL (8.4-25.7); Bilirubin, Total 0.9 mg/dL (0.2-1.2); Calc. Creatinine Clearance 52 mL/min (70-130); Calcium 8.2 mg/dL (7.8-10.44); Carbon Dioxide 26 mmol/L (23-31); Chloride 102 mmol/L (98-107); Estimated GFR-MDRD 40; Globulin 3.4 g/dL (2.4-3.5); Glucose 147 mg/dL (80-115); Potassium 3.1 mmol/L (3.5-5.1); Protein, Total 5.9 g/dL (5.8-8.1); Sodium 137 mmol/L (136-145)
[2017-05-25] MEDS: Scopolamine 1.5 mg/72 hour Patch TD SCH (08:33)
[2017-05-25] MEDS: hydrALAZINE 25 MG TAB PER TUBE SCH ×2 (08:33→20:42)
[2017-05-25] MEDS: Heparin 5,000 UNITS/ML VIAL SC SCH ×2 (08:34→20:42)
[2017-05-25] MEDS: Carvedilol 3.125 MG TAB PO SCH ×2 (08:34→18:35)
[2017-05-25] MEDS: HumaLOG 300 UNITS/3 ML VIAL SC PRN (10:02)
--- NOTE | 2017-05-25 12:52 | PRG ---
DATE OF SERVICE: 05/25/2017 SUBJECTIVE: Patient was seen and examined at bedside and overnight events noted. Patient denies any shortness of breath or chest pain or palpitation. No history of nausea or vomiting or diarrhea or f ever or chills or cramps. OBJECTIVE: GENERAL: This is a well-built male seen in ICU. VITAL SIGNS: Temperature 98.6, pulse 79, respiratory rate , bloodpressure 140/57. HEENT: Atraumatic, normocephalic. Oral mucosa is moist. Neck: Supple Cardiovascular: S1 and S2 heard. Rate and rhythm regular. Respiratory: Clear to auscultation. Gastrointestinal: Abdomen is soft. Musculoskeletal: No tenderness, no edema. Dermatologic: No skin rash. Neurologic: Alert and awake and oriented x3. No focal neurologic deficits. Moving all the extremit ies. Psychiatric: Mood and affect normal. LABORATORY DATA: Potassium is 3.0, BUN is 65, creatinine is 1.69. ASSESSMENT AND PLAN: 1. Acute kidney injury, on chronic kidney disease, stage 3, with significant improvement on need for dialysis. Okay to remove dialysis catheter. Talked with Dr. Clarke and he is aware. We will remov e dialysis during the course of this admission. 2. Hypokalemia and anemia. 3. Edema. 4. Hypertension, stable. Overall, renal function is stable. No need for dialysis at this time.
--- NOTE | 2017-05-25 16:20 | PRG ---
DATE OF SERVICE: 05/25/2017 SUBJECTIVE: Mr. Amador is clinically unchanged. He still has thick secretions. His had made a decision about an LTAC, if the referral to [facility] does not work. OBJECTIVE: VITAL SIGNS: The patient is afebrile, heart rates in the 90s, respiratory rates in the teens. Oxime try is in the 90s on humidified air, blood pressure 116/70 earlier, 92/54 this afternoon. LUNGS: Remarkable for mild rhonchi. HEART: Regular rhythm. ABDOMEN: Soft. He is in no distress. EXTREMITIES: Without asymmetry. LABORATORY DATA: White count 7.5, hemoglobin 7.3, which is stable, platelets 290. Sodium 137, potas sium 3.1, chloride 102, bicarb 26, BUN 65, creatinine 1.69, glucose 147. IMPRESSION: 1. Advanced liver disease secondary to alcohol abuse. 2. Status post trach and PEG. 3. Thick secretions. I have added 1200 mg of guaifenesin twice a day today. 4. Acute renal failure with his liver failure on presentation. This is resolved. He still has evid ence of chronic kidney disease. At this point in time, he appears to be stable. Apparently, midline was placed which is not in the best interest of the patient whom may require dial ysis access in the future. This has been addressed by Dr. Clarke.
[2017-05-25] MEDS: NS 0.9% w/ 20 MEQ KCL 1,000 ML IV SCH (18:30)
[2017-05-25] MEDS: guaiFENesin ER 600 MG TAB PO SCH (20:41)
[2017-05-25] MEDS: Famotidine 20 MG TAB PER TUBE SCH (20:41)
[2017-05-26] MEDS: HumaLOG 300 UNITS/3 ML VIAL SC PRN ×3 (00:07→18:24)
[2017-05-26] MEDS: Metoclopramide 10 MG/10 ML UDCUP PER TUBE SCH ×4 (02:14→20:32)
[2017-05-26] MEDS: NS 0.9% w/ 20 MEQ KCL 1,000 ML IV SCH ×3 (02:14→18:22)
[2017-05-26 04:13] LABS: #Eosinphils 0.3 thou/uL (0.0-0.7); #Lymphocytes 0.7 thou/uL (1.20-3.40); #Monocytes 0.9 thou/uL (0.11-0.59); #Neutrophils 5.7 thou/uL (1.40-6.50); %Basophils 0.4 % (0.0-1.0); %Lymphocytes 9.6 % (21.0-51.0); %Monocytes 11.1 % (0.0-10.0); %Neutrophils 74.9 % (42.0-75.0); Hemoglobin 7.9 g/dL (14.0-18.0); Mean Corpuscular HGB CONC 35.3 g/dL (32.0-36.0); Mean Corpuscular Hemoglobin 31.2 pg (27.0-31.0); Mean Corpuscular Volume 88.4 fl (80.0-94.0); Mean Platelet Volume 8.8 fL (7.4-10.4); Platelet Count 321 thou/uL (130-400); RBC Distribution Width 14.4 % (11.5-14.5); Red Blood Cell (RBC) Count 2.54 mill/uL (4.70-6.10); White Blood Cell (WBC) Count 7.7 thou/uL (4.8-10.8)
[2017-05-26 04:25] LABS: ALT (SGPT) 73 U/L (8-55); AST (SGOT) 57 U/L (5-34); Albumin 2.6 g/dL (3.4-4.8); Alkaline Phosphatase 144 U/L (40-150); Anion Gap 12 mmol/L (10-20); BUN (Urea Nitrogen) 63 mg/dL (8.4-25.7); Bilirubin, Total 0.8 mg/dL (0.2-1.2); Calc. Creatinine Clearance 52 mL/min (70-130); Calcium 8.1 mg/dL (7.8-10.44); Carbon Dioxide 27 mmol/L (23-31); Chloride 107 mmol/L (98-107); Estimated GFR-MDRD 41; Globulin 3.4 g/dL (2.4-3.5); Glucose 120 mg/dL (80-115); Potassium 3.3 mmol/L (3.5-5.1); Sodium 143 mmol/L (136-145)
[2017-05-26] MEDS: guaiFENesin ER 600 MG TAB PO SCH ×2 (08:42→20:33)
[2017-05-26] MEDS: hydrALAZINE 25 MG TAB PER TUBE SCH ×2 (08:42→20:32)
[2017-05-26] MEDS: Carvedilol 3.125 MG TAB PO SCH ×2 (08:43→18:24)
[2017-05-26] MEDS: Heparin 5,000 UNITS/ML VIAL SC SCH ×2 (08:43→20:33)
--- NOTE | 2017-05-26 11:17 | PRG ---
DATE OF SERVICE: 05/26/2017 SUBJECTIVE: A 72-year-old gentleman being seen for acute kidney and CKD. The patient denies any aleida sea, vomiting, or chest pain. PHYSICAL EXAMINATION: GENERAL: Patient is awake, alert. VITAL SIGNS: Afebrile, pulse 52, breathing at 16, blood pressure 145/66. HEAD/NECK: Normocephalic. Atraumatic. EYES: EOMI. No deformity. EARS: Clear. No ulcers. NOSE: Intact. No lesions. MOUTH: Clear. No discharge. THROAT: Clear. No exudate. LUNGS: Clear. No crackles. CARDIAC: S1, S2. No rub. ABDOMEN: Benign. BS+. GENITALIA/RECTUM: Griffin absent. BACK/EXTREMITIES: Edema 0+ Ulcer- NEUROLOGICAL: Alert and motor intact. SKIN: Rash- Bruise- LYMPHATICS: Edema- Ulcer- LABORATORY DATA: Show hemoglobin 7.9, potassium is 3.3, creatinine 1.68. ASSESSMENT AND PLAN: 1. Acute kidney injury with chronic kidney disease stage 3, stable. 2. Anemia, stable. 3. Hypokalemia. Recommend high potassium diet. The patient can follow up in clinic after discharge . I will sign off on this patient. Please reconsult as needed. The patient will have Surgery consu lted for his removal of tunneled dialysis catheter.
--- NOTE | 2017-05-26 12:33 | PRG ---
DATE OF SERVICE: 05/26/2017 SUBJECTIVE: Joshua Clay did well overnight. PHYSICAL EXAMINATION: VITAL SIGNS: His heart rates in the 80s, blood pressure 166/70, oximetry is on trach collar 99%. He has not had any tracheal obstruction with mucus since yesterday. His intake and output is positive 1000 mL. LUNGS: Clear. HEART: Regular rhythm. S1 and S2 are normal. ABDOMEN: Soft, distended and nontender. EXTREMITIES: Without asymmetry. LABORATORY DATA: White count 7.7, hemoglobin 7.9, and platelets 321. Sodium 143, potassium 3.3, chl oride 107, bicarbonate 27, BUN 63, creatinine 1.68, it is 1.69 yesterday, 1.88 the day before. IMPRESSION: 1. Status post acute renal failure with chronic kidney disease. 2. Probable hepatorenal syndrome. 3. Acute liver failure secondary to alcoholic hepatitis. 4. Respiratory failure secondary to problems 1, 2, and 3 now with tracheostomy. 5. Swallowing dysfunction, now with percutaneous endoscopic gastrostomy. 6. Extreme deconditioning. Awaiting LTAC placement. He is actually pleasant and cooperative now, a ppears to be progressing.
[2017-05-26] MEDS: Famotidine 20 MG TAB PER TUBE SCH (20:32)
[2017-05-27] MEDS: HumaLOG 300 UNITS/3 ML VIAL SC PRN ×4 (00:16→18:56)
[2017-05-27] MEDS: NS 0.9% w/ 20 MEQ KCL 1,000 ML IV SCH ×3 (02:08→19:34)
[2017-05-27] MEDS: Metoclopramide 10 MG/10 ML UDCUP PER TUBE SCH ×4 (02:08→20:44)
[2017-05-27 04:53] LABS: #Basophils 0.1 thou/uL (0.0-0.2); #Eosinphils 0.2 thou/uL (0.0-0.7); #Lymphocytes 0.6 thou/uL (1.20-3.40); #Monocytes 0.7 thou/uL (0.11-0.59); #Neutrophils 7.8 thou/uL (1.40-6.50); %Basophils 0.6 % (0.0-1.0); %Eosinophils 2.4 % (0.0-10.0); %Lymphocytes 6.8 % (21.0-51.0); %Monocytes 7.4 % (0.0-10.0); %Neutrophils 82.8 % (42.0-75.0); Hemoglobin 8.3 g/dL (14.0-18.0); Mean Platelet Volume 8.6 fL (7.4-10.4); Platelet Count 324 thou/uL (130-400); RBC Distribution Width 14.4 % (11.5-14.5); Red Blood Cell (RBC) Count 2.76 mill/uL (4.70-6.10); White Blood Cell (WBC) Count 9.4 thou/uL (4.8-10.8)
[2017-05-27 05:11] LABS: ALT (SGPT) 65 U/L (8-55); AST (SGOT) 47 U/L (5-34); Albumin 2.7 g/dL (3.4-4.8); Alkaline Phosphatase 139 U/L (40-150); Anion Gap 13 mmol/L (10-20); BUN (Urea Nitrogen) 57 mg/dL (8.4-25.7); Bilirubin, Total 0.8 mg/dL (0.2-1.2); Calc. Creatinine Clearance 57 mL/min (70-130); Calcium 8.2 mg/dL (7.8-10.44); Carbon Dioxide 23 mmol/L (23-31); Chloride 111 mmol/L (98-107); Estimated GFR-MDRD 45; Globulin 3.4 g/dL (2.4-3.5); Glucose 184 mg/dL (80-115); Potassium 3.7 mmol/L (3.5-5.1); Protein, Total 6.1 g/dL (5.8-8.1); Sodium 143 mmol/L (136-145)
[2017-05-27] MEDS: Carvedilol 3.125 MG TAB PO SCH ×4 (07:34→20:44)
--- NOTE | 2017-05-27 07:36 | RAD ---
CHEST 1 VIEW: HISTORY: Dyspnea. Followup. COMPARISON: 05/24/17. FINDINGS: Cardiac silhouette remains magnified, enlarged, and partially obscured by widespread patchy airspace disease. Mediastinum is midline with postoperative changes and aortic calcifications. Large-caliber left internal jugular catheter and tracheostomy appliance are again demonstrated. No evidence of pn eumothorax. IMPRESSION: Pulmonary edema and other findings are stable. POS: [facility]
--- NOTE | 2017-05-27 07:58 | PRG ---
DATE OF SERVICE: 05/27/2017 The patient is awake. He is in tuba chair. He has got a trach. He is able to follow commands. He has got a productive cough. PHYSICAL EXAMINATION: VITAL SIGNS: Upon evaluation his blood pressure is 120/70, pulse 80, respiration rate is 18, he is a febrile. NECK: Supple increased JVP or carotid bruit. Carotid upstroke with no thyromegaly. COR: Regular rate and rhythm. Normal first and second heart sounds. There is no murmur, S3. CHEST: Upper lobe rhonchi. ABDOMEN: Soft, nontender with normal bowel sounds. No bruit or organomegaly. EXTREMITIES: His left lower extremity is wrapped. He has got a SCD on the right leg. NEUROLOGIC: He is awake, alert, and oriented to person, place, and time. LABORATORY DATA: Unfortunately, the computer system is not working right now, so I cannot look at an ything in the chart or the computer. ASSESSMENT: 1. Pneumonia/sepsis resolving. 2. Status post arrest, intubated x3. 3. Deconditioned. 4. End-stage renal disease, on dialysis. 5. Coronary artery bypass graft. 6. History of alcohol abuse. 7. Peripheral vascular disease. 8. Multiple medical problems. PLAN: I need to speak with Dr. Goncalves to see if he spoke with the regarding LTAC. The nurse ciro d that she had questions regarding that. If so, we will reach out to her. Apparently she wants to t alk to a provider before she makes a decision about him going to LTAC.
--- NOTE | 2017-05-27 08:55 | PRG ---
DATE OF SERVICE: 05/27/2017 When I came back to the office I called Ms. Clay to update on her 's condition. I made it very clear that Social Work was on the case trying to find a placement for her . I also told her that we would not transfer the patient to LTAC until we felt he was stable enough. I i nformed her that he would have physical therapy, occupational therapy, and speech therapy as well. S he did ask me a question regarding how long she thought that she would stay there and "will he freeze over [place]". I told her I had no idea how long he would be there, but sometimes patie nts can stay up there up to 6 months. She informed me that no one in the last week has updated her. I do know that is not true. She does not even remember talking to me in the time that I spoke with her before. I did let her know that if she would be at the hospital waiting room in ICU that when p khrissiedison left and they knew she was there, we would gladly speak with her. I did make it very clear to her that unfortunately physicians cannot call her every single day to update her. After I said t hat, she hung up on me. I did return her call immediately back. She did not answer the phone. I le ft her a message on the phone, stating that if she has any questions she could contact our office; natasha salmon, I would not be calling her again based on her being so rude and disrespectful to me.
[2017-05-27] MEDS: hydrALAZINE 25 MG TAB PER TUBE SCH ×2 (09:11→20:44)
[2017-05-27] MEDS: Heparin 5,000 UNITS/ML VIAL SC SCH ×2 (09:12→20:45)
[2017-05-27] MEDS: guaiFENesin ER 600 MG TAB PO SCH (09:15)
[2017-05-27] MEDS: Epoetin (ESRD) 10,000 UNITS/ML VIAL SC SCH (09:51)
[2017-05-27] MEDS: Diabetic Tussin 200 MG/10 ML UDCUP PER TUBE SCH ×2 (12:00→18:44)
[2017-05-27] MEDS: Famotidine 20 MG TAB PER TUBE SCH (20:45)
[2017-05-28] MEDS: Diabetic Tussin 200 MG/10 ML UDCUP PER TUBE SCH ×5 (00:43→23:36)
[2017-05-28] MEDS: HumaLOG 300 UNITS/3 ML VIAL SC PRN ×5 (00:43→23:36)
[2017-05-28] MEDS: Metoclopramide 10 MG/10 ML UDCUP PER TUBE SCH ×4 (02:03→20:45)
[2017-05-28] MEDS: NS 0.9% w/ 20 MEQ KCL 1,000 ML IV SCH ×3 (02:03→17:31)
[2017-05-28 04:58] LABS: #Basophils 0.1 thou/uL (0.0-0.2); #Eosinphils 0.3 thou/uL (0.0-0.7); #Lymphocytes 0.8 thou/uL (1.20-3.40); #Monocytes 0.7 thou/uL (0.11-0.59); #Neutrophils 7.8 thou/uL (1.40-6.50); %Basophils 0.6 % (0.0-1.0); %Eosinophils 2.6 % (0.0-10.0); %Lymphocytes 8.3 % (21.0-51.0); %Monocytes 7.2 % (0.0-10.0); %Neutrophils 81.4 % (42.0-75.0); Hemoglobin 8.4 g/dL (14.0-18.0); Mean Corpuscular HGB CONC 33.1 g/dL (32.0-36.0); Mean Corpuscular Hemoglobin 30.3 pg (27.0-31.0); Mean Corpuscular Volume 91.4 fl (80.0-94.0); Mean Platelet Volume 8.6 fL (7.4-10.4); Platelet Count 336 thou/uL (130-400); RBC Distribution Width 14.8 % (11.5-14.5); Red Blood Cell (RBC) Count 2.76 mill/uL (4.70-6.10); White Blood Cell (WBC) Count 9.6 thou/uL (4.8-10.8)
[2017-05-28 05:21] LABS: ALT (SGPT) 53 U/L (8-55); AST (SGOT) 37 U/L (5-34); Albumin 2.8 g/dL (3.4-4.8); Alkaline Phosphatase 135 U/L (40-150); Anion Gap 14 mmol/L (10-20); BUN (Urea Nitrogen) 58 mg/dL (8.4-25.7); Bilirubin, Total 0.8 mg/dL (0.2-1.2); Calc. Creatinine Clearance 61 mL/min (70-130); Calcium 8.5 mg/dL (7.8-10.44); Carbon Dioxide 22 mmol/L (23-31); Chloride 114 mmol/L (98-107); Estimated GFR-MDRD 49; Globulin 3.6 g/dL (2.4-3.5); Glucose 175 mg/dL (80-115); Potassium 3.9 mmol/L (3.5-5.1); Protein, Total 6.4 g/dL (5.8-8.1); Sodium 146 mmol/L (136-145)
[2017-05-28] MEDS: Scopolamine 1.5 mg/72 hour Patch TD SCH (09:10)
[2017-05-28] MEDS: Heparin 5,000 UNITS/ML VIAL SC SCH ×2 (09:18→21:19)
[2017-05-28] MEDS: hydrALAZINE 25 MG TAB PER TUBE SCH ×2 (09:18→21:19)
[2017-05-28] MEDS: Carvedilol 3.125 MG TAB PO SCH ×3 (09:18→21:20)
[2017-05-28] MEDS: Famotidine 20 MG TAB PER TUBE SCH (21:20)
[2017-05-29] MEDS: Metoclopramide 10 MG/10 ML UDCUP PER TUBE SCH ×4 (02:36→19:26)
[2017-05-29 05:01] LABS: #Eosinphils 0.1 thou/uL (0.0-0.7); #Lymphocytes 0.8 thou/uL (1.20-3.40); #Monocytes 0.6 thou/uL (0.11-0.59); #Neutrophils 7.8 thou/uL (1.40-6.50); %Basophils 0.4 % (0.0-1.0); %Eosinophils 1.5 % (0.0-10.0); %Lymphocytes 8.7 % (21.0-51.0); %Monocytes 6.7 % (0.0-10.0); %Neutrophils 82.7 % (42.0-75.0); Hemoglobin 8.5 g/dL (14.0-18.0); Mean Corpuscular HGB CONC 30.2 g/dL (32.0-36.0); Mean Corpuscular Volume 96.1 fl (80.0-94.0); Mean Platelet Volume 8.3 fL (7.4-10.4); Platelet Count 310 thou/uL (130-400); Red Blood Cell (RBC) Count 2.94 mill/uL (4.70-6.10); White Blood Cell (WBC) Count 9.4 thou/uL (4.8-10.8)
[2017-05-29 05:22] LABS: ALT (SGPT) 44 U/L (8-55); AST (SGOT) 28 U/L (5-34); Albumin 2.8 g/dL (3.4-4.8); Alkaline Phosphatase 127 U/L (40-150); Anion Gap 11 mmol/L (10-20); BUN (Urea Nitrogen) 57 mg/dL (8.4-25.7); Bilirubin, Total 0.8 mg/dL (0.2-1.2); Calc. Creatinine Clearance 61 mL/min (70-130); Calcium 8.5 mg/dL (7.8-10.44); Carbon Dioxide 24 mmol/L (23-31); Chloride 118 mmol/L (98-107); Estimated GFR-MDRD 48; Globulin 3.5 g/dL (2.4-3.5); Glucose 125 mg/dL (80-115); Protein, Total 6.3 g/dL (5.8-8.1); Sodium 149 mmol/L (136-145)
[2017-05-29] MEDS: NS 0.9% w/ 20 MEQ KCL 1,000 ML IV SCH ×3 (05:33→17:12)
[2017-05-29] MEDS: Diabetic Tussin 200 MG/10 ML UDCUP PER TUBE SCH ×4 (05:33→23:08)
[2017-05-29] MEDS: hydrALAZINE 25 MG TAB PER TUBE SCH ×2 (08:01→19:27)
[2017-05-29] MEDS: Carvedilol 3.125 MG TAB PO SCH ×3 (08:01→19:26)
[2017-05-29] MEDS: Heparin 5,000 UNITS/ML VIAL SC SCH ×2 (08:02→19:27)
[2017-05-29] MEDS: HumaLOG 300 UNITS/3 ML VIAL SC PRN ×3 (10:18→23:08)
[2017-05-29] MEDS: Famotidine 20 MG TAB PER TUBE SCH (19:26)
[2017-05-30] MEDS: NS 0.9% w/ 20 MEQ KCL 1,000 ML IV SCH ×2 (00:45→09:12)
[2017-05-30] MEDS: Metoclopramide 10 MG/10 ML UDCUP PER TUBE SCH ×2 (02:07→08:42)
[2017-05-30 04:35] LABS: #Eosinphils 0.1 thou/uL (0.0-0.7); #Lymphocytes 0.8 thou/uL (1.20-3.40); #Monocytes 0.6 thou/uL (0.11-0.59); #Neutrophils 7.1 thou/uL (1.40-6.50); %Basophils 0.6 % (0.0-1.0); %Eosinophils 1.6 % (0.0-10.0); %Lymphocytes 8.9 % (21.0-51.0); %Monocytes 7.2 % (0.0-10.0); %Neutrophils 81.8 % (42.0-75.0); Hemoglobin 7.8 g/dL (14.0-18.0); Mean Corpuscular Hemoglobin 30.6 pg (27.0-31.0); Mean Corpuscular Volume 92.7 fl (80.0-94.0); Mean Platelet Volume 8.4 fL (7.4-10.4); Platelet Count 283 thou/uL (130-400); RBC Distribution Width 14.9 % (11.5-14.5); Red Blood Cell (RBC) Count 2.53 mill/uL (4.70-6.10); White Blood Cell (WBC) Count 8.7 thou/uL (4.8-10.8)
[2017-05-30 04:54] LABS: ALT (SGPT) 40 U/L (8-55); AST (SGOT) 24 U/L (5-34); Albumin 2.8 g/dL (3.4-4.8); Alkaline Phosphatase 119 U/L (40-150); Anion Gap 10 mmol/L (10-20); BUN (Urea Nitrogen) 58 mg/dL (8.4-25.7); Bilirubin, Total 0.8 mg/dL (0.2-1.2); Calc. Creatinine Clearance 63 mL/min (70-130); Calcium 8.3 mg/dL (7.8-10.44); Carbon Dioxide 25 mmol/L (23-31); Chloride 119 mmol/L (98-107); Estimated GFR-MDRD 49; Globulin 3.3 g/dL (2.4-3.5); Glucose 195 mg/dL (80-115); Potassium 4.4 mmol/L (3.5-5.1); Protein, Total 6.1 g/dL (5.8-8.1); Sodium 150 mmol/L (136-145)
[2017-05-30] MEDS: Diabetic Tussin 200 MG/10 ML UDCUP PER TUBE SCH ×2 (05:08→11:58)
[2017-05-30] MEDS: HumaLOG 300 UNITS/3 ML VIAL SC PRN ×2 (05:09→08:48)
[2017-05-30 08:15] VITALS: TEMP 97.8
[2017-05-30] MEDS: hydrALAZINE 25 MG TAB PER TUBE SCH (08:41)
[2017-05-30] MEDS: Carvedilol 3.125 MG TAB PO SCH (08:41)
[2017-05-30] MEDS: Heparin 5,000 UNITS/ML VIAL SC SCH (08:42)
[2017-05-30 08:44] VITALS: BP 140/63
[2017-05-30 08:58] VITALS: BMI 29.3
== END 2017-05-30 11:50 | DRG 3 ==
LOC: ERS 13:29 → IMCU/EMU 18:00 → CCU 04-30 04:08 → UNDODISIN 05-02 07:57
PROVIDERS: ADMIT Specialist; ATTEND Specialist
PROC: 009U3ZX Drainage of Spinal Canal, Percutaneous Approach, Diagnostic (ICD-10-PCS; 2017-04-29)
PROC: 5A1955Z Respiratory Ventilation, Greater than 96 Consecutive Hours (ICD-10-PCS; 2017-04-30)
PROC: 5A12012 Performance of Cardiac Output, Single, Manual (ICD-10-PCS; 2017-04-30)
PROC: 0BC38ZZ Extirpation of Matter from Right Main Bronchus, Via Natural or Artificial Opening Endoscopic (ICD-10-PCS; 2017-04-30)
PROC: 0B978ZZ Drainage of Left Main Bronchus, Via Natural or Artificial Opening Endoscopic (ICD-10-PCS; 2017-04-30)
PROC: 04HY32Z Insertion of Monitoring Device into Lower Artery, Percutaneous Approach (ICD-10-PCS; 2017-04-30)
PROC: 0BH17EZ Insertion of Endotracheal Airway into Trachea, Via Natural or Artificial Opening (ICD-10-PCS; 2017-04-30)
PROC: 02H633Z Insertion of Infusion Device into Right Atrium, Percutaneous Approach (ICD-10-PCS; 2017-05-01)
PROC: 5A1D70Z Performance of Urinary Filtration, Intermittent, Less than 6 Hours Per Day (ICD-10-PCS; 2017-05-02)
PROC: 06HY33Z Insertion of Infusion Device into Lower Vein, Percutaneous Approach (ICD-10-PCS; 2017-05-02)
PROC: 0JH63XZ Insertion of Tunneled Vascular Access Device into Chest Subcutaneous Tissue and Fascia, Percutaneous Approach (ICD-10-PCS; 2017-05-09)
PROC: 02HV33Z Insertion of Infusion Device into Superior Vena Cava, Percutaneous Approach (ICD-10-PCS; 2017-05-09)
PROC: 0FC98ZZ Extirpation of Matter from Common Bile Duct, Via Natural or Artificial Opening Endoscopic (ICD-10-PCS; 2017-05-10)
PROC: 0Y6Y0Z0 Detachment at Left 5th Toe, Complete, Open Approach (ICD-10-PCS; 2017-05-11)
PROC: 0FT44ZZ Resection of Gallbladder, Percutaneous Endoscopic Approach (ICD-10-PCS; 2017-05-13)
PROC: 0BC38ZZ Extirpation of Matter from Right Main Bronchus, Via Natural or Artificial Opening Endoscopic (ICD-10-PCS; 2017-05-14)
PROC: 0W993ZX Drainage of Right Pleural Cavity, Percutaneous Approach, Diagnostic (ICD-10-PCS; 2017-05-14)
PROC: 30233N1 Transfusion of Nonautologous Red Blood Cells into Peripheral Vein, Percutaneous Approach (ICD-10-PCS; 2017-05-15)
PROC: 0BH17EZ Insertion of Endotracheal Airway into Trachea, Via Natural or Artificial Opening (ICD-10-PCS; 2017-05-20)
PROC: 0B110F4 Bypass Trachea to Cutaneous with Tracheostomy Device, Open Approach (ICD-10-PCS; principal; 2017-05-21)
PROC: 0DH63UZ Insertion of Feeding Device into Stomach, Percutaneous Approach (ICD-10-PCS; 2017-05-21)
DX: A41.9 Sepsis, unspecified organism (principal); I46.9 Cardiac arrest, cause unspecified; G72.81 Critical illness myopathy; J15.0 Pneumonia due to Klebsiella pneumoniae; N17.9 Acute kidney failure, unspecified; J96.21 Acute and chronic respiratory failure with hypoxia; R65.21 Severe sepsis with septic shock; G93.41 Metabolic encephalopathy; I47.2 Ventricular tachycardia; F10.231 Alcohol dependence with withdrawal delirium; N18.3 Chronic kidney disease, stage 3 (moderate); I70.268 Atherosclerosis of native arteries of extremities with gangrene, other extremity; E46 Unspecified protein-calorie malnutrition; J90 Pleural effusion, not elsewhere classified; K80.44 Calculus of bile duct with chronic cholecystitis without obstruction; M86.8X7 Other osteomyelitis, ankle and foot; J98.11 Atelectasis; E87.1 Hypo-osmolality and hyponatremia; E87.0 Hyperosmolality and hypernatremia; E87.2 Acidosis; N39.0 Urinary tract infection, site not specified; I24.8 Other forms of acute ischemic heart disease; G31.2 Degeneration of nervous system due to alcohol; R13.10 Dysphagia, unspecified; E86.0 Dehydration; E11.9 Type 2 diabetes mellitus without complications; I25.10 Atherosclerotic heart disease of native coronary artery without angina pectoris; Z95.1 Presence of aortocoronary bypass graft; K70.11 Alcoholic hepatitis with ascites; E87.6 Hypokalemia; Z66 Do not resuscitate; I13.10 Hypertensive heart and chronic kidney disease without heart failure, with stage 1 through stage 4 chronic kidney disease, or unspecified chronic kidney disease; Y95 Nosocomial condition; G40.909 Epilepsy, unspecified, not intractable, without status epilepticus; D63.1 Anemia in chronic kidney disease; I70.25 Atherosclerosis of native arteries of other extremities with ulceration; L97.529 Non-pressure chronic ulcer of other part of left foot with unspecified severity; E78.5 Hyperlipidemia, unspecified; E88.09 Other disorders of plasma-protein metabolism, not elsewhere classified; D69.6 Thrombocytopenia, unspecified; I08.3 Combined rheumatic disorders of mitral, aortic and tricuspid valves; Z89.412 Acquired absence of left great toe; Z89.411 Acquired absence of right great toe; F17.210 Nicotine dependence, cigarettes, uncomplicated; I25.5 Ischemic cardiomyopathy
CPT/HCPCS: 36415; 36416; 36430; 51701; 62270; 70450; 71045; 74018; 74181; 74330; 76705; 80048; 80053; 80202; 80306; 80307; 81003; 81015; 82140; 82150; 82553; 82805; 82945; 83615; 83735; 83880; 83986; 84100; 84157; 84478; 84484; 85025; 85060; 85610; 85730; 86704; 86706; 86803; 86850; 86900; 86901; 87040; 87070; 87077; 87116; 87186; 87205; 87206; 87340; 88112; 88304; 88305; 88311; 89051; 90471; 90670; 90935; 92950; 93005; 93010; 93306; 93970; 94002; 94003; 94640; 96361; 96365; 96372; 96375; A4216; A4218; C1752; C1769; C9113; G0009; G0257; G0365; G8978-GP-CM; G8978-GP-CN; G8979-GP-CL; G8979-GP-CM; G8987-GO-CM; G8988-GO-CK; G8996-GN-CN; G8997-GN-CL; J0153; J0171; J0290; J0456; J0670; J0696; J1265; J1610; J1642; J1644; J1650; J1720; J1815; J1940; J2001; J2060; J2185; J2250; J2270; J2543; J2704; J2765; J3010; J3370; J3411; J3475; J3480; J3490; J7042; J7050; J7070; J7620; P9016; Q4081; Q9961; S0020; S0028

== ENCOUNTER 2017-08-20 12:13 | Outpatient (CLI) | payer MEDICARE, OTHER ==
--- NOTE | 2017-08-21 15:03 | RAD ---
LEFT FOOT 3 VIEWS: HISTORY: Foot pain. Evaluate for osteomyelitis in toes and posterior heel. COMPARISON: A 05/07/17 examination. FINDINGS: Vascular calcifications are noted. The bones are demineralized. Once again, amputation at the base of the 1st metatarsal is noted and since the prior examination there has now been amputation of the m id shaft of the 5th metatarsal. There is a pes planus deformity to the foot. I do not see any defin ite evidence for any acute changes of osteomyelitis. Deformity to the distal phalanx of the 2nd toe is a stable finding. IMPRESSION: No definitive plain film evidence for osteomyelitis. POS: [facility]
== END 2017-08-20 12:14 | disposition home or self-care (01) ==
LOC: BICRAD 12:13
PROVIDERS: ATTEND Podiatrist
DX: I73.9 Peripheral vascular disease, unspecified (principal); M81.0 Age-related osteoporosis without current pathological fracture; M19.072 Primary osteoarthritis, left ankle and foot; Z89.422 Acquired absence of other left toe(s)

== ENCOUNTER 2017-08-21 13:37 | Inpatient (IN) | payer MEDICARE, OTHER ==
[2017-08-21 14:19] LABS: #Eosinphils 0.2 thou/uL (0.0-0.7); #Lymphocytes 0.7 thou/uL (1.20-3.40); #Monocytes 0.5 thou/uL (0.11-0.59); #Neutrophils 5.6 thou/uL (1.40-6.50); %Basophils 0.1 % (0.0-1.0); %Lymphocytes 10.4 % (21.0-51.0); %Monocytes 7.1 % (0.0-10.0); %Neutrophils 79.4 % (42.0-75.0); Hemoglobin 9.1 g/dL (14.0-18.0); Mean Corpuscular HGB CONC 33.6 g/dL (32.0-36.0); Mean Corpuscular Hemoglobin 29.1 pg (27.0-31.0); Mean Corpuscular Volume 86.4 fl (80.0-94.0); Mean Platelet Volume 6.5 fL (7.4-10.4); Platelet Count 317 thou/uL (130-400); RBC Distribution Width 15.2 % (11.5-14.5); Red Blood Cell (RBC) Count 3.15 mill/uL (4.70-6.10)
[2017-08-21 14:43] LABS: ALT (SGPT) 12 U/L (8-55); AST (SGOT) 12 U/L (5-34); Albumin 3.5 g/dL (3.4-4.8); Alkaline Phosphatase 49 U/L (40-150); Anion Gap 15 mmol/L (10-20); BUN (Urea Nitrogen) 39 mg/dL (8.4-25.7); Bilirubin, Total 0.4 mg/dL (0.2-1.2); CK (CPK) 30 U/L (30-200); Calc. Creatinine Clearance 0 mL/min (70-130); Carbon Dioxide 22 mmol/L (23-31); Chloride 105 mmol/L (98-107); Estimated GFR-MDRD 62; Globulin 3.3 g/dL (2.4-3.5); Glucose 197 mg/dL (80-115); Lipase 71 U/L (8-78); Magnesium 2.1 mg/dL (1.6-2.6); Potassium 5.7 mmol/L (3.5-5.1); Protein, Total 6.8 g/dL (5.8-8.1); Sodium 136 mmol/L (136-145)
[2017-08-21 14:45] LABS: CKMB 1.9 ng/mL (0-6.6)
--- NOTE | 2017-08-21 15:00 | RAD ---
CHEST 1 VIEW: HISTORY: Syncope and collapse, hypotension. COMPARISON: 05/27/17 study. FINDINGS: Heart size is enlarged. There are postop sternotomy changes. The lungs are clear of infiltrates. T here are no signs of failure. IMPRESSION: Mild cardiomegaly. POS: [facility]
[2017-08-21 16:31] LABS: Bilirubin Negative (Negative); Blood, Urine Negative (Negative); Clarity CLEAR (Clear); Glucose, Urine (Dipstick) Negative (Negative); Leukocyte Moderate (Negative); Nitrite Negative (Negative); Protein, Urine (Dipstick) Trace mg/dL (Neg-Trace); Specific Gravity, Urine 1.014 (1.002-1.036); Urobilinogen 0.2 mg/dL (0.2-1.0); pH, Urine 6.5 (5.0-9.0)
[2017-08-21 16:34] LABS: Bacteria/HPF None Seen HPF (None Seen); Hyaline Casts/LPF 7-10 HYALINE CAST LPF (0-3 Hyaline); Pathc Cast-AUWi Flag 1.01 (0-2.49); RBC/HPF 0-3 HPF (0-3); WBC/HPF 21-50 HPF (0-3)
[2017-08-21 16:57] LABS: Renal Epithelial None Seen HPF (0-3); Transitional Epithelial NONE SEEN HPF (0-3)
[2017-08-21 17:50] LABS: Troponin I 0.019 ng/mL (< 0.028)
[2017-08-21] MEDS ORDERED: Ondansetron ODT 4 MG TAB SL PRN (18:39)
[2017-08-21] MEDS ORDERED: Ondansetron HCl/PF 4 MG/2 ML Vial IVP PRN ×2 (18:39→19:57)
[2017-08-21] MEDS ORDERED: HumaLOG 300 UNITS/3 ML VIAL SC PRN (19:57)
[2017-08-21] MEDS ORDERED: Dextrose 5% in Water 1,000 ML IV PRN (19:57)
[2017-08-21] MEDS ORDERED: Ondansetron ODT 4 MG TAB PO PRN (19:57)
[2017-08-21] MEDS ORDERED: Docusate 100 MG CAP PO PRN (19:57)
[2017-08-21] MEDS ORDERED: Acetaminophen 325 MG TAB PO PRN (19:57)
[2017-08-21] MEDS ORDERED: Dextrose 50% Abboject 50 ML SYRINGE SLOW IVP PRN (19:57)
[2017-08-21] MEDS ORDERED: Mag-Al 1200 mg/1200 mg/30 ML UDCUP PO PRN (19:57)
[2017-08-21] MEDS ORDERED: hydrALAZINE 20 MG/ML VIAL SLOW IVP PRN (19:57)
[2017-08-21 20:02] VITALS: BMI 24.3
[2017-08-21 20:41] LABS: Troponin I 0.022 ng/mL (< 0.028)
[2017-08-21] MEDS: Famotidine 20 MG TAB PO SCH (22:29)
[2017-08-21] MEDS: Sodium Chloride 0.9% 1,000 ML IV SCH (22:29)
--- NOTE | 2017-08-22 02:11 | HP ---
PRIMARY CARE PHYSICIAN: Dr. Goncalves. CHIEF COMPLAINT: Almost passed out. HISTORY OF PRESENT ILLNESS: Mr. Clay is a pleasant 72-year-old gentleman that has a history of hy pertension, peripheral vascular disease as well as coronary artery disease. He was also recently had a prolonged hospital stay for severe pneumonia in which, he actually required intubation was trached and pegged and eventually transitioned to inpatient rehabilitation and he has only been home for abo ut 2 weeks. He says that he was doing fairly well until earlier today around 11:30. He says that he started feeling dizzy and "not feeling well and he also felt like he needed to have a bowel movement . He says that he was able to get up and make it to the bathroom and he sat on the commode. He had a bowel movement and then felt extremely weak and could not get up. He called for help and his and other family members came to help him. At that time, he seemed like his eyes rolled back in his head and he got extremely weak and limp and almost passed out. He says he does not believe he comple tely blacked out, but his family was concerned and they called EMS and brought him to the hospital fo r evaluation. He says at that time his blood pressure was "horrible." He denies having any chest pa in or shortness of breath, no palpitations during this attack. His blood sugar was in the 100 range as well. The patient believes that he has been eating okay. He also denies any trauma or any falls. There has not been any visual changes as well. The patient has a history of coronary artery disease. He says that he [facility] He says that he was last evaluated about a year ago in August where he had a full workup which was negative. He has had a cardiac catheterization in 2016. He reports was negative. It is noted in his previous hospital admission that his ejection fraction was low on an echo. However, he is not sure whether or not this is an old or new finding and says that his quality improvement consultant had not ever mentio art anything like this to him before, but he says he has had numerous workups including what sounds l steve and either Holter monitor or event monitor which were negative. It is notable though that the pa sheldon has never had chest pain and he was found to have coronary artery disease with severe 3-vessel disease on a routine preop evaluation, which resulted in a triple bypass surgery. REVIEW OF SYSTEMS: Constitutional: There has been no fevers, no chills, no night sweats, no weight loss. HEENT: No headache, no dizziness, no visual changes, no sore throat, rhinorrhea, neck pain, n o adenopathy. Pulmonary: No hemoptysis, no cough, no wheezing. Cardiovascular: As stated the hist ory of present illness. Gastrointestinal: No abdominal pain, no nausea, no vomiting, no change in b owels. Genitourinary: No urinary frequency, hematuria, no hesitancy. Neurologic: No focal weaknes s. No seizures. He did not have any seizure activity earlier. Musculoskeletal: No muscle pains, w eakness or joint pains. Skin/Integument: He does have chronic ulcers on his left foot, which he is seeing a egg producer for and gets local wound care. PAST MEDICAL HISTORY: Significant for diabetes mellitus, hypertension, peripheral vascular disease, chronic foot ulcers, and coronary artery disease, recent extended hospitalization for pneumonia. PAST SURGICAL HISTORY: He has had coronary artery bypass grafting x3 about 3 years ago. He has had a trach and a PEG, which have since been removed as well as cataract surgery. ALLERGIES: HYDROCODONE. FAMILY HISTORY: Significant for heart disease and colon cancer. SOCIAL HISTORY: He has a 69-[id number]-lmgy history of smoking, primarily of a pipe and he has a history o f heavy drinking in the past. He is . CODE STATUS: FULL CODE. MEDICATIONS: Include metformin 850 mg twice daily, hydralazine 25 mg as needed, glipizide 5 mg daily , omeprazole 40 mg daily, lisinopril 40 mg daily, hydrochlorothiazide 25 mg daily, Pletal 100 mg rudolph y, atorvastatin 20 mg daily, amlodipine 10 mg daily. PHYSICAL EXAMINATION: GENERAL: He is alert and oriented. He appears to be in no acute distress. VITAL SIGNS: The blood pressure was 132/32, heart rate 71, respiratory rate of 18, temperature is 97 .5, O2 sat was 100% on room air. HEENT: His pupils are equal, round, and reactive. Extraocular muscles are intact. His sclerae anic teric. Throat: There is no erythema, no exudates. NECK: No adenopathy, no bruits. LUNGS: Clear to auscultation. There is no wheezing, no rales. CARDIOVASCULAR: He has a normal S1, S2. No S3 or S4. No murmurs, clicks, or rubs. ABDOMEN: Soft, nontender, nondistended. Positive for bowel sounds. No rebound, no guarding. EXTREMITIES: He has got chronic venous stasis changes. There is no edema. 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 LABORATORY DATA AND X-RAY FINDINGS: His EKG appears to be sinus rhythm, although there is quite a bi t of artifact which makes it difficult to assess whether or not he has a P-wave. There was a Q-wave in leads V3 and V4 and an interventricular conduction delay. His sodium was 136, potassium 5.7, chlo ride is 105, CO2 is 22, BUN of 39, creatinine 1.17, glucose is 197. His troponin was 0.020. White b lood cell count 7.0, hemoglobin 9.1, hematocrit is 27.2, platelet count is 317, MCV was 86.4. Urinal ysis was essentially negative. ASSESSMENT AND PLAN: This is a pleasant 72-year-old gentleman that presents to the emergency room af ter suffering a presyncopal episode. The way this event is described, it is very suspicious for poss ible volume overload along with a possible vagal episode after defecation. However, the patient has an extensive history of heart disease as well as what appears to be chronic systolic heart failure. He also has silent ischemia in the past, in which his coronary artery disease was discovered only inc identally. For this reason, we will consult Cardiology for another opinion with regards to the synco pal episode to see if any further cardiac workup will need to be done during this hospital stay. We will also check a D-dimer given that he has been relatively immobile and pulmonary embolism is essent ially almost always a consideration and also get a carotid Doppler, given his extensive vascular dise ase as well. He will also be monitored on telemetry as well. 1. Likely volume depletion. He has a high [id number]-hjpanimiom ratio, therefore, we will hold the ALLA inhibitor and place him on very gentle hydration and reassess him in the a.m. 2. Diabetes mellitus, metformin will be withheld in the event that we need to get a CT angiogram and he will be covered with a sliding scale insulin. We will also place him on deep venous thrombosis a nd gastrointestinal prophylaxis.
[2017-08-22 05:33] LABS: Anion Gap 14 mmol/L (10-20); BUN (Urea Nitrogen) 37 mg/dL (8.4-25.7); Calc. Creatinine Clearance 71 mL/min (70-130); Carbon Dioxide 20 mmol/L (23-31); Chloride 105 mmol/L (98-107); Estimated GFR-MDRD 69; Glucose 107 mg/dL (80-115); Potassium 4.4 mmol/L (3.5-5.1); Sodium 135 mmol/L (136-145)
--- NOTE | 2017-08-22 08:13 | CT ---
CT PULMONARY ANGIOGRAM WITH IV CONTRAST AND 3D POSTPROCESSING: Date: 08/22/17 HISTORY: Syncope and elevated D-Dimer, cough, CABG. FINDINGS: The pulmonary arterial vasculature is well opacified without filling defects to suggest pulmonary emb olism. There are vascular calcifications without evidence of aneurysmal dilatation of the thoracic ao rta. No pleural or pericardial effusions are seen. There are coronary artery calcifications and tyson es of median sternotomy. No pneumothoraces, focal areas of consolidation, pulmonary nodules, or lung masses are seen. There are degenerative changes in the spine. Upper abdominal tomograms demonstrate c hanges of cholecystectomy. IMPRESSION: No CT evidence of pulmonary embolism. POS: [facility]
--- NOTE | 2017-08-22 08:21 | ULT ---
CAROTID DUPLEX SONOGRAM: HISTORY: Syncope. Vascular disease. FINDINGS: RIGHT: Scattered plaque. Color and spectral Doppler evaluation, peak systolic velocity of 117 cm/s, and IC to CC ratio of 1.4 suggests stenosis within the mid right cervical ICA to approach 50%. Elevated pea k systolic velocity within the external carotid artery is calculated at 167 cm/s. LEFT: Mild plaque. Color and spectral Doppler evaluation, peak systolic velocity of 96 cm/s, and IC to CC ratio of 0.8 suggests no hemodynamically significant stenosis within the extracranial left ICA. Ante grade flow is present within the vertebral artery. Incidental note is made of small cysts in the thyroid gland. IMPRESSION: Atherosclerosis. Slightly elevated velocity within the right internal and external carotid arteries suggestive of mild stenosis, approaching 50% within the mid right cervical internal carotid artery. Please consider correlation with conventional CT arteriography for better characterization. POS: [facility]
[2017-08-22] MEDS: Cilostazol 100 MG TAB PO SCH (10:18)
[2017-08-22] MEDS: Enoxaparin Sodium 40 MG/0.4 ML SYRINGE SC SCH (10:18)
[2017-08-22] MEDS: Atorvastatin Calcium 20 MG TAB PO SCH (10:18)
[2017-08-22] MEDS: Famotidine 20 MG TAB PO SCH ×2 (10:20→20:24)
--- NOTE | 2017-08-22 11:37 | PDOC.PN ---
- Subjective Encounter Start Date: 08/22/17 Encounter Start Time: 11:35 Mr. Clay was seen today in follow-up. His main concern is that he is not able to eat right now. He feels better, from the episode last night. - Objective Resuscitation Status: Resuscitation Status FULL:Full Resuscitation MAR Reviewed: Yes Vital Signs & Weight: Vital Signs (12 hours) Temp Pulse Resp BP BP BP BP 08/22/17 10:42 98.1 F 68 12 126/50 L 124/58 L 133/63 08/22/17 08:00 98.2 F 72 12 136/61 131/61 161/69 H 08/22/17 07:55 98.2 F 72 12 136/61 131/61 161/69 H 08/22/17 04:00 98.2 F 70 18 146/62 H Pulse Ox 08/22/17 10:42 100 08/22/17 08:00 99 08/22/17 07:55 99 08/22/17 04:00 100 Weight Weight 170 lb I&O: 08/21/17 08/22/17 08/23/17 06:59 06:59 06:59 Output Total 475 350 Balance -475 -350 Result Diagrams: 08/21/17 14:09 08/22/17 04:15 Additional Labs: Accuchecks 08/22/17 08/22/17 08/21/17 10:50 05:42 20:47 POC Glucose 124 H 118 H 226 H Phys Exam - Physical Examination HEENT: PERRLA Respiratory: no wheezing, no rales, no rhonchi, clear to auscultation bilateral Cardiovascular: RRR, no significant murmur, no rub Gastrointestinal: soft, non-tender, positive bowel sounds Musculoskeletal: no edema Dx/Plan (1) Syncope, near Status: Acute (2) Chronic systolic heart failure Code(s): I50.22 - CHRONIC SYSTOLIC (CONGESTIVE) HEART FAILURE Status: Acute (3) Coronary artery disease Code(s): I25.10 - ATHSCL HEART DISEASE OF [place] CORONARY ARTERY W/O ANG PCTRS Status: Acute (4) Volume depletion Code(s): E86.9 - VOLUME DEPLETION, UNSPECIFIED Status: Acute - Plan * Syncope/near syncope- likely due to volume depletion-CTA was negative for PE, and carotid dopplers demonstrated about 50% stenosis in the Right ICA- this can be followed up as an outpatient, and was not likely contributing to his symptoms * He has a complicated cardiac history, and for this reason will await Cardiology input as to if he requires any additional cardiac work-up * Chronic systolic heart failure- compensated * HTN- blood pressure is a bit elevated- will re-start Amlodipine, and Metoprolol ( He now tells me he was taken off Lisinopril- so will continue to hold at this time) .
[2017-08-22] MEDS: Sodium Chloride 0.9% 1,000 ML IV SCH (16:06)
[2017-08-22] MEDS ORDERED: ISOVUE-370 76%-LOCM 1 ML ONE (16:27)
[2017-08-22] MEDS: Carvedilol 25 MG TAB PO SCH (20:24)
--- NOTE | 2017-08-23 02:33 | CON ---
DATE OF CONSULTATION: 08/22/2017 HISTORY OF PRESENT ILLNESS: Joshua Clay is a 72-year-old white male that initially evaluated in 04/2017. He was admitted at that time found to be somewhat unresponsive when his home health nurse came by. He denied any chest pain, shortness of breath, cough or fever. He did have a past medical history of CABG x3 in 2013 at [facility] in [place]. He was never told that he had a weak heart. During that admission, he had an echocardiogram with ejection fraction of 25%-30%. Several weeks later echo was repeated and his EF was 30%-35%. He had 3 respiratory arrests, intubated 3 times and also underwent placement of a tracheostomy and PEG tube. Also, during that admission , he underwent laparoscopic cholecystectomy. He did have runs of nonsustained ventricular tachycardia; however, he was DNR during that admission and LifeVest was not offered due to that. He went to [facility] and then I assume rehab and has been home for approximately 2 weeks. He went to have a bowel movement afterwards felt extremely weak. He was so weak he could not get up. Paramedics were called and he was brought to the hospital. He denies any chest discomfort or shortness of breath. He does have some swelling at times in his legs. PAST MEDICAL HISTORY: Diabetes, hypertension, hyperlipidemia, peripheral vascular disease, coronary artery disease, and history of seizures. 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 He had laparoscopic cholecystectomy. CURRENT MEDICATIONS: Include amlodipine 5 mg daily, carvedilol 25 mg b.i.d., lisinopril 5 mg daily, metformin 500 daily. ALLERGIES: None. SOCIAL HISTORY: Smoked a pipe, but stopped 10 years ago. He has heavy drinking in the past. It is unclear if he continues to drink since he went home. FAMILY HISTORY: Positive for coronary artery disease. REVIEW OF SYSTEMS: Twelve-point review of systems otherwise is unremarkable. PHYSICAL EXAMINATION: VITAL SIGNS: Blood pressure 111/57, pulse of 73. HEENT: PERRL. NECK: Supple. CHEST: Clear. CARDIAC: S1 and S2 are normal, without any S3, S4 or murmurs. ABDOMEN: Normal bowel sounds, without tenderness, organomegaly. EXTREMITIES: Revealed 1-2+ pretibial edema. NEUROLOGIC: Grossly intact. SKIN: Warm and dry. LABORATORY DATA: EKG revealed normal sinus rhythm with rightward axis, nonspecific interventricular conduction delay. Carotid Doppler revealed 50% right internal carotid artery stenosis. Early this morning, he underwent CTA which revealed no evidence of pulmonary embolism. Hemoglobin 9.1, hematocrit 27.2, white count 7000, platelets 317,000. D-dimer 2.21. Sodium 135, potassium 4.4, chloride 105, carbon dioxide 20, BUN 37, creatinine 1.06. Cardiac enzymes are negative. IMPRESSION: 1. Weak episode at home, possible syncope with unclear etiology at this time. 2. Status post coronary artery bypass graft x3. 3. Severe left ventricular dysfunction with ejection fraction of 25% and then after medical therapy for several weeks 30% back in April to May. 4. Respiratory arrest x3 followed by placement of tracheostomy, which has since been removed. 5. Nonsustained ventricular tachycardia on last admission. 6. History of seizure disorder. 7. History of high alcohol intake and alcohol withdrawal on last admission. RECOMMENDATIONS: Echocardiogram will be performed to reassess left ventricular function. He was DNR at the time of discharge last admission and LifeVest was not offered; however, he is not DNR at this time. If he continues to have severe left ventricular dysfunction, ejection fraction of less than 35%, consideration should be given to placement of an ICD. He has not had any significant arrhythmias thus far during this admission. GLYNN
[2017-08-23] MEDS ORDERED: Amlodipine 5 MG TAB PO SCH (09:00)
[2017-08-23] MEDS: Famotidine 20 MG TAB PO SCH ×2 (09:17→19:38)
[2017-08-23] MEDS: Enoxaparin Sodium 40 MG/0.4 ML SYRINGE SC SCH (09:17)
[2017-08-23] MEDS: Carvedilol 25 MG TAB PO SCH ×2 (09:17→19:38)
[2017-08-23] MEDS: Atorvastatin Calcium 20 MG TAB PO SCH (09:18)
[2017-08-23] MEDS: Cilostazol 100 MG TAB PO SCH (09:18)
[2017-08-23] MEDS: Sodium Chloride 0.9% 1,000 ML IV SCH (14:03)
--- NOTE | 2017-08-23 14:31 | PDOC.PN ---
- Subjective Encounter Start Date: 08/23/17 Encounter Start Time: 14:30 Mr. Clay was seen today in follow-up of syncope. He says he feels fine today. - Objective Resuscitation Status: Resuscitation Status FULL:Full Resuscitation MAR Reviewed: Yes Vital Signs & Weight: Vital Signs (12 hours) Temp Pulse Resp BP BP BP BP 08/23/17 11:23 97.3 F L 65 16 118/60 08/23/17 07:34 98.3 F 77 18 118/55 L 105/51 L 08/23/17 04:30 97.8 F 74 16 139/64 BP Pulse Ox 08/23/17 11:23 100 08/23/17 07:34 157/68 H 98 08/23/17 04:30 96 Weight Admit Weight 170 lb Weight 170 lb I&O: 08/22/17 08/23/17 08/24/17 06:59 06:59 06:59 Intake Total 1757 Output Total 475 1100 375 Balance -475 657 -375 Result Diagrams: 08/21/17 14:09 08/22/17 04:15 Additional Labs: Accuchecks 08/23/17 08/22/17 08/22/17 04:58 20:43 17:00 POC Glucose 130 H 143 H 178 H Phys Exam - Physical Examination HEENT: PERRLA Respiratory: no wheezing, no rales, no rhonchi, clear to auscultation bilateral Cardiovascular: RRR, no significant murmur, no rub Gastrointestinal: soft, non-tender, positive bowel sounds Musculoskeletal: no edema Dx/Plan (1) Syncope, near Status: Acute (2) Chronic systolic heart failure Code(s): I50.22 - CHRONIC SYSTOLIC (CONGESTIVE) HEART FAILURE Status: Chronic (3) Coronary artery disease Code(s): I25.10 - ATHSCL HEART DISEASE OF [place] CORONARY ARTERY W/O ANG PCTRS Status: Chronic (4) Volume depletion Code(s): E86.9 - VOLUME DEPLETION, UNSPECIFIED Status: Acute (5) Diabetes mellitus type 2 in nonobese Code(s): E11.9 - TYPE 2 DIABETES MELLITUS WITHOUT COMPLICATIONS Status: Chronic - Plan * Syncope- ? etiology- has been evaluated by Cardiology, and due to his low EF - he is a candidate for a defibrillator * CAD- stable. * Chronic systolic heart failure- compensated- will discontinue IV fluids * DM- blood glucose is stable
[2017-08-24] MEDS: Enoxaparin Sodium 40 MG/0.4 ML SYRINGE SC SCH (08:50)
[2017-08-24] MEDS: Aspirin 81 mg Enteric Coated Tablet PO SCH (08:50)
[2017-08-24] MEDS: Carvedilol 25 MG TAB PO SCH ×2 (08:50→20:37)
[2017-08-24] MEDS: Atorvastatin Calcium 20 MG TAB PO SCH (08:50)
[2017-08-24] MEDS: Cilostazol 100 MG TAB PO SCH (08:50)
[2017-08-24] MEDS: Famotidine 20 MG TAB PO SCH ×2 (08:51→20:37)
[2017-08-24] MEDS: Lisinopril 5 MG TAB PO SCH (08:51)
--- NOTE | 2017-08-24 15:39 | PDOC.PN ---
- Subjective Encounter Start Date: 08/24/17 Encounter Start Time: 11:00 Subjective: pt up in bed no complains - Objective Resuscitation Status: Resuscitation Status FULL:Full Resuscitation Vital Signs & Weight: Vital Signs (12 hours) Temp Pulse Resp BP BP BP Pulse Ox 08/24/17 12:32 97.4 F L 69 16 128/62 100 08/24/17 08:51 98 127/62 08/24/17 08:00 98.5 F 98 16 127/62 94 L 08/24/17 04:00 98 F 68 14 141/63 H 99 Weight Admit Weight 170 lb Weight 166 lb 11.2 oz I&O: 08/23/17 08/24/17 08/25/17 06:59 06:59 06:59 Intake Total 1757 1356 360 Output Total 1100 1700 200 Balance 657 -344 160 Result Diagrams: 08/21/17 14:09 08/22/17 04:15 Additional Labs: Accuchecks 08/24/17 08/24/17 08/23/17 11:11 05:40 20:32 POC Glucose 179 H 135 H 198 H 08/23/17 16:54 POC Glucose 145 H Phys Exam - Physical Examination HEENT: PERRLA, moist MMs, sclera anicteric, TM's clear, oral pharynx no lesions , 2+ tonsils Neck: no nodes, no JVD, supple, full ROM Respiratory: no wheezing, no rales, no rhonchi, wheezing present, clear to auscultation bilateral Cardiovascular: RRR, no significant murmur, no rub, gallop, irregular left foot wrapped Dx/Plan (1) Syncope, near Status: Acute (2) Diabetes mellitus type 2 in nonobese Code(s): E11.9 - TYPE 2 DIABETES MELLITUS WITHOUT COMPLICATIONS Status: Chronic (3) Coronary artery disease Code(s): I25.10 - ATHSCL HEART DISEASE OF [place] CORONARY ARTERY W/O ANG PCTRS Status: Chronic - Plan * . pt will have ICD placement on friday. heart failure is stable. continue home meds. spoke with pt about his PAD, pt states that he does not want to know since he is afraid of possible amputation. Explained to him that if the disease is found early possible intervention to avoid amputation. Review of Systems - Review of Systems Eyes: negative: Pain, Vision Change, Conjunctivae Inflammation, Eyelid Inflammation, Redness, Other ENT: negative: Ear Pain, Ear Discharge, Nose Pain, Nose Discharge, Nose Congestion, Mouth Pain, Mouth Swelling, Throat Pain, Throat Swelling, Other Respiratory: negative: Cough, Dry, Shortness of Breath, Hemoptysis, SOB with Excertion, Pleuritic Pain, Sputum, Wheezing Cardiovascular: negative: chest pain, palpitations, orthopnea, paroxysmal nocturnal dyspnea, edema, light headedness, other Gastrointestinal: negative: Nausea, Vomiting, Abdominal Pain, Diarrhea, Constipation, Melena, Hematochezia, Other Genitourinary: negative: Dysuria, Frequency, Incontinence, Hematuria, Retention , Other Musculoskeletal: negative: Neck Pain, Shoulder Pain, Arm Pain, Back Pain, Hand Pain, Leg Pain, Foot Pain, Other - Medications/Allergies Allergies/Adverse Reactions: Allergies Allergy/AdvReac Type Severity Reaction Status Date / Time No Known Drug Allergies Allergy Verified 04/30/17 03:05 Medications: Current Medications Acetaminophen (Tylenol) 650 mg PO Q4H PRN PRN Reason: Headache/Fever or Pain Al Hydroxide/Mg Hydroxide (Maalox) 30 ml PO Q6H PRN PRN Reason: Heartburn or Indigestion Aspirin (Ecotrin) 81 mg PO DAILY [facility] Last Admin: 08/24/17 08:50 Dose: 81 mg Atorvastatin Calcium (Lipitor) 20 mg PO DAILY [facility] Last Admin: 08/24/17 08:50 Dose: 20 mg Carvedilol (Coreg) 25 mg PO BID [facility] Last Admin: 08/24/17 08:50 Dose: 25 mg Cilostazol (Pletal) 100 mg PO DAILY [facility] Last Admin: 08/24/17 08:50 Dose: 100 mg Dextrose/Water (Dextrose 50%) 25 gm SLOW IVP PRN PRN PRN Reason: Hypoglycemia Docusate Sodium (Colace) 100 mg PO BIDPRN PRN PRN Reason: Constipation Enoxaparin Sodium (Lovenox) 40 mg SC 0900 [facility] Last Admin: 08/24/17 08:50 Dose: 40 mg Famotidine (Pepcid) 20 mg PO BID [facility] Last Admin: 08/24/17 08:51 Dose: 20 mg Glucagon (Glucagon) 1 mg IM PRN PRN PRN Reason: Hypoglycemia Hydralazine HCl (Apresoline) 10 mg SLOW IVP Q4H PRN PRN Reason: Systolic BP > 180 Dextrose/Water (D5w) 1,000 mls @ 0 mls/hr IV .Q0M PRN; As Directed PRN Reason: Hypoglycemia Insulin Human Lispro (Humalog) 0 units SC .MODERATE SLIDING SC PRN PRN Reason: Moderate Correctional Scale Lisinopril (Zestril) 5 mg PO DAILY [facility] Last Admin: 08/24/17 08:51 Dose: 5 mg Ondansetron HCl (Zofran Odt) 4 mg PO Q6H PRN PRN Reason: Nausea/Vomiting Ondansetron HCl (Zofran) 4 mg IVP Q6H PRN PRN Reason: Nausea/Vomiting Sodium Chloride (Flush - Normal Saline) 10 ml IVF Q12HR [facility] Last Admin: 08/24/17 08:57 Dose: 10 ml Sodium Chloride (Flush - Normal Saline) 10 ml IVF PRN PRN PRN Reason: Saline Flush
[2017-08-24 19:04] LABS: Anion Gap 14 mmol/L (10-20); BUN (Urea Nitrogen) 36 mg/dL (8.4-25.7); Calc. Creatinine Clearance 67 mL/min (70-130); Calcium 9.3 mg/dL (7.8-10.44); Carbon Dioxide 21 mmol/L (23-31); Chloride 105 mmol/L (98-107); Estimated GFR-MDRD 67; Glucose 176 mg/dL (80-115); Magnesium 2.1 mg/dL (1.6-2.6); Potassium 5.1 mmol/L (3.5-5.1); Sodium 135 mmol/L (136-145)
[2017-08-25] MEDS: Enoxaparin Sodium 40 MG/0.4 ML SYRINGE SC SCH (08:47)
[2017-08-25] MEDS: Famotidine 20 MG TAB PO SCH ×2 (08:47→20:40)
[2017-08-25] MEDS: Cilostazol 100 MG TAB PO SCH (08:47)
[2017-08-25] MEDS: Lisinopril 5 MG TAB PO SCH (08:48)
[2017-08-25] MEDS: Carvedilol 25 MG TAB PO SCH ×2 (08:48→20:40)
[2017-08-25] MEDS: Aspirin 81 mg Enteric Coated Tablet PO SCH (08:49)
[2017-08-25] MEDS: Atorvastatin Calcium 20 MG TAB PO SCH (08:49)
[2017-08-25] MEDS ORDERED: PROPOFOL 200 MG/20 ML VIAL ONE (12:29)
[2017-08-25] MEDS ORDERED: Lidocaine 1% (PF) 30 ML VIAL ONE (15:17)
[2017-08-25] MEDS ORDERED: CEFAZOLIN/Water 2 GM/20 ML SYRINGE ONE (15:35)
[2017-08-25] MEDS ORDERED: Propofol 1,000 MG/100 ML VIAL IV ONE (15:46)
[2017-08-25] MEDS ORDERED: Promethazine HCl 25 MG/ML VIAL SLOW IVP PRN (17:00)
[2017-08-25] MEDS ORDERED: Ondansetron HCl/PF 4 MG/2 ML Vial IVP PRN (17:00)
[2017-08-25] MEDS ORDERED: Promethazine HCl 25 MG/ML VIAL IM PRN (17:00)
[2017-08-25] MEDS ORDERED: Acetaminophen/Codeine 30-300mg Tablet PO PRN ×2 (17:45)
[2017-08-25] MEDS: Cephalexin 250 MG CAP PO SCH (17:47)
--- NOTE | 2017-08-25 18:14 | PDOC.PN ---
- Subjective Encounter Start Date: 08/25/17 Encounter Start Time: 11:00 Subjective: pt up in chair no complains -: pt had 10 beats of v tach - Objective Vital Signs & Weight: Vital Signs (12 hours) Temp Pulse Resp BP BP Pulse Ox 08/25/17 12:22 64 18 107/55 L 100 08/25/17 08:48 73 129/59 L 08/25/17 07:35 98.4 F 73 16 111/53 L 99 Weight Weight 166 lb 11.2 oz I&O: 08/24/17 08/25/17 08/26/17 06:59 06:59 06:59 Intake Total 1356 840 Output Total 1325 700 Balance 31 140 Result Diagrams: 08/21/17 14:09 08/24/17 18:36 Additional Labs: Accuchecks 08/25/17 08/25/17 08/24/17 11:18 07:05 20:25 POC Glucose 134 H 131 H 228 H Phys Exam - Physical Examination HEENT: PERRLA, moist MMs, sclera anicteric, TM's clear, oral pharynx no lesions , 2+ tonsils Neck: no nodes, no JVD, supple, full ROM Respiratory: no wheezing, no rales, no rhonchi, wheezing present, clear to auscultation bilateral Cardiovascular: RRR, no significant murmur, no rub, gallop, irregular Gastrointestinal: soft, non-tender, no distention, positive bowel sounds Dx/Plan (1) Syncope, near Status: Acute (2) Diabetes mellitus type 2 in nonobese Code(s): E11.9 - TYPE 2 DIABETES MELLITUS WITHOUT COMPLICATIONS Status: Chronic (3) Coronary artery disease Code(s): I25.10 - ATHSCL HEART DISEASE OF [place] CORONARY ARTERY W/O ANG PCTRS Status: Chronic - Plan * pt going for AICD placement today. Pt's echo indicated ef of 25-50%. Recommended pt to follow up with vascular surgeon. Review of Systems - Review of Systems ENT: negative: Ear Pain, Ear Discharge, Nose Pain, Nose Discharge, Nose Congestion, Mouth Pain, Mouth Swelling, Throat Pain, Throat Swelling, Other Respiratory: negative: Cough, Dry, Shortness of Breath, Hemoptysis, SOB with Excertion, Pleuritic Pain, Sputum, Wheezing Cardiovascular: negative: chest pain, palpitations, orthopnea, paroxysmal nocturnal dyspnea, edema, light headedness, other Gastrointestinal: negative: Nausea, Vomiting, Abdominal Pain, Diarrhea, Constipation, Melena, Hematochezia, Other - Medications/Allergies Allergies/Adverse Reactions: Allergies Allergy/AdvReac Type Severity Reaction Status Date / Time No Known Drug Allergies Allergy Verified 04/30/17 03:05 Medications: Current Medications Acetaminophen (Tylenol) 650 mg PO Q4H PRN PRN Reason: Headache/Fever or Pain Acetaminophen/Codeine Phosphate (Tylenol #3) 1 tab PO Q4H PRN PRN Reason: Mild Pain (1-3) Acetaminophen/Codeine Phosphate (Tylenol #3) 2 tab PO Q4H PRN PRN Reason: Moderate Pain (4-6) Al Hydroxide/Mg Hydroxide (Maalox) 30 ml PO Q6H PRN PRN Reason: Heartburn or Indigestion Aspirin (Ecotrin) 81 mg PO DAILY [facility] Last Admin: 08/25/17 08:49 Dose: Not Given Atorvastatin Calcium (Lipitor) 20 mg PO DAILY [facility] Last Admin: 08/25/17 08:49 Dose: 20 mg Carvedilol (Coreg) 25 mg PO BID [facility] Last Admin: 08/25/17 08:48 Dose: 25 mg Cephalexin (Keflex) 500 mg PO Q6HR [facility] Last Admin: 08/25/17 17:47 Dose: 500 mg Cilostazol (Pletal) 100 mg PO DAILY [facility] Last Admin: 08/25/17 08:47 Dose: Not Given Dextrose/Water (Dextrose 50%) 25 gm SLOW IVP PRN PRN PRN Reason: Hypoglycemia Docusate Sodium (Colace) 100 mg PO BIDPRN PRN PRN Reason: Constipation Enoxaparin Sodium (Lovenox) 40 mg SC 0900 [facility] Last Admin: 08/25/17 08:47 Dose: Not Given Famotidine (Pepcid) 20 mg PO BID [facility] Last Admin: 08/25/17 08:47 Dose: 20 mg Glucagon (Glucagon) 1 mg IM PRN PRN PRN Reason: Hypoglycemia Hydralazine HCl (Apresoline) 10 mg SLOW IVP Q4H PRN PRN Reason: Systolic BP > 180 Dextrose/Water (D5w) 1,000 mls @ 0 mls/hr IV .Q0M PRN; As Directed PRN Reason: Hypoglycemia Insulin Human Lispro (Humalog) 0 units SC .MODERATE SLIDING SC PRN PRN Reason: Moderate Correctional Scale Lisinopril (Zestril) 5 mg PO DAILY [facility] Last Admin: 08/25/17 08:48 Dose: 5 mg Ondansetron HCl (Zofran Odt) 4 mg PO Q6H PRN PRN Reason: Nausea/Vomiting Ondansetron HCl (Zofran) 4 mg IVP Q6H PRN PRN Reason: Nausea/Vomiting Ondansetron HCl (Pacu-Zofran) 4 mg IVP ONE PRN PRN Reason: Nausea/Vomiting Stop: 08/25/17 20:00 Promethazine HCl (Pacu-Phenergan) 6.25 mg SLOW IVP ONE PRN PRN Reason: Nausea/Vomiting Stop: 08/25/17 20:00 Promethazine HCl (Pacu-Phenergan) 6.25 mg IM ONE PRN PRN Reason: Nausea/Vomiting Stop: 08/25/17 20:00 Sodium Chloride (Flush - Normal Saline) 10 ml IVF Q12HR [facility] Last Admin: 08/25/17 08:47 Dose: 10 ml Sodium Chloride (Flush - Normal Saline) 10 ml IVF PRN PRN PRN Reason: Saline Flush
--- NOTE | 2017-08-25 18:25 | RAD ---
PORTABLE CHEST: HISTORY: Post cardiac device placement. COMPARISON: 08/21/2017 FINDINGS: AICD lead overlies lead of the right ventricle. Mild cardiomegaly with aortic calcification. Lungs are clear with no evidence of infiltrate or vascu lar congestion. No pneumothorax identified. POS: [facility]
--- NOTE | 2017-08-25 23:26 | CON ---
REFERRING PHYSICIAN: Dr. Marie. I am seeing Mr. Clay and also Dr. Norton. I am seeing Mr. Clay at [facility] telemetry floor as an electrophysiology payroll consultant. H is problems are: 1. Chronic systolic congestive heart failure with ischemic cardiomyopathy. A. Prior history of coronary artery bypass grafting surgery x3 vessels in 2014. B. History of reduced LVEF in 2014 at 30% to 35%, currently at 25% to 30%. 2. History of respiratory failure, requiring prolonged intubation, PEG and trach placement in 2014. 3. Coronary artery risk factors. A. Diabetes. B. Hypertension. C. Hyperlipidemia. 4. History of peripheral vascular disease. 5. Remote history of seizures. ALLERGIES: None. MEDICATIONS AT HOME: Included metformin, lisinopril, amlodipine, and carvedilol. SUBJECTIVE: Mr. Clay is here due to a syncopal spell. He was found to be unresponsive in his mary e by his nurse. Although, later came by and denies chest pain, shortness of breath, cough, or fever. He had another history of passing out spell as well in the past. He was admitted and there was not ed to have nonsustained ventricular arrhythmias on groundwater monitoring technician. He had no PND, orthopnea, no s troke-like symptoms. Neurological deficits are noted. No fever, chills, or cough. REVIEW OF SYSTEMS: Rest of 12-point system otherwise unremarkable. PAST MEDICAL HISTORY: As above. SOCIAL HISTORY: History of pipe smoking about 10 years ago. He was a heavy drinker in the past. De nies drug use. FAMILY HISTORY: Noncontributory. OBJECTIVE: VITAL SIGNS: Blood pressure 111/83, heart rate 73, respiratory rate 16, and temperature 98.4 degrees Fahrenheit. GENERAL: He is alert and oriented man in no apparent distress. NECK: Supple. Jugular veins not distended. CHEST: Coarse without crackles. CARDIOVASCULAR: Heart sounds are regular rate and rhythm. No murmur or gallop. ABDOMEN: Benign. Bowel sounds positive. EXTREMITIES: Lower extremities without edema, clubbing or cyanosis, but although some diabetic ulcer noted in the left foot. Pulses are diminished. NEUROLOGIC: Patient nonfocal. MUSCULOSKELETAL: Without joint swelling or deformity. SKIN: Without rash. DATABASE: EKGs reviewed revealing an initial sinus rhythm, right bundle branch block, QRS of 140 mil liseconds. Subsequent EKGs are similar. Telemetry strips reveals sustained ventricular arrhythmias. ASSESSMENT AND PLAN: Mr. Joshua Clay is a pleasant 72-year-old man with history of chronic systolic congestive heart failure, although currently reasonably compensated. He was admitted with syncopal spells. The course was not clear, but his LVEF continues to be reduced and he is at risk for maligna nt ventricular arrhythmias. He has some diabetic foot ulcer. At this point, no systemic signs of in fection is appreciated. His white cell count is normal. We discussed pros and cons about the ICD implant. Hence, these nonsustained ventricular arrhythmias and previous LVEF is at significant risk for future ventricular arrhythmias. It will be reasonable t o proceed with ICD implantation, hence no bradyarrhythmias present and no clear indication for bivent ricular pacing and preserved functional status and right bundle branch block only. It will be a sing le chamber ICD. Risks, benefits of procedure discussed. He understands willing to proceed. I will also emphasize future chance of infection, especially in view of his lower extremity ulcers. Routine followup after that with antibiotics for a week. We will consider TyRx pouch use for the pro cedure.
[2017-08-26] MEDS: Cephalexin 250 MG CAP PO SCH ×3 (01:25→14:32)
[2017-08-26] MEDS ORDERED: Sodium Chloride 0.9% 500 ML IV SCH (08:00)
[2017-08-26] MEDS ORDERED: Spironolactone 25 MG TAB PO SCH (08:00)
[2017-08-26 08:17] LABS: Hemoglobin 9.8 g/dL (14.0-18.0); Mean Corpuscular HGB CONC 34.7 g/dL (32.0-36.0); Mean Corpuscular Hemoglobin 29.4 pg (27.0-31.0); Mean Corpuscular Volume 84.9 fl (80.0-94.0); Mean Platelet Volume 6.8 fL (7.4-10.4); Platelet Count 260 thou/uL (130-400); RBC Distribution Width 14.5 % (11.5-14.5); Red Blood Cell (RBC) Count 3.33 mill/uL (4.70-6.10); White Blood Cell (WBC) Count 7.1 thou/uL (4.8-10.8)
[2017-08-26 08:30] LABS: Band 2 % (5-11); Eosinophils 5 % (0-10); Lymphocytes 13 % (21-51); MDiff Complete? YES; Monocytes 6 % (0-10); Neutrophil 74 % (42-75); PLT Morphology Comment Appears Adequate; Polychromasia SLIGHT = 2-3 cells (100X) (0-2/hpf)
[2017-08-26 08:31] LABS: Anion Gap 14 mmol/L (10-20); BUN (Urea Nitrogen) 26 mg/dL (8.4-25.7); Calc. Creatinine Clearance 80 mL/min (70-130); Calcium 9.8 mg/dL (7.8-10.44); Carbon Dioxide 22 mmol/L (23-31); Chloride 106 mmol/L (98-107); Estimated GFR-MDRD 81; Glucose 130 mg/dL (80-115); Potassium 4.5 mmol/L (3.5-5.1); Sodium 137 mmol/L (136-145)
[2017-08-26] MEDS: Atorvastatin Calcium 20 MG TAB PO SCH (08:58)
[2017-08-26] MEDS: Famotidine 20 MG TAB PO SCH (08:58)
[2017-08-26] MEDS ORDERED: Lisinopril 10 MG TAB PO SCH (09:00)
[2017-08-26] MEDS ORDERED: LISINOPRIL 5 MG PO SCH (09:00)
[2017-08-26] MEDS: Cilostazol 100 MG TAB PO SCH (09:01)
[2017-08-26] MEDS: Carvedilol 25 MG TAB PO SCH (09:01)
[2017-08-26] MEDS: Aspirin 81 mg Enteric Coated Tablet PO SCH (09:03)
[2017-08-26] MEDS: Enoxaparin Sodium 40 MG/0.4 ML SYRINGE SC SCH (09:06)
[2017-08-26 09:19] VITALS: TEMP 98.3
[2017-08-26 11:21] VITALS: BP 137/65
--- NOTE | 2017-08-26 14:55 | PDOC.CTH ---
<Jennifer Roach - Last Filed: 08/26/17 14:48> Cardiology Progress Note - Subjective EP progress noted Patient seen and evalauted. No new cardiac concerns overnight. Minimal tenderness at ICD site. Anticipating DC home shortly - Objective Vital Signs Temp Pulse Pulse Pulse Resp BP BP 08/26/17 11:16 77 72 137/65 145/63 H 08/26/17 08:45 98.3 F 73 18 08/26/17 08:00 98.3 F 73 18 08/26/17 04:00 98.0 F 70 18 BP Pulse Ox Pulse Ox Pulse Ox 08/26/17 11:16 100 99 08/26/17 08:45 08/26/17 08:00 137/68 100 08/26/17 04:00 168/71 H 100 Weight 166 lb 11.2 oz 08/25/17 08/26/17 08/27/17 06:59 06:59 06:59 Intake Total 840 480 Output Total 700 475 Balance 140 5 - Physical Examination General/Neuro: alert & oriented x3, NAD Neck: carotid US brisk, no JVD present Lungs: unlabored respirations Heart: RRR Abdomen: NT/ND, soft - Telemetry Telemetry Rhythm: NSR - Labs Result Diagrams: 08/26/17 08:03 08/26/17 08:03 Troponin/CKMB CK-MB (CK-2) 1.9 ng/mL (0-6.6) 08/21/17 14:09 Troponin I 0.022 ng/mL (< 0.028) 08/21/17 20:06 - Assessment/Plan Chronic systolic heart failure with reduced EF- s/p ICD placement on 08/25/17. No postoperative complications. Device check this AM is stable. No pneumothorax by CXR. Site stable without complications and no signs of infection. On keflex 500mg QID post implant. Continue as ordered upon discharge. Wound check in 7- 10 days with [facility] on [address] requested. <Patrick Gustafson - Last Filed: 08/28/17 14:38> Cardiology Progress Note - Objective Weight 166 lb 11.2 oz 08/27/17 08/28/17 08/29/17 06:59 06:59 06:59 Intake Total 674 Output Total 1020 Balance -346 - Labs Result Diagrams: 08/26/17 08:03 06/12/18 08:03 Troponin/CKMB CK-MB (CK-2) 1.9 ng/mL (0-6.6) 08/21/17 14:09 Troponin I 0.022 ng/mL (< 0.028) 08/21/17 20:06 Attending Addendum - Attending Addendum Date/Time: 08/28/17 [id number] I personally evaluated the patient and discussed the management with Ms Roach. I agree with the History, Examination, Assessment and Plan documented above with any addition or exceptions noted below.
--- NOTE | 2017-08-27 11:35 | DIS ---
DATE OF ADMISSION: 08/21/2017 DATE OF DISCHARGE: 08/26/2017 DISCHARGE DIAGNOSES: 1. Syncope. 2. Systolic heart failure chronic with low EF. 3. Nonsustained ventricular arrhythmia. 4. Diabetes. 5. Coronary artery disease. HOSPITAL COURSE: The patient is a very pleasant 72-year-old male who after a very long hospital stay was readmitted for syncopal episode. Patient initially underwent a CTA, which did not indicate any evidence of pulmonary embolism. Patient at that time also had carotid Dopplers done for his syncopal episode which indicated slightly elevated velocity within the right internal and external carotid ar elba suggestive of mild stenosis approaching 50% within the mid right cervical internal carotid arter y. The patient during this hospital stay underwent an echocardiogram which indicated an EF of 25%-30 % with left atrium mildly dilated and left ventricle size moderately increased. The patient was seen by Electrophysiology and given his arrhythmias and the syncopal episode, patient underwent placement of an ICD. The patient was discharged home with no events occurring over this hospital stay. Jose C grijalva was known to have chronic right foot diabetic ulcers which were not actively infected. Patient wa s advised to significantly in following up with his vascular surgeon for possible other options inclu ding stenting if possible. The patient stated that initially he was afraid to follow up with the vas cular surgeon since the only option would be amputation. Encouraged the patient to just follow up wi th the vascular surgeon as an outpatient. Also, an appointment was made with Dr. Ram I belie florinda for a followup appointment for his chronic peripheral vascular disease and his ulcers on the right foot. The patient also was advised to come into the hospital more earlier if he noticed worsening o f his right foot ulcers including increased drainage or any fevers at home given the fact that he had an AICD placed. The patient understood all the teaching and he stated that he will follow up with h is vascular surgeon and also with Electrophysiology as outpatient. DISCHARGE HOME MEDICATIONS: Were as following; metformin 500 mg daily, lisinopril 5 mg daily, Norvas c 5 mg daily, spironolactone 12.5 mg daily, cilostazol 100 mg daily, Keflex 500 mg q.6 hours, Coreg 2 5 mg b.i.d., atorvastatin 20 mg daily and aspirin 81 mg p.o. daily. PHYSICAL EXAMINATION: VITAL SIGNS: Temperature of 98.3, 73, 18, 100% on room air, blood pressure of 137/68. GENERAL: He is awake, alert, oriented x3, does not appear in distress. CARDIOVASCULAR: S1, S2 present. No murmurs, rubs or gallops. ABDOMEN: Soft and nontender. Bowel sounds are present x2. CHEST: His incision on the left chest wall area appeared to be intact and dry. EXTREMITIES: Lower extremity pedal pulses are minimal. He does have chronic diabetic ulcers to his right foot. Patient will be discharged home. Follow up with EP. Also follow up with the vascular surgeon as an outpatient and primary care doctor.
== END 2017-08-26 17:03 | disposition home health service (06) | DRG 227 ==
LOC: ERS 13:37 → 2SW 17:00 → INTOOBSV 08-23 14:18 → OBSVTOIN 08-23 14:18 → 2NO 08-23 16:07
PROVIDERS: ADMIT Internal Medicine; ATTEND Internal Medicine
PROC: 0JH609Z Insertion of Cardiac Resynchronization Defibrillator Pulse Generator into Chest Subcutaneous Tissue and Fascia, Open Approach (ICD-10-PCS; principal; 2017-08-25)
PROC: 02HK3KZ Insertion of Defibrillator Lead into Right Ventricle, Percutaneous Approach (ICD-10-PCS; 2017-08-25)
DX: R55 Syncope and collapse (principal); I47.2 Ventricular tachycardia; I50.22 Chronic systolic (congestive) heart failure; I11.0 Hypertensive heart disease with heart failure; I25.10 Atherosclerotic heart disease of native coronary artery without angina pectoris; Z87.01 Personal history of pneumonia (recurrent); Z95.1 Presence of aortocoronary bypass graft; I87.8 Other specified disorders of veins; Z89.422 Acquired absence of other left toe(s); Z89.421 Acquired absence of other right toe(s); L84 Corns and callosities; E11.51 Type 2 diabetes mellitus with diabetic peripheral angiopathy without gangrene; I25.5 Ischemic cardiomyopathy; E78.5 Hyperlipidemia, unspecified; I49.8 Other specified cardiac arrhythmias; Z87.891 Personal history of nicotine dependence; E11.621 Type 2 diabetes mellitus with foot ulcer; I45.10 Unspecified right bundle-branch block; E86.9 Volume depletion, unspecified; I65.21 Occlusion and stenosis of right carotid artery; Z91.81 History of falling; R19.7 Diarrhea, unspecified; I25.2 Old myocardial infarction; Z85.828 Personal history of other malignant neoplasm of skin; L97.509 Non-pressure chronic ulcer of other part of unspecified foot with unspecified severity
CPT/HCPCS: 33249; 36005; 36415; 36416; 71045; 71275; 75820; 80048; 80053; 81003; 81015; 82553; 83690; 83735; 84484; 85007; 85025; 85027; 85379; 93005; 93306; 93641; 93798; 93880; A4216; C1722; C1777; J1650; J2001; J2704; J3490

== ENCOUNTER 2022-04-05 13:10 | Outpatient (CLI) | payer MEDICARE, OTHER ==
[2022-04-05 14:25] LABS: Mean Corpuscular HGB CONC 32.6 g/dL (32.0-36.0); Mean Corpuscular Hemoglobin 28.8 pg (27.0-33.0); Mean Corpuscular Volume 88.5 fl (81.2-95.1); Mean Platelet Volume 11.5 fl (7.4-10.4); Platelet Count 158 10x3/uL (150-450); RBC Distribution Width 14.6 % (11.5-14.5); Red Blood Cell (RBC) Count 4.16 10x6/uL (4.32-5.72); White Blood Cell (WBC) Count 5.6 10x3/uL (3.5-10.5)
[2022-04-05 14:49] LABS: Anion Gap 16 mmol/L (10-20); BUN (Urea Nitrogen) 25 mg/dL (8.4-25.7); Calc. Creatinine Clearance 0 mL/min (70-130); Carbon Dioxide 23 mmol/L (23-31); Chloride 107 mmol/L (98-107); Estimated GFR 45; Glucose 108 mg/dL (83-110); Potassium 3.6 mmol/L (3.5-5.1); Sodium 142 mmol/L (136-145)
[2022-04-05 14:50] LABS: INR-International Normal Ratio 1.2; PTT 30.4 sec (22.0-33.0); Prothrombin Time 12.8 sec (9.5-12.1)
== END 2022-04-05 13:11 | disposition home or self-care (01) ==
LOC: LABBT 13:10
PROVIDERS: ATTEND Internal Medicine Cardiovascular Disease
DX: Z01.812 Encounter for preprocedural laboratory examination (principal); Z51.81 Encounter for therapeutic drug level monitoring; I50.22 Chronic systolic (congestive) heart failure; Z79.01 Long term (current) use of anticoagulants
CPT/HCPCS: 80048; 85027; 85610; 85730

== ENCOUNTER 2022-04-08 09:39 | Day surgery (SDC) | payer MEDICARE, OTHER ==
[2022-04-05 11:54] VITALS: BMI 26.5
[2022-04-08] MEDS ORDERED: Lidocaine 1% MPF 2 ML VIAL ONE (10:33)
[2022-04-08] MEDS ORDERED: Sodium Chloride 0.9% 100 ML ONE (10:33)
[2022-04-08] MEDS ORDERED: CEFAZOLIN 2 GM VIAL ONE (10:33)
[2022-04-08] MEDS ORDERED: Lidocaine 1% (PF) 30 ML VIAL ONE (13:01)
[2022-04-08] MEDS ORDERED: Gentamicin 80 MG/2 ML VIAL ONE (13:01)
[2022-04-08] MEDS ORDERED: CEFAZOLIN 1 GM VIAL ONE (13:01)
[2022-04-08] MEDS ORDERED: fentaNYL PF 100 MCG/2 ML SYRINGE ONE (14:18)
[2022-04-08] MEDS ORDERED: PHENYLEPHRINE-NS 100 MCG/ML 10 ML SYRINGE ONE (14:18)
[2022-04-08] MEDS ORDERED: Dexmedetomidine 200 MCG/2 ML VIAL ONE (14:18)
[2022-04-08] MEDS ORDERED: Ketamine 50 MG/ML (10ML VIAL) ONE (14:19)
[2022-04-08] MEDS ORDERED: Propofol 1,000 MG/100 ML VIAL IV ONE (14:33)
[2022-04-08] MEDS ORDERED: Dexamethasone 20 MG/5 ML VIAL ONE (14:56)
[2022-04-08] MEDS ORDERED: Ondansetron PF 4 MG/2 ML Vial ONE (14:56)
[2022-04-08] MEDS ORDERED: Cephalexin 250 MG CAP PO SCH (18:45)
== END 2022-04-08 19:50 | disposition home or self-care (01) ==
LOC: SDC 09:39
PROVIDERS: ATTEND Internal Medicine Cardiovascular Disease
PROC: 0JPT0PZ Removal of Cardiac Rhythm Related Device from Trunk Subcutaneous Tissue and Fascia, Open Approach (ICD-10-PCS; principal; 2022-04-08)
PROC: 0JH609Z Insertion of Cardiac Resynchronization Defibrillator Pulse Generator into Chest Subcutaneous Tissue and Fascia, Open Approach (ICD-10-PCS; 2022-04-08)
PROC: 02H43KZ Insertion of Defibrillator Lead into Coronary Vein, Percutaneous Approach (ICD-10-PCS; 2022-04-08)
PROC: 02HL3KZ Insertion of Defibrillator Lead into Left Ventricle, Percutaneous Approach (ICD-10-PCS; 2022-04-08)
DX: I11.0 Hypertensive heart disease with heart failure (principal); I50.23 Acute on chronic systolic (congestive) heart failure; I25.5 Ischemic cardiomyopathy; I47.20 Ventricular tachycardia, unspecified; I44.2 Atrioventricular block, complete; I25.10 Atherosclerotic heart disease of native coronary artery without angina pectoris; E78.5 Hyperlipidemia, unspecified; I73.9 Peripheral vascular disease, unspecified; R56.9 Unspecified convulsions; Z87.891 Personal history of nicotine dependence; Z79.02 Long term (current) use of antithrombotics/antiplatelets; Z79.82 Long term (current) use of aspirin; Z79.84 Long term (current) use of oral hypoglycemic drugs; Z79.899 Other long term (current) drug therapy; Z95.1 Presence of aortocoronary bypass graft
CPT/HCPCS: 71045; C1763; C1769; C1882; C1894; C1898; C1900; J0690; J1100; J1580; J2001; J2405; J2704; J3490